=== PATIENT | male | born 1940 | race Caucasian/White ===

== ENCOUNTER 2020-07-23 16:54 | Inpatient (IN) | payer MEDICARE, OTHER, SELFPAY ==
[2020-07-23] VITALS (26 sets, daily range): BP systolic 99–174; BP diastolic 62–103; PULSE 79–120; RESP 12–30; TEMP 35.6–37.4; O2SAT 86–100; BMI 30.4; BMI 30.6
--- NOTE | 2020-07-23 17:06 | EKG12_ITS ---
Test Reason : Blood Pressure : / mmHG Vent. Rate : 117 BPM Atrial Rate : 117 BPM P-R Int : 152 ms QRS Dur : 146 ms QT Int : 370 ms P-R-T Axes : 036 -43 120 degrees QTc Int : 516 ms Sinus tachycardia with occasional Premature ventricular complexes Left axis deviation Left bundle branch block Abnormal ECG Confirmed by JUANA CABRAL, MARIIA ([id number]), advertising editor MIKE FUNES ([id number]) on 07/25/2020 1:15:24 PM Referred By: DEE Confirmed By:MARIIA ARIAS MD
--- NOTE | 2020-07-23 17:08 | EDS_ITS ---
HPI History of Present Illness Chief Complaint: Shortness of Breath Narrative Narrative: 80-year-old male presenting with shortness of breath, hypoxia, tachycardia. He denies any chest pain. He states that the onset of his shortness of breath started about 11 AM. It has been progressive. He denies any pain anywhere. He is not had a fever or chills. He has had his COVID-19 vaccines and has not been exposed to anybody that has Covid that he knows of. Patient has history of peripheral artery disease, hypertension, hypothyroidism, diabetes, hyperlipidemia. [facility] Medical History (Updated 07/23/20 @ 18:[address] Elise Hairston MD) Benign neoplasm of colon Diabetes HTN (hypertension) Hypothyroidism Mixed hyperlipidemia PAD (peripheral artery disease) Synovial cyst of popliteal space [Andre], left knee Home Medications insulin detemir U-100 32 units SC QHS 10/24/16 [History Last Taken Unknown] levothyroxine 137 mcg PO DAILY 10/24/16 [History Last Taken Unknown] lisinopril 80 mg PO DAILY 10/24/16 [History Last Taken Unknown] metformin 850 mg PO TIDCM 10/24/16 [History Last Taken Unknown] metoprolol tartrate 50 mg PO BID 10/24/16 [History Last Taken Unknown] simvastatin 20 mg PO DAILY 10/24/16 [History Last Taken Unknown] aspirin 325 mg tablet,delayed release 325 mg PO QDAY 05/29/17 [History Last Taken Unknown] multivitamin 1 tab PO QDAY 05/29/17 [History Last Taken Unknown] ferrous sulfate 325 mg PO DAILY 07/23/20 [History Last Taken Unknown] indapamide 2.5 mg PO DAILY 07/23/20 [History Last Taken Unknown] nateglinide 120 mg PO TID 07/23/20 [History Last Taken Unknown] Allergy/AdvReac Type Severity Reaction Status Date / Time naproxen [From Naprosyn] Allergy Other Verified 05/29/17 12:42 venom-honey bee Allergy Anaphylaxis Verified 05/29/17 12:42 Family History (Updated 05/29/17 @ 12:41 by Lety Lechuga) Mother Diabetes Father Heart disease Surgical History S/P appendectomy S/P colonoscopy Social History (Updated 05/29/17 @ 16:[address] Hayden Glaser MD) Smoking Status: Former smoker ROS ROS ED Constitutional Constitutional ED: Denies chills, fever(s) or sweats Eyes Eyes: Denies blurry vision or change in vision ENT ENT ED: Denies ear pain, rhinorrhea or sore throat Cardiovascular Cardiovascular: Denies chest pain, palpitations or racing heartbeat Respiratory/Chest Respiratory/Chest: Reports dyspnea; Denies cough or sputum Gastrointestinal Gastrointestinal: Denies abdominal pain, constipation, diarrhea or vomiting Genitourinary Genitourinary ED: Denies dysuria, hematuria or urinary frequency Musculoskeletal Musculoskeletal: Denies arthralgias, myalgias or neck pain Integumentary Denies abscess, Abrasions or rash Neurologic Neurologic: Reports weakness; Denies headache(s) or paresthesias Psychiatric Psychiatric: Denies anxiety, depression, suicidal ideation or suicidal thoughts Endocrine Endocrinology: Denies polydipsia or polyuria EXAM Physical Exam Const Vital Signs: 07/23/20 16:56 07/23/20 17:00 07/23/20 17:03 Temperature 96.0 F L Temperature Source Temporal Pulse Rate 116 H 108 H 120 H Respiratory Rate 30 H 30 H 30 H Respiratory Effort Respiratory Depth Respiratory Pattern Tachypnea Blood Pressure 174/103 H Blood Pressure Mean 126 Pulse Ox 86 100 95 Oxygen Delivery Method Non-Rebreather Non-Rebreather Fraction of Inspired Oxygen (FIO2) 100 100 100 07/23/20 17:04 07/23/20 17:13 07/23/20 17:17 Temperature 96.0 F L Temperature Source Temporal Pulse Rate 107 H Respiratory Rate 29 H Respiratory Effort Short of Breath Labored Accessory Muscle Use Respiratory Depth Deep Respiratory Pattern Tachypnea Blood Pressure 146/87 H Blood Pressure Mean 106 Pulse Ox 95 99 Oxygen Delivery Method Bi-pap Bi-pap Bi-pap Fraction of Inspired Oxygen (FIO2) 100 100 100 07/23/20 17:22 07/23/20 17:45 07/23/20 17:51 Temperature 96.1 F L 96.5 F L 98.0 F Temperature Source Temporal Core Core Pulse Rate 105 H 98 Respiratory Rate 29 H 25 H Respiratory Effort Respiratory Depth Respiratory Pattern Blood Pressure 146/87 H 137/76 H Blood Pressure Mean 106 96 Pulse Ox 100 100 Oxygen Delivery Method Bi-pap Bi-pap Fraction of Inspired Oxygen (FIO2) 100 100 07/23/20 18:30 07/23/20 18:32 07/23/20 18:33 Temperature 98.9 F 98.9 F 98.9 F Temperature Source Core Core Core Pulse Rate 101 H 97 97 Respiratory Rate 26 H 24 H 22 H Respiratory Effort Respiratory Depth Respiratory Pattern Blood Pressure 124/82 H 124/82 H 124/82 H Blood Pressure Mean 96 96 96 Pulse Ox 100 100 100 Oxygen Delivery Method Bi-pap Bi-pap Bi-pap Fraction of Inspired Oxygen (FIO2) 80 80 80 Positive obese General Appearance ED: other Hypoxic and tachypneic as well as tachycardic. Appears to be in respiratory distress. Nutritional Appearance: obese HEENT Reports moist mucous membranes atraumatic Eyes PERRL and EOMs intact bilaterally Neck no lymphadenopathy and supple Resp Effort and Inspection: Negative for pain with movement Auscultation: diminished lung sounds Cardio regular rate and regular rhythm GI Inspection: other Other Details: Distended abdomen Palpation: Negative for tender or guarding Extremity normal to inspection General Extremety ED: Negative for edema or tenderness General Extremity: Negative for edema Neuro oriented x3 Sensorium / Orientation: alert Skin Lesions: no lesions Rashes: no rashes MDM MDM MDM Narrative Medical decision making narrative: Patient seen and evaluated on arrival and appear to be in respiratory distress. Respiratory therapy was called and patient was placed on BiPAP. He feels like he is improving on BiPAP and he is mentating well. Patient had EKG which did have a lot of artifact however there does not appear to be any acute ST elevations or depressions and appears to be a sinus rhythm as interpreted by myself. Patient reevaluated multiple times and continues to improve on BiPAP. He states that the shortness of breath just started while he was driving today. He and his state that at sometime in the past few years he had had an echocardiogram which showed some kind of valve problem. He states that he has not been treated for anything cardiac in nature and does not have a safety aide. Patient's blood work shows a white blood cell count of 16,000, hemoglobin 14.8, hematocrit 45.0, platelets 393. INR is 1.0 PT 12.9 PTT 25.8. D-dimer is elevated at 2.59. Patient's creatinine is elevated over previously 1.59. GFR slightly decreased. Glucose 228 without anion gap. AST shows slight elevation however elevated LFTs are normal. Troponin is 10.100 TSH 2.48. BNP is over 500. UTI consistent with urinary tract infection. Patient was discussed with Dr. Irizarry who recommended twice daily weight based Lovenox, 40 mg of Lasix, and to start Coreg 3.125 twice daily in the hospital. Current plan is for cardiac catheterization. Secondary EKG performed shows sinus rhythm with sinus arrhythmia and left bundle branch block there with ST depressions in V5, V6, lead II T wave inversions in leads I and aVL. There is no ST elevation. This EKG is also reviewed with Dr. Irizarry. Patient is not having any chest pain on reevaluation. It was noted that the patient had hematuria and he states that he has this from time to time. Chest x-ray as interpreted by myself shows concerning signs for pneumonia and right upper lobe consolidation as well as bilateral infiltrate. Radiology does agree. Rapid Covid is negative and patient has been vaccinated. Given patient's elevated D- dimer he did have CT of the chest which does not identify PEs or dissection but does note bilateral pleural effusions and groundglass opacities as well as right upper lobe infiltrate. BNP is elevated over 500 and the patient is normotensive with improved heart rate. For this reason patient was not given more IV fluids. Patient started on Rocephin and azithromycin in the ED for treatment of pneumonia as well as UTI. Patient was then discussed with the hospitalist who did agree not to give more IV fluids given the pleural effusions and elevated BNP. She will get these as needed. Patient will be admitted to the ICU. He is transported in stabilized condition. Impression: 1. Hypoxic respiratory failure 2. NSTEMI 3. UTI 4. Severe sepsis 5. Hematuria . Lab Data Attestation: I reviewed the patient's lab results. Labs: Laboratory Results - last 24 hr 07/23/20 07/23/20 07/23/20 17:05 17:05 17:05 WBC 16.0 H RBC 4.31 L Hgb 14.8 Hct 45.0 MCV 104.4 H MCH 34.3 H MCHC 32.9 RDW Std Deviation 49.0 H RDW Coeff of Chip 12.7 Plt Count 393 MPV 9.1 Immature Gran % (Auto) 0.500 Neut % (Auto) 79.3 H Lymph % (Auto) 14.3 L [place] % (Auto) 5.6 Eos % (Auto) 0.1 Baso % (Auto) 0.2 Absolute Neuts (auto) 12.7 H Absolute Lymphs (auto) 2.29 Nucleated RBC % 0 PT 12.9 INR 1.0 APTT 25.8 D-Dimer Quant (PE/DVT) 2.59 H* Sodium 138 Potassium 4.4 Chloride 101 Carbon Dioxide 27.0 Anion Gap 10 BUN 22 H Creatinine 1.59 H Estim Creat Clear Calc 40.12 Est GFR (MDRD) Af Amer 54 L Est GFR (MDRD) Non-Af 45 L BUN/Creatinine Ratio 13.8 Glucose 228 H Lactic Acid Calcium 9.1 Total Bilirubin 0.40 AST 79 H ALT 28 Alkaline Phosphatase 82 Troponin I 10.100 H* B-Natriuretic Peptide Total Protein 7.6 Albumin 3.8 Globulin 3.8 Albumin/Globulin Ratio 1.0 TSH 2.48 Urine Color Urine Clarity Urine pH Ur Specific [place] Urine Protein Urine Glucose (UA) Urine Ketones Urine Occult Blood Urine Nitrite Urine Bilirubin Urine Urobilinogen Ur Leukocyte Esterase Urine RBC Urine WBC Ur Squamous Epith Cells Urine Bacteria Urine Mucus 07/23/20 07/23/20 07/23/20 17:05 17:05 17:45 WBC RBC Hgb Hct MCV MCH MCHC RDW Std Deviation RDW Coeff of Chip Plt Count MPV Immature Gran % (Auto) Neut % (Auto) Lymph % (Auto) [place] % (Auto) Eos % (Auto) Baso % (Auto) Absolute Neuts (auto) Absolute Lymphs (auto) Nucleated RBC % PT INR APTT D-Dimer Quant (PE/DVT) Sodium Potassium Chloride Carbon Dioxide Anion Gap BUN Creatinine Estim Creat Clear Calc Est GFR (MDRD) Af Amer Est GFR (MDRD) Non-Af BUN/Creatinine Ratio Glucose Lactic Acid 5.5 H* Calcium Total Bilirubin AST ALT Alkaline Phosphatase Troponin I B-Natriuretic Peptide 506.4 H Total Protein Albumin Globulin Albumin/Globulin Ratio TSH Urine Color Valerie Urine Clarity Cloudy Urine pH 5.0 Ur Specific [place] 1.025 Urine Protein 100 H Urine Glucose (UA) Normal Urine Ketones 5 H Urine Occult Blood 250 H Urine Nitrite Positive H Urine Bilirubin Negative Urine Urobilinogen 1 H Ur Leukocyte Esterase 100 H Urine RBC > 100 SEEN Urine WBC 0-5 SEEN Ur Squamous Epith Cells 0-5 SEEN Urine Bacteria 1+ Urine Mucus 0 SEEN Radiography Diagnostic Testing: Radiology Impression Chest X-Ray 07/23/20 17:26 IMPRESSION: Extensive bilateral airspace disease with right upper lobe consolidation. Findings suspicious for pneumonia including atypical or viral pneumonias. Recommend follow-up to complete resolution. at 1805 Reported and signed by: Kofi Dee MD Electronically Signed: Kofi Dee MD at 18:04 EDT Tel , Service support , Chest CTA 07/23/20 17:44 IMPRESSION: Negative CTA Chest. Extensive bilateral airspace disease pleural effusions and right upper lobe consolidation. Findings consistent with infection. Atypical and viral infection should be considered. Individualized dose optimization techniques were used for this CT. at 1855 Reported and signed by: Kofi Dee MD Electronically Signed: Kofi Dee MD at 18:54 EDT Tel , Service support , Critical Care Time Critical care time (excluding procedures): 75-104 minutes, Discussing w/Patient &/or Family/Manager Performance, Discussing w/Consultants, Arranging Admission or Transfer and Performing Direct Patient Care at Bedside Discharge Plan Disposition Disposition: Acute Care Hospital [facility] Discharge Date/Time: 07/23/20 18:58
--- NOTE | 2020-07-23 17:09 | NURSING ---
NO OLD EKG
--- NOTE | 2020-07-23 17:25 | EKG12_ITS ---
Test Reason : Blood Pressure : / mmHG Vent. Rate : 096 BPM Atrial Rate : 096 BPM P-R Int : 176 ms QRS Dur : 132 ms QT Int : 370 ms P-R-T Axes : 039 -47 137 degrees QTc Int : 467 ms Normal sinus rhythm with sinus arrhythmia Left axis deviation Left bundle branch block Abnormal ECG Confirmed by JUANA CABRAL, MARIIA ([id number]), production editor MIKE FUNES ([id number]) on 07/25/2020 1:15:39 PM Referred By: DEE Confirmed By:MARIIA ARIAS MD
[2020-07-23 17:26] LABS: Absolute Lymphocyte Count 2.29 X10^3/uL (0.83-4.51); Absolute Neutrophil Count 12.7 X10^3/uL (2.0-7.7); Basophil# 0.03 X10^3/uL; Basophil% 0.2 % (0-1); Eosinophil# 0.01 X10^3/uL; Eosinophils% 0.1 % (0-5); Hemoglobin 14.8 g/dL (13.0-16.5); Lymphocyte # 2.29 X10^3/ul (0.83-4.51); Lymphocyte % 14.3 % (19-41); Mean Corp Hgb Conc 32.9 g/dL (32-36); Mean Corpuscular Hgb 34.3 pg (27.0-32.0); Mean Corpuscular Volume 104.4 fL (80-94); Mean Platelet Vol. 9.1 fl (6.2-12.0); Monocyte# 0.89 X10^3/uL; Monocyte% 5.6 % (0-10); NRBC Flagged by Analyzer 0 % (0-5); Neutrophil # 12.67 X10^3/uL (2.7-7.7); Neutrophil % 79.3 % (47-70); Platelet Count 393 K/mm3 (150-450); RBC Distribution Width CV 12.7 % (11.6-14.6); Red Blood Count 4.31 M/mm3 (4.6-6.2)
--- NOTE | 2020-07-23 17:26 | RAD_ITS ---
HISTORY: shortness of breath EXAMINATION/TECHNIQUE: XR Chest 1 View: Portable upright AP chest x-ray COMPARISON: None FINDINGS: LINES/DEVICES: None. LUNGS: Extensive bilateral airspace opacities with right upper lung field consolidation. No definite pleural effusion. MEDIASTINUM AND CARDIOVASCULAR STRUCTURES: Cardiac silhouette not enlarged. Central airways and mediastinal contour are unremarkable. BONES AND SOFT TISSUES: No acute bony abnormalities. RAD/Chest 1 View (Portable) IMPRESSION: Extensive bilateral airspace disease with right upper lobe consolidation. Findings suspicious for pneumonia including atypical or viral pneumonias. Recommend follow-up to complete resolution. at 1805 Reported and signed by: Kofi Dee MD Electronically Signed: Kofi Dee MD at 18:04 EDT Tel , Service support ,
[2020-07-23 17:38] LABS: Partial Thromboplast Time 25.8 Seconds (24.1-36.2); Prothrombin Time (Protime)PT. 12.9 SECONDS (11.7-14.9)
[2020-07-23 17:44] LABS: D-Dimer Quantitative (DVT/PE) 2.59 FEU/ug/m (0.27-0.49)
--- NOTE | 2020-07-23 17:44 | CT_ITS ---
HISTORY: dyspnea EXAMINATION: CTA Chest WO/W Contrast Injection TECHNIQUE: Helically acquired images were obtained of the chest following IV contrast as per pulmonary angiogram protocol with 3D reconstructions. A radiation dose optimization technique was used for this scan. IV Contrast dosage and agent: 100mL [id number] COMPARISON: None FINDINGS: LUNGS, PLEURA AND LARGE AIRWAYS: Bilateral pleural effusions with extensive bilateral groundglass opacities and focal consolidations with large consolidation right upper lobe. THYROID: No thyroid lesions. PULMONARY ARTERIES: Normal in caliber. No pulmonary embolism. AORTA AND GREAT VESSELS: No aneurysm or dissection. HEART AND PERICARDIUM: Heart size is normal. No pericardial effusion. MEDIASTINUM AND ANISA: No mediastinal or hilar adenopathy. Esophagus is unremarkable. No hiatal hernia. UPPER ABDOMEN: No acute pathology. BONES: No acute or aggressive abnormality. CT/CTA Chest W/WO Contrast IMPRESSION: Negative CTA Chest. Extensive bilateral airspace disease pleural effusions and right upper lobe consolidation. Findings consistent with infection. Atypical and viral infection should be considered. Individualized dose optimization techniques were used for this CT. at 1855 Reported and signed by: Kofi Dee MD Electronically Signed: Kofi Dee MD at 18:54 EDT Tel , Service support ,
--- NOTE | 2020-07-23 17:44 | NURSING ---
dr aware d dimer 2.59
[2020-07-23 17:46] LABS: Mucous, Urine 0 SEEN /hpf (<or=2+)
[2020-07-23 17:52] LABS: Color, Urine Amber (Yellow); Glucose, Dipstick Normal (Normal); Ketone-Dipstick 5 mg/dl (Negative); Leukocyte Esterase-Dipstick 100 /ul (Negative); Nitrite-Dipstick Positive (Negative); Occult Blood-Urine 250 /ul (Negative); Protein-Dipstick 100 mg/dl (Negative); Specific Gravity, Urine 1.025 (1.002-1.030); Urine Bilirubin Dipstick Negative (Negative); Urine Clarity Cloudy (Clear); Urine Urobilinogen 1 mg/dl (Normal)
[2020-07-23 17:55] LABS: AST(SGOT) 79 U/L (15-37); Alanine Aminotransfer ALT/SGPT 28 U/L (16-61); Albumin, Serum 3.8 g/dL (3.2-5.0); Alkaline Phosphatase 82 U/L (45-117); Anion Gap 10 (5-15); BUN 22 mg/dL (7-18); BUN/Creat Ratio 13.8 RATIO (10-20); Calcium,Total 9.1 mg/dL (8.5-10.1); Chloride 101 mmol/L (98-107); Creatinine, Serum 1.59 mg/dL (0.70-1.30); EST Glomerular Filtration Rate 45 mL/min (>60); Est Glom Filt Rate - Afr Amer 54 mL/min (>60); Estimated Creatinine Clearance 40.12 ml/min; Globulin 3.8 g/dL (2.2-4.2); Glucose 228 mg/dL (74-106); Potassium 4.4 mmol/L (3.5-5.1); Protein, Total 7.6 g/dL (6.4-8.2); Sodium Level 138 mmol/L (136-145); Thyroid Stim Hormone (TSH) 2.48 uIU/mL (0.358-3.74)
[2020-07-23 17:59] LABS: Red Blood Cells-Urine > 100 SEEN /hpf (0-5); Squamous Epithelial Cells - UA 0-5 SEEN /hpf (0-5)
[2020-07-23 18:00] LABS: Bacteria 1+ /hpf (None Seen); White Blood Cells 0-5 SEEN /hpf (0-5)
[2020-07-23 18:05] LABS: Lactic Acid 5.5 mmol/L (0.4-1.9)
[2020-07-23 18:06] LABS: BNP,B-Type NATRIURETIC PEPTIDE 506.4 pg/mL (0-100)
[2020-07-23] MEDS: Aspirin 81 MG TAB.CHEW 324 MG PO (18:22)
[2020-07-23] MEDS: Furosemide 40 MG/4 ML Vial IV (18:25)
[2020-07-23] MEDS: Enoxaparin 100 MG/ML Syringe SC (18:25)
--- NOTE | 2020-07-23 18:27 | HP.PCM.HOS_ITS ---
HPI - General HPI Narrative ANTONIETA OSMAN, is a 80 M with an extensive PMH as outlined who presents with a complaint of shortness of breath. Shortness of breath had progressively been getting worse. Symptoms started at ~ 11am in the morning; he denied any associated fever, chills, cough, chest pain, nausea or vomiting. HE denies any chest pain. He was initially on oxygen by nasal canula, but he wasnt doing well, so he was trnasitioned to BIPAP. EKG showed T wave inversions in V4-5, as well as the lateral leads and a left bundle branch block. CXR showed extensive bilateral airspace disease. COVID test was negative. CBC showed wbc of 16K, with Hb of 13.8, and platelets of 393. Troponin was 10, and lactic acid was 5.5. D dimer was 2.59, and Cr was 1.59 and lactic acid of 5.5. UA was also positive for UTI with positive nitrites. BNP was 506.4. He is being admitted to be managed for nonstemi, UTI, septic shock per lactic acid criteria, and acute hypoxic respiratory failure due to nonstemi and heart failure. [facility] Medical History (Updated 07/23/20 @ 18:[address] Elise Hairston MD) Benign neoplasm of colon Diabetes HTN (hypertension) Hypothyroidism Mixed hyperlipidemia PAD (peripheral artery disease) Synovial cyst of popliteal space [Andre], left knee Home Medications insulin detemir U-100 32 units SC QHS 10/24/16 [History Last Taken Unknown] levothyroxine 137 mcg PO DAILY 10/24/16 [History Last Taken Unknown] lisinopril 80 mg PO DAILY 10/24/16 [History Last Taken Unknown] metformin 850 mg PO TIDCM 10/24/16 [History Last Taken Unknown] metoprolol tartrate 50 mg PO BID 10/24/16 [History Last Taken Unknown] simvastatin 20 mg PO DAILY 10/24/16 [History Last Taken Unknown] aspirin 325 mg tablet,delayed release 325 mg PO QDAY 05/29/17 [History Last Taken Unknown] multivitamin 1 tab PO QDAY 05/29/17 [History Last Taken Unknown] ferrous sulfate 325 mg PO DAILY 07/23/20 [History Last Taken Unknown] indapamide 2.5 mg PO DAILY 07/23/20 [History Last Taken Unknown] nateglinide 120 mg PO TID 07/23/20 [History Last Taken Unknown] Allergy/AdvReac Type Severity Reaction Status Date / Time naproxen [From Naprosyn] Allergy Other Verified 05/29/17 12:42 venom-honey bee Allergy Anaphylaxis Verified 05/29/17 12:42 Family History (Updated 05/29/17 @ 12:41 by Lety Lechuga) Mother Diabetes Father Heart disease Surgical History S/P appendectomy S/P colonoscopy Social History (Updated 05/29/17 @ 16:[address] Hayden Glaser MD) Smoking Status: Former smoker ROS Constitutional Constitutional: Denies anorexia, chills, fatigue, fever(s), malaise, night sweats or weakness Eyes Eyes: Denies double vision ENT HEENT: Denies abnormal hearing, dysphagia, headache(s) or sore throat Cardiovascular Cardiovascular: Reports dyspnea on exertion, palpitations and rapid heart rate; Denies chest pain, orthopnea, paroxysmal nocturnal dyspnea or syncope Respiratory/Chest Respiratory/Chest: Reports dyspnea, shortness of breath at rest and shortness of breath with exertion; Denies cough, hemoptysis or productive cough Gastrointestinal Gastrointestinal: Reports nausea and vomiting; Denies abdominal pain, coffee ground emesis, dyspepsia, hematemesis or loose stools Genitourinary Genitourinary: Reports difficulty urinating and hematuria; Denies burning urination Musculoskeletal Musculoskeletal: Denies arthralgias Neurologic Neurologic: Denies abnormal gait, dizziness, focal weakness, numbness, paresthesias or seizure-like activity Psychiatric Psychiatric: Denies anxiety, depression or suicidal ideation Endocrine Endocrinology: Denies change in body appearance or cold intolerance Hematologic/Lymphatic Hematologic/Lymphatic: Reports anemia Vital Signs Vital Signs Vital Signs: 07/23/20 16:56 07/23/20 17:00 07/23/20 17:03 Temperature 96.0 F L Temperature Source Temporal Pulse Rate 116 H 108 H 120 H Respiratory Rate 30 H 30 H 30 H Respiratory Effort Respiratory Depth Respiratory Pattern Tachypnea Blood Pressure 174/103 H Blood Pressure Mean 126 Pulse Ox 86 100 95 Oxygen Delivery Method Non-Rebreather Non-Rebreather Fraction of Inspired Oxygen (FIO2) 100 100 100 07/23/20 17:04 07/23/20 17:13 07/23/20 17:17 Temperature 96.0 F L Temperature Source Temporal Pulse Rate 107 H Respiratory Rate 29 H Respiratory Effort Short of Breath Labored Accessory Muscle Use Respiratory Depth Deep Respiratory Pattern Tachypnea Blood Pressure 146/87 H Blood Pressure Mean 106 Pulse Ox 95 99 Oxygen Delivery Method Bi-pap Bi-pap Bi-pap Fraction of Inspired Oxygen (FIO2) 100 100 100 07/23/20 17:22 07/23/20 17:45 07/23/20 17:51 Temperature 96.1 F L 96.5 F L 98.0 F Temperature Source Temporal Core Core Pulse Rate 105 H 98 Respiratory Rate 29 H 25 H Respiratory Effort Respiratory Depth Respiratory Pattern Blood Pressure 146/87 H 137/76 H Blood Pressure Mean 106 96 Pulse Ox 100 100 Oxygen Delivery Method Bi-pap Bi-pap Fraction of Inspired Oxygen (FIO2) 100 100 Physical Exam Const alert General Appearance: cooperative HEENT normocephalic, head/scalp atraumatic, hearing grossly normal bilaterally and moist oral mucous membranes Eyes PERRL and EOMs intact bilaterally Neck no lymphadenopathy and supple Resp Resp Narrative: diminished breath sounds bibasally, mild crackles bilaterally. No wheezes. on BIPAP Cardio regular rate, regular rhythm, S1 normal heart sound, S2 normal heart sound and no murmurs GI normal to inspection, nondistended, normoactive bowel sounds, soft to palpation, non-tender and non-distended Extremity normal to inspection, full ROM and no clubbing, cyanosis or edema Skin no rashes or lesions noted Neuro oriented x3 and moves all extremities Sensorium / Orientation: awake Psych affect normal Lab / Micro Data Result Diagrams: 07/23/20 17:05 07/23/20 17:05 Labs: Laboratory Results - last 24 hr 07/23/20 07/23/20 07/23/20 17:05 17:05 17:05 WBC 16.0 H RBC 4.31 L Hgb 14.8 Hct 45.0 MCV 104.4 H MCH 34.3 H MCHC 32.9 RDW Std Deviation 49.0 H RDW Coeff of Chip 12.7 Plt Count 393 MPV 9.1 Immature Gran % (Auto) 0.500 Neut % (Auto) 79.3 H Lymph % (Auto) 14.3 L Story % (Auto) 5.6 Eos % (Auto) 0.1 Baso % (Auto) 0.2 Absolute Neuts (auto) 12.7 H Absolute Lymphs (auto) 2.29 Nucleated RBC % 0 PT 12.9 INR 1.0 APTT 25.8 D-Dimer Quant (PE/DVT) 2.59 H* Sodium 138 Potassium 4.4 Chloride 101 Carbon Dioxide 27.0 Anion Gap 10 BUN 22 H Creatinine 1.59 H Estim Creat Clear Calc 40.12 Est GFR (MDRD) Af Amer 54 L Est GFR (MDRD) Non-Af 45 L BUN/Creatinine Ratio 13.8 Glucose 228 H Lactic Acid Calcium 9.1 Total Bilirubin 0.40 AST 79 H ALT 28 Alkaline Phosphatase 82 Troponin I 10.100 H* B-Natriuretic Peptide Total Protein 7.6 Albumin 3.8 Globulin 3.8 Albumin/Globulin Ratio 1.0 TSH 2.48 Urine Color Urine Clarity Urine pH Ur Specific [place] Urine Protein Urine Glucose (UA) Urine Ketones Urine Occult Blood Urine Nitrite Urine Bilirubin Urine Urobilinogen Ur Leukocyte Esterase Urine RBC Urine WBC Ur Squamous Epith Cells Urine Bacteria Urine Mucus 07/23/20 07/23/20 07/23/20 17:05 17:05 17:45 WBC RBC Hgb Hct MCV MCH MCHC RDW Std Deviation RDW Coeff of Chip Plt Count MPV Immature Gran % (Auto) Neut % (Auto) Lymph % (Auto) Story % (Auto) Eos % (Auto) Baso % (Auto) Absolute Neuts (auto) Absolute Lymphs (auto) Nucleated RBC % PT INR APTT D-Dimer Quant (PE/DVT) Sodium Potassium Chloride Carbon Dioxide Anion Gap BUN Creatinine Estim Creat Clear Calc Est GFR (MDRD) Af Amer Est GFR (MDRD) Non-Af BUN/Creatinine Ratio Glucose Lactic Acid 5.5 H* Calcium Total Bilirubin AST ALT Alkaline Phosphatase Troponin I B-Natriuretic Peptide 506.4 H Total Protein Albumin Globulin Albumin/Globulin Ratio TSH Urine Color Valerie Urine Clarity Cloudy Urine pH 5.0 Ur Specific [place] 1.025 Urine Protein 100 H Urine Glucose (UA) Normal Urine Ketones 5 H Urine Occult Blood 250 H Urine Nitrite Positive H Urine Bilirubin Negative Urine Urobilinogen 1 H Ur Leukocyte Esterase 100 H Urine RBC > 100 SEEN Urine WBC 0-5 SEEN Ur Squamous Epith Cells 0-5 SEEN Urine Bacteria 1+ Urine Mucus 0 SEEN Micro: Microbiology 07/23/20 17:15 SARS-CoV-2 Antigen (Rapid) - Final Nasal Secretion Radiology Impression Chest X-Ray 07/23/20 17:26 IMPRESSION: Extensive bilateral airspace disease with right upper lobe consolidation. Findings suspicious for pneumonia including atypical or viral pneumonias. Recommend follow-up to complete resolution. at 1805 Reported and signed by: Kofi Dee MD Electronically Signed: Kofi Dee MD at 18:04 EDT Tel , Service support , Assessment & Plan Assessment/Plan (1) Acute respiratory failure with hypoxia: (2) Pneumonia: (3) Septic shock: (4) NSTEMI, initial episode of care: (5) Lactic acidosis: (6) UTI (urinary tract infection): (7) Hematuria: PLAN: #Acute hypoxic respiratory failure due to non-STEMI and heart failure as well as pneumonia * Admit to ICU. Patient currently on BiPAP. * Chest x-ray showed evidence of bilateral pneumonia and troponin was elevated at 10. CTA is pending. * BNP elevated at over 500. * Start on IV vancomycin and Zosyn. Get blood cultures and urine cultures as well as urine for strep and Legionella * Will hold off on hydrating with IV fluids on account of non-STEMI and heart failure. * Monitor blood pressure and if it drops, will start vasopressors as needed. * Breathing treatments with bronchodilators. * Therapeutic Lovenox on account of non-STEMI * Diuresed with IV Lasix 40 mg twice daily for heart failure * Titrate oxygen to maintain saturation above 90% * Consult critical care and consult cardiology * #Non-STEMI: As above. 2D echo. Rest of management as above #Septic shock due to pneumonia and UTI * This is by lactic acid criteria as lactic acid is 4.5. However I think the lactic acidosis is likely due to patient's hypoxia and unnecessarily from septic shock * On IV ceftriaxone and azithromycin as above. * Blood cultures and urine cultures obtained. trend lactic acid * * #Community-acquired pneumonia: * As above under respiratory failure. * Patient has received both Covid doses. On vancomycin and Zosyn labs above. * #UTI: Started on broad-spectrum antimicrobials as above #Hematuria * Patient complains of a few episodes of blood in his urine. He last saw blood in his urine a few days ago. * He denies any prostate problems. This may be due to UTI but cannot rule out prostate causes check TSH. * Currently on Lovenox. Will monitor for worsening hematuria and DC if needed. * #. Hypothyroidism: On Synthroid #Hypertension: On lisinopril and metoprolol. Hold blood pressure medications for now in light of septic shock respiratory failure #Type 2 diabetes mellitus: * Hold Metformin. * Patient currently n.p.o. on account of BiPAP. * Also hold home insulin. * Insulin sliding scale. Accuchecks ACHS. * * Hyperlipidemia: On statin. This will be held as patient is n.p.o. DVT prophylaxis: On therapeutic dose Lovenox GI prophylaxis: PPI COde status: full code * Patient and counseled about different between full code, DNR CCA and DNR CCA. Patient elects to be full code. Total [id number] time 17 minutes * Total critical care time 55 minutes. Visit Charges Inpatient E&M: 58498 Init Hosp L3 Procedures Hospitalists Procedures: 82722 Critial Care 1st Hr (advanced care planning discussion- [id number])
[2020-07-23] MEDS: Ceftriaxone 1 GM/50 ML BAG IV (18:49)
[2020-07-23] MEDS: Atorvastatin Calcium 40 MG Tablet PO (20:39)
[2020-07-23] MEDS: Clopidogrel Bisulfate 75 MG Tablet PO (20:39)
[2020-07-23] MEDS: Carvedilol 3.125 MG TABLET PO (20:47)
[2020-07-23 20:51] LABS: Reflex Lactate? Y
[2020-07-23 21:27] LABS: Lactic Acid 2.5 mmol/L (0.4-1.9)
--- NOTE | 2020-07-23 22:54 | PCM.RX.CS ---
Consult Pharmacy has been consulted to manage selected antiobiotic: Vancomycin Type of Consult: New start Labs: Sodium 138 mmol/L (136-145) 07/23/20 17:05 Potassium 4.4 mmol/L (3.5-5.1) 07/23/20 17:05 Chloride 101 mmol/L (98-107) 07/23/20 17:05 Carbon Dioxide 27.0 mmol/L (21.0-32.0) 07/23/20 17:05 Anion Gap 10 (5-15) 07/23/20 17:05 BUN 22 mg/dL (7-18) H 07/23/20 17:05 Creatinine 1.59 mg/dL (0.70-1.30) H 07/23/20 17:05 Est GFR (MDRD) Af Amer 54 mL/min (>60) L 07/23/20 17:05 Est GFR (MDRD) Non-Af 45 mL/min (>60) L 07/23/20 17:05 BUN/Creatinine Ratio 13.8 RATIO (10-20) 07/23/20 17:05 Glucose 228 mg/dL (74-106) H 07/23/20 17:05 Microbiology: Microbiology 07/23/20 17:41 Urine Catheter - Catheter Streptococcus pneumoniae Antigen (M - Final 07/23/20 17:41 Urine Catheter - Gayle Legionella Antigen - Final 07/23/20 17:15 Nasal Secretion SARS-CoV-2 Antigen (Rapid) - Final Weight used for dosin kg Estimated Creatinine Clearance: 39 Goal Trough: 15-20 mcg/mL Pharmacy Plan for Drug Dosinmg given x1, 1500mg IV q24h with trough prior to 3rd dose per policy. Pharmacy Service will continue to monitor and adjust dosing as required. Follow-Up Labs: Trough Vancomycin - 07/25 @ 2029
[2020-07-24] VITALS (19 sets, daily range): BP systolic 96–133; BP diastolic 56–72; PULSE 76–99; RESP 12–27; TEMP 36.9–37.7; O2SAT 20–100
[2020-07-24 00:26] LABS: Bedside Glucose 185 mg/dL (70-110)
[2020-07-24 00:54] LABS: Reflex Lactate? Y
[2020-07-24] MEDS: 0.9% Saline Lock 10 ML Syringe IV (01:06)
[2020-07-24 01:18] LABS: Lactic Acid 1.3 mmol/L (0.4-1.9)
[2020-07-24 05:27] LABS: Absolute Lymphocyte Count 1.49 X10^3/uL (0.83-4.51); Absolute Neutrophil Count 5.1 X10^3/uL (2.0-7.7); Basophil# 0.01 X10^3/uL; Basophil% 0.1 % (0-1); Eosinophil# 0.02 X10^3/uL; Eosinophils% 0.3 % (0-5); Hematocrit 34.2 % (40-54); Hemoglobin 11.5 g/dL (13.0-16.5); Lymphocyte # 1.49 X10^3/ul (0.83-4.51); Mean Corp Hgb Conc 33.6 g/dL (32-36); Mean Corpuscular Hgb 34.6 pg (27.0-32.0); Mean Platelet Vol. 8.8 fl (6.2-12.0); Monocyte# 0.85 X10^3/uL; Monocyte% 11.4 % (0-10); NRBC Flagged by Analyzer 0 % (0-5); Neutrophil # 5.06 X10^3/uL (2.7-7.7); Neutrophil % 68.1 % (47-70); Platelet Count 256 K/mm3 (150-450); RBC Distribution Width CV 12.7 % (11.6-14.6); RBC Distribution Width SD 47.8 fl (35.1-43.9); Red Blood Count 3.32 M/mm3 (4.6-6.2); White Blood Count 7.4 K/mm3 (4.4-11.0)
[2020-07-24 05:42] LABS: Anion Gap 6 (5-15); BUN 25 mg/dL (7-18); BUN/Creat Ratio 19.2 RATIO (10-20); Calcium,Total 8.6 mg/dL (8.5-10.1); Chloride 102 mmol/L (98-107); EST Glomerular Filtration Rate 57 mL/min (>60); Est Glom Filt Rate - Afr Amer 68 mL/min (>60); Estimated Creatinine Clearance 47.57 ml/min; Glucose 192 mg/dL (74-106); Magnesium 1.7 mg/dL (1.6-2.6); Potassium 3.8 mmol/L (3.5-5.1); Sodium Level 139 mmol/L (136-145)
--- NOTE | 2020-07-24 05:57 | EX.PCM.CONCC ---
Assessment & Plan Assessment/Plan (1) Acute respiratory failure with hypoxia: (2) NSTEMI, initial episode of care: (3) Lactic acidosis: (4) Pneumonia: PLAN: RECOMMENDATIONS: 1. Wean supplemental oxygen to maintain saturations at or above 90%. 2. Continue empiric antimicrobials, pending infectious work-up. 3. Trend troponins and await echocardiogram. 4. Cardiology consultation is pending. 5. Continue IV diuretic therapy as tolerated by hemodynamics and renal function. 6. Encourage incentive spirometer use and mobilize patient as tolerated. 7. Unless there are plans for cardiac intervention, the patient be transferred out of the medical intensive care unit. IMPRESSIONS: 1. Acute hypoxemic respiratory failure Likely multifactorial in etiology with NSTEMI/acute decompensated heart failure likely the main contributing factor along with possible right upper lobe pneumonia. Given that the patient has responded so avidly to IV diuretic therapy and BiPAP, this would certainly suggest the presence of pulmonary edema from CHF. The patient has been weaned to supplemental oxygen at 3 L/min. The patient's troponin has increased to 56 this morning. Cardiology has been consulted. Echocardiogram is pending. I agree with continuing antimicrobials for now, pending infectious work-up. Continue IV diuretic therapy as tolerated by hemodynamics and renal function. Continue to wean supplemental oxygen to maintain saturations at or above 90%. Encourage incentive spirometer use and mobilize patient as tolerated. 2. Septic shock (by lactate criteria) The patient does have what appears to be a right upper lobe consolidation concerning for pneumonia. Although the patient did have a significantly elevated lactate, I do suspect this was more likely due to his presenting hypoxemia, as the patient was never hemodynamically unstable. Regardless, the patient will be continued on antimicrobials, pending infectious work-up. 3. Non-ST segment elevation [place]/decompensated heart failure The patient's troponin has continued to climb to 56 this morning. He denies any chest pain. Echocardiogram is pending. Cardiology has been consulted. Will defer additional work-up to cardiology recommendations. 4. History of diabetes mellitus/hypertension/hypothyroidism/hyperlipidemia Complicates care, management, recovery and prognosis. Continue home medications as indicated. This note was generated with [employer] software. It may contain incorrect words, spelling, and punctuation that were not noted in checking the note before signing. HPI Consult Data Date of Consult: 07/24/20 HPI Narrative Reason for Consultation: Acute hypoxemic respiratory failure HPI Narrative: The patient is a 80-year-old male, with a history as outlined below, who presented to the emergency department on July 23 with complaints of shortness of breath. The patient reported that his dyspnea initially began yesterday morning. It progressed over the course of the day. He denied any associated chest pain. He denies the presence of a cough, fevers or chills. The patient did previously smoke cigars and pipe tobacco, but quit completely in the . On presentation to the emergency department, the patient was noted to be afebrile but was tachycardic and tachypneic. He was initially requiring a nonrebreather due to hypoxemia. He was quickly transitioned to BiPAP therapy. Initial laboratory evaluation revealed a white blood cell count of 16,000. D-dimer was elevated to 2.59. Chemistry profile was notable for a creatinine of 1.59. Lactate was elevated at 5.5. Initial troponin was elevated to 10. BNP was elevated to 506. CTA chest demonstrated bilateral pleural effusions with extensive groundglass changes bilaterally and a consolidation in the right upper lobe. The patient was subsequently placed on antimicrobials and admitted to the medical intensive care unit for further management. Overnight, the patient was transitioned to Zosyn and vancomycin. He was maintained on twice daily scheduled IV Lasix. As of this morning, the patient was able to be weaned from continuous BiPAP and is currently maintaining appropriate oxygen saturations on 4 L/min. [facility] Medical History Benign neoplasm of colon Diabetes HTN (hypertension) Hypothyroidism Mixed hyperlipidemia PAD (peripheral artery disease) Synovial cyst of popliteal space [Andre], left knee Home Medications insulin detemir U-100 32 units SC QHS 10/24/16 [History Last Taken Unknown] levothyroxine 137 mcg PO DAILY 10/24/16 [History Last Taken Unknown] lisinopril 80 mg PO DAILY 10/24/16 [History Last Taken Unknown] metformin 850 mg PO TIDCM 10/24/16 [History Last Taken Unknown] metoprolol tartrate 50 mg PO BID 10/24/16 [History Last Taken Unknown] simvastatin 20 mg PO DAILY 10/24/16 [History Last Taken Unknown] aspirin 325 mg tablet,delayed release 325 mg PO QDAY 05/29/17 [History Last Taken Unknown] multivitamin 1 tab PO QDAY 05/29/17 [History Last Taken Unknown] ferrous sulfate 325 mg PO DAILY 07/23/20 [History Last Taken Unknown] indapamide 2.5 mg PO DAILY 07/23/20 [History Last Taken Unknown] nateglinide 120 mg PO TID 07/23/20 [History Last Taken Unknown] Allergy/AdvReac Type Severity Reaction Status Date / Time naproxen [From Naprosyn] Allergy Other Verified 05/29/17 12:42 venom-honey bee Allergy Anaphylaxis Verified 05/29/17 12:42 Family History Mother Diabetes Father Heart disease Surgical History S/P appendectomy S/P colonoscopy Social History Smoking Status: Former smoker ROS Constitutional Constitutional: Denies chills, fatigue, fever(s) or headache(s) Eyes Eyes: Denies blurry vision or change in vision ENT HEENT: Denies dizziness, dysphagia or headache(s) Cardiovascular Cardiovascular: Reports dyspnea; Denies chest pain or dizziness Respiratory/Chest Respiratory/Chest: Reports dyspnea; Denies chest tightness or cough Gastrointestinal Gastrointestinal: Denies abdominal pain, diarrhea or dyspepsia Genitourinary Genitourinary: Denies difficulty urinating or dysuria Musculoskeletal Musculoskeletal: Denies arthralgias or back pain Integumentary Integumentary: Denies lesions Neurologic Neurologic: Denies abnormal gait, abnormal speech or confusion Psychiatric Psychiatric: Denies anxiety or depression Endocrine Endocrinology: Denies fatigue Hematologic/Lymphatic Hematologic/Lymphatic: Denies easy bleeding or easy bruising Physical Exam Const alert, oriented x3 and no apparent distress General Appearance: cooperative HEENT normocephalic, head/scalp atraumatic and moist oral mucous membranes Eyes PERRL and EOMs intact bilaterally Chest inspection of chest normal Resp normal respiratory effort and no use of accessory muscles Auscultation: Negative for rales, rhonchi or wheezes Cardio regular rate and regular rhythm Heart Sounds: murmur GI normal to inspection, nondistended, normoactive bowel sounds Extremity no clubbing, cyanosis or edema Skin no rashes or lesions noted Neuro oriented x3, CN's II-XII intact bilaterally, moves all extremities and no focal motor deficits Psych cooperative and affect normal Appearance: well kempt Lab / Micro Data Result Diagrams: 07/24/20 05:10 07/24/20 05:10 Labs: Laboratory Results - last 24 hr 07/23/20 07/23/20 07/23/20 17:05 17:05 17:05 WBC 16.0 H RBC 4.31 L Hgb 14.8 Hct 45.0 MCV 104.4 H MCH 34.3 H MCHC 32.9 RDW Std Deviation 49.0 H RDW Coeff of Chip 12.7 Plt Count 393 MPV 9.1 Immature Gran % (Auto) 0.500 Neut % (Auto) 79.3 H Lymph % (Auto) 14.3 L Dundy % (Auto) 5.6 Eos % (Auto) 0.1 Baso % (Auto) 0.2 Absolute Neuts (auto) 12.7 H Absolute Lymphs (auto) 2.29 Nucleated RBC % 0 PT 12.9 INR 1.0 APTT 25.8 D-Dimer Quant (PE/DVT) 2.59 H* Sodium 138 Potassium 4.4 Chloride 101 Carbon Dioxide 27.0 Anion Gap 10 BUN 22 H Creatinine 1.59 H Estim Creat Clear Calc 40.12 Est GFR (MDRD) Af Amer 54 L Est GFR (MDRD) Non-Af 45 L BUN/Creatinine Ratio 13.8 Glucose 228 H Lactic Acid Calcium 9.1 Magnesium Total Bilirubin 0.40 AST 79 H ALT 28 Alkaline Phosphatase 82 Troponin I 10.100 H* B-Natriuretic Peptide Total Protein 7.6 Albumin 3.8 Globulin 3.8 Albumin/Globulin Ratio 1.0 TSH 2.48 Urine Color Urine Clarity Urine pH Ur Specific [place] Urine Protein Urine Glucose (UA) Urine Ketones Urine Occult Blood Urine Nitrite Urine Bilirubin Urine Urobilinogen Ur Leukocyte Esterase Urine RBC Urine WBC Ur Squamous Epith Cells Urine Bacteria Urine Mucus POC Glucose 07/23/20 07/23/20 07/23/20 17:05 17:05 17:45 WBC RBC Hgb Hct MCV MCH MCHC RDW Std Deviation RDW Coeff of Chip Plt Count MPV Immature Gran % (Auto) Neut % (Auto) Lymph % (Auto) Dundy % (Auto) Eos % (Auto) Baso % (Auto) Absolute Neuts (auto) Absolute Lymphs (auto) Nucleated RBC % PT INR APTT D-Dimer Quant (PE/DVT) Sodium Potassium Chloride Carbon Dioxide Anion Gap BUN Creatinine Estim Creat Clear Calc Est GFR (MDRD) Af Amer Est GFR (MDRD) Non-Af BUN/Creatinine Ratio Glucose Lactic Acid 5.5 H* Calcium Magnesium Total Bilirubin AST ALT Alkaline Phosphatase Troponin I B-Natriuretic Peptide 506.4 H Total Protein Albumin Globulin Albumin/Globulin Ratio TSH Urine Color Valerie Urine Clarity Cloudy Urine pH 5.0 Ur Specific [place] 1.025 Urine Protein 100 H Urine Glucose (UA) Normal Urine Ketones 5 H Urine Occult Blood 250 H Urine Nitrite Positive H Urine Bilirubin Negative Urine Urobilinogen 1 H Ur Leukocyte Esterase 100 H Urine RBC > 100 SEEN Urine WBC 0-5 SEEN Ur Squamous Epith Cells 0-5 SEEN Urine Bacteria 1+ Urine Mucus 0 SEEN POC Glucose 07/23/20 07/23/20 07/24/20 20:15 20:15 00:15 WBC RBC Hgb Hct MCV MCH MCHC RDW Std Deviation RDW Coeff of Chip Plt Count MPV Immature Gran % (Auto) Neut % (Auto) Lymph % (Auto) Dundy % (Auto) Eos % (Auto) Baso % (Auto) Absolute Neuts (auto) Absolute Lymphs (auto) Nucleated RBC % PT INR APTT D-Dimer Quant (PE/DVT) Sodium Potassium Chloride Carbon Dioxide Anion Gap BUN Creatinine Estim Creat Clear Calc Est GFR (MDRD) Af Amer Est GFR (MDRD) Non-Af BUN/Creatinine Ratio Glucose Lactic Acid 2.5 H* Calcium Magnesium Total Bilirubin AST ALT Alkaline Phosphatase Troponin I 38.300 H* 56.000 H* B-Natriuretic Peptide Total Protein Albumin Globulin Albumin/Globulin Ratio TSH Urine Color Urine Clarity Urine pH Ur Specific [place] Urine Protein Urine Glucose (UA) Urine Ketones Urine Occult Blood Urine Nitrite Urine Bilirubin Urine Urobilinogen Ur Leukocyte Esterase Urine RBC Urine WBC Ur Squamous Epith Cells Urine Bacteria Urine Mucus POC Glucose 07/24/20 07/24/20 07/24/20 00:15 00:21 05:10 WBC 7.4 RBC 3.32 L Hgb 11.5 L Hct 34.2 L MCV 103.0 H MCH 34.6 H MCHC 33.6 RDW Std Deviation 47.8 H RDW Coeff of Chip 12.7 Plt Count 256 MPV 8.8 Immature Gran % (Auto) 0.100 Neut % (Auto) 68.1 Lymph % (Auto) 20.0 Dundy % (Auto) 11.4 H Eos % (Auto) 0.3 Baso % (Auto) 0.1 Absolute Neuts (auto) 5.1 Absolute Lymphs (auto) 1.49 Nucleated RBC % 0 PT INR APTT D-Dimer Quant (PE/DVT) Sodium Potassium Chloride Carbon Dioxide Anion Gap BUN Creatinine Estim Creat Clear Calc Est GFR (MDRD) Af Amer Est GFR (MDRD) Non-Af BUN/Creatinine Ratio Glucose Lactic Acid 1.3 Calcium Magnesium Total Bilirubin AST ALT Alkaline Phosphatase Troponin I B-Natriuretic Peptide Total Protein Albumin Globulin Albumin/Globulin Ratio TSH Urine Color Urine Clarity Urine pH Ur Specific [place] Urine Protein Urine Glucose (UA) Urine Ketones Urine Occult Blood Urine Nitrite Urine Bilirubin Urine Urobilinogen Ur Leukocyte Esterase Urine RBC Urine WBC Ur Squamous Epith Cells Urine Bacteria Urine Mucus POC Glucose 185 H 07/24/20 05:10 WBC RBC Hgb Hct MCV MCH MCHC RDW Std Deviation RDW Coeff of Chip Plt Count MPV Immature Gran % (Auto) Neut % (Auto) Lymph % (Auto) Dundy % (Auto) Eos % (Auto) Baso % (Auto) Absolute Neuts (auto) Absolute Lymphs (auto) Nucleated RBC % PT INR APTT D-Dimer Quant (PE/DVT) Sodium 139 Potassium 3.8 Chloride 102 Carbon Dioxide 31.0 Anion Gap 6 BUN 25 H Creatinine 1.30 Estim Creat Clear Calc 47.57 Est GFR (MDRD) Af Amer 68 Est GFR (MDRD) Non-Af 57 L BUN/Creatinine Ratio 19.2 Glucose 192 H Lactic Acid Calcium 8.6 Magnesium 1.7 Total Bilirubin AST ALT Alkaline Phosphatase Troponin I B-Natriuretic Peptide Total Protein Albumin Globulin Albumin/Globulin Ratio TSH Urine Color Urine Clarity Urine pH Ur Specific [place] Urine Protein Urine Glucose (UA) Urine Ketones Urine Occult Blood Urine Nitrite Urine Bilirubin Urine Urobilinogen Ur Leukocyte Esterase Urine RBC Urine WBC Ur Squamous Epith Cells Urine Bacteria Urine Mucus POC Glucose Micro: Microbiology 07/23/20 17:41 Streptococcus pneumoniae Antigen (M - Final Urine Catheter - Catheter 07/23/20 17:41 Legionella Antigen - Final Urine Catheter - Gayle 07/23/20 17:15 SARS-CoV-2 Antigen (Rapid) - Final Nasal Secretion Radiology Impression Chest X-Ray 07/23/20 17:26 IMPRESSION: Extensive bilateral airspace disease with right upper lobe consolidation. Findings suspicious for pneumonia including atypical or viral pneumonias. Recommend follow-up to complete resolution. at 1805 Reported and signed by: Kofi Dee MD Electronically Signed: Kofi Dee MD at 18:04 EDT Tel , Service support , Chest CTA 07/23/20 17:44 IMPRESSION: Negative CTA Chest. Extensive bilateral airspace disease pleural effusions and right upper lobe consolidation. Findings consistent with infection. Atypical and viral infection should be considered. Individualized dose optimization techniques were used for this CT. at 1855 Reported and signed by: Kofi Dee MD Electronically Signed: Kofi Dee MD at 18:54 EDT Tel , Service support , Charges/Coding Visit Charges Inpatient E&M: 34641 Init Hosp L3
[2020-07-24] MEDS: Aspirin 81 MG TAB.CHEW PO (08:03)
--- NOTE | 2020-07-24 09:24 | CON.PCM.CA_ITS ---
Assessment & Plan Assessment/Plan (1) NSTEMI, initial episode of care: PLAN: Patient presents to the emergency room with shortness of breath and is noted to have a markedly abnormal cardiac enzyme pattern. The above is consistent with an non-ST elevation myocardial infarction. * He appears to be stable at this time and will be started on aspirin * Continue Lovenox * Start low-dose beta-crystal and titrate up as appropriate * Was scheduled for cardiac catheterization in a.m. the above has been discussed with the patient and he understands and agrees to proceed (2) HTN (hypertension): PLAN: His blood pressure was elevated on arrival. We will continue the current dose of the beta-crystal. We will reduce the dose of the lisinopril to 40 mg a day DC indapamide Continue metoprolol (3) CHF (congestive heart failure): PLAN: He does have congestive heart failure which is likely systolic in origin Will obtain echocardiogram to assess ventricular function Depending on the findings further recommendations will be made Thank you for allowing me to participate in the care of your patient. Please don't hesitate to call if any issues arise. HPI Consult Data Date of Consult: 07/24/20 HPI Narrative Reason for Consultation: Shortness of breath HPI Narrative: ANTONIETA OSMAN, is a 80 M who presents to the emergency room yesterday with complaints of shortness of breath which began the day before. He denied any associated chest pain cough paroxysmal nocturnal dyspnea or pedal edema. He has not previously had any cardiac issues. In the emergency room he was noted to be tachycardic and tachypneic and had an elevated creatinine as well as D-dimer. His troponins were also elevated. His EKG demonstrated a left bundle branch block with ST depressions laterally. He underwent a CT of the chest which demonstrated bilateral pleural effusions and his troponins continued to be elevated. Cardiology was called for evaluation. This morning he appears to doing well with no chest pain and breathing much better. [facility] Medical History Benign neoplasm of colon Diabetes HTN (hypertension) Hypothyroidism Mixed hyperlipidemia PAD (peripheral artery disease) Synovial cyst of popliteal space [Andre], left knee Home Medications insulin detemir U-100 32 units SC QHS 10/24/16 [History Last Taken Unknown] levothyroxine 137 mcg PO DAILY 10/24/16 [History Last Taken Unknown] lisinopril 80 mg PO DAILY 10/24/16 [History Last Taken Unknown] metformin 850 mg PO TIDCM 10/24/16 [History Last Taken Unknown] metoprolol tartrate 50 mg PO BID 10/24/16 [History Last Taken Unknown] simvastatin 20 mg PO DAILY 10/24/16 [History Last Taken Unknown] aspirin 325 mg tablet,delayed release 325 mg PO QDAY 05/29/17 [History Last Taken Unknown] multivitamin 1 tab PO QDAY 05/29/17 [History Last Taken Unknown] ferrous sulfate 325 mg PO DAILY 07/23/20 [History Last Taken Unknown] indapamide 2.5 mg PO DAILY 07/23/20 [History Last Taken Unknown] nateglinide 120 mg PO TID 07/23/20 [History Last Taken Unknown] Allergy/AdvReac Type Severity Reaction Status Date / Time naproxen [From Naprosyn] Allergy Other Verified 05/29/17 12:42 venom-honey bee Allergy Anaphylaxis Verified 05/29/17 12:42 Family History Mother Diabetes Father Heart disease Surgical History S/P appendectomy S/P colonoscopy Social History Smoking Status: Former smoker ROS Constitutional Constitutional: Reports as per HPI Eyes Eyes: Reports as per HPI ENT HEENT: Reports as per HPI Cardiovascular Cardiovascular: Reports dyspnea and dyspnea at rest; Denies chest pain, chest pain at rest, paroxysmal nocturnal dyspnea or pedal edema Respiratory/Chest Respiratory/Chest: Reports dyspnea and dyspnea on exertion Gastrointestinal Gastrointestinal: Reports as per HPI Genitourinary Genitourinary: Reports as per HPI; Denies abdominal discomfort Musculoskeletal Musculoskeletal: Reports as per HPI Integumentary Integumentary: Reports as per HPI Neurologic Neurologic: Reports as per HPI Psychiatric Psychiatric: Reports as per HPI Endocrine Endocrinology: Reports as per HPI Hematologic/Lymphatic Hematologic/Lymphatic: Reports as per HPI Physical Exam Const oriented x3 and healthy appearing Orientation / Consciousness: awake HEENT normocephalic Eyes PERRL and conjunctivae normal Neck supple, no JVD and no carotid bruits Chest inspection of chest normal Resp normal respiratory effort Auscultation: diminished lung sounds Cardio Palpation: normal PMI Rate: regular rate Rhythm: regular rhythm Heart Sounds: S1 normal and S2 normal Peripheral Pulses: pulses 2+ throughout GI normal to inspection, nondistended, normoactive bowel sounds Extremity normal to inspection and no clubbing, cyanosis or edema Psych mental status grossly normal
[2020-07-24] MEDS: Enoxaparin 100 MG/ML Syringe SC ×2 (09:30→21:45)
[2020-07-24] MEDS: Furosemide 40 MG/4 ML Vial IV ×2 (09:30→17:01)
[2020-07-24] MEDS: Carvedilol 3.125 MG TABLET PO ×2 (09:30→09:46)
[2020-07-24] MEDS: Insulin Lispro 100 UNIT/ML INSULN.PEN SC ×4 (09:42→21:45)
[2020-07-24 09:45] LABS: Bedside Glucose 193 mg/dL (70-110)
[2020-07-24] MEDS: Lisinopril 5 MG Tablet PO (09:47)
--- NOTE | 2020-07-24 12:03 | PN.HOSP_ITS ---
Subjective Subjective: Patient is a 80 y/o admitted with a complaint of shortness of breath, and found to have Nonstemi, and acute hypoxic respiratory failure due to pneumonia, as well as septic shock due to pneumonia. Patient seen and examined today. He feels much better today. Shortness of breath has improved. Review of systems is otherwise negative. Troponins trended up to a peak of 50. Review of systems otherwise negative. He has a mild fever of 99.2F, and RR of 22. Cardiology and critical care on board. He has been weaned down to 3L of oxygen by nasal canula. Objective Data Objective Data Vital Signs: Vital Signs Temp Pulse Resp BP Pulse Ox 98.8 F 99 23 H 124/64 H 98 07/24/20 10:00 07/24/20 10:00 07/24/20 10:00 07/24/20 10:00 07/24/20 10:00 Oxygen Flow Rate (L/min) 3 Oxygen Delivery Method Nasal Cannula Weight: 215 lb 13.321 oz Body Mass Index (BMI) 30.6 Intake & Output: Intake and Output for Last 24 Hours 07/22/20 07/23/20 07/24/20 23:59 23:59 23:59 Intake Total 874.75 / 964.75 283.75 / 283.75 Output Total 850 / 1075 700 / 700 Balance 24.75 / -110.25 -416.25 / -416.25 Lab / Micro Data Result Diagrams: 07/24/20 05:10 07/24/20 05:10 Labs: Laboratory Results - last 24 hr 07/23/20 07/23/20 07/23/20 17:05 17:05 17:05 WBC 16.0 H RBC 4.31 L Hgb 14.8 Hct 45.0 MCV 104.4 H MCH 34.3 H MCHC 32.9 RDW Std Deviation 49.0 H RDW Coeff of Chip 12.7 Plt Count 393 MPV 9.1 Immature Gran % (Auto) 0.500 Neut % (Auto) 79.3 H Lymph % (Auto) 14.3 L Door % (Auto) 5.6 Eos % (Auto) 0.1 Baso % (Auto) 0.2 Absolute Neuts (auto) 12.7 H Absolute Lymphs (auto) 2.29 Nucleated RBC % 0 PT 12.9 INR 1.0 APTT 25.8 D-Dimer Quant (PE/DVT) 2.59 H* Sodium 138 Potassium 4.4 Chloride 101 Carbon Dioxide 27.0 Anion Gap 10 BUN 22 H Creatinine 1.59 H Estim Creat Clear Calc 40.12 Est GFR (MDRD) Af Amer 54 L Est GFR (MDRD) Non-Af 45 L BUN/Creatinine Ratio 13.8 Glucose 228 H Lactic Acid Calcium 9.1 Magnesium Total Bilirubin 0.40 AST 79 H ALT 28 Alkaline Phosphatase 82 Troponin I 10.100 H* B-Natriuretic Peptide Total Protein 7.6 Albumin 3.8 Globulin 3.8 Albumin/Globulin Ratio 1.0 TSH 2.48 Urine Color Urine Clarity Urine pH Ur Specific Alpine Urine Protein Urine Glucose (UA) Urine Ketones Urine Occult Blood Urine Nitrite Urine Bilirubin Urine Urobilinogen Ur Leukocyte Esterase Urine RBC Urine WBC Ur Squamous Epith Cells Urine Bacteria Urine Mucus POC Glucose 07/23/20 07/23/20 07/23/20 17:05 17:05 17:45 WBC RBC Hgb Hct MCV MCH MCHC RDW Std Deviation RDW Coeff of Chip Plt Count MPV Immature Gran % (Auto) Neut % (Auto) Lymph % (Auto) Door % (Auto) Eos % (Auto) Baso % (Auto) Absolute Neuts (auto) Absolute Lymphs (auto) Nucleated RBC % PT INR APTT D-Dimer Quant (PE/DVT) Sodium Potassium Chloride Carbon Dioxide Anion Gap BUN Creatinine Estim Creat Clear Calc Est GFR (MDRD) Af Amer Est GFR (MDRD) Non-Af BUN/Creatinine Ratio Glucose Lactic Acid 5.5 H* Calcium Magnesium Total Bilirubin AST ALT Alkaline Phosphatase Troponin I B-Natriuretic Peptide 506.4 H Total Protein Albumin Globulin Albumin/Globulin Ratio TSH Urine Color Valerie Urine Clarity Cloudy Urine pH 5.0 Ur Specific Alpine 1.025 Urine Protein 100 H Urine Glucose (UA) Normal Urine Ketones 5 H Urine Occult Blood 250 H Urine Nitrite Positive H Urine Bilirubin Negative Urine Urobilinogen 1 H Ur Leukocyte Esterase 100 H Urine RBC > 100 SEEN Urine WBC 0-5 SEEN Ur Squamous Epith Cells 0-5 SEEN Urine Bacteria 1+ Urine Mucus 0 SEEN POC Glucose 07/23/20 07/23/20 07/24/20 20:15 20:15 00:15 WBC RBC Hgb Hct MCV MCH MCHC RDW Std Deviation RDW Coeff of Chip Plt Count MPV Immature Gran % (Auto) Neut % (Auto) Lymph % (Auto) Door % (Auto) Eos % (Auto) Baso % (Auto) Absolute Neuts (auto) Absolute Lymphs (auto) Nucleated RBC % PT INR APTT D-Dimer Quant (PE/DVT) Sodium Potassium Chloride Carbon Dioxide Anion Gap BUN Creatinine Estim Creat Clear Calc Est GFR (MDRD) Af Amer Est GFR (MDRD) Non-Af BUN/Creatinine Ratio Glucose Lactic Acid 2.5 H* Calcium Magnesium Total Bilirubin AST ALT Alkaline Phosphatase Troponin I 38.300 H* 56.000 H* B-Natriuretic Peptide Total Protein Albumin Globulin Albumin/Globulin Ratio TSH Urine Color Urine Clarity Urine pH Ur Specific [place] Urine Protein Urine Glucose (UA) Urine Ketones Urine Occult Blood Urine Nitrite Urine Bilirubin Urine Urobilinogen Ur Leukocyte Esterase Urine RBC Urine WBC Ur Squamous Epith Cells Urine Bacteria Urine Mucus POC Glucose 07/24/20 07/24/20 07/24/20 00:15 00:21 05:10 WBC 7.4 RBC 3.32 L Hgb 11.5 L Hct 34.2 L MCV 103.0 H MCH 34.6 H MCHC 33.6 RDW Std Deviation 47.8 H RDW Coeff of Chip 12.7 Plt Count 256 MPV 8.8 Immature Gran % (Auto) 0.100 Neut % (Auto) 68.1 Lymph % (Auto) 20.0 Door % (Auto) 11.4 H Eos % (Auto) 0.3 Baso % (Auto) 0.1 Absolute Neuts (auto) 5.1 Absolute Lymphs (auto) 1.49 Nucleated RBC % 0 PT INR APTT D-Dimer Quant (PE/DVT) Sodium Potassium Chloride Carbon Dioxide Anion Gap BUN Creatinine Estim Creat Clear Calc Est GFR (MDRD) Af Amer Est GFR (MDRD) Non-Af BUN/Creatinine Ratio Glucose Lactic Acid 1.3 Calcium Magnesium Total Bilirubin AST ALT Alkaline Phosphatase Troponin I B-Natriuretic Peptide Total Protein Albumin Globulin Albumin/Globulin Ratio TSH Urine Color Urine Clarity Urine pH Ur Specific [place] Urine Protein Urine Glucose (UA) Urine Ketones Urine Occult Blood Urine Nitrite Urine Bilirubin Urine Urobilinogen Ur Leukocyte Esterase Urine RBC Urine WBC Ur Squamous Epith Cells Urine Bacteria Urine Mucus POC Glucose 185 H 07/24/20 07/24/20 05:10 09:38 WBC RBC Hgb Hct MCV MCH MCHC RDW Std Deviation RDW Coeff of Chip Plt Count MPV Immature Gran % (Auto) Neut % (Auto) Lymph % (Auto) Door % (Auto) Eos % (Auto) Baso % (Auto) Absolute Neuts (auto) Absolute Lymphs (auto) Nucleated RBC % PT INR APTT D-Dimer Quant (PE/DVT) Sodium 139 Potassium 3.8 Chloride 102 Carbon Dioxide 31.0 Anion Gap 6 BUN 25 H Creatinine 1.30 Estim Creat Clear Calc 47.57 Est GFR (MDRD) Af Amer 68 Est GFR (MDRD) Non-Af 57 L BUN/Creatinine Ratio 19.2 Glucose 192 H Lactic Acid Calcium 8.6 Magnesium 1.7 Total Bilirubin AST ALT Alkaline Phosphatase Troponin I B-Natriuretic Peptide Total Protein Albumin Globulin Albumin/Globulin Ratio TSH Urine Color Urine Clarity Urine pH Ur Specific [place] Urine Protein Urine Glucose (UA) Urine Ketones Urine Occult Blood Urine Nitrite Urine Bilirubin Urine Urobilinogen Ur Leukocyte Esterase Urine RBC Urine WBC Ur Squamous Epith Cells Urine Bacteria Urine Mucus POC Glucose 193 H Micro: Microbiology 07/23/20 17:41 Urine Catheter - Gayle Urine Culture - Preliminary Culture exhibits no growth. 07/23/20 17:41 Urine Catheter - Gayle Legionella Antigen - Final 07/23/20 17:45 Urine, Clean Catch Urine Culture - Preliminary Culture exhibits no growth. 07/23/20 17:41 Urine Catheter - Catheter Streptococcus pneumoniae Antigen (M - Final 07/23/20 17:15 Nasal Secretion SARS-CoV-2 Antigen (Rapid) - Final Radiography Diagnostic Testing: Radiology Impression Chest X-Ray 07/23/20 17:26 IMPRESSION: Extensive bilateral airspace disease with right upper lobe consolidation. Findings suspicious for pneumonia including atypical or viral pneumonias. Recommend follow-up to complete resolution. at 1805 Reported and signed by: Kofi Dee MD Electronically Signed: Kofi Dee MD at 18:04 EDT Tel , Service support , Chest CTA 07/23/20 17:44 IMPRESSION: Negative CTA Chest. Extensive bilateral airspace disease pleural effusions and right upper lobe consolidation. Findings consistent with infection. Atypical and viral infection should be considered. Individualized dose optimization techniques were used for this CT. at 1855 Reported and signed by: Kofi Dee MD Electronically Signed: Kofi Dee MD at 18:54 EDT Tel , Service support , Physical Exam Const alert, oriented x3 and no apparent distress General Appearance: cooperative Exam Limitations: no limitations HEENT normocephalic, head/scalp atraumatic, hearing grossly normal bilaterally and moist oral mucous membranes Eyes PERRL, EOMs intact bilaterally and conjunctivae normal Neck no lymphadenopathy Resp Resp Narrative: diminished breath sounds bibasally, mild wheezing and crackles. On 3L of oxygen by nasal canula Cardio regular rate, regular rhythm, S1 normal heart sound and S2 normal heart sound GI normal to inspection, nondistended, normoactive bowel sounds, soft to palpation, non-tender and non-distended Extremity normal to inspection, full ROM and no clubbing, cyanosis or edema Skin no rashes or lesions noted Neuro oriented x3 Sensorium / Orientation: awake and alert Psych affect normal Assessment & Plan Assessment/Plan (1) CHF (congestive heart failure): (2) UTI (urinary tract infection): (3) Lactic acidosis: (4) NSTEMI, initial episode of care: (5) Septic shock: (6) Pneumonia: (7) Acute respiratory failure with hypoxia: (8) Hematuria: PLAN: #Acute hypoxic respiratory failure due to non-STEMI and heart failure as well as pneumonia * now weaned off BIPAP, on 3L of oxygen. * on IV vancomycin and zosyn. * being diuresed with IV lasix. * critical care and cardiology on board * blood cultures pending * on therapeutic lvoenox * titrate oxygen to maintain sats >90% * #Non-STEMI: * As above. * 2D echo ordered. * Troponins trended up to a peak of 56. * Rest of management as above. for cardiac cath tomorrow. #Septic shock due to pneumonia and UTI * lactic acid trended down * on IV vancomycin and zosyn. * blood and urine cultures pending * #Community-acquired pneumonia: * As above under respiratory failure. * Patient has received both Covid doses. On vancomycin and Zosyn as above. * #UTI: Started on broad-spectrum antimicrobials as above #Hematuria * was likely due to UTI. hasnt recurred since admission. * will monitor * chec PSA #. Hypothyroidism: On Synthroid #Hypertension: BP meds held on admission o/a of septic shock. BP has remained stable off the meds. Will monitor. #Type 2 diabetes mellitus: * Hold Metformin. * home insulin dose resumed as patient is now off BIPAP and eating. * ISS. Accuchecks ACHS * Hyperlipidemia: on statin. DVT prophylaxis: On therapeutic dose Lovenox GI prophylaxis: PPI COde status: full code * Visit Charges Inpatient E&M: 38726 Subs Hosp L3
[2020-07-24 13:00] LABS: Bedside Glucose 266 mg/dL (70-110)
[2020-07-24 17:05] LABS: Bedside Glucose 216 mg/dL (70-110)
[2020-07-24] MEDS: Atorvastatin Calcium 40 MG Tablet PO (21:45)
[2020-07-24] MEDS: Carvedilol 6.25 MG Tablet PO (21:45)
[2020-07-24 22:16] LABS: Bedside Glucose 250 mg/dL (70-110)
[2020-07-25] VITALS (15 sets, daily range): BP systolic 106–140; BP diastolic 56–82; PULSE 60–93; RESP 15–22; TEMP 37–37.5; O2SAT 94–98
[2020-07-25 04:30] LABS: Absolute Lymphocyte Count 1.68 X10^3/uL (0.83-4.51); Absolute Neutrophil Count 3.7 X10^3/uL (2.0-7.7); Basophil# 0.03 X10^3/uL; Basophil% 0.5 % (0-1); Eosinophil# 0.11 X10^3/uL; Eosinophils% 1.7 % (0-5); Hematocrit 33.1 % (40-54); Hemoglobin 11.3 g/dL (13.0-16.5); Lymphocyte # 1.68 X10^3/ul (0.83-4.51); Lymphocyte % 26.7 % (19-41); Mean Corp Hgb Conc 34.1 g/dL (32-36); Mean Corpuscular Hgb 34.9 pg (27.0-32.0); Mean Corpuscular Volume 102.2 fL (80-94); Mean Platelet Vol. 8.5 fl (6.2-12.0); Monocyte# 0.82 X10^3/uL; NRBC Flagged by Analyzer 0 % (0-5); Neutrophil # 3.65 X10^3/uL (2.7-7.7); Neutrophil % 57.9 % (47-70); Platelet Count 225 K/mm3 (150-450); RBC Distribution Width CV 12.6 % (11.6-14.6); RBC Distribution Width SD 47.1 fl (35.1-43.9); Red Blood Count 3.24 M/mm3 (4.6-6.2); White Blood Count 6.3 K/mm3 (4.4-11.0)
[2020-07-25 04:39] LABS: Anion Gap 8 (5-15); BUN 21 mg/dL (7-18); BUN/Creat Ratio 15.3 RATIO (10-20); Calcium,Total 8.3 mg/dL (8.5-10.1); Chloride 98 mmol/L (98-107); Creatinine, Serum 1.37 mg/dL (0.70-1.30); EST Glomerular Filtration Rate 53 mL/min (>60); Est Glom Filt Rate - Afr Amer 64 mL/min (>60); Estimated Creatinine Clearance 45.14 ml/min; Glucose 212 mg/dL (74-106); Potassium 3.4 mmol/L (3.5-5.1); Sodium Level 139 mmol/L (136-145)
[2020-07-25] MEDS: Aspirin 81 MG TAB.CHEW PO (05:43)
[2020-07-25] MEDS: Lisinopril 5 MG Tablet PO (05:44)
[2020-07-25] MEDS: Furosemide 40 MG/4 ML Vial IV (05:44)
[2020-07-25] MEDS: Carvedilol 6.25 MG Tablet PO (05:44)
[2020-07-25] MEDS: Potassium Chloride 10mEq/100mL 10 MEQ/100 ML IV.SOLN. 100 MEQ IV BOLUS ×4 (06:41→10:11)
--- NOTE | 2020-07-25 07:02 | PCM.PN.INT ---
Subjective Subjective: Patient did well overnight. No acute issues were reported. Patient's oxygenation has remained well today. Patient slightly anxious about heart catheterization today. Patient is not reporting any chest pain, abdominal pain, dyspnea or cough. Nursing is reporting intermittent hematuria. There was no obvious Gayle trauma reported. Objective Data Objective Data No significant ectopy noted overnight. Patient did develop intermittent hematuria. This appears to be improving with Lasix. Vital Signs: Vital Signs Temp Pulse Resp BP Pulse Ox 37.5 C H 60 15 114/66 96 07/25/20 04:00 07/25/20 04:00 07/25/20 04:00 07/25/20 04:00 07/25/20 04:00 Oxygen Flow Rate (L/min) 2 Oxygen Delivery Method Nasal Cannula Weight: 98.1 kg Body Mass Index (BMI) 30.6 Intake & Output: Intake and Output for Last 24 Hours 07/23/20 07/24/20 07/25/20 23:59 23:59 23:59 Intake Total 874.75 / 964.75 1171.75 / 1171.75 155.75 / 155.75 Output Total 850 / 1075 4850 / 4850 850 / 850 Balance 24.75 / -110.25 -3678.25 / -3678.25 -694.25 / -694.25 Lab / Micro Data Result Diagrams: 07/25/20 04:20 07/25/20 04:20 Labs: Laboratory Results - last 24 hr 07/24/20 07/24/20 07/24/20 09:38 12:53 16:59 WBC RBC Hgb Hct MCV MCH MCHC RDW Std Deviation RDW Coeff of Chip Plt Count MPV Immature Gran % (Auto) Neut % (Auto) Lymph % (Auto) [place] % (Auto) Eos % (Auto) Baso % (Auto) Absolute Neuts (auto) Absolute Lymphs (auto) Nucleated RBC % Sodium Potassium Chloride Carbon Dioxide Anion Gap BUN Creatinine Estim Creat Clear Calc Est GFR (MDRD) Af Amer Est GFR (MDRD) Non-Af BUN/Creatinine Ratio Glucose Calcium POC Glucose 193 H 266 H 216 H 07/24/20 07/25/20 07/25/20 22:09 04:20 04:20 WBC 6.3 RBC 3.24 L Hgb 11.3 L Hct 33.1 L MCV 102.2 H MCH 34.9 H MCHC 34.1 RDW Std Deviation 47.1 H RDW Coeff of Chip 12.6 Plt Count 225 MPV 8.5 Immature Gran % (Auto) 0.200 Neut % (Auto) 57.9 Lymph % (Auto) 26.7 [place] % (Auto) 13.0 H Eos % (Auto) 1.7 Baso % (Auto) 0.5 Absolute Neuts (auto) 3.7 Absolute Lymphs (auto) 1.68 Nucleated RBC % 0 Sodium 139 Potassium 3.4 L Chloride 98 Carbon Dioxide 33.0 H Anion Gap 8 BUN 21 H Creatinine 1.37 H Estim Creat Clear Calc 45.14 Est GFR (MDRD) Af Amer 64 Est GFR (MDRD) Non-Af 53 L BUN/Creatinine Ratio 15.3 Glucose 212 H Calcium 8.3 L POC Glucose 250 H Micro: Microbiology 07/23/20 17:41 Urine Catheter - Gayle Urine Culture - Preliminary Culture exhibits no growth. 07/23/20 17:41 Urine Catheter - Gayle Legionella Antigen - Final 07/23/20 17:45 Urine, Clean Catch Urine Culture - Preliminary Culture exhibits no growth. 07/23/20 17:41 Urine Catheter - Catheter Streptococcus pneumoniae Antigen (M - Final 07/23/20 17:15 Nasal Secretion SARS-CoV-2 Antigen (Rapid) - Final Physical Exam Const alert, oriented x3 and no apparent distress General Appearance: cooperative HEENT normocephalic, head/scalp atraumatic and moist oral mucous membranes Eyes PERRL and EOMs intact bilaterally Chest inspection of chest normal Resp normal respiratory effort and no use of accessory muscles Auscultation: Negative for rales, rhonchi or wheezes Cardio regular rate and regular rhythm Heart Sounds: murmur systolic II/ harsh mid apex GI normal to inspection, nondistended, normoactive bowel sounds Extremity no clubbing, cyanosis or edema Skin no rashes or lesions noted Neuro oriented x3, CN's II-XII intact bilaterally, moves all extremities and no focal motor deficits Psych cooperative and affect normal Appearance: well kempt Assessment & Plan Assessment/Plan (1) Acute respiratory failure with hypoxia: (2) NSTEMI, initial episode of care: (3) Lactic acidosis: (4) Pneumonia: PLAN: RECOMMENDATIONS: 1. Wean supplemental oxygen to maintain saturations at or above 90%. 2. Likely transition to p.o. antibiotics to complete a 5-day course 3. Await echocardiogram and cardiac catheterization 4. Potassium supplementation as necessary 5. Continue IV diuretic therapy as tolerated by hemodynamics and renal function. 6. Encourage incentive spirometer use and mobilize patient as tolerated. Walking oximetry prior to discharge 7. Unless there are plans for cardiac intervention, the patient be transferred out of the medical intensive care unit. IMPRESSIONS: 1. Acute hypoxemic respiratory failure Likely multifactorial in etiology with NSTEMI/acute decompensated heart failure likely the main contributing factor along with possible right upper lobe pneumonia. Given that the patient has responded so avidly to IV diuretic therapy and BiPAP, this would certainly suggest the presence of pulmonary edema from CHF. The patient has been weaned to supplemental oxygen at 2 L/min. The patient's troponin has increased to 56 this admission. Cardiology has been consulted. Echocardiogram and heart catheterization are pending. If culture negative, anticipate treating with a 5-day course. Okay to switch to p.o. antibiotics from my perspective. Continue IV diuretic therapy as tolerated by hemodynamics and renal function. Continue to wean supplemental oxygen to maintain saturations at or above 90%. Encourage incentive spirometer use and mobilize patient as tolerated. Patient will need a walking oximetry prior to discharge. 2. Septic shock (by lactate criteria) The patient does have what appears to be a right upper lobe consolidation concerning for pneumonia. Although the patient did have a significantly elevated lactate, I do suspect this was more likely due to his presenting hypoxemia, as the patient was never hemodynamically unstable. Regardless, the patient will be continued on antimicrobials for now. 3. Non-ST segment elevation OK/decompensated heart failure The patient's troponin has continued to climb to 56 this morning. He denies any chest pain. Echocardiogram is pending. Cardiology has been consulted. Heart catheterization planned for this morning. 4. History of diabetes mellitus/hypertension/hypothyroidism/hyperlipidemia Complicates care, management, recovery and prognosis. Continue home medications as indicated. Visit Charges Inpatient E&M: 87055 [facility] L3
--- NOTE | 2020-07-25 08:15 | NURSING ---
Patient left the unit to the clinical laboratory technologist
--- NOTE | 2020-07-25 09:14 | CL.D_ITS ---
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 The risks and benefits of the procedure as well as a full d escription of our services here and current unavailability of surgical backup were fully explained to the patient and/or their significant other prior to the catheterization. The Timeout was completed, verifying the correct patient and procedure. The patient's procedural site was prepped and draped in the usual fashion. Local anesthetic was given subcutaneously to right radial region with Lidocaine 2% . Using a modified Seldinger technique, arterial access was obtained via the right radial artery, a 6 Fr sheath was inserted. Left Coronary Artery selective angiography was performed in multiple views u sing a 5 Fr. 4.0 [place] catheter. Right Coronary Artery selective angiography was then performed in mu ltiple views using a 5 Fr. 4.0 [place] catheter. Left Coronary Artery selective angiography was perform ed in multiple views using a 5 Fr. 4.0 [place] catheter. Left Ventriculography was performed in DICKEY projection using a 5 Fr. Pigtail catheter. LV to AO pullback pressures were then recorded.The arterial sheath was pulled and a TR Band was applied for hemostasis 10 cc air CORONARY ANGIOGRAPHY DOMINANCE: Left Dominant LEFT HEART ASSESSMENT Left Ventricular Ejection Fraction: by LV Gram 40 % Inferior Basal Hypokinesis - Severe. Anterior Hypokinesis - Moderate Depressed Left Ventricular systolic function LEFT MAIN: Moderate calcification, Distal 30 to 40% stenosis LEFT ANTERIOR DESCENDING ARTERY: PROX LAD: Proximal high-grade calcified 90% stenosis with mildly diffusely diseased vessel CIRCUMFLEX ARTERY: Ostial 90% stenosis in mid 50% stenosis in a dominant vessel with diffuse distal d isease RAMUS: High-grade ostial 80% stenosis in a calcified proximal vessel RIGHT CORONARY ARTERY: Nondominant vessel with high-grade stenosis COMPLICATIONS No Complications PROCEDURE MEDICATIONS Versed 1 mg IV Fentanyl 50 mcg IV Oxygen: 2 L/min via nasal cannula Heparin diluted in 23cc Heparinized saline. Patient given 5cc IA of this solution. 07/25/2020 08:51:1 7 Verapamil 2.5mg, Ntg 100mcgs, 2000 units of Heparin diluted in 23cc Heparinized saline. Patient give n 5cc IA of this solution. 07/25/2020 08:51:17 SUMMARY OF HEMODYNAMIC DATA Time AIR REST ECG 08:36:41 AO 97/57 (73) SA 08:52:38 LV 93/-2, 1 09:02:10 LV 95/-2, 1 09:02:14 LV 100/-2, 1 09:02:20 LV 103/0, 5 09:02:55 LVp 102/-1, 3 09:03:01 AOp 96/50 (68) 09:03:06 09:11:44 Signed By Timothy Irizarry MD On 07/25/2020 9:14:52 AM Signed By Timothy Irizarry MD On 07/25/2020 9:13:47 AM Timothy Irizarry MD
--- NOTE | 2020-07-25 09:16 | PN.CARD_ITS ---
Subjective Subjective: Patient seen and evaluated. Appears to be doing well. Objective Data Vital Signs: Vital Signs Temp Pulse Resp BP Pulse Ox 99.5 F H 93 15 114/66 96 07/25/20 04:00 07/25/20 08:00 07/25/20 04:00 07/25/20 04:00 07/25/20 04:00 Oxygen Flow Rate (L/min) 2 Oxygen Delivery Method Nasal Cannula Weight: 216 lb 4.375 oz Body Mass Index (BMI) 30.6 Intake & Output: Intake and Output for Last 24 Hours 07/23/20 07/24/20 07/25/20 23:59 23:59 23:59 Intake Total 874.75 / 964.75 1171.75 / 1171.75 240.75 / 240.75 Output Total 850 / 1075 4850 / 4850 850 / 850 Balance 24.75 / -110.25 -3678.25 / -3678.25 -609.25 / -609.25 Lab / Micro Data Result Diagrams: 07/25/20 04:20 07/25/20 04:20 Labs: Laboratory Results - last 24 hr 07/24/20 07/24/20 07/24/20 09:38 12:53 16:59 WBC RBC Hgb Hct MCV MCH MCHC RDW Std Deviation RDW Coeff of Chip Plt Count MPV Immature Gran % (Auto) Neut % (Auto) Lymph % (Auto) [place] % (Auto) Eos % (Auto) Baso % (Auto) Absolute Neuts (auto) Absolute Lymphs (auto) Nucleated RBC % Sodium Potassium Chloride Carbon Dioxide Anion Gap BUN Creatinine Estim Creat Clear Calc Est GFR (MDRD) Af Amer Est GFR (MDRD) Non-Af BUN/Creatinine Ratio Glucose Calcium POC Glucose 193 H 266 H 216 H 07/24/20 07/25/20 07/25/20 22:09 04:20 04:20 WBC 6.3 RBC 3.24 L Hgb 11.3 L Hct 33.1 L MCV 102.2 H MCH 34.9 H MCHC 34.1 RDW Std Deviation 47.1 H RDW Coeff of Chip 12.6 Plt Count 225 MPV 8.5 Immature Gran % (Auto) 0.200 Neut % (Auto) 57.9 Lymph % (Auto) 26.7 [place] % (Auto) 13.0 H Eos % (Auto) 1.7 Baso % (Auto) 0.5 Absolute Neuts (auto) 3.7 Absolute Lymphs (auto) 1.68 Nucleated RBC % 0 Sodium 139 Potassium 3.4 L Chloride 98 Carbon Dioxide 33.0 H Anion Gap 8 BUN 21 H Creatinine 1.37 H Estim Creat Clear Calc 45.14 Est GFR (MDRD) Af Amer 64 Est GFR (MDRD) Non-Af 53 L BUN/Creatinine Ratio 15.3 Glucose 212 H Calcium 8.3 L POC Glucose 250 H Micro: Microbiology 07/23/20 17:41 Urine Catheter - Gayle Urine Culture - Preliminary Culture exhibits no growth. 07/23/20 17:41 Urine Catheter - Gayle Legionella Antigen - Final 07/23/20 17:45 Urine, Clean Catch Urine Culture - Preliminary Culture exhibits no growth. 07/23/20 17:41 Urine Catheter - Catheter Streptococcus pneumoniae Antigen (M - Final 07/23/20 17:15 Nasal Secretion SARS-CoV-2 Antigen (Rapid) - Final Cardiology Labs/Tests 07/25/20 04:20: WBC 6.3, RBC 3.24 L, Hgb 11.3 L, Hct 33.1 L, MCV 102.2 H, MCH 34.9 H, MCHC 34.1, Plt Count 225, MPV 8.5, Immature Gran % (Auto) 0.200, Neut % (Auto) 57.9, Lymph % (Auto) 26.7, [place] % (Auto) 13.0 H, Eos % (Auto) 1.7, Baso % (Auto) 0.5, Absolute Neuts (auto) 3.7, Nucleated RBC % 0 07/25/20 04:20: Sodium 139, Potassium 3.4 L, Chloride 98, Carbon Dioxide 33.0 H, Anion Gap 8, BUN 21 H, Creatinine 1.37 H, Est GFR (MDRD) Af Amer 64, Est GFR (MDRD) Non-Af 53 L, BUN/Creatinine Ratio 15.3, Glucose 212 H, Calcium 8.3 L Rhythm: EKG: ECHO: Stress Test: Cardiac Cath: PCI: CT Surgery: Holter monitor: EPS: PPM: CXR: Chest CT Scan: Radiography Diagnostic Testing: Radiology Impression Echocardiogram 07/25/20 10:00 Interpretation Summary Normal LV size. Moderate concentric left ventricular hypertrophy. The estimated ejection fraction is 45 %. Mild to moderate segmental systolic dysfunction (see wall motion). Stage 1 diastolic dysfunction. Pulmonary artery systolic pressure is 38 mmHg. Mild-Moderate (1-2+) eccentric mitral valve insufficiency. Ordering Physician: Elise Hairston Referring Physician: Lance Rosa Performed By: Sammi Arrington RDCS Physical Exam Const oriented x3 and healthy appearing Orientation / Consciousness: awake HEENT normocephalic Eyes PERRL and conjunctivae normal Neck supple, no JVD and no carotid bruits Chest inspection of chest normal Resp normal respiratory effort and clear to auscultation bilaterally Auscultation: diminished lung sounds Cardio Palpation: normal PMI Rate: regular rate Rhythm: regular rhythm Heart Sounds: S1 normal and S2 normal Peripheral Pulses: pulses 2+ throughout GI normal to inspection, nondistended, normoactive bowel sounds Extremity normal to inspection and no clubbing, cyanosis or edema Psych mental status grossly normal Assessment & Plan Assessment/Plan (1) NSTEMI, initial episode of care: PLAN: Patient presents to the emergency room with shortness of breath and is noted to have a markedly abnormal cardiac enzyme pattern. The above is consistent with an non-ST elevation myocardial infarction. * Cardiac catheterization today demonstrated the following: Distal calcified left main coronary artery with 40% stenosis. Left anterior descending artery with calcified 80% stenosis. Ramus intermedius with ostial 80 to 90% stenosis. Left circumflex artery with ostial 90% stenosis. Totally occluded nondominant right coronary artery. Reduced left ventricular systolic function estimated EF 40%. Based on the above angiographic findings the patient to be considered and transferred for coronary artery bypass surgery. (2) HTN (hypertension): PLAN: His blood pressure was elevated on arrival. We will continue the current dose of the beta-crystal. We will reduce the dose of the lisinopril to 40 mg a day DC indapamide Continue metoprolol (3) CHF (congestive heart failure): PLAN: He does have congestive heart failure which is likely systolic in origin Echocardiogram demonstrated an ejection fraction of 40 to 45% with segmental wall motion abnormalities involving the basal inferior wall, apex, and lateral wall. He will be continued on his KRYSTAL inhibitor and beta-crystal as well as his diuretics. Thank you for allowing me to participate in the care of your patient. Please don't hesitate to call if any issues arise.
--- NOTE | 2020-07-25 10:00 | ECHOD_ITS ---
Version 2 Reason For Study: NSTEMI Procedure This was a 2D Doppler, Color Flow transthoracic echocardiogram. Exam performed portable in ICU/CCU. Left Ventricle Normal LV size. Moderate concentric left ventricular hypertrophy. The estimated ejection fraction is 45 %. Mild to moderate segmental systolic dysfunction (see wall motion). Stage 1 diastolic dysfunction. [place] : Akinetic. Mid-Lateral : Hypokinetic. Lateral [place] : Hypokinetic. Infero-Basal: Hypokinetic. Mid-Anterior : Hypokinetic. The rest of the wall segments are normal. Right Ventricle Normal RV size. Normal systolic function. Atria The left atrium is mildly enlarged. Normal right atrium. Mitral Valve Normal mitral valve. Mild-Moderate (1-2+) eccentric mitral valve insufficiency. Tricuspid Valve Normal tricuspid valve. Mild (1+) tricuspid valve insufficiency. Pulmonary artery systolic pressure is 38 mmHg. Aortic Valve Trisinus/trileaflet aortic valve. Mild focal aortic valve calcification. Peak aortic valve gradient 20 mmHg. Mean aortic valve gradient 10 mmHg. Mild aortic stenosis. Pulmonic Valve Normal pulmonic valve. Great Vessels Normal aortic root. The pulmonary artery is normal size. Normal inferior vena cava. Pericardium/Pleural No pericardial effusion. MMode/2D Measurements & Calculations LVIDd: 4.4 cm IVSd: 1.7 cm LVOT diam: 2.2 cm LVIDs: 3.3 cm LVPWd: 1.3 cm LVOT area: 3.9 cm2 RVDd: 3.7 cm FS: 23.7 % Ao root diam: 3.4 cm LAV(MOD-bp): 48.0 ml LVAd ap4: 34.8 cm2 LAV(MOD-bp) Indexed: 22.3 ml/m2 LVLd ap4: 8.8 cm LAV(MOD-sp2): 48.5 ml EDV(MOD-sp4): 111.4 ml LAV(MOD-sp4): 47.0 ml EDV(sp4-el): 116.4 ml LVAs ap4: 26.3 cm2 LVLs ap4: 8.4 cm ESV(MOD-sp4): 66.9 ml ESV(sp4-el): 69.6 ml EF(MOD-sp4): 40.0 % EF(sp4-el): 40.2 % SV(MOD-sp4): 44.5 ml SV(sp4-el): 46.8 ml LA A4 area: 16.8 cm2 LA dimension(2D): 4.5 cm RA A4 area: 13.7 cm2 Doppler Measurements & Calculations MV E max lc: 94.2 cm/sec Lat Peak E' Lc: 2.1 cm/sec Med Peak E' Lc: 3.0 cm/sec MV A max lc: 124.2 cm/sec E/E' lat: 45.6 E/E' med: 31.0 MV E/A: 0.76 Ao V2 max: 221.7 cm/sec LV V1 max: 89.0 cm/sec SV(LVOT): 65.2 ml Ao max P.7 mmHg LV V1 max P.2 mmHg Ao V2 mean: 155.7 cm/sec LV V1 mean P.6 mmHg Ao mean P.8 mmHg LV V1 mean: 58.8 cm/sec Ao V2 VTI: 45.1 cm LV V1 VTI: 16.9 cm ETELVINA(I,D): 1.4 cm2 ETELVINA(V,D): 1.5 cm2 PA V2 max: 93.0 cm/sec TR max lc: 293.2 cm/sec TR max P.6 mmHg ECHO/Echo Complete Interpretation Summary Normal LV size. Moderate concentric left ventricular hypertrophy. The estimated ejection fraction is 45 %. Mild to moderate segmental systolic dysfunction (see wall motion). Stage 1 diastolic dysfunction. Pulmonary artery systolic pressure is 38 mmHg. Mild-Moderate (1-2+) eccentric mitral valve insufficiency. Ordering Physician: Elise Hairston Referring Physician: Lance Rosa Performed By: Sammi Arrington RDCS
[2020-07-25] MEDS: 0.9% Normal Saline 1,000 ML 25 ML IV (10:11)
--- NOTE | 2020-07-25 12:00 | DS.PCM_ITS ---
Providers Date of Admission: 07/23/20 Primary Care Physician: Dr. Lance Rosa MD Consultations 07/23/20 19:11 Consult: Cardiology Routine Consulting Provider: Timothy Irizarry Reason for Consult: nonstemi EMERGENT Consult: No Notified: Yes Date Notified:: 07/23/20 Time Notified: 19:12 Method of Notification: Text Consult: [employer] / Pulmonary Medicine Routine Consulting Provider: Pulmonary Medicine igor So Reason for Consult: respiratory failure EMERGENT Consult: No Notified: Yes Date Notified:: 07/23/20 Time Notified: 19:11 Method of Notification: Text Reason For Visit: ACUTE HYPOXIC RESPIRATORY FAILURE, NONSTEMI, Diagnosis Discharge Diagnosis (1) NSTEMI, initial episode of care: Status: Acute Code(s): I21.4 - Non-ST elevation (NSTEMI) myocardial infarction (2) HTN (hypertension): Status: Chronic Code(s): I10 - Essential (primary) hypertension (3) CHF (congestive heart failure): Status: Acute Code(s): I50.9 - Heart failure, unspecified Medications at Discharge Home Medications insulin detemir U-100 32 units SC QHS 10/24/16 levothyroxine 137 mcg PO DAILY 10/24/16 multivitamin 1 tab PO QDAY 05/29/17 ferrous sulfate 325 mg PO DAILY 07/23/20 aspirin 81 mg PO DAILY@0800 #1 tab 07/25/20 atorvastatin 40 mg PO QHS #1 tab 07/25/20 carvedilol 6.25 mg PO BID #1 tab 07/25/20 enoxaparin 100 mg SUBCUT Q12 #1 ml 07/25/20 furosemide 40 mg IV BID@1000,1800 #2 ml 07/25/20 lisinopril 5 mg PO DAILY #1 tab 07/25/20 Hospital Course Procedures Cardiac catheterization Summary of Care Provided Minutes Spent on Discharge: 32 Hospital Course: (1) CHF (congestive heart failure): (2) UTI (urinary tract infection): (3) Lactic acidosis: (4) NSTEMI, initial episode of care: (5) Septic shock: (6) Pneumonia: (7) Acute respiratory failure with hypoxia: (8) Hematuria: PLAN: #Acute hypoxic respiratory failure due to non-STEMI and heart failure as well as pneumonia now weaned off BIPAP, on 3L of oxygen. on IV vancomycin and zosyn. being diuresed with IV lasix. critical care and cardiology on board blood cultures pending on therapeutic lvoenox titrate oxygen to maintain sats >90% #Non-STEMI: As above. 2D echo ordered. Troponins trended up to a peak of 56. LEFT MAIN: Moderate calcification, Distal 30 to 40% stenosis LEFT ANTERIOR DESCENDING ARTERY: PROX LAD: Proximal high-grade calcified 90% stenosis with mildly diffusely diseased vessel CIRCUMFLEX ARTERY: Ostial 90% stenosis in mid 50% stenosis in a dominant vessel with diffuse distal disease RAMUS: High-grade ostial 80% stenosis in a calcified proximal vessel RIGHT CORONARY ARTERY: Nondominant vessel with high-grade stenosis Transfer to [facility] for CT evaluation. #Septic shock due to pneumonia and UTI lactic acid trended down on IV vancomycin and zosyn. blood and urine cultures pending #Community-acquired pneumonia: As above under respiratory failure. Patient has received both Covid doses. On vancomycin and Zosyn as above. #UTI: Started on broad-spectrum antimicrobials as above #Hematuria was likely due to UTI. hasnt recurred since admission. will monitor [facility] PSA #. Hypothyroidism: On Synthroid #Hypertension: BP meds held on admission o/a of septic shock. BP has remained stable off the meds. Will monitor. #Type 2 diabetes mellitus: Hold Metformin. home insulin dose resumed as patient is now off BIPAP and eating. ISS. Accuchecks ACHS Hyperlipidemia: on statin. DVT prophylaxis: On therapeutic dose Lovenox GI prophylaxis: PPI COde status: full code Physical Exam Const alert and no apparent distress General Appearance: cooperative Resp normal respiratory effort and no retractions Cardio regular rate, regular rhythm, S1 normal heart sound and S2 normal heart sound GI normal to inspection, nondistended, normoactive bowel sounds ABG / Lab / Microbiology Data Result Diagrams: 07/25/20 04:20 07/25/20 04:20 Laboratory: Laboratory Results - last 24 hr 07/24/20 07/24/20 07/24/20 12:53 16:59 22:09 WBC RBC Hgb Hct MCV MCH MCHC RDW Std Deviation RDW Coeff of Chip Plt Count MPV Immature Gran % (Auto) Neut % (Auto) Lymph % (Auto) [place] % (Auto) Eos % (Auto) Baso % (Auto) Absolute Neuts (auto) Absolute Lymphs (auto) Nucleated RBC % Sodium Potassium Chloride Carbon Dioxide Anion Gap BUN Creatinine Estim Creat Clear Calc Est GFR (MDRD) Af Amer Est GFR (MDRD) Non-Af BUN/Creatinine Ratio Glucose Calcium POC Glucose 266 H 216 H 250 H 07/25/20 07/25/20 04:20 04:20 WBC 6.3 RBC 3.24 L Hgb 11.3 L Hct 33.1 L MCV 102.2 H MCH 34.9 H MCHC 34.1 RDW Std Deviation 47.1 H RDW Coeff of Chip 12.6 Plt Count 225 MPV 8.5 Immature Gran % (Auto) 0.200 Neut % (Auto) 57.9 Lymph % (Auto) 26.7 [place] % (Auto) 13.0 H Eos % (Auto) 1.7 Baso % (Auto) 0.5 Absolute Neuts (auto) 3.7 Absolute Lymphs (auto) 1.68 Nucleated RBC % 0 Sodium 139 Potassium 3.4 L Chloride 98 Carbon Dioxide 33.0 H Anion Gap 8 BUN 21 H Creatinine 1.37 H Estim Creat Clear Calc 45.14 Est GFR (MDRD) Af Amer 64 Est GFR (MDRD) Non-Af 53 L BUN/Creatinine Ratio 15.3 Glucose 212 H Calcium 8.3 L POC Glucose Microbiology: Microbiology 07/23/20 17:41 Legionella Antigen - Final Urine Catheter - Gayle 07/23/20 17:41 Streptococcus pneumoniae Antigen (M - Final Urine Catheter - Catheter 07/23/20 17:45 Urine Culture - Preliminary Urine, Clean Catch Culture exhibits no growth. Microbiology 07/23/20 17:41 Urine Catheter - Gayle Legionella Antigen - Final 07/23/20 17:41 Urine Catheter - Catheter Streptococcus pneumoniae Antigen (M - Final 07/23/20 17:45 Urine, Clean Catch Urine Culture - Preliminary Culture exhibits no growth. 07/23/20 17:15 Nasal Secretion SARS-CoV-2 Antigen (Rapid) - Final Radiography Diagnostic Testing: Radiology Impression Echocardiogram 07/25/20 10:00 Interpretation Summary Normal LV size. Moderate concentric left ventricular hypertrophy. The estimated ejection fraction is 45 %. Mild to moderate segmental systolic dysfunction (see wall motion). Stage 1 diastolic dysfunction. Pulmonary artery systolic pressure is 38 mmHg. Mild-Moderate (1-2+) eccentric mitral valve insufficiency. Ordering Physician: Elise Hairston Referring Physician: Lance Rosa Performed By: Sammi Arrington RDCS Meaningful Use Info Meaningful Use Diagnoses (Choose all that apply): AMI AMI/Post PCI/Angioplasty Aspirin given w/in 24hrs of arrival?: Yes ASA at discharge?: Yes Antiplatelet Therapy at Discharge:: No Reason Antiplatelet Therapy not ordered:: CT evaluation Statins at discharge?: Yes Nain/ARB at discharge?: Yes Beta Clemencia at discharge?: Yes Done w/ Acute [place] measure.: Yes Documented LVEF (%): 45 Discharge Plan Admission Admit Date/Time: 07/23/20 19:11 Attending Provider: Cole Anderson Primary Care Provider: Lance Rosa Consulting Providers: Timothy Irizarry ; Raman Zhong ; Mark Dickson ; Sarah Giles [employer] Discharge Orders/Prescriptions Prescriptions: New furosemide 10 mg/mL Solution 40 mg IV BID@1000,1800 Qty: 2 RF: 0 atorvastatin 40 mg Tablet 40 mg PO QHS Qty: 1 RF: 0 carvedilol 6.25 mg Tablet 6.25 mg PO BID Qty: 1 RF: 0 aspirin 81 mg Tablet,Chewable 81 mg PO DAILY@0800 Qty: 1 RF: 0 lisinopril 5 mg Tablet 5 mg PO DAILY Qty: 1 RF: 0 enoxaparin 100 mg/mL Syringe 100 mg subcut Q12 Qty: 1 RF: 0 Continued multivitamin tablet 1 tab PO QDAY RF: 0 insulin detemir U-100 100 UNITS/ML insulin pen 32 units SC QHS RF: 0 ferrous sulfate 325 mg (65 mg iron) Tablet 325 mg PO DAILY RF: 0 Discontinued aspirin 325 mg tablet,delayed release (DR/EC) 325 mg PO QDAY RF: 0 metformin 850 MG tablet 850 mg PO TIDCM RF: 0 simvastatin 40 MG tablet 20 mg PO DAILY RF: 0 metoprolol tartrate 50 MG tablet 50 mg PO BID RF: 0 lisinopril 40 MG tablet 80 mg PO DAILY RF: 0 nateglinide 120 mg Tablet 120 mg PO TID RF: 0 indapamide 2.5 mg Tablet 2.5 mg PO DAILY RF: 0 No Action levothyroxine 137 MCG tablet 137 mcg PO DAILY RF: 0 Referrals / Follow Up: Lance Rosa MD [Primary Care Provider] - Disposition Disposition (needs filled in before D/C Order can be placed): [facility]
[2020-07-25 12:21] LABS: Bedside Glucose 223 mg/dL (70-110)
== END 2020-07-25 12:42 | disposition short-term general hospital (02) | DRG 871 ==
LOC: ED 17:50 → ICU 23:19
PROVIDERS: Admitting Provider Student in an Organized Health Care Education/Training Program; Emergency Provider Student in an Organized Health Care Education/Training Program; PCP Family Medicine
DX: A41.9 Sepsis, unspecified organism (principal); R65.21 Severe sepsis with septic shock; J18.9 Pneumonia, unspecified organism; I21.4 Non-ST elevation (NSTEMI) myocardial infarction; J96.01 Acute respiratory failure with hypoxia; I50.21 Acute systolic (congestive) heart failure; N39.0 Urinary tract infection, site not specified; Z87.891 Personal history of nicotine dependence; E66.9 Obesity, unspecified; I25.10 Atherosclerotic heart disease of native coronary artery without angina pectoris; E03.9 Hypothyroidism, unspecified; I11.0 Hypertensive heart disease with heart failure; E11.9 Type 2 diabetes mellitus without complications; E78.5 Hyperlipidemia, unspecified; Z79.4 Long term (current) use of insulin; Z79.899 Other long term (current) drug therapy; Z68.30 Body mass index [BMI] 30.0-30.9, adult
CPT/HCPCS: 51702; 71045; 71275; 80048; 80053; 81001; 82962; 83605; 83735; 83880; 84443; 84484; 85025; 85379; 85610; 85730; 87040; 87086; 87426; 87449; 93005; 93306; 93458; 94002; 94003; 97802; 99152; 99153; 99251; 99285; J7030; J7040; J7050; Q9967; A4216; C1769; C1894; G0463; J1940

== ENCOUNTER 2020-08-04 14:09 | Inpatient (IN) | payer MEDICARE, OTHER, SELFPAY ==
[2020-07-23 19:19] VITALS: BMI 30.6
[2020-08-04 14:26] VITALS: BP 108/56; PULSE 62; RESP 16; TEMP 36.6; O2SAT 97; BMI 30.8
[2020-08-04 16:51] LABS: Bedside Glucose 144 mg/dL (70-110)
--- NOTE | 2020-08-04 18:42 | NURSING ---
pt and aware of team and visiting hours
[2020-08-04 19:17] VITALS: BP 107/48; PULSE 79; RESP 18; TEMP 36; O2SAT 94
[2020-08-04 21:25] VITALS: O2SAT 95
[2020-08-04 21:50] LABS: Bedside Glucose 118 mg/dL (70-110)
[2020-08-04 22:00] VITALS: PULSE 86; RESP 16; O2SAT 95
[2020-08-04] MEDS: Senna/Docusate Sodium 1 Tablet 2 TABLET PO (22:14)
[2020-08-04] MEDS: Atorvastatin Calcium 80 MG Tablet PO (22:15)
[2020-08-05 05:40] LABS: Absolute Lymphocyte Count 1.49 X10^3/uL (0.83-4.51); Absolute Neutrophil Count 6.2 X10^3/uL (2.0-7.7); Basophil# 0.03 X10^3/uL; Basophil% 0.3 % (0-1); Eosinophil# 0.39 X10^3/uL; Eosinophils% 4.3 % (0-5); Hematocrit 24.5 % (40-54); Hemoglobin 7.9 g/dL (13.0-16.5); Lymphocyte # 1.49 X10^3/ul (0.83-4.51); Lymphocyte % 16.3 % (19-41); Mean Corp Hgb Conc 32.2 g/dL (32-36); Mean Corpuscular Hgb 31.6 pg (27.0-32.0); Mean Platelet Vol. 8.1 fl (6.2-12.0); Monocyte# 0.96 X10^3/uL; Monocyte% 10.5 % (0-10); NRBC Flagged by Analyzer 0.2 % (0-5); Neutrophil % 67.8 % (47-70); Platelet Count 404 K/mm3 (150-450); RBC Distribution Width CV 15.2 % (11.6-14.6); RBC Distribution Width SD 54.1 fl (35.1-43.9); White Blood Count 9.1 K/mm3 (4.4-11.0)
[2020-08-05] MEDS: Levothyroxine 137 MCG Tablet PO (06:08)
[2020-08-05 06:11] LABS: Bedside Glucose 75 mg/dL (70-110)
[2020-08-05 06:17] LABS: ALB/GLOB Ratio 0.9 RATIO (0.9-2.4); AST(SGOT) 137 U/L (15-37); Alanine Aminotransfer ALT/SGPT 119 U/L (16-61); Albumin, Serum 2.6 g/dL (3.2-5.0); Alkaline Phosphatase 138 U/L (45-117); Anion Gap 5 (5-15); BUN 47 mg/dL (7-18); BUN/Creat Ratio 30.3 RATIO (10-20); Calcium,Total 7.8 mg/dL (8.5-10.1); Chloride 102 mmol/L (98-107); Creatinine, Serum 1.55 mg/dL (0.70-1.30); EST Glomerular Filtration Rate 46 mL/min (>60); Est Glom Filt Rate - Afr Amer 56 mL/min (>60); Glucose 77 mg/dL (74-106); Magnesium 2.2 mg/dL (1.6-2.6); Phosphorus 2.5 mg/dL (2.5-4.9); Potassium 3.4 mmol/L (3.5-5.1); Protein, Total 5.6 g/dL (6.4-8.2); Sodium Level 134 mmol/L (136-145)
[2020-08-05 07:58] VITALS: BP 120/54; PULSE 84; RESP 18; TEMP 36.8; O2SAT 96
[2020-08-05] MEDS: Furosemide 40 MG Tablet PO (08:18)
[2020-08-05] MEDS: Aspirin 325 MG Tablet PO (08:18)
[2020-08-05] MEDS: Amiodarone 200 MG Tablet 400 MG PO (08:18)
[2020-08-05] MEDS: Senna/Docusate Sodium 1 Tablet 2 TABLET PO ×2 (08:18→21:20)
[2020-08-05] MEDS: Insulin Lispro 100 UNIT/ML INSULN.PEN SC ×4 (08:22→16:46)
[2020-08-05 08:25] LABS: Bedside Glucose 141 mg/dL (70-110)
--- NOTE | 2020-08-05 08:52 | HP.PCM_ITS ---
[facility] - General General Date of Admission: 08/04/20 Chief Complaint: Debility secondary to recent NSTEMI followed by three-vessel CABG. HPI Narrative ANTONIETA OSMAN, is a 80 M with a PMH of DM II, HTN, HLD, severe triple vessel CAD, ischemic cardiomyopathy, LBBB,diastolic dysfunction, mild pulmonary HTN based on ECHO, former tobacco dependence, PVD, hypothyroidism, benign neoplasm of the colon, obesity, BL carotid disease who presented to the [facility] ER on 07/23/20 with C/O SOB and CP. Cardiac cath showed severe triple vessel disease and he was transferred to [facility] where he underwent a 3 vessel CABG. Post op he had a thoracentesis for pleural effusion. EF at DC from OSH was 40% with segmental wall motion abnormalities. Other post-op complications included anemia and hyponatremia. He was transferred to the acute inpt rehab unit at [facility] on 08/04/20 for therapy to restore function/independence at or near his prior level pre- NSTEMI. [facility] Medical History (Updated 08/06/20 @ 13:49 by Melissa Ba) Acute blood loss anemia Atherosclerotic heart disease of nondalton coronary artery without angina pectoris Benign neoplasm of colon Carotid disease, bilateral Chronic HFrEF (heart failure with reduced ejection fraction) Essential (primary) hypertension History of non-ST elevation myocardial infarction (NSTEMI) (07/23/20) Hypothyroidism Ischemic cardiomyopathy Left bundle branch block (LBBB) Mixed hyperlipidemia PAD (peripheral artery disease) Pleural effusion, bilateral Postoperative atrial fibrillation (07/30/20) Synovial cyst of popliteal space [Andre], left knee Type 2 diabetes mellitus Home Medications levothyroxine 137 mcg PO DAILY 10/24/16 [History Last Taken Unknown] amiodarone 400 mg PO DAILY 08/04/20 [History Last Taken Unknown] aspirin 325 mg PO DAILY 08/04/20 [History Last Taken Unknown] atorvastatin 80 mg PO QHS 08/04/20 [History Last Taken Unknown] furosemide [Lasix] 40 mg PO DAILY 08/04/20 [History Last Taken Unknown] multivitamin,[id number] [Multivitamin And Mineral] 1 tab PO DAILY 08/04/20 [History Last Taken Unknown] Et Mix 270 g OTHER BID 08/05/20 [History Last Taken Unknown] Allergy/AdvReac Type Severity Reaction Status Date / Time naproxen [From Naprosyn] Allergy Other Verified 05/29/17 12:42 venom-honey bee Allergy Anaphylaxis Verified 05/29/17 12:42 Family History Mother Diabetes Heart disease Father Heart disease Surgical History (Updated 08/06/20 @ 13:49 by Melissa Ba) H/O coronary artery bypass surgery (07/25/20) History of appendectomy History of colonoscopy History of left heart catheterization (07/25/20) History of thoracentesis (08/03/20) Social History Smoking Status: Former smoker Tobacco: How many years used: 17 how long ago did patient quit smokin years ago alcohol intake: never substance use type: does not use ROS Review of Systems ROS Unobtainable: Denies due to encephalopathy, due to endotracheal tube, due to mental condition or due to mental status Constitutional Constitutional: Reports weakness; Denies anorexia, change in weight, chills, fatigue, fever(s) or night sweats Eyes Eyes: Denies blurry vision, change in vision, eye pain or loss of vision ENT HEENT: Denies abnormal hearing, dysphagia, headache(s), hearing loss, nasal congestion or sore throat Cardiovascular Cardiovascular: Reports edema; Denies chest pain, dyspnea on exertion, lightheadedness, orthopnea, palpitations, paroxysmal nocturnal dyspnea or syncope Respiratory/Chest Respiratory/Chest: Denies cough, dyspnea, shortness of breath at rest, shortness of breath with exertion or wheezing Gastrointestinal Gastrointestinal: Denies abdominal pain, constipation, diarrhea, dyspepsia, hematemesis, hematochezia, nausea or vomiting Genitourinary Genitourinary: Reports hematuria and nocturia; Denies dysuria, urinary frequency, urinary hesitancy, urinary incontinence or urinary urgency Musculoskeletal Musculoskeletal: Denies back pain, joint pain, joint swelling or neck pain Integumentary Integumentary: Reports wounds Neurologic Neurologic: Denies confusion, disequilibrium, dizziness, focal weakness, headache(s), paresthesias, seizures or tremor(s) Psychiatric Psychiatric: Denies anxiety, depression, homicidal ideation or suicidal ideation Endocrine Endocrinology: Denies change in body appearance, polydipsia or polyuria Hematologic/Lymphatic Hematologic/Lymphatic: Denies easy bleeding, easy bruising or lymphadenopathy Allergic/Immunologic Allergic/Immunologic: Denies rhinitis, eczemia or asthma Vital Signs Vital Signs Vital Signs: 08/04/20 14:26 08/04/20 19:17 08/04/20 21:25 Temperature 97.9 F 96.8 F L Temperature Source Temporal Oral Pulse Rate 62 79 Respiratory Rate 16 18 Respiratory Effort Respiratory Depth Respiratory Pattern Blood Pressure 108/56 L 107/48 L Blood Pressure Mean 73 67 Blood Pressure Source Monitor Monitor Blood Pressure Position Semi-Fowlers Semi-Fowlers Blood Pressure Location Right Arm Right Arm Pulse Ox 97 94 95 Oxygen Delivery Method Room Air Room Air 08/04/20 22:00 08/05/20 07:58 Temperature 98.3 F Temperature Source Oral Pulse Rate 86 84 Respiratory Rate 16 18 Respiratory Effort Normal Non-Labored Respiratory Depth Normal Respiratory Pattern Normal Blood Pressure 120/54 L Blood Pressure Mean 76 Blood Pressure Source Monitor Blood Pressure Position Semi-Fowlers Blood Pressure Location Right Arm Pulse Ox 95 96 Oxygen Delivery Method Room Air Room Air Physical Exam Const alert, oriented x3 and no apparent distress Constitutional Narrative: Making good eye contact, appropriate General Appearance: cooperative and comfortable HEENT normocephalic and moist oral mucous membranes HEENT Narrative: large overbite Teeth and Gingiva: teeth discoloration Eyes PERRL and EOMs intact bilaterally Neck no lymphadenopathy, supple, no JVD and no carotid bruits Resp normal respiratory effort, no use of accessory muscles and clear to auscultation bilaterally Resp Narrative: Not tachypneic and no conversational dyspnea. Somewhat diminished in the bases Cardio regular rate, regular rhythm, S1 normal heart sound, S2 normal heart sound, no rub and no gallops Cardio Narrative: He has a sysstolic MM at the second RICS with radiation to the apex and the LLSB - more likely than not a flow MM due to anemia GI normal to inspection, nondistended, normoactive bowel sounds and non-tender GI Narrative: No guarding with palpation. Extremity normal capillary refill Extremity Narrative: Negative Emanuel's and Yulissa's signs General Extremity: edema bilateral Skin Skin Narrative: No rashes. The sternal incision is intact with no erythema and no purulent DC. He has a stage 2 decubitus ulcer over the R inner buttock area. Neuro oriented x3, CN's II-XII intact bilaterally and no focal motor deficits Motor Exam: strength 5/5 throughout Psych mental status grossly normal and affect normal Psych Narrative: Appropriate, making good eye contact. Able to stay on topic and focus. No flight of ideas. Does not appear anxious or depressed. Conversant and relating well to staff. Appearance: appropriate and well kempt Attitude: calm Activity / Motor Behavior: appropriate eye contact Lab / Micro Data Result Diagrams: 08/05/20 05:32 08/05/20 05:32 Labs: Laboratory Results - last 24 hr 08/04/20 08/04/20 08/05/20 16:02 21:47 05:32 WBC 9.1 RBC 2.50 L Hgb 7.9 L Hct 24.5 L MCV 98.0 H MCH 31.6 MCHC 32.2 RDW Std Deviation 54.1 H RDW Coeff of Chip 15.2 H Plt Count 404 MPV 8.1 Immature Gran % (Auto) 0.800 Neut % (Auto) 67.8 Lymph % (Auto) 16.3 L [place] % (Auto) 10.5 H Eos % (Auto) 4.3 Baso % (Auto) 0.3 Absolute Neuts (auto) 6.2 Absolute Lymphs (auto) 1.49 Nucleated RBC % 0.2 Sodium Potassium Chloride Carbon Dioxide Anion Gap BUN Creatinine Estim Creat Clear Calc Est GFR (MDRD) Af Amer Est GFR (MDRD) Non-Af BUN/Creatinine Ratio Glucose Calcium Phosphorus Magnesium Total Bilirubin AST ALT Alkaline Phosphatase Total Protein Albumin Globulin Albumin/Globulin Ratio POC Glucose 144 H 118 H 08/05/20 08/05/20 08/05/20 05:32 06:06 08:21 WBC RBC Hgb Hct MCV MCH MCHC RDW Std Deviation RDW Coeff of Chip Plt Count MPV Immature Gran % (Auto) Neut % (Auto) Lymph % (Auto) [place] % (Auto) Eos % (Auto) Baso % (Auto) Absolute Neuts (auto) Absolute Lymphs (auto) Nucleated RBC % Sodium 134 L Potassium 3.4 L Chloride 102 Carbon Dioxide 27.0 Anion Gap 5 BUN 47 H Creatinine 1.55 H Estim Creat Clear Calc 39.90 Est GFR (MDRD) Af Amer 56 L Est GFR (MDRD) Non-Af 46 L BUN/Creatinine Ratio 30.3 H Glucose 77 Calcium 7.8 L Phosphorus 2.5 Magnesium 2.2 Total Bilirubin 0.80 AST 137 H ALT 119 H Alkaline Phosphatase 138 H Total Protein 5.6 L Albumin 2.6 L Globulin 3.0 Albumin/Globulin Ratio 0.9 POC Glucose 75 141 H Assessment & Plan Assessment/Plan (1) Physical debility: PLAN: PT/OT (2) S/P CABG (coronary artery bypass graft): PLAN: 07/25/20 (3) Hypokalemia: PLAN: supplement ordered (4) Hyponatremia: PLAN: continue to monitor and continue the fluid restriction (5) Macrocytic anemia: PLAN: more likely than not due to reticulocytosis due to acute blood loss anemia (6) Abnormal LFTs: PLAN: mild increase......recheck prior to DC (7) PAD (peripheral artery disease): PLAN: not active at this time (8) HTN (hypertension): QUALIFIERS: Hypertension type: essential hypertension Qualified Code(s): I10 - Essential (primary) hypertension PLAN: Continue current medications (9) Diabetes: QUALIFIERS: Diabetes mellitus complication detail: with other circulatory complications Diabetes mellitus complication status: with circulatory complication Diabetes mellitus intermediate insulin use: with intermediate use Diabetes mellitus type: type 2 Qualified Code(s): E11.59 - Type 2 diabetes mellitus with other circulatory complications; Z79.4 - [facility] (current) use of insulin PLAN: Continue current medications (10) Hypothyroidism: QUALIFIERS: Hypothyroidism type: acquired Qualified Code(s): E03.9 - Hypothyroidism, unspecified (11) Mixed hyperlipidemia: (12) Chronic renal failure, stage 3a: (13) Carotid disease, bilateral: QUALIFIERS: Carotid artery disease type: stenosis Qualified Code(s): I65.23 - Occlusion and stenosis of bilateral carotid arteries (14) Benign neoplasm of colon: QUALIFIERS: Colon location: unspecified part of colon Qualified Code(s): D12.6 - Benign neoplasm of colon, unspecified (15) Synovial cyst of popliteal space [Andre], left knee: Visit Charges Inpatient E&M: 00595 Init Hosp L3
--- NOTE | 2020-08-05 09:49 | PCM.RU.PYE ---
Admission Information Primary Diagnosis:: Debility secondary to recent NSTEMI followed by CABG x3 vessels Status Changes from Prescreening?: Medical (He has a R foot drop and ) Risk of Complications DVT: BERHANE Fonseca and - (Start heparin 5000 units subcu every 12 hours) Bleeding: Monitor Lab Values, Nursing to Teach Precautions for anti-coagulation therapy. and Wound, if applicable, to be assessed every shift. Infection: Clinical Staff to Monitor for S/S of infection: and S/S of infection include fever, redness, warmth, etc. Urinary Tract Infection: Monitor for frequency, burning, discomfort, or incontinence. and Nursing will obtain urine sample for urinalysis and C&S when ordered. Aspiration: Clinical staff will monitor for coughing, drooling, congestion., Speech will evaluate swallowing and dsyphasia. and Nursing will monitor patient swallowing during meals. Falls: Patient will be evaluated for Fall Precautions and Patient will be placed on Fall Precautions as indicated per protocol. Skin Breakdown: Nursing will assess skin daily using assessment tool. and Nursing will place on Skin Breakdown Precautions as indicated. Pain: Clinical staff will assess patient's pain level per protocol., Medications will be given, if needed, and the pain level reassessed. and Other methods: Massage, distraction, decrease stimulus, etc. used PRN. Plan of Care Patient requires physician specializing in physical medicine and rehab oversight to provide close medical supervision of rehab issues including: Pain Management, Sleep Problems, Bowel and Bladder, Medical and co-morbidity Management, DVT prophylaxis, Rehabilitation Leadership and Coordination of treatment team Patient needs Physical Therapy: For a minimum of 1 hour and At least 5 out of 7 days Patient needs Physical Therapy to improve:: Mobility, Strengthening, Transfers, Stretching, ROM, Endurance, Stairs, Gait and Balance Patient needs Occupational Therapy: At least 5 out of 7 days and For a minimum of 1.5 hrs Patient needs Occupational Therapy to improve ADL's incl.: Eating, Grooming, Bathing, Dressing, Toileting, Toilet transfers, Community Reintegration, Higher functioning activities, Household tasks, Adaptive Equipment, Splinting and Other activities as determined Patient requires speech therapy: At least 5 out of 7 days and For a minimum of 1.5 hrs Patient requires 24/7 Rehabilitation Nursing for: Pain Issues, Identifying and preventing risk factors, Monitoring and reporting current medical conditions, Assisting with ambulation, transfer, and all ADL's, Teaching patients about disease process and medications, Family teaching, Providing safe environment, Bowel and Bladder Issues, Skin integrity and Medication Management Patient needs Owner Oral Surgeon/ Case Management for: Discharge Planning, Arranging Home Equipment or Services and Family Interventions Patient needs Dietary and Nutrition Services for: Adequate Nutrition, Nutritional Supplements and Nutritional Education Goals Patient will remain: free from falls and or injury at time of discharge. Patient will perform bed mobility at: MOD I level of assist. Patient will complete transfers from bed to chair at: MOD I level of assist. Patient will ambulate: 100 feet and with LRD Patient will complete upper body dressing at: MOD I level of assist. Patient will complete lower body dressing at: MOD I level of assist. Patient will complete toileting at: MOD I level of assist. Patient will perform bathing at: MOD I level of assist. Patient will complete grooming at: MOD I level of assist. Patient will complete home management skills at: MOD I level of assist. Patient will achieve: - (1 curb step) Patient will have pain level of: of 3 or less Patient's skin will: remain intact Patient will receive: adequate nutrition. Discharge Planning Pt Prognosis for Sig. Practical Improv. w/in Reasonable Time: Good Estimated Length of stay (days): 14 Anticipated D/C Destination: Home with Home Health Was Preadmission Assessment Accurate?: Yes
[2020-08-05 10:02] VITALS: O2SAT 96
[2020-08-05] MEDS: Potassium Chloride Oral Tablet 20 MEQ PO ×3 (10:07→16:44)
[2020-08-05 10:27] LABS: Hemoglobin A1c 6.8 % (3.8-5.6)
[2020-08-05 11:40] LABS: Bedside Glucose 164 mg/dL (70-110)
--- NOTE | 2020-08-05 11:53 | NURSING ---
wound photo: right inner buttock
[2020-08-05] MEDS: Multivitamins,Ther W-Minerals Tablet 1 TABLET PO (12:05)
[2020-08-05 17:05] LABS: Bedside Glucose 98 mg/dL (70-110)
[2020-08-05 19:02] VITALS: BP 117/63; PULSE 86; RESP 18; TEMP 36.6; O2SAT 98
[2020-08-05] MEDS: Atorvastatin Calcium 80 MG Tablet PO (21:20)
[2020-08-05 21:45] LABS: Bedside Glucose 98 mg/dL (70-110)
--- NOTE | 2020-08-06 03:18 | NURSING ---
Reviewed and agree with QA REVIEWER documentation and charting.
[2020-08-06] MEDS: Levothyroxine 137 MCG Tablet PO (06:51)
[2020-08-06 07:15] LABS: Bedside Glucose 128 mg/dL (70-110)
[2020-08-06] MEDS: Amiodarone 200 MG Tablet 400 MG PO (07:44)
[2020-08-06] MEDS: Aspirin 325 MG Tablet PO (07:44)
[2020-08-06] MEDS: Insulin Lispro 100 UNIT/ML INSULN.PEN SC ×3 (07:44→16:23)
[2020-08-06 08:31] VITALS: O2SAT 98
[2020-08-06 10:00] VITALS: BP 130/69; PULSE 90; RESP 16; TEMP 36.6; O2SAT 94
[2020-08-06] MEDS: Multivitamins,Ther W-Minerals Tablet 1 TABLET PO (11:51)
[2020-08-06 12:00] LABS: Bedside Glucose 137 mg/dL (70-110)
[2020-08-06 16:25] LABS: Bedside Glucose 133 mg/dL (70-110)
[2020-08-06 19:23] VITALS: BP 150/77; PULSE 80; RESP 16; TEMP 36.2; O2SAT 96
[2020-08-06] MEDS: Atorvastatin Calcium 80 MG Tablet PO (21:15)
[2020-08-06] MEDS: Senna/Docusate Sodium 1 Tablet 2 TABLET PO (21:15)
[2020-08-06 22:05] LABS: Bedside Glucose 139 mg/dL (70-110)
[2020-08-07] MEDS: Levothyroxine 137 MCG Tablet PO (05:02)
[2020-08-07 06:50] LABS: Bedside Glucose 134 mg/dL (70-110)
[2020-08-07 08:00] VITALS: BP 118/72; PULSE 72; RESP 16; TEMP 36.7; O2SAT 96
[2020-08-07] MEDS: Insulin Lispro 100 UNIT/ML INSULN.PEN SC ×4 (08:01→16:38)
[2020-08-07] MEDS: Aspirin 325 MG Tablet PO (08:02)
[2020-08-07] MEDS: Amiodarone 200 MG Tablet 400 MG PO (08:02)
[2020-08-07 11:36] LABS: Bedside Glucose 169 mg/dL (70-110)
[2020-08-07] MEDS: Multivitamins,Ther W-Minerals Tablet 1 TABLET PO (11:37)
--- NOTE | 2020-08-07 12:30 | NURSING ---
Pt ambulated standby assist via FWW x2 laps in hallways, tolerated well.
[2020-08-07 16:51] LABS: Bedside Glucose 131 mg/dL (70-110)
[2020-08-07] MEDS: Senna/Docusate Sodium 1 Tablet 2 TABLET PO (21:17)
[2020-08-07] MEDS: Atorvastatin Calcium 80 MG Tablet PO (21:17)
[2020-08-07 21:20] LABS: Bedside Glucose 148 mg/dL (70-110)
[2020-08-07 22:00] VITALS: BP 157/84; PULSE 93; RESP 16; TEMP 35.7; O2SAT 97
[2020-08-08] MEDS: Levothyroxine 137 MCG Tablet PO (05:06)
[2020-08-08 06:41] LABS: Bedside Glucose 142 mg/dL (70-110)
[2020-08-08 07:20] VITALS: BP 145/76; PULSE 93; RESP 18; TEMP 36.6; O2SAT 97
[2020-08-08] MEDS: Aspirin 325 MG Tablet PO (08:09)
[2020-08-08] MEDS: Amiodarone 200 MG Tablet 400 MG PO (08:09)
[2020-08-08] MEDS: Insulin Lispro 100 UNIT/ML INSULN.PEN SC ×3 (08:09→16:53)
--- NOTE | 2020-08-08 10:13 | CASEMGMT ---
Social Work IDT met with patient and for Team meeting. Discussed patient's progress in therapy and nursing. Pt progressing well. Using AE to adhere to sternal precautions. Mod assist in some areas. The goal is for pt to return home with . Offered therapy family training for as pt is adamant about returning home. agreed and scheduled for 08/12. Explained Medicare approved 11 days with DC 08/15. SW to assist with ordering HHC and DME. Will continue to follow. IMELDA TilleyW
--- NOTE | 2020-08-08 10:26 | CASEMGMT ---
SW met w/pt and in room, inquired w/pt if he would like to complete LW/POA forms. Pt's states that pt already has LW/POA forms, and will bring them in next time she is here. She states that she is pt's medical POA. NIKI Tate
[2020-08-08] MEDS: Multivitamins,Ther W-Minerals Tablet 1 TABLET PO (11:35)
[2020-08-08 11:55] LABS: Bedside Glucose 147 mg/dL (70-110)
--- NOTE | 2020-08-08 13:30 | NURSING ---
Pt is currently getting therapy in the therapy room. Unable to assess buttock at this time.
--- NOTE | 2020-08-08 15:09 | PCM.PROGNOTE ---
Subjective Subjective Sven was seen on team rounds today. His Quin was present in the room for rounds. Afebrile VSS Maintaining appropriate oxygen saturation on RA Oral intake is good Discussed with nursing - no problems that need addressed Reviewed the PT/OT notes Medication list reviewed. Sven denies CP, orthopnea, MENDOZA, N/V/D/C. He has no lightheadedness and no palpitations. Objective Data Objective Data Vital Signs: Vital Signs Temp Pulse Resp BP Pulse Ox 97.8 F 93 18 145/76 H 97 08/08/20 07:20 08/08/20 07:20 08/08/20 07:20 08/08/20 07:20 08/08/20 07:20 Oxygen Delivery Method Room Air Weight: 185 lb 10.067 oz Body Mass Index (BMI) 30.8 Intake & Output: Intake and Output for Last 24 Hours 08/06/20 08/07/20 08/08/20 23:59 23:59 23:59 Intake Total 1250 / 1250 1040 / 1040 780 / 780 Output Total 700 / 900 400 / 400 Balance 550 / 350 640 / 640 780 / 780 Lab / Micro Data Result Diagrams: 08/05/20 05:32 08/05/20 05:32 Labs: Laboratory Results - last 24 hr 08/07/20 08/07/20 08/08/20 16:36 21:16 06:35 POC Glucose 131 H 148 H 142 H 08/08/20 11:50 POC Glucose 147 H Physical Exam Const alert, oriented x3 and no apparent distress Constitutional Narrative: Making good eye contact, appropriate General Appearance: cooperative and comfortable HEENT normocephalic and moist oral mucous membranes Eyes PERRL and EOMs intact bilaterally Neck no lymphadenopathy, supple, no JVD and no carotid bruits Resp normal respiratory effort, no use of accessory muscles and clear to auscultation bilaterally Resp Narrative: Not tachypneic and no conversational dyspnea. Somewhat diminished in the bases Cardio regular rate, regular rhythm, S1 normal heart sound, S2 normal heart sound, no rub and no gallops Cardio Narrative: He has a sysstolic MM at the second RICS with radiation to the apex and the LLSB - more likely than not a flow MM due to anemia GI normal to inspection, nondistended, normoactive bowel sounds and non-tender GI Narrative: No guarding with palpation. Extremity normal capillary refill Extremity Narrative: Negative Emanuel's and Yulissa's signs General Extremity: edema bilateral Skin Skin Narrative: No rashes. The sternal incision is intact with no erythema and no purulent DC. He has a stage 2 decubitus ulcer over the R inner buttock area. Neuro oriented x3, CN's II-XII intact bilaterally and no focal motor deficits Motor Exam: strength 5/5 throughout Psych mental status grossly normal and affect normal Psych Narrative: Appropriate, making good eye contact. Able to stay on topic and focus. No flight of ideas. Does not appear anxious or depressed. Conversant and relating well to staff. Appearance: appropriate and well kempt Attitude: calm Activity / Motor Behavior: appropriate eye contact Assessment & Plan Assessment/Plan (1) H/O coronary artery bypass surgery: (2) Physical debility: (3) Acute blood loss anemia: (4) Postoperative atrial fibrillation: (5) History of non-ST elevation myocardial infarction (NSTEMI): (6) Ischemic cardiomyopathy: (7) Chronic HFrEF (heart failure with reduced ejection fraction): (8) Chronic renal failure, stage 3a: (9) Hypokalemia: (10) Type 2 diabetes mellitus: PLAN: Continue therapy recheck HH and a BMP in the AM Plan is to go home at [place]. His will come in Saturday for family training All questions were answered. Quin asked what stage of renal failure he is in and I told her 3a and then she asked what to do to keep it from getting worse....I told them to keep the BS's and the BP well controlled and be compliant with the medications. Visit Charges Inpatient E&M: 40936 Subs Hosp L2
[2020-08-08 16:10] LABS: Bedside Glucose 94 mg/dL (70-110)
[2020-08-08 19:43] VITALS: BP 152/73; PULSE 88; RESP 16; TEMP 36.5; O2SAT 97
[2020-08-08] MEDS: Atorvastatin Calcium 80 MG Tablet PO (22:14)
[2020-08-08] MEDS: Senna/Docusate Sodium 1 Tablet 2 TABLET PO (22:14)
[2020-08-08] MEDS: Heparin Injection (Vial) 5,000 UNIT/ML VIAL 5000 UNIT SC (22:14)
[2020-08-08 22:16] LABS: Bedside Glucose 103 mg/dL (70-110)
[2020-08-09 05:57] LABS: Hematocrit 30.4 % (40-54); Hemoglobin 9.5 g/dL (13.0-16.5)
[2020-08-09] MEDS: Levothyroxine 137 MCG Tablet PO (06:10)
[2020-08-09 06:17] LABS: Anion Gap 4 (5-15); BUN 18 mg/dL (7-18); BUN/Creat Ratio 17.8 RATIO (10-20); Calcium,Total 8.1 mg/dL (8.5-10.1); Chloride 104 mmol/L (98-107); Creatinine, Serum 1.01 mg/dL (0.70-1.30); EST Glomerular Filtration Rate 76 mL/min (>60); Est Glom Filt Rate - Afr Amer 92 mL/min (>60); Estimated Creatinine Clearance 61.23 ml/min; Glucose 82 mg/dL (74-106); Potassium 3.9 mmol/L (3.5-5.1); Sodium Level 136 mmol/L (136-145)
[2020-08-09 06:46] LABS: Bedside Glucose 95 mg/dL (70-110)
[2020-08-09 07:44] VITALS: BP 141/73; PULSE 89; RESP 16; TEMP 36.4; O2SAT 94
[2020-08-09] MEDS: Insulin Lispro 100 UNIT/ML INSULN.PEN SC ×4 (07:45→21:44)
[2020-08-09] MEDS: Amiodarone 200 MG Tablet 400 MG PO (07:45)
[2020-08-09] MEDS: Aspirin 325 MG Tablet PO (07:45)
[2020-08-09] MEDS: Heparin Injection (Vial) 5,000 UNIT/ML VIAL 5000 UNIT SC ×2 (07:45→21:44)
[2020-08-09 11:10] LABS: Bedside Glucose 158 mg/dL (70-110)
--- NOTE | 2020-08-09 11:50 | CASEMGMT ---
Social Work Received call from Cardiac Rehab that Dr. Irizarry sent referral for pt to follow at [place]. Spoke with pt whom is agreeable. Pt has no DME needs. Pt agreeable to CCN referral. Referral made. Plan: DC home with 08/15 with Cardiac Rehab and CCN. Dennise Capone, WAREHOUSE LOGISTICS MANAGER FLOAT REMOVER
[2020-08-09] MEDS: Multivitamins,Ther W-Minerals Tablet 1 TABLET PO (11:54)
[2020-08-09 16:06] LABS: Bedside Glucose 72 mg/dL (70-110)
[2020-08-09 19:26] VITALS: BP 138/71; PULSE 91; RESP 16; TEMP 36.8; O2SAT 98
[2020-08-09 21:01] LABS: Bedside Glucose 189 mg/dL (70-110)
[2020-08-09] MEDS: Atorvastatin Calcium 80 MG Tablet PO (21:45)
[2020-08-09] MEDS: Senna/Docusate Sodium 1 Tablet 2 TABLET PO (21:45)
[2020-08-09 22:00] VITALS: PULSE 86; RESP 17; O2SAT 98
[2020-08-10] MEDS: Levothyroxine 137 MCG Tablet PO (05:40)
[2020-08-10 06:35] LABS: Bedside Glucose 120 mg/dL (70-110)
[2020-08-10] MEDS: Aspirin 325 MG Tablet PO (07:59)
[2020-08-10] MEDS: Amiodarone 200 MG Tablet 400 MG PO (07:59)
[2020-08-10] MEDS: Insulin Lispro 100 UNIT/ML INSULN.PEN SC ×5 (08:00→21:46)
[2020-08-10] MEDS: Senna/Docusate Sodium 1 Tablet 2 TABLET PO (08:01)
[2020-08-10] MEDS: Heparin Injection (Vial) 5,000 UNIT/ML VIAL 5000 UNIT SC ×2 (08:01→21:45)
[2020-08-10 08:44] VITALS: BP 139/73; PULSE 86; RESP 16; TEMP 36.6; O2SAT 96
--- NOTE | 2020-08-10 11:57 | PCM.PROGNOTE ---
Subjective Subjective Afebrile VSS Maintaining appropriate oxygen saturation on RA Oral intake is good Discussed with nursing - no problems that need addressed Reviewed the PT/OT notes Medication list reviewed. Blood sugar record was reviewed. No blood sugars greater than 190. No hypoglycemia. The fasting yesterday was 72 but today it is 120 Sven denies CP, SOB, palpitations, calf pain, lightheadedness. He is sleeping well and denies N/V/abdominal pain, constipation or diarrhea, burning with urination. Objective Data Objective Data Vital Signs: Vital Signs Temp Pulse Resp BP Pulse Ox 97.9 F 86 16 139/73 H 96 08/10/20 08:44 08/10/20 08:44 08/10/20 08:44 08/10/20 08:44 08/10/20 08:44 Oxygen Delivery Method Room Air Weight: 216 lb 11.43 oz Body Mass Index (BMI) 30.8 Intake & Output: Intake and Output for Last 24 Hours 08/08/20 08/09/20 08/10/20 23:59 23:59 23:59 Intake Total 1100 / 1100 1300 / 1400 560 / 560 Output Total 700 / 900 500 / 500 Balance 1100 / 1100 600 / 500 60 / 60 Lab / Micro Data Result Diagrams: 08/09/20 05:40 08/09/20 05:40 Labs: Laboratory Results - last 24 hr 08/09/20 08/09/20 08/10/20 15:59 20:57 06:29 POC Glucose 72 189 H 120 H Physical Exam Const alert, oriented x3 and no apparent distress General Appearance: cooperative Resp normal respiratory effort and clear to auscultation bilaterally Auscultation: diminished lung sounds Cardio regular rate, regular rhythm and no gallops Cardio Narrative: second RICS with radiation to the LLSB, apex and the left axilla. Heart Sounds: murmur GI normal to inspection, nondistended, normoactive bowel sounds, soft to palpation and non-tender Extremity Extremity Narrative: minimal at the ankles General Extremity: edema Skin Skin Narrative: stage 2 decubitus ulcer on the backside Rashes: no rashes Wounds: wounds noted Neuro CN's II-XII intact bilaterally Psych affect normal Appearance: appropriate Assessment & Plan Assessment/Plan (1) H/O coronary artery bypass surgery: (2) Physical debility: (3) Hypokalemia: (4) Stage II decubitus ulcer: (5) Acute blood loss anemia: (6) Abnormal LFTs: (7) Hyponatremia: (8) Essential (primary) hypertension: (9) Type 2 diabetes mellitus: (10) Macrocytic anemia: PLAN: Continue therapy Reviewed the sternal precautions with him today Will have his Quin come in for family training prior to DC. Plan is to DC home on 08/15/20 Continue the ET mix on the decubitus ulcer......if it is still present at DC will have him follow up with me in the [facility] to get it completely healed. Visit Charges Inpatient E&M: 17653 Subs Hosp L2
[2020-08-10 12:00] LABS: Bedside Glucose 145 mg/dL (70-110)
[2020-08-10] MEDS: Multivitamins,Ther W-Minerals Tablet 1 TABLET PO (12:00)
--- NOTE | 2020-08-10 17:06 | CHAPLAIN ---
Type of Pastoral Visit _x__ Initial Visit ___ Follow-up Visit ___ On-call Visit ___ General Patient Visit ___ Spiritual Assessment ___ Family Conference ___ Bereavement ___ Rapid Response ___ Code Blue ___ Other (describe below) Pastoral Care Referral From _x__ Patient ___ Family ___ Nurse ___ Physician ___ Sweeper Driver ___ Pc Tech ___ Other (describe below) Sacrament/Intervention _x__ Active listening ___ Anointing ___ Yarsanism ___ Bereavement ___ Communion ___ Haley exploration ___ _x__ Life review _x__ Prayer ___ Reconciliation ___ Sacrament of Sick _x__ Supportive presence ___ Wedding ___ Other (describe below) Pastoral Comments patient gave detailed explanation about his health event and current recovery; pt is grateful for outcomes and support given; pt has little worries for himself but more concerned for who has taken on more responsibilities; family is mostly out of the area and not available for immediate help
[2020-08-10 17:10] LABS: Bedside Glucose 166 mg/dL (70-110)
[2020-08-10 19:15] VITALS: BP 116/57; PULSE 99; RESP 16; TEMP 36.7; O2SAT 99
[2020-08-10 20:56] LABS: Bedside Glucose 208 mg/dL (70-110)
[2020-08-10] MEDS: Atorvastatin Calcium 80 MG Tablet PO (21:47)
[2020-08-10 22:00] VITALS: PULSE 92; RESP 16; O2SAT 99
[2020-08-11] MEDS: Levothyroxine 137 MCG Tablet PO (05:01)
[2020-08-11 06:35] LABS: Bedside Glucose 143 mg/dL (70-110)
[2020-08-11 06:59] VITALS: BP 136/76; PULSE 98; RESP 16; TEMP 36.3; O2SAT 96
[2020-08-11] MEDS: Amiodarone 200 MG Tablet 400 MG PO (07:49)
[2020-08-11] MEDS: Aspirin 325 MG Tablet PO (07:49)
[2020-08-11] MEDS: Insulin Lispro 100 UNIT/ML INSULN.PEN SC ×4 (07:49→17:20)
[2020-08-11] MEDS: Heparin Injection (Vial) 5,000 UNIT/ML VIAL 5000 UNIT SC ×2 (07:50→20:32)
[2020-08-11 11:05] LABS: Bedside Glucose 252 mg/dL (70-110)
[2020-08-11] MEDS: Multivitamins,Ther W-Minerals Tablet 1 TABLET PO (12:09)
[2020-08-11 16:30] LABS: Bedside Glucose 92 mg/dL (70-110)
[2020-08-11 19:42] VITALS: BP 133/69; PULSE 90; RESP 17; TEMP 36.7; O2SAT 98
[2020-08-11 20:07] VITALS: PULSE 89; RESP 16; O2SAT 98
[2020-08-11] MEDS: Atorvastatin Calcium 80 MG Tablet PO (20:33)
[2020-08-11 20:36] LABS: Bedside Glucose 126 mg/dL (70-110)
[2020-08-12] MEDS: Levothyroxine 137 MCG Tablet PO (05:14)
[2020-08-12 06:36] LABS: Bedside Glucose 128 mg/dL (70-110)
[2020-08-12 07:24] VITALS: BP 120/63; PULSE 87; RESP 16; TEMP 36.3; O2SAT 95
[2020-08-12] MEDS: Aspirin 325 MG Tablet PO (07:40)
[2020-08-12] MEDS: Insulin Lispro 100 UNIT/ML INSULN.PEN SC ×3 (07:41→17:19)
[2020-08-12] MEDS: Amiodarone 200 MG Tablet 400 MG PO (07:41)
[2020-08-12] MEDS: Heparin Injection (Vial) 5,000 UNIT/ML VIAL 5000 UNIT SC ×2 (07:42→21:48)
--- NOTE | 2020-08-12 09:04 | CASEMGMT ---
Social Work Spoke with whom is requesting DME. Requesting FWW and 3-in-1 commode. SW made referral to [facility] [place] Dennise Capone, DIRECTOR OF REHABILITATIVE SERVICES EHS MANAGER
[2020-08-12 11:35] LABS: Bedside Glucose 146 mg/dL (70-110)
[2020-08-12] MEDS: Multivitamins,Ther W-Minerals Tablet 1 TABLET PO (12:04)
--- NOTE | 2020-08-12 14:42 | PN_ITS ---
Subjective Subjective Afebrile VSS-blood pressure is well controlled. Maintaining appropriate oxygen saturation on RA Oral intake is poor Discussed with nursing - no problems that need addressed Reviewed the PT/OT/ST notes Medication list reviewed. Rare blood sugar greater than 200. No hypoglycemia. DC is planned for Saturday. Since he will not get therapy on Saturday I will discuss with him whether he wants to go on Saturday instead. He denies chest pain, shortness of breath, palpitations, orthopnea, calf pain. He also denies lightheadedness, nausea, vomiting, abdominal pain. Objective Data Objective Data Vital Signs: Vital Signs Temp Pulse Resp BP Pulse Ox 97.4 F L 87 16 120/63 95 08/12/20 07:24 08/12/20 07:24 08/12/20 07:24 08/12/20 07:24 08/12/20 07:24 Oxygen Delivery Method Room Air Weight: 217 lb 2.485 oz Body Mass Index (BMI) 30.8 Intake & Output: Intake and Output for Last 24 Hours 08/10/20 08/11/20 08/12/20 23:59 23:59 23:59 Intake Total 1300 / 1300 2160 / 2160 360 / 360 Output Total 1400 / 1400 400 / 400 700 / 700 Balance -100 / -100 1760 / 1760 -340 / -340 Lab / Micro Data Result Diagrams: 08/09/20 05:40 08/09/20 05:40 Labs: Laboratory Results - last 24 hr 08/11/20 08/11/20 08/12/20 16:25 20:31 06:25 POC Glucose 92 126 H 128 H 08/12/20 11:32 POC Glucose 146 H Physical Exam Const alert, oriented x3 and no apparent distress Constitutional Narrative: Making good eye contact, appropriate General Appearance: cooperative HEENT normocephalic and moist oral mucous membranes Eyes PERRL and EOMs intact bilaterally Neck no lymphadenopathy, supple, no JVD and no carotid bruits General: trachea midline Resp normal respiratory effort Resp Narrative: No conversational dyspnea, not tachypneic, no accessory muscle use. He is sleeping lying nearly flat with no c/o orthopnea. Auscultation: diminished lung sounds Cardio regular rate, regular rhythm and no gallops Cardio Narrative: second RICS with radiation to the LLSB, apex and the left axilla. Heart Sounds: murmur systolic GI normal to inspection, nondistended, normoactive bowel sounds, soft to palpation and non-tender GI Narrative: No guarding with palpation. 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 Motor Exam: strength 5/5 throughout Psych affect normal Psych Narrative: Appropriate, making good eye contact. Able to stay on topic and focus. No flight of ideas. Does not appear anxious or depressed. Conversant and relating well to staff. Appearance: appropriate Attitude: calm Activity / Motor Behavior: appropriate eye contact Assessment & Plan Assessment/Plan (1) H/O coronary artery bypass surgery: (2) Physical debility: (3) Hypokalemia: (4) Stage II decubitus ulcer: (5) Acute blood loss anemia: (6) Abnormal LFTs: (7) Hyponatremia: (8) Essential (primary) hypertension: (9) Type 2 diabetes mellitus: (10) Macrocytic anemia: PLAN: DC Saturday follow up with me in the wound care center follow up with Dr. Irizarry following [place] and with Dr. Rosa LFT's and a lipid panel in 4 weeks to recheck the LFT's Cardiac rehab when OK with Dr. Irizarry [facility] [place] Increase the aM Lispro Visit Charges Inpatient E&M: 56088 Subs Hosp L2
[2020-08-12 16:11] LABS: Bedside Glucose 92 mg/dL (70-110)
[2020-08-12 21:20] VITALS: BP 145/80; PULSE 87; RESP 16; TEMP 36.5; O2SAT 98
[2020-08-12] MEDS: Atorvastatin Calcium 80 MG Tablet PO (21:49)
[2020-08-12 22:05] LABS: Bedside Glucose 86 mg/dL (70-110)
--- NOTE | 2020-08-13 02:05 | NURSING ---
Reviewed and agree with CANOPY INSPECTOR assessment and handoff.
[2020-08-13] MEDS: Levothyroxine 137 MCG Tablet PO (05:31)
[2020-08-13 06:40] LABS: Bedside Glucose 111 mg/dL (70-110)
[2020-08-13] MEDS: Insulin Lispro 100 UNIT/ML INSULN.PEN SC ×3 (07:40→17:17)
[2020-08-13] MEDS: Amiodarone 200 MG Tablet 400 MG PO (07:41)
[2020-08-13] MEDS: Heparin Injection (Vial) 5,000 UNIT/ML VIAL 5000 UNIT SC ×2 (07:41→21:01)
[2020-08-13] MEDS: Aspirin 325 MG Tablet PO (07:41)
[2020-08-13 08:00] VITALS: BP 119/63; PULSE 86; RESP 16; TEMP 36.5; O2SAT 98
[2020-08-13] MEDS: Multivitamins,Ther W-Minerals Tablet 1 TABLET PO (12:12)
[2020-08-13 12:26] LABS: Bedside Glucose 108 mg/dL (70-110)
[2020-08-13 17:20] LABS: Bedside Glucose 131 mg/dL (70-110)
[2020-08-13 19:31] VITALS: BP 140/85; PULSE 88; RESP 17; TEMP 35.6; O2SAT 96
[2020-08-13 20:50] VITALS: RESP 18
[2020-08-13 20:50] LABS: Bedside Glucose 114 mg/dL (70-110)
[2020-08-13] MEDS: Atorvastatin Calcium 80 MG Tablet PO (21:01)
[2020-08-14] MEDS: Levothyroxine 137 MCG Tablet PO (05:37)
[2020-08-14 06:40] LABS: Bedside Glucose 112 mg/dL (70-110)
--- NOTE | 2020-08-14 07:11 | NURSING ---
REVIEWED AND AGREE WITH PUBLIC DEFENDER'S FUNCTIONAL ASSESSMENT AND HANDOFF CHARTING.
[2020-08-14] MEDS: Amiodarone 200 MG Tablet 400 MG PO (07:46)
[2020-08-14] MEDS: Aspirin 325 MG Tablet PO (07:46)
[2020-08-14] MEDS: Insulin Lispro 100 UNIT/ML INSULN.PEN SC ×5 (07:47→21:14)
[2020-08-14] MEDS: Heparin Injection (Vial) 5,000 UNIT/ML VIAL 5000 UNIT SC ×2 (07:49→21:13)
[2020-08-14 08:00] VITALS: BP 127/83; PULSE 81; RESP 18; TEMP 36.2; O2SAT 97
[2020-08-14] MEDS: Multivitamins,Ther W-Minerals Tablet 1 TABLET PO (11:04)
[2020-08-14 11:10] LABS: Bedside Glucose 220 mg/dL (70-110)
--- NOTE | 2020-08-14 11:43 | NURSING ---
UP AND AMBULATED AROUND HALLS WITH WALKER MOD I
[2020-08-14 17:31] LABS: Bedside Glucose 95 mg/dL (70-110)
[2020-08-14 20:12] VITALS: BP 123/65; PULSE 87; RESP 18; TEMP 36.1; O2SAT 95
[2020-08-14] MEDS: Atorvastatin Calcium 80 MG Tablet PO (21:14)
[2020-08-14 21:15] LABS: Bedside Glucose 166 mg/dL (70-110)
--- NOTE | 2020-08-14 23:40 | NURSING ---
REVIEWED AND AGREE WITH HR INTERN'S FUNCTIONAL ASSESSMENT
[2020-08-15] MEDS: Levothyroxine 137 MCG Tablet PO (05:54)
[2020-08-15 06:50] LABS: Bedside Glucose 124 mg/dL (70-110)
[2020-08-15] MEDS: Insulin Lispro 100 UNIT/ML INSULN.PEN SC ×2 (07:57→12:07)
[2020-08-15] MEDS: Amiodarone 200 MG Tablet 400 MG PO (07:58)
[2020-08-15] MEDS: Heparin Injection (Vial) 5,000 UNIT/ML VIAL 5000 UNIT SC (07:58)
[2020-08-15] MEDS: Aspirin 325 MG Tablet PO (07:58)
[2020-08-15 08:31] VITALS: BP 134/74; PULSE 88; RESP 16; TEMP 36.4; O2SAT 16
[2020-08-15 11:14] VITALS: BP 134/74; PULSE 88; RESP 16; TEMP 36.4; O2SAT 94
--- NOTE | 2020-08-15 11:15 | DCINST_ITS ---
Discharge Instructions Diet Discharge Diet: Low fat / Low cholesterol and 4000 mg Sodium Diet Activity Discharge Activity: May Shower Weight Bearing Status: Full weight bearing Keep extremity elevated above heart level: Legs Dressing / Incision Call your doctor if you observe: Fever of 101 or Higher, Inability to urinate, Shortness of breath, Fainting spells, Swelling in the ankles, Chest pain, Prolonged hiccupping, Increased palpitations (irregular heartbeat), Calf discomfort and Uncontrolled pain Suture Line Care: Avoid Pulling/Pushing and Avoid Pinching/Bending Cleanse incision/area with: Soap & Water Additional Dressing/Incision Instructions:: Apply the ET mix to the open area on the backside twice a day after cleaning. Follow up with me in the wound care center in 1 week. Follow Up Care Please Follow Up With: Timothy Irizarry, -Cardiology Test Results: Test results from this visit will be discussed in further detail at your follow-up appointment, if applicable. Discharge Plan Admission Admit Date/Time: 08/04/20 14:09 Primary Reason for Your Visit: Debility due to NSTEMI followed by a CABG X 3 Attending Provider: Kateryna Burkett Primary Care Provider: Lance Rosa Instructions Patient Instructions: Anemia, After Coronary Artery Bypass Surgery, Controlling Your Risk Factors After Bypass Surgery Additional Instructions / Restrictions: 1. You will need to go to cardiac rehab. The hotel administrative assistant will tell you when you will start cardiac rehab. 2. Your blood sugars have been very well controlled while you have been on the rehab floor. try and eat the same way at home. 3. The HGBA1C was 6.8 adn this is excellent. This number tells me how you blood sugars have been doing for the past couple months and the goal is to keep it 7 or less. GOOD JOB. 4. Your liver tests are a bbit elevated. This could be due to a lot of things including R heart failure after the heart attack, anesthesia and Medications. You are on a cholesterol agent called a statin. It does not happen often but sometimes statins can increase the liver enzymes and they can also cause muscle pain. Dr. Rosa should recheck the liver tests in another month or so to make sure they are coming down. Right now it is nothing to worry about because they are only mildly elevated. 5. You had a major surgery and a heart attack. It takes a while to recover from these events at any age but, as we get older it takes longer. Do not overdue....it will set you back. It is important to get some exercise daily. Walking is very good exercise. Try and work up to walking 30 minutes a day. 6. Be well Sven. It was a pleasure having you on the rehab floor. If you ever need us again we will be here for you. Discharge Orders/Prescriptions Prescriptions: New acetaminophen [Tylenol] 325 mg Tablet 650 mg PO Q6H PRN PRN (Reason: PAIN 1-10) Qty: 1 RF: 0 Lantus Solostar U-100 Insulin 100 unit/mL (3 mL) Insulin Pen 18 unit subcut BREAKFAST Qty: 540 RF: 0 insulin lispro [Humalog KwikPen Insulin] 100 unit/mL Insulin Pen See Rx Instructions .ROUTE .COMPLEX PRN (Reason: azael) Qty: 240 RF: 0 sennosides-docusate sodium [Stool Softener-Stimulant Laxat] 8.6-50 mg Tablet 2 tab PO BID Qty: 120 RF: 0 levothyroxine 137 mcg Tablet 137 mcg PO DAILY@0600 Qty: 30 RF: 0 atorvastatin 80 mg Tablet 80 mg PO QHS Qty: 30 RF: 0 amiodarone 200 mg Tablet 400 mg PO BREAKFAST Qty: 30 RF: 0 Continued multivitamin,ve-vebw-Ay-FA-min Tablet 1 tab PO DAILY RF: 0 Et Mix 270 g OTHER BID RF: 0 aspirin 325 mg Tablet 325 mg PO DAILY Qty: 0 RF: 0 Discontinued levothyroxine 137 MCG tablet 137 mcg PO DAILY RF: 0 furosemide [Lasix] 40 mg Tablet 40 mg PO DAILY RF: 0 amiodarone 200 mg Tablet 400 mg PO DAILY RF: 0 atorvastatin 40 mg tablet 80 mg PO QHS RF: 0 Referrals / Follow Up: Kateryna Burkett DO [STAFF PHYSICIAN] - (In the wound care center for care of the decubitus ulcer. 1-2 weeks) Lance Rosa MD [Primary Care Provider] - (in 7-10 days) Disposition Disposition (needs filled in before D/C Order can be placed): Home, self care
--- NOTE | 2020-08-15 11:24 | DS.PCM_ITS ---
Providers Date of Admission: 08/04/20 Primary Care Physician: Dr. Lance Rosa MD Consultations 08/04/20 Consult: Onc/Wound/pipeline technician Routine Comment: Reason for Consult:: pressure injury to rt buttock Comments:: present on admit Reason For Visit: CABG Diagnosis Discharge Diagnosis (1) Physical debility: Status: Acute Code(s): R53.81 - Other malaise (2) S/P CABG (coronary artery bypass graft): Status: Deleted Code(s): Z95.1 - Presence of aortocoronary bypass graft (3) Hypokalemia: Status: Resolved Code(s): E87.6 - Hypokalemia (4) Hyponatremia: Status: Resolved Code(s): E87.1 - Hypo-osmolality and hyponatremia (5) Macrocytic anemia: Status: Acute Code(s): D53.9 - Nutritional anemia, unspecified (6) Abnormal LFTs: Status: Acute Code(s): R94.5 - Abnormal results of liver function studies (7) PAD (peripheral artery disease): Status: Chronic Code(s): I73.9 - Peripheral vascular disease, unspecified (8) Hypothyroidism: Status: Chronic Code(s): E03.9 - Hypothyroidism, unspecified Qualifiers: Hypothyroidism type: acquired Qualified Code(s): E03.9 - Hypothyroidism, unspecified (9) Mixed hyperlipidemia: Status: Chronic Code(s): E78.2 - Mixed hyperlipidemia (10) Chronic renal failure, stage 3a: Status: Chronic Code(s): N18.31 - Chronic kidney disease, stage 3a (11) Carotid disease, bilateral: Status: Chronic Code(s): I77.9 - Disorder of arteries and arterioles, unspecified Qualifiers: Carotid artery disease type: stenosis Qualified Code(s): I65.23 - Occlusion and stenosis of bilateral carotid arteries (12) Synovial cyst of popliteal space [Andre], left knee: Status: Resolved Code(s): M71.22 - Synovial cyst of popliteal space [Andre], left knee (13) Ischemic cardiomyopathy: Status: Chronic Code(s): I25.5 - Ischemic cardiomyopathy (14) H/O coronary artery bypass surgery: Status: Acute Code(s): Z95.1 - Presence of aortocoronary bypass graft (15) Chronic HFrEF (heart failure with reduced ejection fraction): Status: Chronic Code(s): I50.22 - Chronic systolic (congestive) heart failure (16) Essential (primary) hypertension: Status: Chronic Code(s): I10 - Essential (primary) hypertension (17) Left bundle branch block (LBBB): Status: Acute Code(s): I44.7 - Left bundle-branch block, unspecified (18) Type 2 diabetes mellitus: Status: Acute Code(s): E11.9 - Type 2 diabetes mellitus without complications (19) Stage II decubitus ulcer: Status: Acute Code(s): L89.92 - Pressure ulcer of unspecified site, stage 2 Medications at Discharge Home Medications multivitamin,vf-gicm-Ll-FA-min 1 tab PO DAILY 08/04/20 Et Mix 270 g OTHER BID 08/05/20 acetaminophen [Tylenol] 650 mg PO Q6H PRN PRN #1 tab 08/15/20 amiodarone 400 mg PO BREAKFAST #30 tab 08/15/20 aspirin 325 mg PO DAILY #0 tab 08/15/20 atorvastatin 80 mg PO QHS #30 tab 08/15/20 insulin glargine [Lantus Solostar U-100 Insulin] 18 unit SUBCUT BREAKFAST #540 ml 08/15/20 insulin lispro [Humalog KwikPen Insulin] See Rx Instructions .ROUTE .COMPLEX PRN #240 ml 08/15/20 levothyroxine 137 mcg PO DAILY@0600 #30 tab 08/15/20 sennosides-docusate sodium [Stool Softener-Stimulant Laxat] 2 tab PO BID #120 tab 08/15/20 Hospital Course Operations None Procedures None Summary of Care Provided Minutes Spent on Discharge: 53 Hospital Course: SVEN OSMAN, is a 80 M with a PMH of DM II, HTN, HLD, severe triple vessel CAD, ischemic cardiomyopathy, LBBB,diastolic dysfunction, mild pulmonary HTN based on ECHO, former tobacco dependence, PVD, hypothyroidism, benign neoplasm of the colon, obesity and BL carotid disease who presented to the [facility] ER on 07/23/20 with C/O SOB and CP.? Cardiac cath showed severe triple vessel disease and he was transferred to [facility] where he underwent a 3 vessel CABG.? Post operatively he had a thoracentesis for pleural effusion.? EF at DC from OSH was 40% with segmental wall motion abnormalities. Other post-op complications included anemia and hyponatremia.? He was transferred to the acute inpt rehab unit at [facility] on 08/04/20 for therapy to restore function/independence at or near his prior level pre- NSTEMI. The weight remained stable during the time in rehab. Blood sugars were well controlled and the HGBA1C was 6.8. Creat improved from 1 5 5-1.01. Blood pressure was well controlled. AST was elevated at 137, ALT elevated at 119 and the alkaline phosphatase elevated at 138. Bilirubin was within normal limits. It is unknown at this time whether this is secondary to right heart failure is due to NSTEMI and subsequent CABG or if this is due to high-dose statin therapy. A lipid panel and liver panel should be repeated in the next 4 weeks. Sven's course in rehab was uneventful and he progressed to his goals during his time in rehab. Prior to discharge he had ambulated 160 feet with a wheeled walker at contact-guard assist. He had a ascended and descended 5 steps with 2 rails at standby assist to allow access to his home entrance. He was able to do 8 stands in 30 seconds. He required no assistance with eating and grooming. He required minimal assistance with bathing mostly for his feet and posterior care. He required minimal assistance for upper body and lower body dressing. He was contact-guard assist with toilet transfer and maximum assistance for toileting....... primarily for posterior care to maintain the sternal/cardiac precautions. He was contact-guard assist for tub/shower transfer. Sven's Quin came in for family training on 08/12/20 to learn how to assist Sven after he returns home. Sven was discharged on 08/15/20 in good condition. He will follow up with Dr. Rosa in 7-10 days, with Dr. Monk and with myself in the wound care unit for the stage 2 decubitus ulcer incolving the buttock in the anal fold. Physical Exam Const alert, oriented x3, no apparent distress and well nourished General Appearance: cooperative and well developed HEENT normocephalic Eyes PERRL and EOMs intact bilaterally Neck supple General: trachea midline Resp normal respiratory effort and clear to auscultation bilaterally Resp Narrative: No conversational dyspnea, not tachypneic, no accessory muscle use. He is sleeping lying nearly flat with no c/o orthopnea. Auscultation: diminished lung sounds Cardio regular rate, regular rhythm, S1 normal heart sound, S2 normal heart sound, no rub and no gallops Cardio Narrative: systolic MM present at the second right intercostal space with radiation to the lower left sternal border, apex and into the left axilla. Heart Sounds: murmur systolic GI normal to inspection, nondistended, normoactive bowel sounds, soft to palpation and non-tender Extremity no calf tenderness Extremity Narrative: Nail beds are pale due to anemia. No significant edema. No clubbing. Skin Skin Narrative: He has a stage 2 decubitus ulcer on the buttock in the anal cleft. 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 Psych affect normal Appearance: appropriate ABG / Lab / Microbiology Data Result Diagrams: 08/09/20 05:40 08/09/20 05:40 Laboratory: Laboratory Results - last 24 hr 08/14/20 08/14/20 08/15/20 17:25 21:09 06:39 POC Glucose 95 166 H 124 H D/C Instructions Discharge Diet: Low fat / Low cholesterol and 4000 mg Sodium Diet Discharge Activity: May Shower Weight Bearing Status: Full weight bearing Keep extremity elevated above heart level: Legs Call your doctor if you observe: Fever of 101 or Higher, Inability to urinate, Shortness of breath, Fainting spells, Swelling in the ankles, Chest pain, Prolonged hiccupping, Increased palpitations (irregular heartbeat), Calf discomfort and Uncontrolled pain Suture Line Care: Avoid Pulling/Pushing and Avoid Pinching/Bending Cleanse incision/area with: Soap & Water Additional Dressing/Incision Instructions: Apply the ET mix to the open area on the backside twice a day after cleaning. Follow up with me in the wound care center in 1 week. Please Follow Up With: Timothy Monk, -Cardiology Meaningful Use Info Meaningful Use Diagnoses (Choose all that apply): None applicable Discharge Plan Admission Admit Date/Time: 08/04/20 14:09 Primary Reason for Your Visit: Debility due to NSTEMI followed by a CABG X 3 Attending Provider: Kateryna Burkett Primary Care Provider: Lance Rosa Instructions Patient Instructions: Anemia, After Coronary Artery Bypass Surgery, Controlling Your Risk Factors After Bypass Surgery Additional Instructions / Restrictions: 1. You will need to go to cardiac rehab. The merchandise examiner will tell you when you will start cardiac rehab. 2. Your blood sugars have been very well controlled while you have been on the rehab floor. try and eat the same way at home. 3. The HGBA1C was 6.8 adn this is excellent. This number tells me how you blood sugars have been doing for the past couple months and the goal is to keep it 7 or less. GOOD JOB. 4. Your liver tests are a bbit elevated. This could be due to a lot of things including R heart failure after the heart attack, anesthesia and Medications. You are on a cholesterol agent called a statin. It does not happen often but sometimes statins can increase the liver enzymes and they can also cause muscle pain. Dr. Rosa should recheck the liver tests in another month or so to make sure they are coming down. Right now it is nothing to worry about because they are only mildly elevated. 5. You had a major surgery and a heart attack. It takes a while to recover from these events at any age but, as we get older it takes longer. Do not overdue....it will set you back. It is important to get some exercise daily. Walking is very good exercise. Try and work up to walking 30 minutes a day. 6. Be well Sven. It was a pleasure having you on the rehab floor. If you ever need us again we will be here for you. My cell phone number is [phone] if you have ANY questions. My office number is [phone]. Discharge Orders/Prescriptions Prescriptions: New acetaminophen [Tylenol] 325 mg Tablet 650 mg PO Q6H PRN PRN (Reason: PAIN 1-10) Qty: 1 RF: 0 Lantus Solostar U-100 Insulin 100 unit/mL (3 mL) Insulin Pen 18 unit subcut BREAKFAST Qty: 540 RF: 0 insulin lispro [Humalog KwikPen Insulin] 100 unit/mL Insulin Pen See Rx Instructions .ROUTE .COMPLEX PRN (Reason: azael) Qty: 240 RF: 0 sennosides-docusate sodium [Stool Softener-Stimulant Laxat] 8.6-50 mg Tablet 2 tab PO BID Qty: 120 RF: 0 levothyroxine 137 mcg Tablet 137 mcg PO DAILY@0600 Qty: 30 RF: 0 atorvastatin 80 mg Tablet 80 mg PO QHS Qty: 30 RF: 0 amiodarone 200 mg Tablet 400 mg PO BREAKFAST Qty: 30 RF: 0 Continued multivitamin,wr-afqs-Pp-FA-min Tablet 1 tab PO DAILY RF: 0 Et Mix 270 g OTHER BID RF: 0 aspirin 325 mg Tablet 325 mg PO DAILY Qty: 0 RF: 0 Discontinued levothyroxine 137 MCG tablet 137 mcg PO DAILY RF: 0 furosemide [Lasix] 40 mg Tablet 40 mg PO DAILY RF: 0 amiodarone 200 mg Tablet 400 mg PO DAILY RF: 0 atorvastatin 40 mg tablet 80 mg PO QHS RF: 0 Referrals / Follow Up: Kateryna Burkett DO [STAFF PHYSICIAN] - (In the wound care center for care of the decubitus ulcer. 1-2 weeks) Lance Rosa MD [Primary Care Provider] - (in 7-10 days) timothy monk [Other] Disposition Disposition (needs filled in before D/C Order can be placed): Home, self care
[2020-08-15] MEDS: Multivitamins,Ther W-Minerals Tablet 1 TABLET PO (12:08)
[2020-08-15 12:10] LABS: Bedside Glucose 148 mg/dL (70-110)
--- NOTE | 2020-08-15 12:16 | NURSING ---
pt's belongings packed up for discharge at this time.
--- NOTE | 2020-08-15 13:50 | NURSING ---
discharge instructions given to pt and spouse. pt and spouse advised to call if they had questions. discharge instructions given over a period of 40 minutes.
== END 2020-08-15 13:57 | disposition home or self-care (01) | DRG 281 ==
PROVIDERS: Admitting Provider Internal Medicine; PCP Family Medicine; Visit Provider Internal Medicine
DX: I21.4 Non-ST elevation (NSTEMI) myocardial infarction (principal); I13.0 Hypertensive heart and chronic kidney disease with heart failure and stage 1 through stage 4 chronic kidney disease, or unspecified chronic kidney disease; I50.22 Chronic systolic (congestive) heart failure; E87.1 Hypo-osmolality and hyponatremia; I25.10 Atherosclerotic heart disease of native coronary artery without angina pectoris; E03.9 Hypothyroidism, unspecified; E78.2 Mixed hyperlipidemia; I25.5 Ischemic cardiomyopathy; I27.20 Pulmonary hypertension, unspecified; E66.9 Obesity, unspecified; E87.6 Hypokalemia; D53.9 Nutritional anemia, unspecified; N18.31 Chronic kidney disease, stage 3a; E11.51 Type 2 diabetes mellitus with diabetic peripheral angiopathy without gangrene; E11.22 Type 2 diabetes mellitus with diabetic chronic kidney disease; L89.312 Pressure ulcer of right buttock, stage 2; Z87.891 Personal history of nicotine dependence; Z95.1 Presence of aortocoronary bypass graft; Z68.30 Body mass index [BMI] 30.0-30.9, adult
CPT/HCPCS: 36415; 80048; 80053; 82962; 83036; 83735; 84100; 85014; 85018; 85025; 97110; 97116; 97162; 97167; 97530; 97535; 97802; 97803; 99251; G0463

== ENCOUNTER 2020-08-22 22:02 | Inpatient (IN) | payer MEDICARE, OTHER, SELFPAY ==
[2020-08-22 22:03] VITALS: BP 139/71; PULSE 79; RESP 17; TEMP 36.2; O2SAT 97; BMI 29.7
[2020-08-22 22:05] VITALS: BP 139/71; PULSE 79; RESP 30; TEMP 36.2; O2SAT 97
[2020-08-22 22:27] VITALS: O2SAT 98
--- NOTE | 2020-08-22 22:39 | EKG12_ITS ---
Test Reason : SOB Blood Pressure : / mmHG Vent. Rate : 078 BPM Atrial Rate : 078 BPM P-R Int : 182 ms QRS Dur : 132 ms QT Int : 432 ms P-R-T Axes : 045 -31 131 degrees QTc Int : 492 ms Normal sinus rhythm Left axis deviation Non-specific intra-ventricular conduction block T wave abnormality, consider lateral ischemia Abnormal ECG Confirmed by JUANA CABRAL, MARIIA ([id number]), editor newspaper CRISTAL SAMUELS ([id number]) on 08/26/2020 8:15:53 AM Referred By: BB Confirmed By:MARIIA ARIAS MD
--- NOTE | 2020-08-22 22:40 | EDS_ITS ---
HPI History of Present Illness Chief Complaint: Shortness of Breath Informant: patient and spouse/S.O. Onset/Context/Timing Onset: Days (2) Context: gradual Timing: Continuous Quality: Positive for Dyspnea on exertion (Now at rest) Current Severity: Moderate Maximum Severity: Severe Worsened by: Exertion and Lying flat Relieved by: Rest Associated Symptoms Negative for cough, fever or chills Chest Pain: Positive for None Narrative Narrative: Patient was admitted for dyspnea about a month ago and transferred to [facility] after diagnostic heart cath, required a CABG which was done as well as a thoracentesis on the left. He was discharged from rehab 2 or 3 weeks ago, he had pleural effusions then as well, CT showing it on both sides. This morning he had the first chest x-ray since he was in rehab, it showed a moderate left pleural effusion, presumably larger than what he had before. He has been feeling more short of breath. He states his legs are swollen, but actually better than they were when he was in rehab. He does not take any diuretics; the states they saw a nurse practitioner who did not want him on it. He has a history of chronic heart failure with reduced ejection fraction - his recent echo at [facility] showed systolic dysfunction with a 40% EF. Now he feels too short of breath to get around and weaker than usual. Scheduled tomorrow for wound care, the first 1 outside of rehab, for his sacral decubitus ulcer. It does not bother him more than before. [facility] Medical History (Updated 08/22/20 @ 23:[address] 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 Carotid disease, bilateral Chronic HFrEF (heart failure with reduced ejection fraction) Essential (primary) hypertension History of non-ST elevation myocardial infarction (NSTEMI) (07/23/20) Hypokalemia Hyponatremia Hypothyroidism Ischemic cardiomyopathy Left bundle branch block (LBBB) Macrocytic anemia Mixed hyperlipidemia PAD (peripheral artery disease) Physical debility Pleural effusion, bilateral Pneumonia Postoperative atrial fibrillation (07/30/20) Synovial cyst of popliteal space [Andre], left knee Type 2 diabetes mellitus Home Medications multivitamin,yr-rggw-Rz-FA-min 1 tab PO DAILY 08/04/20 [History Last Taken Unknown] Et Mix 270 g OTHER BID 08/05/20 [History Last Taken Unknown] acetaminophen [Tylenol] 650 mg PO Q6H PRN PRN #1 tab 08/15/20 [Rx Last Taken Unknown] amiodarone 400 mg PO BREAKFAST #30 tab 08/15/20 [Rx Last Taken Unknown] aspirin 325 mg PO DAILY #0 tab 08/15/20 [Rx Last Taken Unknown] atorvastatin 80 mg PO QHS #30 tab 08/15/20 [Rx Last Taken Unknown] insulin glargine [Lantus Solostar U-100 Insulin] 18 unit SUBCUT BREAKFAST #540 ml 08/15/20 [Rx Last Taken Unknown] insulin lispro [Humalog KwikPen Insulin] See Rx Instructions .ROUTE .COMPLEX PRN #240 ml 08/15/20 [Rx Last Taken Unknown] levothyroxine 137 mcg PO DAILY@0600 #30 tab 08/15/20 [Rx Last Taken Unknown] sennosides-docusate sodium [Stool Softener-Stimulant Laxat] 2 tab PO BID #120 tab 08/15/20 [Rx Last Taken Unknown] metoprolol tartrate 25 mg PO DAILY 08/22/20 [History Last Taken Unknown] Allergy/AdvReac Type Severity Reaction Status Date / Time naproxen [From Naprosyn] Allergy Other Verified 08/22/20 22:06 venom-honey bee Allergy Anaphylaxis Verified 08/22/20 22:06 Family History Mother Diabetes Heart disease Father Heart disease Surgical History H/O coronary artery bypass surgery (07/28/20) History of appendectomy History of colonoscopy History of left heart catheterization (07/25/20) History of thoracentesis (08/03/20) Social History Smoking Status: Former smoker Tobacco: How many years used: 17 how long ago did patient quit smokin years ago alcohol intake: never substance use type: does not use ROS ROS ED Constitutional Constitutional ED: Denies chills or fever(s) Eyes Eyes: Denies change in vision or diplopia ENT ENT ED: Denies rhinorrhea or sore throat Cardiovascular Cardiovascular: Reports edema; Denies chest pain or palpitations Respiratory/Chest Respiratory/Chest: Reports as per HPI and dyspnea; Denies cough Gastrointestinal Gastrointestinal: Denies abdominal pain, diarrhea, nausea or vomiting Genitourinary Genitourinary ED: Denies dysuria or hematuria Musculoskeletal Musculoskeletal: Denies back pain or neck pain Integumentary Reports wounds; Denies abscess or rash Neurologic Neurologic: Denies headache(s), paresthesias or weakness Psychiatric Psychiatric: Denies anxiety or suicidal thoughts EXAM Physical Exam Const Vital Signs: 08/22/20 22:03 08/22/20 22:05 08/22/20 22:27 Temperature 97.2 F L 97.2 F L Temperature Source Temporal Temporal Pulse Rate 79 79 Respiratory Rate 17 30 H Respiratory Effort Labored Respiratory Depth Deep Respiratory Pattern Tachypnea Blood Pressure 139/71 H 139/71 H Blood Pressure Mean 93 93 Pulse Ox 97 97 Oxygen Delivery Method Room Air Room Air Room Air 08/22/20 23:43 08/23/20 00:13 Temperature 98.0 F Temperature Source Temporal Pulse Rate 78 77 Respiratory Rate 24 H 26 H Respiratory Effort Respiratory Depth Respiratory Pattern Blood Pressure 125/64 H 132/65 H Blood Pressure Mean 84 87 Pulse Ox 97 97 Oxygen Delivery Method Room Air Room Air Positive well nourished and well developed General Appearance ED: well developed and NAD HEENT Reports moist mucous membranes normocephalic and atraumatic Eyes PERRL and EOMs intact bilaterally Neck full ROM and supple Resp no retractions and no use of accessory muscles Resp Narrative: Mild tachypnea at rest. Able to converse in full sentences. Auscultation: diminished lung sounds left; Negative for crackles, rales, rhonchi or wheezes Cardio regular rate and regular rhythm Jugular Venous Distention: JVD Heart Sounds: murmur systolic III/ crescendo-decrescendo left sternal border GI non-tender and non-distended Auscultation: normoactive bowel sounds Palpation: soft Back/Spine no CVA tenderness General Back: other FROM Extremity normal to inspection Extremity Narrative: 2+ bilateral lower extremity symmetric edema proximal to the knees without signs of cellulitis or tenderness General Extremety ED: Yes edema; Negative for pulses abnormal or tenderness General Extremity: edema; Negative for pulses abnormal Neuro oriented x3, CN's II-XII intact bilaterally and no sensory deficits noted Sensorium / Orientation: awake and alert Motor Exam: strength 5/5 throughout Skin no rashes or lesions noted and no wounds Skin Narrative: Decubitus wound on sacrum without signs of infection MDM MDM MDM Narrative Medical decision making narrative: Work-up is consistent with a worsening left pleural effusion. It is not extremely large, however he is fairly dyspneic and there is likely a CHF component here as well given his edema, JVD, and higher BNP than before. He is stable clinically and hemodynamically, and given that it is around midnight, I recommend admitting him so that he can have thoracentesis by interventional radiology since that is the safest way to have it performed. Patient was given Lasix and did have some improvement in the ED. He is not hypoxic. He and are comfortable with this plan. Admitted to telemetry. Of note radiology interpreted his x-ray showing a right basilar infiltrate. He has no leukocytosis, no symptoms of pneumonia, and his BNP is elevated with other clinical findings of congestive heart failure. I believe this is probably related to CHF and not infection. Lab Data Attestation: I reviewed the patient's lab results. Labs: Laboratory Results - last 24 hr 08/22/20 08/22/20 08/22/20 22:50 22:50 23:30 WBC 4.9 RBC 3.53 L Hgb 11.1 L Hct 35.5 L MCV 100.6 H MCH 31.4 MCHC 31.3 L RDW Std Deviation 57.6 H RDW Coeff of Chip 15.5 H Plt Count 482 H MPV 8.5 Immature Gran % (Auto) 1.000 H Neut % (Auto) 59.7 Lymph % (Auto) 26.4 Weld % (Auto) 10.9 H Eos % (Auto) 1.6 Baso % (Auto) 0.4 Absolute Neuts (auto) 2.9 Absolute Lymphs (auto) 1.28 Nucleated RBC % 0 Sodium 136 Potassium 4.1 Chloride 101 Carbon Dioxide 27.0 Anion Gap 8 BUN 22 H Creatinine 1.58 H Estim Creat Clear Calc 39.14 Est GFR (MDRD) Af Amer 55 L Est GFR (MDRD) Non-Af 45 L BUN/Creatinine Ratio 13.9 Glucose 218 H Calcium 8.9 Troponin I 0.024 B-Natriuretic Peptide 702.6 H Radiography Chest X-Ray - ED: 1 View, Read by ED Physician, Left Infiltrate and Right Effusion (small, vs CHF) Diagnostic Testing: Radiology Impression Chest X-Ray 08/22/20 22:51 IMPRESSION: Recent CABG. Moderate left basilar consolidation and effusion. Subtle right basilar infiltrate Electronically Signed: Donald Kemp DO at 23:29 EDT Tel , Service support , EKG Initial EKG: Attestation: I personally reviewed and interpreted this EKG as follows: Interpretation: Sinus Rhythm, No Acute Injury Pattern, LAFB and Non- Specific ST Changes (Laterally) Prior EKG tracings: available for review Prior: Unchanged Discharge Plan Dx/Rx/DC Orders Clinical Impression: Acute respiratory insufficiency, Pleural effusion on left, Acute on chronic clinical systolic heart failure Disposition Disposition: Acute Care Hospital [facility]
[2020-08-22] MEDS: Furosemide 40 MG/4 ML Vial IV (22:47)
--- NOTE | 2020-08-22 22:51 | RAD_ITS ---
STUDY: X-RAY CHEST REASON FOR EXAM: Male, 80 years old. sob TECHNIQUE: Single AP portable view of the chest. COMPARISON: 07/23/2020 FINDINGS: Lungs are hypoinflated. Moderate left basilar consolidation and effusion. Subtle right basilar infiltrate. Mild cardiomegaly with median sternotomy wires. Normal mediastinum and karthikeyan. Normal visualized pulmonary arteries. Normal visualized aortic arch and descending thoracic aorta. Normal visualized thoracic spine. Normal visualized ribs, clavicles, and shoulders. There is no demonstrated abnormality of the visualized soft tissue structures of the upper abdomen. RAD/Chest 1 View (Portable) IMPRESSION: Recent CABG. Moderate left basilar consolidation and effusion. Subtle right basilar infiltrate Electronically Signed: Donald Kemp DO at 23:29 EDT Tel , Service support ,
[2020-08-22 23:30] LABS: Absolute Lymphocyte Count 1.28 X10^3/uL (0.83-4.51); Absolute Neutrophil Count 2.9 X10^3/uL (2.0-7.7); Basophil# 0.02 X10^3/uL; Basophil% 0.4 % (0-1); Eosinophil# 0.08 X10^3/uL; Eosinophils% 1.6 % (0-5); Hematocrit 35.5 % (40-54); Hemoglobin 11.1 g/dL (13.0-16.5); Lymphocyte # 1.28 X10^3/ul (0.83-4.51); Lymphocyte % 26.4 % (19-41); Mean Corp Hgb Conc 31.3 g/dL (32-36); Mean Corpuscular Hgb 31.4 pg (27.0-32.0); Mean Corpuscular Volume 100.6 fL (80-94); Mean Platelet Vol. 8.5 fl (6.2-12.0); Monocyte# 0.53 X10^3/uL; Monocyte% 10.9 % (0-10); NRBC Flagged by Analyzer 0 % (0-5); Neutrophil # 2.89 X10^3/uL (2.7-7.7); Neutrophil % 59.7 % (47-70); Platelet Count 482 K/mm3 (150-450); RBC Distribution Width CV 15.5 % (11.6-14.6); RBC Distribution Width SD 57.6 fl (35.1-43.9); Red Blood Count 3.53 M/mm3 (4.6-6.2); White Blood Count 4.9 K/mm3 (4.4-11.0)
[2020-08-22 23:35] LABS: Anion Gap 8 (5-15); BUN 22 mg/dL (7-18); BUN/Creat Ratio 13.9 RATIO (10-20); Calcium,Total 8.9 mg/dL (8.5-10.1); Chloride 101 mmol/L (98-107); Creatinine, Serum 1.58 mg/dL (0.70-1.30); EST Glomerular Filtration Rate 45 mL/min (>60); Est Glom Filt Rate - Afr Amer 55 mL/min (>60); Estimated Creatinine Clearance 39.14 ml/min; Glucose 218 mg/dL (74-106); Potassium 4.1 mmol/L (3.5-5.1); Sodium Level 136 mmol/L (136-145)
[2020-08-22 23:43] VITALS: BP 125/64; PULSE 78; RESP 24; TEMP 36.7; O2SAT 97
[2020-08-22 23:52] LABS: BNP,B-Type NATRIURETIC PEPTIDE 702.6 pg/mL (0-100)
[2020-08-23] VITALS (19 sets, daily range): BP systolic 92–149; BP diastolic 45–71; PULSE 16–81; RESP 16–26; TEMP 36.5–36.7; O2SAT 92–99; BMI 29.5
--- NOTE | 2020-08-23 | IMM_PTH ---
PATIENT: ANTONIETA OSMAN LOC: [facility] U#:[id number] AGE/SX: 80/M ROOM: [facility] RE08/23/[address]: Dr. Mary Chicas MD : 1940 BED: 1 DIS: 08/25/2020 SPEC #: [id number] RECD: 08/24/20 11:14 STATUS: WILLIAM REAb #: [id number] JOE: 08/23/20 00:[address]: Mary Chicas DEPT: IMMUNOHISTOCHEMISTRY RECD BY: Denita Burton ENTERED: 08/24/20 11:15 SP TYPE: IMMUNO OTHR DR: MD Dr. Lance Colvin MD Tissues: THORACIC FLUID Procedures: CD138 (add) CD20 (add) CD43 (add) CD45 (add) CD5 (add) CD79A (add) CD3 (initial) PHYSICIAN & INSTITUTION [place] [id number] SPECIMEN INFORMATION: Tissue Source: Thoracentesis fluid Clinical Info: Pleural effusion Specimen Number: [id number] CPT code: 24360, 36252 x6 METHODOLOGY: Deparaffinized sections of prefer/formalin-fixed tissue or PAP/DQ stained slides are incubated with monoclonal/polyclonal antibodies/oligonucleotide probes. Localization is made via biotin free immunoperoxidase method. Appropriate controls are performed and reacted as expected. Results on target cell population are indicated in the following table: RESULTS: ANTIBODY / CLONE RESULT CD3 (PS1) positive CD5 (SP10) positive CD20 (L26) negative CD43 (L60) positive CD45 (RP2/18) positive CD79a (11E3) positive, occasional CD138 (B-A38) negative These tests were developed and their performance characteristics determined by [facility]. They may not have been cleared or approved by the U.S. Food and Drug Administration. The FDA has determined that such clearance or approval is not necessary. The above immunohistochemical/dualISH markers are ordered and reviewed by the Pathologist. INTERPRETATION: Thoracentesis fluid: Polytypic lymphoid cells. See comment. AM:jane 08/25/2020 Comment: A lymphoproliferative disorder is not favored.
--- NOTE | 2020-08-23 00:40 | PCM.HP.STD ---
Documented by User: NATHANAEL Bray 08/23/20 01:09 HPI - General General Date of Admission: 08/23/20 HPI Narrative ANTONIETA OSMAN, is a 80 M who presents with complaints of shortness of breath and difficulty ambulating due to dyspnea. Patient reports that 1 month ago he underwent bypass but has continued to have pleural effusions. Patient also reports his legs are more swollen than usual and despite being diagnosed with CHF patient is not currently on diuretics. Patient denies fever, chills, cough, chest pain. Patient received 1 dose IV Lasix in ER and reports subjective improvement stating he is not as short of breath. Patient not currently on oxygen at this time pulse ox 97%. 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 Carotid disease, bilateral Chronic HFrEF (heart failure with reduced ejection fraction) Essential (primary) hypertension History of non-ST elevation myocardial infarction (NSTEMI) (07/23/20) Hypokalemia Hyponatremia Hypothyroidism Ischemic cardiomyopathy Left bundle branch block (LBBB) Macrocytic anemia Mixed hyperlipidemia PAD (peripheral artery disease) Physical debility Pleural effusion, bilateral Pneumonia Postoperative atrial fibrillation (07/30/20) Synovial cyst of popliteal space [Andre], left knee Type 2 diabetes mellitus Home Medications multivitamin,fw-ahjg-Vu-FA-min 1 tab PO DAILY 08/04/20 [History Last Taken Unknown] Et Mix 270 g OTHER BID 08/05/20 [History Last Taken Unknown] acetaminophen [Tylenol] 650 mg PO Q6H PRN PRN #1 tab 08/15/20 [Rx Last Taken Unknown] amiodarone 400 mg PO BREAKFAST #30 tab 08/15/20 [Rx Last Taken Unknown] aspirin 325 mg PO DAILY #0 tab 08/15/20 [Rx Last Taken Unknown] atorvastatin 80 mg PO QHS #30 tab 08/15/20 [Rx Last Taken Unknown] insulin glargine [Lantus Solostar U-100 Insulin] 18 unit SUBCUT BREAKFAST #540 ml 08/15/20 [Rx Last Taken Unknown] insulin lispro [Humalog KwikPen Insulin] See Rx Instructions .ROUTE .COMPLEX PRN #240 ml 08/15/20 [Rx Last Taken Unknown] levothyroxine 137 mcg PO DAILY@0600 #30 tab 08/15/20 [Rx Last Taken Unknown] sennosides-docusate sodium [Stool Softener-Stimulant Laxat] 2 tab PO BID #120 tab 08/15/20 [Rx Last Taken Unknown] metoprolol tartrate 25 mg PO DAILY 08/22/20 [History Last Taken Unknown] Allergy/AdvReac Type Severity Reaction Status Date / Time naproxen [From Naprosyn] Allergy Other Verified 08/22/20 22:06 venom-honey bee Allergy Anaphylaxis Verified 08/22/20 22:06 Family History Mother Diabetes Heart disease Father Heart disease Surgical History H/O coronary artery bypass surgery (07/28/20) History of appendectomy History of colonoscopy History of left heart catheterization (07/25/20) History of thoracentesis (08/03/20) Social History Smoking Status: Former smoker Tobacco: How many years used: 17 how long ago did patient quit smokin years ago alcohol intake: never substance use type: does not use ROS Constitutional Constitutional: Reports fatigue; Denies anorexia or chills Cardiovascular Cardiovascular: Reports edema; Denies chest pain or palpitations Respiratory/Chest Respiratory/Chest: Reports shortness of breath at rest and shortness of breath with exertion; Denies cough Gastrointestinal Gastrointestinal: Denies abdominal pain, constipation, diarrhea, nausea or vomiting Genitourinary Genitourinary: Denies dysuria Musculoskeletal Musculoskeletal: Denies back pain, extremity pain, joint pain or joint stiffness Integumentary Integumentary: Reports wounds; Denies dry skin Neurologic Neurologic: Denies abnormal gait, abnormal speech, confusion or dizziness Psychiatric Psychiatric: Denies anxiety or depression Endocrine Endocrinology: Denies change in body appearance Hematologic/Lymphatic Hematologic/Lymphatic: Denies easy bleeding or easy bruising Vital Signs Vital Signs Vital Signs: 08/22/20 22:03 08/22/20 22:05 08/22/20 22:27 Temperature 97.2 F L 97.2 F L Temperature Source Temporal Temporal Pulse Rate 79 79 Respiratory Rate 17 30 H Respiratory Effort Labored Respiratory Depth Deep Respiratory Pattern Tachypnea Blood Pressure 139/71 H 139/71 H Blood Pressure Mean 93 93 Pulse Ox 97 97 Oxygen Delivery Method Room Air Room Air Room Air 08/22/20 23:43 08/23/20 00:13 Temperature 98.0 F Temperature Source Temporal Pulse Rate 78 77 Respiratory Rate 24 H 26 H Respiratory Effort Respiratory Depth Respiratory Pattern Blood Pressure 125/64 H 132/65 H Blood Pressure Mean 84 87 Pulse Ox 97 97 Oxygen Delivery Method Room Air Room Air Weight Weight: 207 lb Body Mass Index (BMI) 29.7 Physical Exam Const alert and oriented x3 General Appearance: cooperative HEENT normocephalic and head/scalp atraumatic Eyes PERRL Neck supple, no JVD and thyroid normal General: trachea midline Lymph Lymphatic: no lymphadenopathy noted Resp normal respiratory effort Effort and Inspection: able to speak in complete sentences and tachypneic Auscultation: crackles bilateral throughout Cardio regular rate, regular rhythm and S1 normal heart sound GI normal to inspection, nondistended, normoactive bowel sounds, soft to palpation and non-tender Extremity General Extremity: edema bilateral lower extremity Details: severe and no tenderness to palpation of joints or extremities Peripheral Pulses: Yes pulses 2+ throughout and dorsalis pedis pulses present Skin General Skin Exam: turgor normal Lesions: no lesions Rashes: no rashes Wounds: wounds noted Neuro CN's II-XII intact bilaterally Psych thought process normal, cooperative and affect normal Appearance: appropriate Results Lab / Micro Data Result Diagrams: 08/22/20 22:50 08/22/20 22:50 Labs: Laboratory Results - last 24 hr 08/22/20 08/22/20 08/22/20 22:50 22:50 23:30 WBC 4.9 RBC 3.53 L Hgb 11.1 L Hct 35.5 L MCV 100.6 H MCH 31.4 MCHC 31.3 L RDW Std Deviation 57.6 H RDW Coeff of Chip 15.5 H Plt Count 482 H MPV 8.5 Immature Gran % (Auto) 1.000 H Neut % (Auto) 59.7 Lymph % (Auto) 26.4 Garfield % (Auto) 10.9 H Eos % (Auto) 1.6 Baso % (Auto) 0.4 Absolute Neuts (auto) 2.9 Absolute Lymphs (auto) 1.28 Nucleated RBC % 0 Sodium 136 Potassium 4.1 Chloride 101 Carbon Dioxide 27.0 Anion Gap 8 BUN 22 H Creatinine 1.58 H Estim Creat Clear Calc 39.14 Est GFR (MDRD) Af Amer 55 L Est GFR (MDRD) Non-Af 45 L BUN/Creatinine Ratio 13.9 Glucose 218 H Calcium 8.9 Troponin I 0.024 B-Natriuretic Peptide 702.6 H Radiology Impression Chest X-Ray 08/22/20 22:51 IMPRESSION: Recent CABG. Moderate left basilar consolidation and effusion. Subtle right basilar infiltrate Electronically Signed: Donald Kemp DO at 23:29 EDT Tel , Service support , Assessment & Plan Assessment/Plan (1) Acute on chronic clinical systolic heart failure: (2) Pleural effusion, bilateral: PLAN: 1. Acute on chronic systolic heart failure -Admit to PCU for continuous cardiac monitoring -Lasix 40 mg IV twice daily for diuresis -1500 mL of fluid restriction -Nain wraps to bilateral legs due to 4+ pitting edema toes to knees -Elevate bilateral lower extremities -Strict intake and output -Oxygen per protocol -Initiate lisinopril 2.5 mg p.o. daily -Trend cardiac enzymes, initial result negative in ER -Daily weights -Cardiac heart healthy diet ordered -PT and OT to eval and treat 2. Bilateral pleural effusion -Thoracentesis ordered for recurrent pleural effusion; cytology, LDH, protein and glucose ordered -Serum LDH and protein levels ordered as well for comparison 3. Stage II decubitus ulcer -Wound nurse consulted -Continue ET mix twice daily for wound pending wound nurse consult 4. Hypertension -Stable, continue metoprolol -Vital signs per protocol, trend BP and heart rate 5. Hypothyroidism -Stable, continue levothyroxine 137 mcg -TSH in a.m. 6. Diabetes mellitus type 2 -Continue Lantus 18 units every morning and prandial dosing of Humalog -AC at bedtime blood sugars with sliding scale insulin ordered 7. Chronic renal failure stage IIIa -Current GFR 45 consistent with historical values -CMP daily to trend 8. History of coronary artery bypass surgery -July 30, 2020 9. History of thoracentesis -August 03, 2020 DVT prophylaxis-subcu Lovenox This patient was seen by NATHANAEL Bray under the supervision of Dr. Allen. Documented by User: Dr. 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 Carotid disease, bilateral Chronic HFrEF (heart failure with reduced ejection fraction) Essential (primary) hypertension History of non-ST elevation myocardial infarction (NSTEMI) (07/23/20) Hypokalemia Hyponatremia Hypothyroidism Ischemic cardiomyopathy Left bundle branch block (LBBB) Macrocytic anemia Mixed hyperlipidemia PAD (peripheral artery disease) Physical debility Pleural effusion, bilateral Pneumonia Postoperative atrial fibrillation (07/30/20) Synovial cyst of popliteal space [Andre], left knee Type 2 diabetes mellitus Home Medications multivitamin,lv-uvvi-Gx-FA-min 1 tab PO DAILY 08/04/20 [History Last Taken Unknown] Et Mix 270 g OTHER BID 08/05/20 [History Last Taken Unknown] acetaminophen [Tylenol] 650 mg PO Q6H PRN PRN #1 tab 08/15/20 [Rx Last Taken Unknown] amiodarone 400 mg PO BREAKFAST #30 tab 08/15/20 [Rx Last Taken Unknown] aspirin 325 mg PO DAILY #0 tab 08/15/20 [Rx Last Taken Unknown] atorvastatin 80 mg PO QHS #30 tab 08/15/20 [Rx Last Taken Unknown] insulin glargine [Lantus Solostar U-100 Insulin] 18 unit SUBCUT BREAKFAST #540 ml 08/15/20 [Rx Last Taken Unknown] insulin lispro [Humalog KwikPen Insulin] See Rx Instructions .ROUTE .COMPLEX PRN #240 ml 08/15/20 [Rx Last Taken Unknown] levothyroxine 137 mcg PO DAILY@0600 #30 tab 08/15/20 [Rx Last Taken Unknown] sennosides-docusate sodium [Stool Softener-Stimulant Laxat] 2 tab PO BID #120 tab 08/15/20 [Rx Last Taken Unknown] metoprolol tartrate 25 mg PO DAILY 08/22/20 [History Last Taken Unknown] Allergy/AdvReac Type Severity Reaction Status Date / Time naproxen [From Naprosyn] Allergy Other Verified 08/22/20 22:06 venom-honey bee Allergy Anaphylaxis Verified 08/22/20 22:06 Family History Mother Diabetes Heart disease Father Heart disease Surgical History H/O coronary artery bypass surgery (07/28/20) History of appendectomy History of colonoscopy History of left heart catheterization (07/25/20) History of thoracentesis (08/03/20) Social History Smoking Status: Former smoker Tobacco: How many years used: 17 how long ago did patient quit smokin years ago alcohol intake: never substance use type: does not use Results Lab / Micro Data Result Diagrams: 08/22/20 22:50 08/22/20 22:50 Charges/Coding Addendum Addendum: Patient was seen and examined independently. I agree with assessment and plan by NATHANAEL Bray Patient is 80-year-old male with a significant history of CAD status post CABG at [facility] who presents to the emergency department with a 2-day history of progressively worsening shortness of breath. Associated with his symptoms is proximal nocturnal dyspnea. Also he reports chronic two-pillow orthopnea. Of note patient was admitted to our Hospital on 07/23/2020 with heart failure and non-ST elevation CA. Cardiac cath at our Hospital dated 07/25/2020 showed severe triple vessel disease. CABG was recommended. Patient was transferred to [facility] and had a CABG. Patient reports that he had 4-5 thoracentesis while at [facility]. After his discharge from [facility] patient spent some time at our ([facility]) rehabilitation unit. On the day of presentation he saw his PCP and a chest x-ray outpatient showed pleural effusion. Alert and oriented x3 Nontraumatic; normocephalic Lung clear to auscultate Heart sounds S1-S2. No murmur, gallop or rubs. Abdomen bowel sounds present soft, nontender nondistended Extremity with bilateral 4+ edema from feet to knee. Acute Exacerbation of heart failure with reduced ejection fraction Review of cardiac catheter showed left ventricular ejection fraction of 40% by left ventriculogram.. Inferior basal hypokinesis-severe; anterior hypokinesis-moderate. TTE at the hospital on 07/25/2020 showed estimated EF of 45%. Stage I diastolic dysfunction. ISELA at [facility] reviewed showed EF of 40%. Mild mitral valve regurgitation. Mild aortic valve stenosis. Place on monitored bed on the progressive care unit. Weight on admission to the floor; and then daily Strict I&O's Radiologist impression of chest x-ray: Recent CABG. Moderate left basilar consolidation and effusion. Subtle right basilar infiltrate. Actual CXR was independently reviewed. I agree with radiologist interpretation. Also previous chest x-ray was reviewed. Lasix 40 mg IV push received at the emergency department. Continue IV Lasix while inpatient. Beta-crystal continued. Start low-dose NAIN inhibitor. Titrate diuretics and heart failure/blood pressure medications with blood pressure. Nain wrap to bilateral lower extremities Fluid restriction of 1500 mls daily Cardiac diet. Trend BMP. Ultrasound thoracentesis with pleural studies ordered. Serum LDH and protein ordered. Diabetes mellitus Patient with hyperglycemia on presentation Basal and correction scale insulin Accu-Chek QA [facility] Hypothyroidism Levothyroxine continued Stage II sacral coccygeal ET mix continued. Wound care consult. Postoperative atrial fibrillation Amiodarone continued. S/p CABG Aspirin continued Metoprolol continued CKD stage IIIa Stable DVT prophylaxis Subcutaneous Lovenox ordered Visit Charges Inpatient E&M: 61179 Init Hosp L3
[2020-08-23 01:28] LABS: LDH 316 U/L (87-241)
--- NOTE | 2020-08-23 01:31 | US_ITS ---
PROCEDURE: ULTRASOUND GUIDED THORACENTESIS. DATE: 08/23/2020. INDICATION: Male, 80 years old. Left pleural effusion. PHYSICIAN: Gabino Krishnamurthy M.D. PROCEDURE: The risks, benefits, and alternatives to the procedure were explained to the patient. The specific risks of bleeding, infection, and pneumothorax requiring chest tube insertion were discussed and accepted. Written informed consent was obtained. Ultrasonographic evaluation of the left lower pleural space was carried out. An adequate pocket was identified. The patient was placed in the sitting, upright position. The overlying skin was prepped and draped in sterile fashion. 1% lidocaine was administered subcutaneously for local anesthesia. Under ultrasound guidance, a 5 [place] thoracentesis needle/catheter system was advanced into the left posterior lower pleural fluid collection. Approximately 1400 mL of blood tinged beena fluid was drained. The catheter was removed, and a sterile dressing was applied. A specimen was collected and sent to the laboratory for analysis, as requested by the referring clinician. The patient tolerated the procedure well. A chest x-ray was ordered. US/Thoracentesis W US IMPRESSION: Ultrasound-guided left thoracentesis. Electronically Signed: Gabino Krishnamurthy MD at 10:26 EDT , Service support ,
[2020-08-23 05:29] LABS: Absolute Lymphocyte Count 1.24 X10^3/uL (0.83-4.51); Absolute Neutrophil Count 2.2 X10^3/uL (2.0-7.7); Basophil# 0.02 X10^3/uL; Basophil% 0.5 % (0-1); Eosinophil# 0.08 X10^3/uL; Hematocrit 32.9 % (40-54); Hemoglobin 10.6 g/dL (13.0-16.5); Lymphocyte # 1.24 X10^3/ul (0.83-4.51); Lymphocyte % 30.8 % (19-41); Mean Corp Hgb Conc 32.2 g/dL (32-36); Mean Corpuscular Hgb 31.8 pg (27.0-32.0); Mean Corpuscular Volume 98.8 fL (80-94); Mean Platelet Vol. 8.2 fl (6.2-12.0); Monocyte# 0.49 X10^3/uL; Monocyte% 12.2 % (0-10); NRBC Flagged by Analyzer 0 % (0-5); Neutrophil # 2.18 X10^3/uL (2.7-7.7); Neutrophil % 54.3 % (47-70); Platelet Count 399 K/mm3 (150-450); RBC Distribution Width CV 15.5 % (11.6-14.6); Red Blood Count 3.33 M/mm3 (4.6-6.2)
--- NOTE | 2020-08-23 05:55 | EKG12_ITS ---
Test Reason : AM EKG Blood Pressure : / mmHG Vent. Rate : 081 BPM Atrial Rate : 081 BPM P-R Int : 184 ms QRS Dur : 140 ms QT Int : 444 ms P-R-T Axes : 050 -25 141 degrees QTc Int : 515 ms Normal sinus rhythm Left bundle branch block Abnormal ECG Confirmed by OVIDIO CABRAL, ANTONIETA ([id number]), book editor MIKE FUNES ([id number]) on 08/24/2020 9:11:43 AM Referred By: DR ZAPATA Confirmed By:ANTONIETA NOLAN MD
[2020-08-23 06:01] LABS: ALB/GLOB Ratio 0.7 RATIO (0.9-2.4); AST(SGOT) 36 U/L (15-37); Alanine Aminotransfer ALT/SGPT 28 U/L (16-61); Albumin, Serum 2.7 g/dL (3.2-5.0); Alkaline Phosphatase 170 U/L (45-117); Anion Gap 6 (5-15); BUN 18 mg/dL (7-18); BUN/Creat Ratio 13.8 RATIO (10-20); Calcium,Total 8.3 mg/dL (8.5-10.1); Chloride 103 mmol/L (98-107); EST Glomerular Filtration Rate 57 mL/min (>60); Est Glom Filt Rate - Afr Amer 68 mL/min (>60); Estimated Creatinine Clearance 47.57 ml/min; Globulin 3.7 g/dL (2.2-4.2); Glucose 130 mg/dL (74-106); Potassium 3.3 mmol/L (3.5-5.1); Protein, Total 6.4 g/dL (6.4-8.2); Sodium Level 138 mmol/L (136-145); Thyroid Stim Hormone (TSH) 1.61 uIU/mL (0.358-3.74)
[2020-08-23] MEDS: Levothyroxine 137 MCG Tablet PO (06:06)
[2020-08-23 06:26] LABS: Bedside Glucose 131 mg/dL (70-110)
[2020-08-23] MEDS: Amiodarone 200 MG Tablet 400 MG PO (08:12)
[2020-08-23] MEDS: Multivitamins,Ther W-Minerals Tablet 1 TABLET PO (08:14)
[2020-08-23] MEDS: Metoprolol Tartrate 25 MG Tablet PO (08:14)
[2020-08-23] MEDS: Senna/Docusate Sodium 1 Tablet 2 TABLET PO ×2 (08:14→20:37)
[2020-08-23] MEDS: Lisinopril 2.5 MG Tablet PO (08:15)
--- NOTE | 2020-08-23 09:26 | NURSING ---
wound photo: right inner buttock
--- NOTE | 2020-08-23 10:00 | FLU_PTH ---
PATIENT: ANTONIETA OSMAN LOC: [facility] U#:[id number] AGE/SX: 80/M ROOM: [facility] RE08/23/[address]: Dr. Mary Chicas MD : 1940 BED: 1 DIS: 08/25/2020 SPEC #: [id number] RECD: 08/23/20 13:11 STATUS: WILLIAM TENISHA #: [id number] JOE: 08/23/20 10:[address]: Mary Chicas DEPT: CYTOLOGY RECD BY: Leticia Santos ENTERED: 08/23/20 13:11 SP TYPE: Fluid OTHR DR: MD Dr. Lance Colvin MD Tissues: Pleural fluid, NOS Procedures: Special Stain Group II Surgery Specimen Level IV Cytospin Fluid HEADER OPERATION: Thoracentesis PRE-OP DIAGNOSIS: Pleural effusion TISSUE SUBMITTED: Thoracentesis fluid for cytology DIAGNOSIS CYTOLOGY Thoracentesis fluid for cytology (cytospin and cell block): Negative for malignant cells. See comment. AM:jane 08/24/2020 COMMENT Polymorphous lymphocytes are present. Immunohistochemistry ([id number]) supports the above diagnosis. CYTOLOGY STUDY Slides are reviewed. CYTOLOGY GROSS Received is 90 ml of dark beena cloudy fluid labeled with the patient's name and and designated per the requisition as thoracentesis. Submitted for cytology preparation including cell block. / jane 08/23/2020 TC:5 CPT: 07908, 57519
--- NOTE | 2020-08-23 10:00 | RAD_ITS ---
STUDY: X-RAY CHEST REASON FOR EXAM: Male, 80 years old. Pneumothorax TECHNIQUE: AP inspiration and expiration views. COMPARISON: Comparison is made with prior examination dated 08/22/2020. FINDINGS: The patient is status post left thoracentesis. There is no evidence of pneumothorax. Mild degree of residual pleural parenchymal changes at the left lung base. RAD/Chest Insp/Exp 2 View IMPRESSION: Status post left thoracentesis. There is no evidence of pneumothorax. Electronically Signed: Gabino Krishnamurthy MD at 10:25 EDT , Service support ,
[2020-08-23 10:17] LABS: Cytology, Body Fluid / CSF SEE PATHOLOGY REPORT
[2020-08-23 10:51] LABS: Body Fluid Mononuclear WBC # 0.268 10^3/uL; Body Fluid Mononuclear WBC % 88.2 %; Body Fluid Polynuclear WBC # 0.036 10^3/uL; Body Fluid Polynuclear WBC % 11.8 %; Body Fluid Total Cells Counted 0.314 10^3/ul; Red Cell Count/Body Fluid 0.012 10^6/ul; White Blood Count/Body Fluid 0.304 10^3/uL
[2020-08-23 11:11] LABS: Glucose, Body Fluid 143 mg/dL (40-70); LDH,Body Fluid 189 Units/l (Not Establ.); Protein, Body Fluid 3.6 g/dL (Not Establ.)
--- NOTE | 2020-08-23 11:13 | CASEMGMT ---
RN YONATHAN NOTE: Pt screened with [facility] Palliative Care Screening Tool for readmission, pt did not meet criteria. Kacey CABRERA RN CM
[2020-08-23 11:27] LABS: Appearance/Body Fluid CLEAR; Auto B Fluid Analyzer BKGD Ct COUNTS W/IN LIMITS (W/IN LIMITS); Color/Body Fluid YELLOW; Lymphocytes 70 %; Macrophages 7 %; Monocytes 10 %; Neutrophil (Segs) 13 %; Source- Body Fluid PLEURAL FLUID
[2020-08-23 11:28] LABS: Body Fluid QC Type(s) BF1Q
--- NOTE | 2020-08-23 11:36 | PN.HOSP_ITS ---
Documented by User: Rocío Robbins NP, CHARGE ATTENDANT-C 08/23/20 12:14 Objective Data Objective Data Vital Signs: Vital Signs Temp Pulse Resp BP Pulse Ox 98.1 F 74 16 119/63 97 08/23/20 08:00 08/23/20 09:36 08/23/20 09:36 08/23/20 09:36 08/23/20 08:00 Oxygen Delivery Method [4] Room Air Oxygen Delivery Method [3] Room Air Oxygen Delivery Method [2] Room Air Oxygen Delivery Method [1 ( Room Air Initial Baseline)] Oxygen Delivery Method Room Air Weight: 206 lb 2.115 oz Body Mass Index (BMI) 29.5 Intake & Output: Intake and Output for Last 24 Hours 08/21/20 08/22/20 08/23/20 23:59 23:59 23:59 Output Total 600 / 600 2800 / 2800 Balance -600 / -600 -2800 / -2800 Lab / Micro Data Result Diagrams: 08/23/20 04:58 08/23/20 04:58 Labs: Laboratory Results - last 24 hr 08/22/20 08/22/20 08/22/20 22:50 22:50 22:50 WBC 4.9 RBC 3.53 L Hgb 11.1 L Hct 35.5 L MCV 100.6 H MCH 31.4 MCHC 31.3 L RDW Std Deviation 57.6 H RDW Coeff of Chip 15.5 H Plt Count 482 H MPV 8.5 Immature Gran % (Auto) 1.000 H Neut % (Auto) 59.7 Lymph % (Auto) 26.4 [place] % (Auto) 10.9 H Eos % (Auto) 1.6 Baso % (Auto) 0.4 Absolute Neuts (auto) 2.9 Absolute Lymphs (auto) 1.28 Nucleated RBC % 0 Sodium 136 Potassium 4.1 Chloride 101 Carbon Dioxide 27.0 Anion Gap 8 BUN 22 H Creatinine 1.58 H Estim Creat Clear Calc 39.14 Est GFR (MDRD) Af Amer 55 L Est GFR (MDRD) Non-Af 45 L BUN/Creatinine Ratio 13.9 Glucose 218 H Calcium 8.9 Total Bilirubin AST ALT Alkaline Phosphatase Lactate Dehydrogenase 316 H Troponin I 0.024 B-Natriuretic Peptide Total Protein Albumin Globulin Albumin/Globulin Ratio TSH Fluid Source Fluid Color Fluid Appearance Fluid WBC Fluid RBC Fluid Tot Cell Count Fld Polynuclear WBCs # Fld Polynuclear WBCs % Fluid Mononuclear WBCs Fld Mononuclear WBCs % Fluid Neutrophils Fluid Lymphocytes Fluid Monocytes Fluid Macrophages Fl Pathologist Comment Fluid Glucose Fluid Total Protein Fluid LDH Fluid Comment 2 POC Glucose 08/22/20 08/23/20 08/23/20 23:30 02:10 04:58 WBC 4.0 L RBC 3.33 L Hgb 10.6 L Hct 32.9 L MCV 98.8 H MCH 31.8 MCHC 32.2 RDW Std Deviation 56.0 H RDW Coeff of Chip 15.5 H Plt Count 399 MPV 8.2 Immature Gran % (Auto) 0.200 Neut % (Auto) 54.3 Lymph % (Auto) 30.8 [place] % (Auto) 12.2 H Eos % (Auto) 2.0 Baso % (Auto) 0.5 Absolute Neuts (auto) 2.2 Absolute Lymphs (auto) 1.24 Nucleated RBC % 0 Sodium Potassium Chloride Carbon Dioxide Anion Gap BUN Creatinine Estim Creat Clear Calc Est GFR (MDRD) Af Amer Est GFR (MDRD) Non-Af BUN/Creatinine Ratio Glucose Calcium Total Bilirubin AST ALT Alkaline Phosphatase Lactate Dehydrogenase Troponin I 0.019 B-Natriuretic Peptide 702.6 H Total Protein Albumin Globulin Albumin/Globulin Ratio TSH Fluid Source Fluid Color Fluid Appearance Fluid WBC Fluid RBC Fluid Tot Cell Count Fld Polynuclear WBCs # Fld Polynuclear WBCs % Fluid Mononuclear WBCs Fld Mononuclear WBCs % Fluid Neutrophils Fluid Lymphocytes Fluid Monocytes Fluid Macrophages Fl Pathologist Comment Fluid Glucose Fluid Total Protein Fluid LDH Fluid Comment 2 POC Glucose 08/23/20 08/23/20 08/23/20 04:58 04:58 06:18 WBC RBC Hgb Hct MCV MCH MCHC RDW Std Deviation RDW Coeff of Chip Plt Count MPV Immature Gran % (Auto) Neut % (Auto) Lymph % (Auto) [place] % (Auto) Eos % (Auto) Baso % (Auto) Absolute Neuts (auto) Absolute Lymphs (auto) Nucleated RBC % Sodium 138 Potassium 3.3 L Chloride 103 Carbon Dioxide 29.0 Anion Gap 6 BUN 18 Creatinine 1.30 Estim Creat Clear Calc 47.57 Est GFR (MDRD) Af Amer 68 Est GFR (MDRD) Non-Af 57 L BUN/Creatinine Ratio 13.8 Glucose 130 H Calcium 8.3 L Total Bilirubin 0.40 AST 36 ALT 28 Alkaline Phosphatase 170 H Lactate Dehydrogenase Troponin I 0.028 B-Natriuretic Peptide Total Protein 6.4 Albumin 2.7 L Globulin 3.7 Albumin/Globulin Ratio 0.7 L TSH 1.61 Fluid Source Fluid Color Fluid Appearance Fluid WBC Fluid RBC Fluid Tot Cell Count Fld Polynuclear WBCs # Fld Polynuclear WBCs % Fluid Mononuclear WBCs Fld Mononuclear WBCs % Fluid Neutrophils Fluid Lymphocytes Fluid Monocytes Fluid Macrophages Fl Pathologist Comment Fluid Glucose Fluid Total Protein Fluid LDH Fluid Comment 2 POC Glucose 131 H 08/23/20 08/23/20 10:00 10:00 WBC RBC Hgb Hct MCV MCH MCHC RDW Std Deviation RDW Coeff of Chip Plt Count MPV Immature Gran % (Auto) Neut % (Auto) Lymph % (Auto) [place] % (Auto) Eos % (Auto) Baso % (Auto) Absolute Neuts (auto) Absolute Lymphs (auto) Nucleated RBC % Sodium Potassium Chloride Carbon Dioxide Anion Gap BUN Creatinine Estim Creat Clear Calc Est GFR (MDRD) Af Amer Est GFR (MDRD) Non-Af BUN/Creatinine Ratio Glucose Calcium Total Bilirubin AST ALT Alkaline Phosphatase Lactate Dehydrogenase Troponin I B-Natriuretic Peptide Total Protein Albumin Globulin Albumin/Globulin Ratio TSH Fluid Source PLEURAL FLUID Fluid Color YELLOW Fluid Appearance CLEAR Fluid WBC 0.304 Fluid RBC 0.012 Fluid Tot Cell Count 0.314 Fld Polynuclear WBCs # 0.036 Fld Polynuclear WBCs % 11.8 Fluid Mononuclear WBCs 0.268 Fld Mononuclear WBCs % 88.2 Fluid Neutrophils 13 Fluid Lymphocytes 70 Fluid Monocytes 10 Fluid Macrophages 7 Fl Pathologist Comment May follow Fluid Glucose 143 H Fluid Total Protein 3.6 Fluid LDH 189 Fluid Comment 2 SEE COMMENT POC Glucose Radiography Diagnostic Testing: Radiology Impression Chest X-Ray 08/22/20 22:51 IMPRESSION: Recent CABG. Moderate left basilar consolidation and effusion. Subtle right basilar infiltrate Electronically Signed: Donald Kemp DO at 23:29 EDT Tel , Service support , Thoracentesis Ultrasound 08/23/20 01:31 IMPRESSION: Ultrasound-guided left thoracentesis. Electronically Signed: Gabino Krishnamurthy MD at 10:26 EDT , Service support , Chest X-Ray 08/23/20 10:00 IMPRESSION: Status post left thoracentesis. There is no evidence of pneumothorax. Electronically Signed: Gabino Krishnamurthy MD at 10:25 EDT , Service support , Assessment & Plan Assessment/Plan (1) Pleural effusion on left: (2) Acute respiratory insufficiency: PLAN: 1. Acute, recurrent left pleural effusion secondary to acute on chronic heart failure with reduced ejection fraction/ischemic cardiomyopathy and healthcare associated pneumonia-chest x-ray on admission with moderate left sided effusion, subtle right basilar effusion. Patient underwent left-sided thoracentesis 08/23/20 with removal of 1400 cc blood tinged beena fluid. Oxygen remains stable on room air. Patient recently underwent CABG 07/28/2020, thoracentesis x4 postoperatively (Left thora 15, Right thora 516, Left thora 517, Right thora 08/03). 08/23/2020 pleural fluid with positive lights criteria which suggests exudative effusion. Culture and cytology added to thoracentesis labs. Initiated on IV vancomycin and IV Zosyn. 2D echo 07/28/2020 demonstrated an EF of 40%, mild mitral regurgitation, mild aortic stenosis. Does not appear patient is on Lasix at baseline. Continue IV Lasix 40 mg twice daily. Strict I&O. Daily weight. Walking pulse ox prior to discharge. 2. CAD with Recent CABG x3 (07/28/20)-complicated by postoperative atrial fibrillation, postoperative respiratory insufficiency, and blood loss anemia. CABG by Dr. Rodney Brar, [facility]. Patient follows with Dr. Irizarry for routine cardiology follow up. Continue aspirin, statin. Will need close follow-up with cardiology at discharge. 3. Postoperative atrial fibrillation-remains on amiodarone, metoprolol. 4. Hypertension-stable, on metoprolol. 5. Hyperlipidemia-continue statin 6. Type 2 diabetes mellitus-continue home insulin regimen. Accu-Cheks with sliding scale insulin 7. Chronic kidney disease stage IIIa-at baseline, trend BMP. 8. Hypothyroidism-continue Synthroid regimen. 9. Chronic macrocytic anemia-appears stable, trend CBC. 10. Stage II coccyx pressure ulcer, present on admission-wound RN consult, krystian garcia position changes. DVT prophylaxis-Lovenox subcu This patient was seen by Rocío Robbins NP-C under the supervision of Dr. Chicas. Documented by User: Dr. Mary Chicas MD 08/23/20 12:38 Objective Data Lab / Micro Data Result Diagrams: 08/23/20 04:58 08/23/20 04:58 Charges/Coding Addendum Addendum: Hospitalist note: I am seeing this patient in conjunction with Rocío Robbins. I independently seen and examined the patient. Progress note above, laboratory data and imaging studies reviewed and I concur with above treatment plan. Today, patient is feeling better after he went for thoracentesis. His breathing is getting better. 1400 cc of blood-tinged pleural fluid drained. Patient stated that he had CABG surgery on July 29, 2011 that was complicated by postoperative A. fib, anemia and a spot insufficiency as well as recurrent pleural effusion on the left side. Patient stated that he had thoracentesis 4 times after the surgery. He is not sure if he was given any antibiotics. Chest x-ray reviewed. Pleural fluid analysis reviewed as well and it appears to be exudative fluid based on light's criteria. Currently, patient is on room air. He is afebrile, no leukocytosis. EKG reviewed, no acute ischemic changes. Troponin was neg ative. Underlying pneumonia cannot be ruled out. It is probably healthcare associated pneumonia. Plan to start him on IV vancomycin and Zosyn. Continue treatment for other chronic medical problems. CAD with CABG is stable.
--- NOTE | 2020-08-23 11:45 | CASEMGMT ---
Addendum entered by Magaly Melendrez 08/23/20 14:32: Order for [facility] referral placed. TC to Dash @ [facility] and she was made aware of referral. Addendum entered by Magaly Melendrez 08/23/20 13:52: present in room. NATACHA MCMANUS introduced self and role. clarified that [facility] has not been set up yet, but that it was recommended by Cardiac Rehab staff d/t pt is weak and difficult to get in/out of vehicle to go to Cardiac Rehab. /pt both interested in HHC and then would like pt to still go to Cardiac Rehab once he is strong enough to go. They were provided with list of [facility] providers including quality and resource use data and consistent with the patient's preferred geographic region, medical needs, and insurance network. The preferred provider is [facility]. Per KIMBERLYN Alford, anticipate pt will be ready for discharge Sat or . Call placed to Jessica @ [facility] and referral made for SN, PT/OT. Awaiting acceptance. Spoke w/ about CCN as well. She is agreeable to referral. She is aware [facility] program would follow after pt has been discharged from [facility]. Call placed to Cardiac Rehab and VM left for return call. Will notify them of d/c plan for [facility] 1st before doing Cardiac Rehab when they return call. also provided the following info: Pt has been taking his medications as prescribed and has kept scheduled appts w/his doctors. PCP: Pt just had an appt w/Dr Shelley bender. Next appt is in 6 weeks. Pt also to have labs (Hepatic profile and lipids) in 2 weeks. Specialists: Dr Irizarry: Appt is scheduled for: this Fri @ 1100. Transportation: Pt was driving up until NSTEMI. or daughter, Mya, provide transportation now. was given [facility] Van transportation info and made aware, when HHC is completed and pt ready to go to Cardiac Rehab Living Will/HPOA: Pt has both LW and POA, who is his , [place], as primary. Son, Paul is 1st alternate POA. Dtr, Mya, is 2nd alternate POA. Copies of both are on file @ [facility]. Original Note: NATACHA MCMANUS Readmission note/assessment: Pt admitted to [facility] 07/23/20 for resp failure and NSTEMI. Pt transferred to [facility] and had CABG and had several thoracentesis done while there. Pt discharged to from [facility] on 08/04 and then discharged home on 08/15. Plan @ d/c was for Cardiac Rehab and CCN referral had been made. Pt re-admitted to [facility] 08/23/20 w/dx: CHF exac and Pleural effusion. NATACHA CM to room to meet with patient for initial transition planning/care coordination assessment. NATACHA MCMANUS introduced self and role at [facility]. Pt voices understanding and consents to assessment at this time. Pt resting in bed in no distress at this time. Pt is A/O at this time and answers all questions appropriately. Care providers, pharmacy, and demographics verified/updated at this time. PCP: Dr Rosa Specialists: Has an upcoming appt w/Dr Irizarry--pt does not remember when. He states his manages all of his appts. Preferred Pharmacy: [facility] Retail Insurance: [facility], O Prescription Benefit: Yes LNOK: , [place]. Daughter, Mya [place] Living Arrangements: Lives w/his , [place], in one-story home w/4-5 steps to enter. Daughter, Mya, lives in [place] but is staying w/them for awhile (pt does not know how long). He is independent w/ADL's. manages most home tasks, medications, and appts. DME: [facility] has the following DME: 3 in 1 commode, WW, hand-held shower, lift chair, functioning glucometer and supplies. Pt does not have home O2. Pt states no need for further DME at this time. HHC/SNF: Was just @ [facility] RU 08/04/20 thru 08/15/20. Pt states he thinks his just got him set up with [facility] HHC, but he is not sure. Pt wishes to return home and states has no concerns with going home at time of discharge. CM to follow for home oxygen needs and any further discharge planning/needs. Pt voices no further concerns/needs at this time. Advised pt to ask for CM if any further questions/concerns/needs arise. Voices understanding. PLAN: Home w/family support and possible HHC. CM to talk w/ when she comes in to visit w/pt. Kacey CEBALLOSN RN CM
[2020-08-23] MEDS: Furosemide 40 MG/4 ML Vial IV ×2 (13:13→18:16)
--- NOTE | 2020-08-23 13:14 | CHAPLAIN ---
Type of Pastoral Visit _x__ Initial Visit ___ Follow-up Visit ___ On-call Visit ___ General Patient Visit ___ Spiritual Assessment ___ Family Conference ___ Bereavement ___ Rapid Response ___ Code Blue ___ Other (describe below) Pastoral Care Referral From _x__ Patient ___ Family ___ Nurse ___ Physician ___ Traffic Rate Analyst ___ Synthetic Resin Operator ___ Other (describe below) Sacrament/Intervention _x__ Active listening ___ Anointing ___ Religious ___ Bereavement ___ Communion ___ Haley exploration ___ _x__ Life review _x__ Prayer ___ Reconciliation ___ Sacrament of Sick _x__ Supportive presence ___ Wedding ___ Other (describe below) Pastoral Comments
[2020-08-23] MEDS: Insulin Lispro 100 UNIT/ML INSULN.PEN SC ×2 (13:23→15:59)
[2020-08-23] MEDS: Potassium Chloride Oral Tablet 20 MEQ 40 MEQ PO (13:25)
[2020-08-23 13:36] LABS: Bedside Glucose 228 mg/dL (70-110)
--- NOTE | 2020-08-23 14:06 | PCM.RX.CS ---
Consult Pharmacy has been consulted to manage selected antiobiotic: Vancomycin Type of Consult: New start Suspected Infection: Pneumonia Labs: Sodium 138 mmol/L (136-145) 08/23/20 04:58 Potassium 3.3 mmol/L (3.5-5.1) L 08/23/20 04:58 Chloride 103 mmol/L (98-107) 08/23/20 04:58 Carbon Dioxide 29.0 mmol/L (21.0-32.0) 08/23/20 04:58 Anion Gap 6 (5-15) 08/23/20 04:58 BUN 18 mg/dL (7-18) 08/23/20 04:58 Creatinine 1.30 mg/dL (0.70-1.30) 08/23/20 04:58 Est GFR (MDRD) Af Amer 68 mL/min (>60) 08/23/20 04:58 Est GFR (MDRD) Non-Af 57 mL/min (>60) L 08/23/20 04:58 BUN/Creatinine Ratio 13.8 RATIO (10-20) 08/23/20 04:58 Glucose 130 mg/dL (74-106) H 08/23/20 04:58 Goal Trough: 15-20 mcg/mL Pharmacy Plan for Drug Dosing: NEW START IV VANCOMYCIN Consulting Physician: GUILHERME ALVAREZ Indication: PNEUMONIA Goal Trough: 15-20MG/DL SrCr: 1.3 CrCl: 47.6 ML/MIN Comments: LOADING DOSE OF 2000MG GIVEN 08/23 @ 1324 Vancomycin Dose: START 750MG Q12H 08/24 @ 0100, TROUGH PRIOR TO 4TH TOTAL DOSE PER POLICY. Pending Level: 08/25 @ 0030 Pharmacy Service will continue to monitor and adjust dosing as required.
[2020-08-23 16:06] LABS: Bedside Glucose 156 mg/dL (70-110)
[2020-08-23] MEDS: 0.9% Saline Lock 10 ML Syringe IV (18:16)
[2020-08-23] MEDS: Menthol/Lanolin/Calamine/Znox 113 GM Tube 1 APPLIC TOPICAL ×2 (18:22→20:47)
[2020-08-23] MEDS: Atorvastatin Calcium 80 MG Tablet PO (20:36)
[2020-08-24] VITALS (15 sets, daily range): BP systolic 88–111; BP diastolic 44–58; PULSE 75–87; RESP 16–22; TEMP 36.6–37.1; O2SAT 93–97
[2020-08-24 01:16] LABS: Bedside Glucose 149 mg/dL (70-110)
[2020-08-24] MEDS: Levothyroxine 137 MCG Tablet PO (05:32)
[2020-08-24 06:16] LABS: Absolute Lymphocyte Count 1.17 X10^3/uL (0.83-4.51); Absolute Neutrophil Count 2.6 X10^3/uL (2.0-7.7); Basophil# 0.03 X10^3/uL; Basophil% 0.7 % (0-1); Eosinophils% 2.3 % (0-5); Hematocrit 32.4 % (40-54); Hemoglobin 10.3 g/dL (13.0-16.5); Lymphocyte # 1.17 X10^3/ul (0.83-4.51); Lymphocyte % 26.4 % (19-41); Mean Corp Hgb Conc 31.8 g/dL (32-36); Mean Corpuscular Hgb 31.3 pg (27.0-32.0); Mean Corpuscular Volume 98.5 fL (80-94); Mean Platelet Vol. 8.4 fl (6.2-12.0); Monocyte# 0.52 X10^3/uL; Monocyte% 11.7 % (0-10); NRBC Flagged by Analyzer 0 % (0-5); Neutrophil % 58.7 % (47-70); Platelet Count 415 K/mm3 (150-450); RBC Distribution Width CV 15.6 % (11.6-14.6); RBC Distribution Width SD 56.6 fl (35.1-43.9); Red Blood Count 3.29 M/mm3 (4.6-6.2); White Blood Count 4.4 K/mm3 (4.4-11.0)
[2020-08-24 06:50] LABS: Anion Gap 7 (5-15); BUN 19 mg/dL (7-18); Calcium,Total 8.1 mg/dL (8.5-10.1); Chloride 104 mmol/L (98-107); Creatinine, Serum 1.46 mg/dL (0.70-1.30); EST Glomerular Filtration Rate 49 mL/min (>60); Est Glom Filt Rate - Afr Amer 60 mL/min (>60); Estimated Creatinine Clearance 42.36 ml/min; Glucose 132 mg/dL (74-106); Potassium 3.4 mmol/L (3.5-5.1); Sodium Level 139 mmol/L (136-145)
[2020-08-24 08:26] LABS: Bedside Glucose 126 mg/dL (70-110)
[2020-08-24] MEDS: Aspirin 325 MG Tablet PO (08:28)
[2020-08-24] MEDS: Amiodarone 200 MG Tablet 400 MG PO (08:28)
[2020-08-24] MEDS: Menthol/Lanolin/Calamine/Znox 113 GM Tube 1 APPLIC TOPICAL ×2 (08:29→21:25)
[2020-08-24] MEDS: Multivitamins,Ther W-Minerals Tablet 1 TABLET PO (08:29)
[2020-08-24] MEDS: Lisinopril 2.5 MG Tablet PO (08:31)
[2020-08-24] MEDS: Senna/Docusate Sodium 1 Tablet 2 TABLET PO ×2 (08:31→21:25)
[2020-08-24] MEDS: Furosemide 40 MG/4 ML Vial IV (08:31)
[2020-08-24] MEDS: 0.9% Saline Lock 10 ML Syringe IV (08:33)
[2020-08-24] MEDS: Enoxaparin 40 MG/0.4 ML Syringe SC (08:33)
--- NOTE | 2020-08-24 09:30 | RAD_ITS ---
STUDY: X-RAY CHEST REASON FOR EXAM: Male, 80 years old. Pleural effusion TECHNIQUE: PA and lateral views of the chest. COMPARISON: Comparison is made with prior study dated 08/23/2020. FINDINGS: EKG lead is seen. Blunting of both costophrenic angles. Increased markings at the lung bases suggest bibasilar atelectasis. Sternal cerclage wires and vascular clips are present from a prior sternotomy and coronary artery bypass graft procedure (CABG). Normal mediastinum and karthikeyan. Normal visualized pulmonary arteries. Normal visualized aortic arch and descending thoracic aorta. There are diffuse degenerative changes of the visualized thoracic spine. Normal visualized ribs, clavicles, and shoulders. There is no demonstrated abnormality of the visualized soft tissue structures of the upper abdomen. RAD/Chest PA and Lateral IMPRESSION: Blunting of both costophrenic angles slightly worse on the left side with bibasilar atelectasis Electronically Signed: Gabino Krishnamurthy MD at 12:04 EDT , Service support ,
--- NOTE | 2020-08-24 10:13 | CASEMGMT ---
NATACHA MCMANUS NOTE: Call placed to Cardiac Rehab. They were notified plan is for [facility] @ discharge for therapy and then pt would like to do Cardiac Rehab once he is strong enough to get in/out of vehicle and has been discharged from [facility]. Kacey CABRERA RN CM
--- NOTE | 2020-08-24 10:23 | CASEMGMT ---
Addendum entered by Magaly Melendrez 08/25/20 13:02: NATACHA MCMANUS notified that Herminia, [employer], she has worked w/pt this AM and feels he will not have difficulty w/stairs. Addendum entered by Magaly Melendrez 08/25/20 10:01: voiced concern to this NATACHA MCMANUS during TC yesterday re: 4 steps pt needs to go up to get into his home. NATACHA MCMANUS placed call to therapy at this time and they will work w/ pt prior to pt being discharged/assess pt safety/ability to do so. RNBrandon, made aware. Addendum entered by Magaly Melendrez 08/24/20 14:26: Call placed to pt's , [place], and she was notified [facility] able to accept. Pt also made aware. Original Note: NATACHA MCMANUS NOTE: TC to Jessica @ [facility]. They are able to accept pt. Pt made aware. Jessica was made aware anticipate pt will be ready for discharge tomorrow. Kacey CEBALLOSN NATACHA MCMANUS
[2020-08-24 11:10] LABS: Bedside Glucose 173 mg/dL (70-110)
[2020-08-24] MEDS: Insulin Lispro 100 UNIT/ML INSULN.PEN SC ×2 (11:57→17:53)
--- NOTE | 2020-08-24 12:04 | PN.HOSP_ITS ---
Documented by User: Rocío Robbins MATERIAL STOCKKEEPER YARD, MATERIAL STOCKKEEPER YARD-C 08/24/20 12:20 Subjective Subjective Patient seen and examined. Denies significant shortness of breath. Denies fever, chills. Denies cough. Objective Data Objective Data Vital Signs: Vital Signs Temp Pulse Resp BP Pulse Ox 98 F 76 18 88/45 L 93 08/24/20 11:00 08/24/20 11:00 08/24/20 11:00 08/24/20 11:00 08/24/20 11:00 Oxygen Delivery Method [4] Room Air Oxygen Delivery Method [3] Room Air Oxygen Delivery Method [2] Room Air Oxygen Delivery Method [1 ( Room Air Initial Baseline)] Oxygen Delivery Method Room Air Weight: 201 lb 4.513 oz Body Mass Index (BMI) 29.5 Intake & Output: Intake and Output for Last 24 Hours 08/22/20 08/23/20 08/24/20 23:59 23:59 23:59 Intake Total 1180 / 1180 365 / 365 Output Total 600 / 600 4475 / 4475 300 / 300 Balance -600 / -600 -3295 / -3295 65 / 65 Lab / Micro Data Result Diagrams: 08/24/20 05:44 08/24/20 05:44 Labs: Laboratory Results - last 24 hr 08/23/20 08/23/20 08/23/20 13:03 15:56 22:14 WBC RBC Hgb Hct MCV MCH MCHC RDW Std Deviation RDW Coeff of Chip Plt Count MPV Immature Gran % (Auto) Neut % (Auto) Lymph % (Auto) Amelia % (Auto) Eos % (Auto) Baso % (Auto) Absolute Neuts (auto) Absolute Lymphs (auto) Nucleated RBC % Sodium Potassium Chloride Carbon Dioxide Anion Gap BUN Creatinine Estim Creat Clear Calc Est GFR (MDRD) Af Amer Est GFR (MDRD) Non-Af BUN/Creatinine Ratio Glucose Calcium POC Glucose 228 H 156 H 149 H 08/24/20 08/24/20 08/24/20 05:44 05:44 08:13 WBC 4.4 RBC 3.29 L Hgb 10.3 L Hct 32.4 L MCV 98.5 H MCH 31.3 MCHC 31.8 L RDW Std Deviation 56.6 H RDW Coeff of Chip 15.6 H Plt Count 415 MPV 8.4 Immature Gran % (Auto) 0.200 Neut % (Auto) 58.7 Lymph % (Auto) 26.4 Amelia % (Auto) 11.7 H Eos % (Auto) 2.3 Baso % (Auto) 0.7 Absolute Neuts (auto) 2.6 Absolute Lymphs (auto) 1.17 Nucleated RBC % 0 Sodium 139 Potassium 3.4 L Chloride 104 Carbon Dioxide 28.0 Anion Gap 7 BUN 19 H Creatinine 1.46 H Estim Creat Clear Calc 42.36 Est GFR (MDRD) Af Amer 60 Est GFR (MDRD) Non-Af 49 L BUN/Creatinine Ratio 13.0 Glucose 132 H Calcium 8.1 L POC Glucose 126 H 08/24/20 10:54 WBC RBC Hgb Hct MCV MCH MCHC RDW Std Deviation RDW Coeff of Chip Plt Count MPV Immature Gran % (Auto) Neut % (Auto) Lymph % (Auto) Amelia % (Auto) Eos % (Auto) Baso % (Auto) Absolute Neuts (auto) Absolute Lymphs (auto) Nucleated RBC % Sodium Potassium Chloride Carbon Dioxide Anion Gap BUN Creatinine Estim Creat Clear Calc Est GFR (MDRD) Af Amer Est GFR (MDRD) Non-Af BUN/Creatinine Ratio Glucose Calcium POC Glucose 173 H Micro: Microbiology 08/23/20 10:00 Fluid - Thoracentesis Fluid Gram Stain - Final 08/23/20 10:00 Fluid - Thoracentesis Fluid Body Fluid Culture - Preliminary No growth-Final to follow Physical Exam Const alert, oriented x3 and no apparent distress Orientation / Consciousness: awake, oriented to person, oriented to place and oriented to time HEENT normocephalic and moist oral mucous membranes Eyes PERRL, EOMs intact bilaterally and conjunctivae normal Neck no lymphadenopathy Resp Resp Narrative: Diminished lung sounds, faint fine crackles bilateral bases Cardio regular rate, regular rhythm and no murmurs Peripheral Pulses: pulses 2+ throughout GI normal to inspection, nondistended, normoactive bowel sounds, non-tender and non-distended Extremity normal to inspection General Extremity: edema bilateral lower extremity Skin no rashes or lesions noted Lesions: no lesions Rashes: no rashes Trauma: no lacerations or abrasions Neuro CN's II-XII intact bilaterally, no focal motor deficits, no sensory deficits no ramiro and deep tendon reflexes 2+ bilaterally Psych mental status grossly normal and affect normal Assessment & Plan Assessment/Plan (1) Pleural effusion on left: PLAN: 1. Acute, recurrent left pleural effusion secondary to acute on chronic heart failure with reduced ejection fraction/ischemic cardiomyopathy and healthcare associated pneumonia-chest x-ray on admission with moderate left side d effusion, subtle right basilar effusion. Patient underwent left-sided thoracentesis 08/23/20 with removal of 1400 cc blood tinged beena fluid. Oxygen remains stable on room air. Patient recently underwent CABG 07/28/2020, thoracentesis x4 postoperatively (Left thora 07/30, Right thora 07/31, Left thora 08/01, Right thora 08/03). 08/23/2020 pleural fluid with positive lights criteria which suggests exudative effusion. Culture and cytology thoracentesis labs pending. Continue IV vancomycin and IV Zosyn. 2D echo 07/28/2020 demonstrated an EF of 40%, mild mitral regurgitation, mild aortic stenosis. Does not appear patient is on Lasix at baseline. Discontinue IV Lasix. Begin oral Lasix 40 mg daily. Strict I&O. Daily weight. Walking pulse ox prior to discharge. Plan for discharge 08/25/2020 pending final thoracentesis culture, plan for empiric antibiotic treatment at discharge to complete course and oral Lasix at discharge. Repeat chest x-ray from this a.m. pending. 2. CAD with Recent CABG x3 (07/28/20)-complicated by postoperative atrial fibrillation, postoperative respiratory insufficiency, and blood loss anemia. CABG by Dr. Rodney Brar, [facility]. Patient follows with Dr. Irizarry for routine cardiology follow up. Continue aspirin, statin. Will need close follow-up with cardiology at discharge. Patient has follow-up with Dr. Irizarry 08/26/20. 3. Postoperative atrial fibrillation-remains on amiodarone, metoprolol. 4. Hypertension-stable, on metoprolol. 5. Hyperlipidemia-continue statin 6. Type 2 diabetes mellitus-continue home insulin regimen. Accu-Cheks with sliding scale insulin 7. Chronic kidney disease stage IIIa-at baseline, trend BMP. 8. Hypothyroidism-continue Synthroid regimen. 9. Chronic macrocytic anemia-appears stable, trend CBC. 10. Stage II coccyx pressure ulcer, present on admission-wound RN consult, frequent position changes. DVT prophylaxis-Lovenox subcu This patient was seen by NATHANAEL Owen under the supervision of Dr. Chicas. Documented by User: Dr. Mary Chicas MD 08/24/20 12:28 Objective Data Lab / Micro Data Result Diagrams: 08/24/20 05:44 08/24/20 05:44 Charges/Coding Addendum Addendum: Hospitalist note: I am seeing this patient in conjunction with Rocío Robbins. I independently seen and examined the patient. Progress note above, laboratory data and imaging studies reviewed and I concur with the above treatment plan. Today, patient denies any significant shortness of breath. Denied chest pain or crepitation. Denied fever or chills. His vital signs are stable, has been on room air. - Physical Exam General: Alert, Oriented x3, Cooperative, No apparent distress. HEENT: Atraumatic, PERRLA, EOMI. Neck: Supple, No JVD, Negative Carotid Bruits, Trachea Midline, Thyroid Normal. Lungs: Diminished breath sounds bilateral, coarse crackles on the left base, no rhonchi or wheezes. Cardiovascular: Regular rate, Regular Rhythm, Normal S1, Normal S2, PMI Normal. Abdomen: Bowel Sounds Present, Soft, Non Tender, Non-Distended, No Hepato- splenomegaly. Extremities: No clubbing, No cyanosis, edema Skin: No rashes, No breakdown Neurological: Cranial nerves are intact, neuro grossly intact Vital Signs are stable. Assessment and plan: #1 acute recurrent left pleural effusion: Attributed to acute on chronic CHF in addition to healthcare associated pneumonia. Patient had recent history of CABG. Status post thoracentesis, pleural fluid analysis consistent with exudate. Patient is on IV antibiotics as below. Chest x-ray from today reviewed. Patient currently is on room air. Plan to monitor. #2 acute healthcare associated pneumonia: Pleural fluid analysis revealed exudative effusion. Patient has been afebrile, no leukocytosis. He is on IV vancomycin and Zosyn. He has been afebrile. Cultures are pending. #3 acute on chronic CHF with reduced ejection fraction: He is on IV Lasix. He had echocardiogram on July 28, 2020 showed ejection fraction of 40%. He has been on lisinopril and metoprolol. Plan to switch IV Lasix to p.o. 40 mg daily. #4 status post recent CABG: Stable, no acute issues. Continue aspirin, statins, lisinopril and metoprolol. #5 other chronic medical problems: Stable, continue current medications as above. This note was generated with [employer] dictation software. It may contain incorrect words, spelling, and punctuation that were not noted in checking the note before signing. Visit Charges Inpatient E&M: 23861 Subs Hosp L2
[2020-08-24] MEDS: Potassium Chloride Oral Tablet 20 MEQ 40 MEQ PO (12:48)
[2020-08-24 13:10] LABS: Pathologist Comment/Body Fluid Reviewed
[2020-08-24 16:51] LABS: Bedside Glucose 162 mg/dL (70-110)
[2020-08-24] MEDS: Atorvastatin Calcium 80 MG Tablet PO (21:26)
[2020-08-24 21:31] LABS: Bedside Glucose 142 mg/dL (70-110)
[2020-08-25 01:18] LABS: Vancomycin, Trough Level 20.5 ug/mL (5.0-15.0)
[2020-08-25 03:00] VITALS: BP 132/63; PULSE 72; PULSE 81; RESP 16; TEMP 36.9; O2SAT 98
[2020-08-25] MEDS: Levothyroxine 137 MCG Tablet PO (05:38)
[2020-08-25 06:43] LABS: Absolute Lymphocyte Count 1.22 X10^3/uL (0.83-4.51); Absolute Neutrophil Count 2.3 X10^3/uL (2.0-7.7); Basophil# 0.04 X10^3/uL; Eosinophil# 0.12 X10^3/uL; Eosinophils% 2.9 % (0-5); Hematocrit 31.6 % (40-54); Lymphocyte # 1.22 X10^3/ul (0.83-4.51); Lymphocyte % 29.6 % (19-41); Mean Corp Hgb Conc 31.6 g/dL (32-36); Mean Corpuscular Volume 97.8 fL (80-94); Mean Platelet Vol. 8.2 fl (6.2-12.0); Monocyte# 0.47 X10^3/uL; Monocyte% 11.4 % (0-10); NRBC Flagged by Analyzer 0 % (0-5); Neutrophil # 2.26 X10^3/uL (2.7-7.7); Neutrophil % 54.9 % (47-70); Platelet Count 412 K/mm3 (150-450); RBC Distribution Width CV 15.5 % (11.6-14.6); RBC Distribution Width SD 55.7 fl (35.1-43.9); Red Blood Count 3.23 M/mm3 (4.6-6.2); White Blood Count 4.1 K/mm3 (4.4-11.0)
[2020-08-25 07:00] VITALS: PULSE 86; O2SAT 94
[2020-08-25 07:13] LABS: Anion Gap 5 (5-15); BUN 20 mg/dL (7-18); BUN/Creat Ratio 13.5 RATIO (10-20); Calcium,Total 8.2 mg/dL (8.5-10.1); Chloride 106 mmol/L (98-107); Creatinine, Serum 1.48 mg/dL (0.70-1.30); EST Glomerular Filtration Rate 49 mL/min (>60); Est Glom Filt Rate - Afr Amer 59 mL/min (>60); Estimated Creatinine Clearance 41.79 ml/min; Glucose 105 mg/dL (74-106); Potassium 3.4 mmol/L (3.5-5.1); Sodium Level 139 mmol/L (136-145)
[2020-08-25 08:38] VITALS: BP 125/56; PULSE 98; RESP 18; TEMP 36.7; O2SAT 95
[2020-08-25] MEDS: Aspirin 325 MG Tablet PO (08:41)
[2020-08-25] MEDS: Potassium Chloride Oral Tablet 20 MEQ 60 MEQ PO (08:41)
[2020-08-25] MEDS: Amiodarone 200 MG Tablet 400 MG PO (08:42)
[2020-08-25] MEDS: Multivitamins,Ther W-Minerals Tablet 1 TABLET PO (08:42)
[2020-08-25] MEDS: Furosemide 40 MG Tablet PO (08:42)
[2020-08-25 08:43] VITALS: BP 125/56; PULSE 98
[2020-08-25] MEDS: Senna/Docusate Sodium 1 Tablet 2 TABLET PO (08:43)
[2020-08-25] MEDS: Metoprolol Tartrate 25 MG Tablet PO (08:43)
[2020-08-25] MEDS: Enoxaparin 40 MG/0.4 ML Syringe SC (08:43)
[2020-08-25] MEDS: Lisinopril 2.5 MG Tablet PO (08:43)
[2020-08-25] MEDS: Menthol/Lanolin/Calamine/Znox 113 GM Tube 1 APPLIC TOPICAL (08:44)
--- NOTE | 2020-08-25 09:25 | PCM.DC ---
Discharge Instructions Diet Discharge Diet: Low fat / Low cholesterol and 1800 Calorie Control Diet Activity Discharge Activity: Return to Normal Activity Weight Bearing Status: Weight bearing as tolerated Dressing / Incision Call your doctor if you observe: Fever of 101 or Higher, Shortness of breath, Dizziness, Fainting spells, Swelling in the ankles, Chest pain, Increased palpitations (irregular heartbeat) and Uncontrolled pain Follow Up Care Please Follow Up With: Timothy Irizarry MD Test Results: Test results from this visit will be discussed in further detail at your follow-up appointment, if applicable. Discharge Plan Admission Admit Date/Time: 08/23/20 00:39 Primary Reason for Your Visit: Healthcare associated pneumonia, congestive heart failure Attending Provider: Mary Chicas Primary Care Provider: Lance Rosa Instructions Patient Instructions: Thoracentesis Discharge Orders/Prescriptions Prescriptions: New furosemide 40 mg Tablet 40 mg PO DAILY Qty: 30 RF: 0 lisinopril 2.5 mg Tablet 2.5 mg PO DAILY Qty: 30 RF: 0 levofloxacin 500 mg tablet 500 mg PO QODAY Qty: 4 RF: 0 doxycycline hyclate 100 mg capsule 100 mg PO BID Qty: 10 RF: 0 Continued multivitamin,fk-llna-Oi-FA-min Tablet 1 tab PO DAILY RF: 0 Et Mix 270 g OTHER BID RF: 0 acetaminophen [Tylenol] 325 mg Tablet 650 mg PO Q6H PRN PRN (Reason: PAIN 1-10) Qty: 1 RF: 0 Lantus Solostar U-100 Insulin 100 unit/mL (3 mL) Insulin Pen 18 unit subcut BREAKFAST Qty: 540 RF: 0 insulin lispro [Humalog KwikPen Insulin] 100 unit/mL Insulin Pen See Rx Instructions .ROUTE .COMPLEX PRN (Reason: azael) Qty: 240 RF: 0 sennosides-docusate sodium [Stool Softener-Stimulant Laxat] 8.6-50 mg Tablet 2 tab PO BID Qty: 120 RF: 0 aspirin 325 mg Tablet 325 mg PO DAILY Qty: 0 RF: 0 levothyroxine 137 mcg Tablet 137 mcg PO DAILY@0600 Qty: 30 RF: 0 atorvastatin 80 mg Tablet 80 mg PO QHS Qty: 30 RF: 0 amiodarone 200 mg Tablet 400 mg PO BREAKFAST Qty: 30 RF: 0 metoprolol tartrate 50 mg Tablet 25 mg PO DAILY RF: 0 Referrals / Follow Up: Lance Rosa MD [Primary Care Provider] - Within 1 Week Disposition Disposition (needs filled in before D/C Order can be placed): Home Health Service
[2020-08-25 09:31] LABS: Bedside Glucose 120 mg/dL (70-110)
--- NOTE | 2020-08-25 10:01 | PCM.DC.SUM ---
Providers Date of Admission: 08/23/20 Primary Care Physician: Dr. Lance Rosa MD Consultations 08/23/20 01:31 Consult: Onc/Wound/city library director Routine Comment: Reason for Consult:: sacral wound Reason For Visit: CHF EXACERBATION, PLEURAL EFFUSION Diagnosis Discharge Diagnosis (1) Pleural effusion on left: Status: Acute Code(s): J90 - Pleural effusion, not elsewhere classified (2) Acute on chronic clinical systolic heart failure: Status: Chronic Code(s): I50.23 - Acute on chronic systolic (congestive) heart failure (3) Healthcare-associated pneumonia: Status: Acute Code(s): J18.9 - Pneumonia, unspecified organism (4) H/O coronary artery bypass surgery: Status: Acute Code(s): Z95.1 - Presence of aortocoronary bypass graft (5) Ischemic cardiomyopathy: Status: Chronic Code(s): I25.5 - Ischemic cardiomyopathy (6) Essential (primary) hypertension: Status: Chronic Code(s): I10 - Essential (primary) hypertension (7) Mixed hyperlipidemia: Status: Chronic Code(s): E78.2 - Mixed hyperlipidemia Medications at Discharge Home Medications multivitamin,ym-ntpi-Al-FA-min 1 tab PO DAILY 08/04/20 Et Mix 270 g OTHER BID 08/05/20 Lantus Solostar U-100 Insulin 18 unit SUBCUT BREAKFAST #540 ml 08/15/20 acetaminophen [Tylenol] 650 mg PO Q6H PRN PRN #1 tab 08/15/20 amiodarone 400 mg PO BREAKFAST #30 tab 08/15/20 aspirin 325 mg PO DAILY #0 tab 08/15/20 atorvastatin 80 mg PO QHS #30 tab 08/15/20 insulin lispro [Humalog KwikPen Insulin] See Rx Instructions .ROUTE .COMPLEX PRN #240 ml 08/15/20 levothyroxine 137 mcg PO DAILY@0600 #30 tab 08/15/20 sennosides-docusate sodium [Stool Softener-Stimulant Laxat] 2 tab PO BID #120 tab 08/15/20 metoprolol tartrate 25 mg PO DAILY 08/22/20 doxycycline hyclate 100 mg PO BID #10 cap 08/25/20 furosemide 40 mg PO DAILY #30 tab 08/25/20 levofloxacin 500 mg PO QODAY #4 tab 08/25/20 lisinopril 2.5 mg PO DAILY #30 tab 08/25/20 Hospital Course Operations None Procedures None and Thoracentesis Summary of Care Provided Minutes Spent on Discharge: 33 Hospital Course: This is a 80 years old male patient presented to the emergency room because of worsening shortness of breath and leg edema, was found to have increasing left pleural effusion on chest x-ray that was done by his PCP and he was diagnosed with acute on chronic congestive heart failure with reduced ejection fraction. He was started on IV Lasix for diuresis and he underwent left-sided thoracentesis. Around 1400 cc of blood-tinged fluid was drained from the left lung. Pleural fluid analysis was consistent with exudative effusion and could be mixed exudative and transudative effusion. Chest x-ray reviewed left basilar consolidation and effusion. He was started on IV Zosyn and vancomycin for presumed healthcare associated pneumonia. Regarding this left pleural effusion, it started after the CABG that he had 3 weeks ago, underwent multiple thoracentesis at [facility] and this effusion has been recurrent. Pleural fluid protein to serum protein ratio was more than 0.5 consistent with exudative effusion. Pleural fluid Gram stain showed no organism and pleural fluid culture showed no growth in 48 hours. Pleural fluid cytology is pending at the time of discharge. Regarding the recent CABG, this was stable and patient had no acute issues. He was switched to p.o. Lasix. Patient did very well, remained off oxygen throughout the hospital stay and he remained afebrile. Patient discharged home with home health services in a stable medical condition, he was given 1 dose of Levaquin 750 mg p.o. x1 before discharge and then started on Levaquin 500 mg p.o. q. other day and discharged on doxycycline 100 p.o. twice daily to complete total of 7 days of treatment, was started on Lasix 40 mg p.o. daily, recommended follow-up with PCP in 1 week. Patient will need repeat chest x-ray in 1 to 2 weeks to assess the left pleural effusion. Physical Exam Const alert, oriented x3 and no apparent distress General Appearance: cooperative Orientation / Consciousness: awake, oriented to person, oriented to place and oriented to time HEENT normocephalic, head/scalp atraumatic and moist oral mucous membranes Eyes PERRL, EOMs intact bilaterally and conjunctivae normal Neck no lymphadenopathy, supple, no JVD and thyroid normal General: trachea midline Lymph Lymphatic: no lymphadenopathy noted Resp normal respiratory effort Resp Narrative: Diminished lung sounds, left basilar crackles. Effort and Inspection: able to speak in complete sentences and tachypneic Auscultation: crackles bilateral throughout Cardio regular rate, regular rhythm, S1 normal heart sound and no murmurs Peripheral Pulses: pulses 2+ throughout GI normal to inspection, nondistended, normoactive bowel sounds, soft to palpation, non-tender and non-distended Extremity normal to inspection General Extremity: edema bilateral lower extremity Details: severe and no tenderness to palpation of joints or extremities Skin no rashes or lesions noted General Skin Exam: turgor normal Lesions: no lesions Rashes: no rashes Trauma: no lacerations or abrasions Wounds: wounds noted Neuro CN's II-XII intact bilaterally, no focal motor deficits, no sensory deficits noted and deep tendon reflexes 2+ bilaterally Psych mental status grossly normal, thought process normal, cooperative and affect normal Appearance: appropriate Weight / BMI Weight Weight: 203 lb 4.259 oz Body Mass Index (BMI) 29.5 ABG / Lab / Microbiology Data Result Diagrams: 08/25/20 06:25 08/25/20 06:25 Laboratory: Laboratory Results - last 24 hr 08/23/20 08/24/20 08/24/20 10:00 10:54 16:44 WBC RBC Hgb Hct MCV MCH MCHC RDW Std Deviation RDW Coeff of Chip Plt Count MPV Immature Gran % (Auto) Neut % (Auto) Lymph % (Auto) Gage % (Auto) Eos % (Auto) Baso % (Auto) Absolute Neuts (auto) Absolute Lymphs (auto) Nucleated RBC % Sodium Potassium Chloride Carbon Dioxide Anion Gap BUN Creatinine Estim Creat Clear Calc Est GFR (MDRD) Af Amer Est GFR (MDRD) Non-Af BUN/Creatinine Ratio Glucose Calcium Fl Pathologist Comment Reviewed Vancomycin Trough POC Glucose 173 H 162 H 08/24/20 08/25/20 08/25/20 21:23 00:30 06:25 WBC 4.1 L RBC 3.23 L Hgb 10.0 L Hct 31.6 L MCV 97.8 H MCH 31.0 MCHC 31.6 L RDW Std Deviation 55.7 H RDW Coeff of Chip 15.5 H Plt Count 412 MPV 8.2 Immature Gran % (Auto) 0.200 Neut % (Auto) 54.9 Lymph % (Auto) 29.6 Gage % (Auto) 11.4 H Eos % (Auto) 2.9 Baso % (Auto) 1.0 Absolute Neuts (auto) 2.3 Absolute Lymphs (auto) 1.22 Nucleated RBC % 0 Sodium Potassium Chloride Carbon Dioxide Anion Gap BUN Creatinine Estim Creat Clear Calc Est GFR (MDRD) Af Amer Est GFR (MDRD) Non-Af BUN/Creatinine Ratio Glucose Calcium Fl Pathologist Comment Vancomycin Trough 20.5 H POC Glucose 142 H 08/25/20 08/25/20 06:25 08:32 WBC RBC Hgb Hct MCV MCH MCHC RDW Std Deviation RDW Coeff of Chip Plt Count MPV Immature Gran % (Auto) Neut % (Auto) Lymph % (Auto) Gage % (Auto) Eos % (Auto) Baso % (Auto) Absolute Neuts (auto) Absolute Lymphs (auto) Nucleated RBC % Sodium 139 Potassium 3.4 L Chloride 106 Carbon Dioxide 28.0 Anion Gap 5 BUN 20 H Creatinine 1.48 H Estim Creat Clear Calc 41.79 Est GFR (MDRD) Af Amer 59 L Est GFR (MDRD) Non-Af 49 L BUN/Creatinine Ratio 13.5 Glucose 105 Calcium 8.2 L Fl Pathologist Comment Vancomycin Trough POC Glucose 120 H Microbiology: Microbiology 08/23/20 10:00 Gram Stain - Final Fluid - Thoracentesis Fluid Body Fluid Culture - Preliminary No growth-Final to follow Anaerobic Culture - Preliminary No growth in 48 hours. Microbiology 08/23/20 10:00 Fluid - Thoracentesis Fluid Gram Stain - Final 08/23/20 10:00 Fluid - Thoracentesis Fluid Body Fluid Culture - Preliminary No growth-Final to follow 08/23/20 10:00 Fluid - Thoracentesis Fluid Anaerobic Culture - Preliminary No growth in 48 hours. D/C Instructions Discharge Diet: Low fat / Low cholesterol and 1800 Calorie Control Diet Weight Bearing Status: Weight bearing as tolerated Call your doctor if you observe: Fever of 101 or Higher, Shortness of breath, Dizziness, Fainting spells, Swelling in the ankles, Chest pain, Increased palpitations (irregular heartbeat) and Uncontrolled pain Please Follow Up With: Timothy Irizarry MD Meaningful Use Info Meaningful Use Diagnoses (Choose all that apply): None applicable Discharge Plan Admission Admit Date/Time: 08/23/20 00:39 Primary Reason for Your Visit: Healthcare associated pneumonia, congestive heart failure Attending Provider: Mary Chicas Primary Care Provider: Lance Rosa Instructions Patient Instructions: Thoracentesis Discharge Orders/Prescriptions Prescriptions: New furosemide 40 mg Tablet 40 mg PO DAILY Qty: 30 RF: 0 lisinopril 2.5 mg Tablet 2.5 mg PO DAILY Qty: 30 RF: 0 levofloxacin 500 mg tablet 500 mg PO QODAY Qty: 4 RF: 0 doxycycline hyclate 100 mg capsule 100 mg PO BID Qty: 10 RF: 0 Continued multivitamin,kh-pdxm-Rb-FA-min Tablet 1 tab PO DAILY RF: 0 Et Mix 270 g OTHER BID RF: 0 acetaminophen [Tylenol] 325 mg Tablet 650 mg PO Q6H PRN PRN (Reason: PAIN 1-10) Qty: 1 RF: 0 Lantus Solostar U-100 Insulin 100 unit/mL (3 mL) Insulin Pen 18 unit subcut BREAKFAST Qty: 540 RF: 0 insulin lispro [Humalog KwikPen Insulin] 100 unit/mL Insulin Pen See Rx Instructions .ROUTE .COMPLEX PRN (Reason: azael) Qty: 240 RF: 0 sennosides-docusate sodium [Stool Softener-Stimulant Laxat] 8.6-50 mg Tablet 2 tab PO BID Qty: 120 RF: 0 aspirin 325 mg Tablet 325 mg PO DAILY Qty: 0 RF: 0 levothyroxine 137 mcg Tablet 137 mcg PO DAILY@0600 Qty: 30 RF: 0 atorvastatin 80 mg Tablet 80 mg PO QHS Qty: 30 RF: 0 amiodarone 200 mg Tablet 400 mg PO BREAKFAST Qty: 30 RF: 0 metoprolol tartrate 50 mg Tablet 25 mg PO DAILY RF: 0 Referrals / Follow Up: Lance Rosa MD [Primary Care Provider] - 08/29/20 (DOC.[facility] OFF[facility] CALLED AND LEFT A MESSAGE ON THE HOME PHONE TO TRY AND FIGURE OUT A TIME THAT WORKS.) Disposition Disposition (needs filled in before D/C Order can be placed): Home Health Service Charges/Coding Visit Charges Inpatient E&M: 36014 Disch Hosp
[2020-08-25] MEDS: Insulin Lispro 100 UNIT/ML INSULN.PEN SC (11:29)
[2020-08-25] MEDS: levoFLOXacin 750 MG Tablet PO (11:29)
[2020-08-25 11:35] LABS: Bedside Glucose 186 mg/dL (70-110)
[2020-08-25 14:40] VITALS: BP 97/52; PULSE 73; RESP 18; TEMP 36.2; O2SAT 98
--- NOTE | 2020-08-26 17:07 | CASEMGMT ---
NATACHA MCMANUS Discharge Follow-up Phone Call: BERNARD: Nick Strata:3 Call Date: 08/26/20 Discharge Date: 08/25/20 Time of Call: 1700 Admitting Diagnosis: CHF exacerbation, pleural effusion Call placed to pt's home phone and answered by his . Pt's states pt has been doing well since returning home. They attended his appointment with Dr. Irizarry this AM without difficulty and pt's medications were adjusted further. States all questions regarding medications were answered during this appointment. Denies any concerns of shortness of breath and states pt has been tolerating his normal activity. Pt's states their daughter is here from [place] and is assisting them with care needs. She denies any further questions or needs at this time. She reports that they did not receive a call from [facility] today. Message left on [facility]'s intake voicemail in follow-up. Will follow-up with pt's on Saturday to ensure start of care was initiated. Carrie Arroyo RN CM
== END 2020-08-25 15:38 | disposition home health service (06) | DRG 291 ==
LOC: ED 23:31 → PCU 08-23 05:03
PROVIDERS: Nurse Practitioner Family; Admitting Provider Hospitalist; Emergency Provider Emergency Medicine; PCP Family Medicine; Visit Provider Hospitalist
DX: I13.0 Hypertensive heart and chronic kidney disease with heart failure and stage 1 through stage 4 chronic kidney disease, or unspecified chronic kidney disease (principal); I50.23 Acute on chronic systolic (congestive) heart failure; J18.9 Pneumonia, unspecified organism; J91.8 Pleural effusion in other conditions classified elsewhere; Y95 Nosocomial condition; E11.22 Type 2 diabetes mellitus with diabetic chronic kidney disease; N18.31 Chronic kidney disease, stage 3a; I48.91 Unspecified atrial fibrillation; E11.51 Type 2 diabetes mellitus with diabetic peripheral angiopathy without gangrene; L89.152 Pressure ulcer of sacral region, stage 2; E11.65 Type 2 diabetes mellitus with hyperglycemia; I25.10 Atherosclerotic heart disease of native coronary artery without angina pectoris; I25.5 Ischemic cardiomyopathy; E78.2 Mixed hyperlipidemia; E03.9 Hypothyroidism, unspecified; Z79.890 Hormone replacement therapy; Z79.899 Other long term (current) drug therapy; I25.2 Old myocardial infarction; Z87.891 Personal history of nicotine dependence; Z95.1 Presence of aortocoronary bypass graft
CPT/HCPCS: 32555; 36415; 71045; 71046; 80048; 80053; 80202; 82945; 82962; 83615; 83880; 84157; 84443; 84484; 85025; 87070; 87075; 87205; 88108; 88305; 88313; 88341; 88342; 89050; 93005; 97162; 97166; 97530; 97535; 97802; 99251; 99285; J7040; J7050; A4216; G0463; J1940

== ENCOUNTER 2020-09-02 22:08 | Inpatient (IN) | payer MEDICARE, OTHER, SELFPAY ==
[2020-08-26 11:08] VITALS: BMI 28.8
[2020-09-02 22:09] VITALS: BP 89/53; PULSE 84; RESP 18; TEMP 36.6; O2SAT 97; BMI 26.5
--- NOTE | 2020-09-02 22:12 | RAD_ITS ---
HISTORY: hypotension EXAMINATION/TECHNIQUE: XR Chest 1 View: Portable upright AP chest x-ray COMPARISON: 08/24/20 FINDINGS: LINES/DEVICES: None. LUNGS: Persistent or recurrent bibasilar airspace opacities with blunting of the left costophrenic angle. No new consolidations. MEDIASTINUM AND CARDIOVASCULAR STRUCTURES: Cardiac silhouette not enlarged, stable CABG changes. Central airways and mediastinal contour are unremarkable. BONES AND SOFT TISSUES: No acute bony abnormalities. RAD/Chest 1 View (Portable) IMPRESSION: Persistent or recurrent bibasilar airspace to with probable left pleural effusion. Findings suspicious for pneumonia. at 2345 Reported and signed by: oKfi Dee MD Electronically Signed: Kofi Dee MD at 23:44 EDT Tel , Service support ,
--- NOTE | 2020-09-02 22:12 | EKG12_ITS ---
Test Reason : DIZZINESS Blood Pressure : / mmHG Vent. Rate : 086 BPM Atrial Rate : 086 BPM P-R Int : 194 ms QRS Dur : 130 ms QT Int : 436 ms P-R-T Axes : 060 -32 135 degrees QTc Int : 521 ms Normal sinus rhythm Left axis deviation Non-specific intra-ventricular conduction block T wave abnormality, consider lateral ischemia Abnormal ECG Confirmed by ZEB CABRAL, RAMIREZ ([id number]), newspaper managing editor MIKE FUNES ([id number]) on 09/05/2020 11:09:08 A M Referred By: ERICKA Confirmed By:JOSEFA CARRINGTON MD
[2020-09-02 22:32] LABS: Absolute Lymphocyte Count 1.86 X10^3/uL (0.83-4.51); Absolute Neutrophil Count 3.6 X10^3/uL (2.0-7.7); Basophil# 0.03 X10^3/uL; Basophil% 0.5 % (0-1); Eosinophil# 0.03 X10^3/uL; Eosinophils% 0.5 % (0-5); Hematocrit 40.3 % (40-54); Hemoglobin 12.8 g/dL (13.0-16.5); Lymphocyte # 1.86 X10^3/ul (0.83-4.51); Lymphocyte % 30.3 % (19-41); Mean Corp Hgb Conc 31.8 g/dL (32-36); Mean Corpuscular Hgb 30.9 pg (27.0-32.0); Mean Corpuscular Volume 97.3 fL (80-94); Mean Platelet Vol. 8.5 fl (6.2-12.0); Monocyte# 0.62 X10^3/uL; Monocyte% 10.1 % (0-10); NRBC Flagged by Analyzer 0 % (0-5); Neutrophil # 3.58 X10^3/uL (2.7-7.7); Neutrophil % 58.3 % (47-70); Platelet Count 380 K/mm3 (150-450); RBC Distribution Width SD 53.8 fl (35.1-43.9); Red Blood Count 4.14 M/mm3 (4.6-6.2); White Blood Count 6.1 K/mm3 (4.4-11.0)
[2020-09-02 22:49] LABS: ALB/GLOB Ratio 0.7 RATIO (0.9-2.4); AST(SGOT) 45 U/L (15-37); Alanine Aminotransfer ALT/SGPT 29 U/L (16-61); Alkaline Phosphatase 170 U/L (45-117); Anion Gap 7 (5-15); BUN 26 mg/dL (7-18); Chloride 101 mmol/L (98-107); Creatinine, Serum 2.16 mg/dL (0.70-1.30); EST Glomerular Filtration Rate 32 mL/min (>60); Est Glom Filt Rate - Afr Amer 38 mL/min (>60); Estimated Creatinine Clearance 28.63 ml/min; Globulin 4.2 g/dL (2.2-4.2); Glucose 190 mg/dL (74-106); Protein, Total 7.2 g/dL (6.4-8.2); Sodium Level 138 mmol/L (136-145)
[2020-09-02 22:50] VITALS: BP 95/57; PULSE 85; RESP 14; O2SAT 97
--- NOTE | 2020-09-02 23:21 | EX.ED.DYSGE1 ---
HPI History of Present Illness Chief Complaint: Hypotension Informant: patient and spouse/S.O. Onset/Context/Timing Onset: Today Context: Gradual Onset Timing: Continuous Current Severity: Mild Maximum Severity: Mild Narrative Narrative: 80-year-old male significant past medical history of triple bypass in July after an DC. He is also had pneumonia and UTIs and history of CHF. He is a known diabetic. Patient was just admitted to [facility] and discharged earlier today. He was seated at home felt lightheaded. Family took his blood pressure was running low. So they brought him into the emergency department. He denies any chest pain or shortness of breath. He denies any abdominal pain. 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 Carotid disease, bilateral Chronic HFrEF (heart failure with reduced ejection fraction) Essential (primary) hypertension Former smoker History of non-ST elevation myocardial infarction (NSTEMI) (07/23/20) Hypokalemia Hyponatremia Hypothyroidism Ischemic cardiomyopathy Left bundle branch block (LBBB) Macrocytic anemia Mixed hyperlipidemia PAD (peripheral artery disease) Physical debility Pleural effusion, bilateral Pneumonia Postoperative atrial fibrillation (07/30/20) Synovial cyst of popliteal space [Andre], left knee Type 2 diabetes mellitus Home Medications multivitamin,qd-xcrc-Nw-FA-min 1 tab PO DAILY 08/04/20 [History Last Taken Unknown] Et Mix 270 g OTHER BID 08/05/20 [History Last Taken Unknown] Lantus Solostar U-100 Insulin 18 unit SUBCUT BREAKFAST #540 ml 08/15/20 [Rx Last Taken Unknown] acetaminophen [Tylenol] 650 mg PO Q6H PRN PRN #1 tab 08/15/20 [Rx Last Taken Unknown] atorvastatin 80 mg PO QHS #30 tab 08/15/20 [Rx Last Taken Unknown] insulin lispro [Humalog KwikPen Insulin] See Rx Instructions .ROUTE .COMPLEX PRN #240 ml 08/15/20 [Rx Last Taken Unknown] levothyroxine 137 mcg PO DAILY@0600 #30 tab 08/15/20 [Rx Last Taken Unknown] sennosides-docusate sodium [Stool Softener-Stimulant Laxat] 2 tab PO BID #120 tab 08/15/20 [Rx Last Taken Unknown] doxycycline hyclate 100 mg PO BID #10 cap 08/25/20 [Rx Last Taken Unknown] levofloxacin 500 mg PO QODAY #4 tab 08/25/20 [Rx Last Taken Unknown] lisinopril 2.5 mg PO DAILY #30 tab 08/25/20 [Rx Last Taken Unknown] amiodarone 200 mg tablet 200 mg PO BREAKFAST #0 tab 08/26/20 [Rx Last Taken Unknown] furosemide 40 mg tablet 40 mg PO BID #60 tab 08/26/20 [Rx Last Taken Unknown] metoprolol tartrate 25 mg tablet 25 mg PO BID #60 tab 08/26/20 [Rx Last Taken Unknown] Allergy/AdvReac Type Severity Reaction Status Date / Time naproxen [From Naprosyn] Allergy Other Verified 08/26/20 11:08 venom-honey bee Allergy Anaphylaxis Verified 08/26/20 11:08 Family History Mother Diabetes Heart disease Father Heart disease Surgical History H/O coronary artery bypass surgery (07/28/20) History of appendectomy History of colonoscopy History of left heart catheterization (07/25/20) History of thoracentesis (08/23/20) Social History Smoking Status: Former smoker Tobacco: How many years used: 17 how long ago did patient quit smokin years ago alcohol intake: never substance use type: does not use ROS ROS ED ROS Narrative Patient felt lightheaded the night. He he also had nausea and dry heaves. No emesis. He denies any abdominal pain. No chest pain. No diarrhea or melena. No fever. Review of Systems ROS Unobtainable: Denies due to encephalopathy Constitutional Constitutional ED: Denies chills or fever(s) Eyes Eyes: Denies change in vision ENT ENT ED: Denies ear pain or sore throat Cardiovascular Cardiovascular: Denies chest pain Respiratory/Chest Respiratory/Chest: Denies cough or dyspnea Gastrointestinal Gastrointestinal: Reports nausea and vomiting; Denies abdominal pain, diarrhea or melena Genitourinary Genitourinary ED: Denies dysuria Musculoskeletal Musculoskeletal: Denies myalgias Integumentary Denies rash Neurologic Neurologic: Denies headache(s) Psychiatric Psychiatric: Denies depression Endocrine Endocrinology: Denies polyuria Allergic/Immunologic Allergic/Immunologic ED: Denies urticaria EXAM Physical Exam Narrative Exam Narrative: Elderly male no acute distress. Awake alert and talking. at bedside. His vital signs do reveal hypotension with a blood pressure 89/53. Pulse ox is 97% on room air. He is afebrile. He does not look septic or toxic. HEENT exam unremarkable. Mildly dry mucous membranes. Neck nontender no JVD no lymphadenopathy. Lungs clear to auscultation. Heart regular rhythm rate about 85 with a 4/6 systolic ejection murmur. Abdomen is soft nontender normal bowel sounds no peritoneal signs. Moving all 4 extremities. Calves are nontender. No significant edema. Neurologically is awake and alert with no focal motor deficits. Answering questions and following commands. Const Vital Signs: 09/02/20 22:09 09/02/20 22:11 09/02/20 22:50 Temperature 97.8 F Temperature Source Oral Pulse Rate 84 85 Respiratory Rate 18 14 Respiratory Effort Normal Respiratory Pattern Normal Blood Pressure 89/53 L 95/57 L Blood Pressure Mean 65 69 Pulse Ox 97 97 Oxygen Delivery Method Room Air Room Air 09/02/20 23:34 Temperature Temperature Source Pulse Rate 86 Respiratory Rate 18 Respiratory Effort Respiratory Pattern Blood Pressure 110/58 L Blood Pressure Mean 75 Pulse Ox 99 Oxygen Delivery Method Room Air Positive well nourished and well developed; Negative for unkempt General Appearance ED: well developed and NAD; Negative for unkempt HEENT Reports dry mucous membranes Negative for trauma or tenderness Mouth ED: Yes dry mucous membranes Mouth: dry mucous membranes Eyes PERRL and EOMs intact bilaterally Neck no lymphadenopathy, supple and no JVD General: Negative for tenderness Chest Wall inspection of chest normal and palpation of chest normal Resp normal respiratory effort and clear to auscultation bilaterally Cardio regular rate and regular rhythm; Negative for no murmurs GI normal to inspection, nondistended, normoactive bowel sounds, non-tender and non-distended Auscultation: normoactive bowel sounds Palpation: soft Back/Spine no CVA tenderness Cervical Spine: Negative for cervical spine tenderness Thoracic Spine / Upper Back: Negative for thoracic spinal tenderness or paraspinal muscle tenderness Lumbar Spine / Lower Back: Negative for lumbar spinal tenderness Extremity normal to inspection General Extremety ED: Negative for edema or tenderness General Extremity: Negative for edema Neuro oriented x3 and CN's II-XII intact bilaterally Sensorium / Orientation: alert Motor Exam: strength 5/5 throughout Psych mental status grossly normal Appearance: Negative for unkempt Skin no rashes or lesions noted and no wounds MDM MDM MDM Narrative Medical decision making narrative: Older male recent hospitalization in [place] and discharged today. Presents with hypotension without significant other symptoms. Will undergo a septic work-up. Will be treated with initial 500 cc bolus of normal saline. Repeat exam patient is doing well at midnight. His current blood pressure is 110/58 he is received about 600 cc of fluid. He is resting comfortably. Were awaiting the lactic acid and he is not been able to urinate as of yet. Had a long discussion with both he and his and his daughter they are comfortable with him remaining here overnight for gradual hydration and reevaluation. Lab Data Attestation: I reviewed the patient's lab results. Lab results narrative: CBC shows a white count of 6. Hemoglobin is 12.8. Electrolytes unremarkable gap is 7 BUN of 26 creatinine of 2.16 which is acutely worse than previously which is around 1.6 creatinine. Liver enzymes are normal. Troponin is normal. Chest x-ray shows small left pleural effusion. Lactic acid is 1.8. Labs: Laboratory Results - last 24 hr 09/02/20 09/02/20 09/02/20 22:20 22:20 22:47 WBC 6.1 RBC 4.14 L Hgb 12.8 L Hct 40.3 MCV 97.3 H MCH 30.9 MCHC 31.8 L RDW Std Deviation 53.8 H RDW Coeff of Chip 15.0 H Plt Count 380 MPV 8.5 Immature Gran % (Auto) 0.300 Neut % (Auto) 58.3 Lymph % (Auto) 30.3 [place] % (Auto) 10.1 H Eos % (Auto) 0.5 Baso % (Auto) 0.5 Absolute Neuts (auto) 3.6 Absolute Lymphs (auto) 1.86 Nucleated RBC % 0 PT INR APTT Sodium 138 Potassium 4.0 Chloride 101 Carbon Dioxide 30.0 Anion Gap 7 BUN 26 H Creatinine 2.16 H Estim Creat Clear Calc 28.63 Est GFR (MDRD) Af Amer 38 L Est GFR (MDRD) Non-Af 32 L BUN/Creatinine Ratio 12.0 Glucose 190 H Lactic Acid 1.8 Calcium 9.0 Total Bilirubin 0.60 AST 45 H ALT 29 Alkaline Phosphatase 170 H Troponin I 0.027 Total Protein 7.2 Albumin 3.0 L Globulin 4.2 Albumin/Globulin Ratio 0.7 L 09/02/20 23:30 WBC RBC Hgb Hct MCV MCH MCHC RDW Std Deviation RDW Coeff of Chip Plt Count MPV Immature Gran % (Auto) Neut % (Auto) Lymph % (Auto) [place] % (Auto) Eos % (Auto) Baso % (Auto) Absolute Neuts (auto) Absolute Lymphs (auto) Nucleated RBC % PT 14.0 INR 1.1 APTT 29.0 Sodium Potassium Chloride Carbon Dioxide Anion Gap BUN Creatinine Estim Creat Clear Calc Est GFR (MDRD) Af Amer Est GFR (MDRD) Non-Af BUN/Creatinine Ratio Glucose Lactic Acid Calcium Total Bilirubin AST ALT Alkaline Phosphatase Troponin I Total Protein Albumin Globulin Albumin/Globulin Ratio Radiography Chest X-Ray - ED: 1 View, Read by ED Physician, Normal, Heart, Mediastinum, Bony Structures and Left Effusion Diagnostic Testing: Radiology Impression Chest X-Ray 09/02/20 22:12 IMPRESSION: Persistent or recurrent bibasilar airspace to with probable left pleural effusion. Findings suspicious for pneumonia. at 2345 Reported and signed by: Kofi Dee MD Electronically Signed: Kofi Dee MD at 23:44 EDT Tel , Service support , Small left pleural effusion. Prior sternotomy. No infiltrate noted. Rhythm Strip Rhythm Strip: Sinus Rhythm Rate: 86 Ectopy: None EKG Initial EKG: Attestation: I personally reviewed and interpreted this EKG as follows: Interpretation: Sinus Rhythm and No Acute Injury Pattern Comments: Normal sinus rhythm rate 86 no acute signs of DC or ischemia. Unchanged from an EKG earlier this month. Prior: Unchanged Discharge Plan Dx/Rx/DC Orders Clinical Impression: Acute hypotension, Pleural effusion on left, Acute kidney injury, Dehydration Disposition Disposition: Acute Care Hospital [facility]
[2020-09-02 23:34] VITALS: BP 110/58; PULSE 86; RESP 18; O2SAT 99
[2020-09-02 23:43] LABS: Lactic Acid 1.8 mmol/L (0.4-1.9)
[2020-09-02 23:47] LABS: International Normalized Ratio 1.1
[2020-09-03] VITALS (14 sets, daily range): BP systolic 99–130; BP diastolic 37–68; PULSE 84–97; RESP 16–31; TEMP 36.6–36.7; O2SAT 94–100; BMI 27.9
--- NOTE | 2020-09-03 00:20 | HP.PCM.HOS_ITS ---
HPI - General General Date of Admission: 09/03/20 Date of Service: 09/03/20 Chief Complaint: Light headedness HPI Narrative ANTONIETA OSMAN, is a 80 M with a significant history of CAD status post triple bypass 6 weeks ago and pleural effusion status post about 6 times thoracentesis who presented to the emergency department with lightheadedness that started several hours before presentation. His symptoms started after discharge from [facility] on same day. Associated with his symptoms is dry heaving and blurry vision. Patient reports seeing spots. Reportedly his PCP Dr. Shelley kim chest x-ray the chest x-ray showed a pleural effusion so he was admitted to [facility] and the plan was for a Pleurx catheter to be placed. The patient was kept n.p.o. for the procedure. However he reports that because fluid could not be drained pleurx catheter placement was rescheduled for out patient. 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 Carotid disease, bilateral Chronic HFrEF (heart failure with reduced ejection fraction) Essential (primary) hypertension Former smoker History of non-ST elevation myocardial infarction (NSTEMI) (07/23/20) Hypokalemia Hyponatremia Hypothyroidism Ischemic cardiomyopathy Left bundle branch block (LBBB) Macrocytic anemia Mixed hyperlipidemia PAD (peripheral artery disease) Physical debility Pleural effusion, bilateral Pneumonia Postoperative atrial fibrillation (07/30/20) Synovial cyst of popliteal space [Andre], left knee Type 2 diabetes mellitus Home Medications multivitamin,iq-mjkt-Xi-FA-min 1 tab PO DAILY 08/04/20 [History Last Taken Unknown] Et Mix 270 g OTHER BID 08/05/20 [History Last Taken Unknown] Lantus Solostar U-100 Insulin 18 unit SUBCUT BREAKFAST #540 ml 08/15/20 [Rx Last Taken Unknown] acetaminophen [Tylenol] 650 mg PO Q6H PRN PRN #1 tab 08/15/20 [Rx Last Taken Unknown] atorvastatin 80 mg PO QHS #30 tab 08/15/20 [Rx Last Taken Unknown] insulin lispro [Humalog KwikPen Insulin] See Rx Instructions .ROUTE .COMPLEX PRN #240 ml 08/15/20 [Rx Last Taken Unknown] levothyroxine 137 mcg PO DAILY@0600 #30 tab 08/15/20 [Rx Last Taken Unknown] sennosides-docusate sodium [Stool Softener-Stimulant Laxat] 2 tab PO BID #120 tab 08/15/20 [Rx Last Taken Unknown] doxycycline hyclate 100 mg PO BID #10 cap 08/25/20 [Rx Last Taken Unknown] levofloxacin 500 mg PO QODAY #4 tab 08/25/20 [Rx Last Taken Unknown] lisinopril 2.5 mg PO DAILY #30 tab 08/25/20 [Rx Last Taken Unknown] amiodarone 200 mg tablet 200 mg PO BREAKFAST #0 tab 08/26/20 [Rx Last Taken Unknown] furosemide 40 mg tablet 40 mg PO BID #60 tab 08/26/20 [Rx Last Taken Unknown] metoprolol tartrate 25 mg tablet 25 mg PO BID #60 tab 08/26/20 [Rx Last Taken Unknown] Allergy/AdvReac Type Severity Reaction Status Date / Time naproxen [From Naprosyn] Allergy Other Verified 08/26/20 11:08 venom-honey bee Allergy Anaphylaxis Verified 08/26/20 11:08 Family History Mother Diabetes Heart disease Father Heart disease Surgical History H/O coronary artery bypass surgery (07/28/20) History of appendectomy History of colonoscopy History of left heart catheterization (07/25/20) History of thoracentesis (08/23/20) Social History Smoking Status: Former smoker Tobacco: How many years used: 17 how long ago did patient quit smokin years ago alcohol intake: never substance use type: does not use ROS ROS Narrative 12 point review of system is negative except as stated in HPI. Vital Signs Vital Signs Vital Signs: 09/02/20 22:09 09/02/20 22:11 09/02/20 22:50 Temperature 97.8 F Temperature Source Oral Pulse Rate 84 85 Respiratory Rate 18 14 Respiratory Effort Normal Respiratory Pattern Normal Blood Pressure 89/53 L 95/57 L Blood Pressure Mean 65 69 Pulse Ox 97 97 Oxygen Delivery Method Room Air Room Air 09/02/20 23:34 09/03/20 00:03 09/03/20 00:05 Temperature 98 F Temperature Source Oral Pulse Rate 86 86 Respiratory Rate 18 22 H Respiratory Effort Respiratory Pattern Blood Pressure 110/58 L 120/63 Blood Pressure Mean 75 82 Pulse Ox 99 99 Oxygen Delivery Method Room Air Room Air Weight Weight: 84 kg Body Mass Index (BMI) 26.5 Physical Exam Narrative Physical exam: General: Well-nourished, well-developed, no acute distress Head: Normocephalic, atraumatic, no tenderness Eyes: PERRLA, EOMI ENT, no trauma, moist mucous membranes, no rhinorrhea Neck: Nontender, full range of motion, no spinal tenderness, deformities, step- off CVS: Regular rate and rhythm. Murmur 3 out of 6 present Respiratory: Healed midline incision on chest. Clear to auscultation bilaterally, chest wall nontender, no wheezing Abdomen: Soft, nontender, nondistended, normal bowel sounds, no masses : Deferred Back: Nontender, no CVA tenderness, no midline spinal tenderness, deformities, step-offs Extremities: Nontender full range of motion, no trauma Skin: Sacrococcygeal area with erythema and some desquamation. Neuro: Alert, oriented, cranial nerves II through XII grossly intact. Results Lab / Micro Data Result Diagrams: 09/02/20 22:20 09/02/20 22:20 Labs: Laboratory Results - last 24 hr 09/02/20 09/02/20 09/02/20 22:20 22:20 22:47 WBC 6.1 RBC 4.14 L Hgb 12.8 L Hct 40.3 MCV 97.3 H MCH 30.9 MCHC 31.8 L RDW Std Deviation 53.8 H RDW Coeff of Chip 15.0 H Plt Count 380 MPV 8.5 Immature Gran % (Auto) 0.300 Neut % (Auto) 58.3 Lymph % (Auto) 30.3 [place] % (Auto) 10.1 H Eos % (Auto) 0.5 Baso % (Auto) 0.5 Absolute Neuts (auto) 3.6 Absolute Lymphs (auto) 1.86 Nucleated RBC % 0 PT INR APTT Sodium 138 Potassium 4.0 Chloride 101 Carbon Dioxide 30.0 Anion Gap 7 BUN 26 H Creatinine 2.16 H Estim Creat Clear Calc 28.63 Est GFR (MDRD) Af Amer 38 L Est GFR (MDRD) Non-Af 32 L BUN/Creatinine Ratio 12.0 Glucose 190 H Lactic Acid 1.8 Calcium 9.0 Total Bilirubin 0.60 AST 45 H ALT 29 Alkaline Phosphatase 170 H Troponin I 0.027 Total Protein 7.2 Albumin 3.0 L Globulin 4.2 Albumin/Globulin Ratio 0.7 L 09/02/20 23:30 WBC RBC Hgb Hct MCV MCH MCHC RDW Std Deviation RDW Coeff of Chip Plt Count MPV Immature Gran % (Auto) Neut % (Auto) Lymph % (Auto) [place] % (Auto) Eos % (Auto) Baso % (Auto) Absolute Neuts (auto) Absolute Lymphs (auto) Nucleated RBC % PT 14.0 INR 1.1 APTT 29.0 Sodium Potassium Chloride Carbon Dioxide Anion Gap BUN Creatinine Estim Creat Clear Calc Est GFR (MDRD) Af Amer Est GFR (MDRD) Non-Af BUN/Creatinine Ratio Glucose Lactic Acid Calcium Total Bilirubin AST ALT Alkaline Phosphatase Troponin I Total Protein Albumin Globulin Albumin/Globulin Ratio Rhythm Strip Rhythm Strip: Sinus Rhythm Rate: 86 Ectopy: None Radiology Impression Chest X-Ray 09/02/20 22:12 IMPRESSION: Persistent or recurrent bibasilar airspace to with probable left pleural effusion. Findings suspicious for pneumonia. at 2345 Reported and signed by: Kofi Dee MD Electronically Signed: Kofi Dee MD at 23:44 EDT Tel , Service support , Assessment & Plan Assessment/Plan (1) Acute hypotension: (2) Pleural effusion on left: (3) Pleural effusion on left: PLAN: Acute hypotension Likely sequela of being kept n.p.o. for procedure out outside hospital and receiving medication including diuretics. Was given normal saline 500 mL bolus in the emergency department. Because of history of heart failure with reduced ejection fraction and persistent pleural effusion requiring thoracentesis judicious use of IV fluids necessary. Normal saline 50 mL/h ordered. Placed parameters on guideline directed medical therapy for heart failure. Trend blood pressures. SAMARIA on chronic kidney disease stage IIIa CKD Likely from Diabetic nephropathy; and heart failure. Baseline creatinine of around 1.4-1.5 Creatinine on admission was 2.16 BUN over creatinine is 12.0. Gentle IV hydration as above. Avoid nephrotoxins. Hold home KRYSTAL inhibitors and Lasix. Patient unable to provide urine at the emergency department. Bedside bladder ultrasound ordered. Trend BMP. Heart failure with reduced ejection fraction/recurrent pleural effusion Review of cardiac catheterization (07/25/2020) showed left ventricular ejection fraction of 40% by left ventriculogram.. Inferior basal hypokinesis-severe; anterior hypokinesis-moderate. TTE at our hospital on 07/25/2020 showed estimated EF of 45%. Stage I diastolic dysfunction. ISELA at [facility] reviewed showed EF of 40%. Mild mitral valve regurgitation. Mild aortic valve stenosis. Place on monitored bed on the progressive care unit. Weight on admission to the floor; and then daily Strict I&O's Radiologist impression of chest x-ray: Persistent or recurrent bibasilar airspace with probable left pleural effusion. Finding suspicious for pneumonia. Recent CABG. Moderate left basilar consolidation and effusion. Subtle right basilar infiltrate. Actual CXR was independently reviewed. I agree with radiologist interpretation except that patient does not have any clinical markers for pneumonia. Hold Lasix. Continue guideline directed medical therapy but with parameters for blood pressure. Hold lisinopril and KRYSTAL inhibitor because of SAMARIA. Diabetes mellitus Patient with hyperglycemia on presentation Basal and correction scale insulin Accu-Chek QA [facility] Hypothyroidism Levothyroxine continued Stage II sacral coccygeal ET mix continued. Postoperative atrial fibrillation Amiodarone continued. DVT prophylaxis Subcutaneous Lovenox ordered Charges/Coding Visit Charges Inpatient E&M: 21474 Init Hosp L3
[2020-09-03] MEDS: 0.9% Normal Saline 1,000 ML 50 ML IV (01:27)
[2020-09-03] MEDS: Insulin Lispro 100 UNIT/ML INSULN.PEN SC (06:41)
[2020-09-03] MEDS: 0.9% Saline Lock 10 ML Syringe IV (06:44)
[2020-09-03 07:00] LABS: Bedside Glucose 209 mg/dL (70-110)
[2020-09-03 07:34] LABS: Absolute Lymphocyte Count 1.78 X10^3/uL (0.83-4.51); Absolute Neutrophil Count 2.5 X10^3/uL (2.0-7.7); Basophil# 0.02 X10^3/uL; Basophil% 0.4 % (0-1); Eosinophil# 0.04 X10^3/uL; Eosinophils% 0.8 % (0-5); Hematocrit 36.7 % (40-54); Hemoglobin 11.9 g/dL (13.0-16.5); Lymphocyte # 1.78 X10^3/ul (0.83-4.51); Lymphocyte % 36.2 % (19-41); Mean Corp Hgb Conc 32.4 g/dL (32-36); Mean Corpuscular Hgb 30.9 pg (27.0-32.0); Mean Corpuscular Volume 95.3 fL (80-94); Mean Platelet Vol. 8.5 fl (6.2-12.0); Monocyte# 0.61 X10^3/uL; Monocyte% 12.4 % (0-10); NRBC Flagged by Analyzer 0 % (0-5); Neutrophil # 2.45 X10^3/uL (2.7-7.7); Neutrophil % 49.8 % (47-70); Platelet Count 326 K/mm3 (150-450); RBC Distribution Width CV 15.2 % (11.6-14.6); RBC Distribution Width SD 53.7 fl (35.1-43.9); Red Blood Count 3.85 M/mm3 (4.6-6.2); White Blood Count 4.9 K/mm3 (4.4-11.0)
[2020-09-03 07:55] LABS: Anion Gap 9 (5-15); BUN 25 mg/dL (7-18); BUN/Creat Ratio 13.2 RATIO (10-20); Calcium,Total 8.3 mg/dL (8.5-10.1); Chloride 103 mmol/L (98-107); Creatinine, Serum 1.89 mg/dL (0.70-1.30); EST Glomerular Filtration Rate 37 mL/min (>60); Est Glom Filt Rate - Afr Amer 44 mL/min (>60); Estimated Creatinine Clearance 30.66 ml/min; Glucose 212 mg/dL (74-106); Potassium 3.7 mmol/L (3.5-5.1); Sodium Level 138 mmol/L (136-145)
--- NOTE | 2020-09-03 10:00 | CASEMGMT ---
NATACHA MCMANUS readmission note: Previous Admission: 08/23/20 through 08/25/20 Diagnosis: CHF Exac, Pleural Effusion Pt had CABG done @ [facility] approx 3 weeks prior to this admission, and then had recurrent pleural effusions and multiple thoracentesis done while there. Pt had lt sided thoracentesis done @ [facility] w/removal of 1400 cc. Palliative screen was completed and pt did not meet criteria. Pt on RA @ dc and w/scripts for PO atbs: Levaquin and Doxycycline, as well as Lasix daily, and Lisinopril. Pt was to f/u w/PCP in 1 week and appt was made for pt for 08/29/20. DC Disposition: Home w/ and [facility]. Current Admission/presentation: Admitted 09/03/20 w/hypotension and SAMARIA. Pt had just been admitted to [facility] and d/c'd home earlier in the day. He was @ home and felt lightheaded and reported low BP by family. NATACHA MCMANUS to room to talk w/pt. He states he has been taking his medications as prescribed and has f/u w/doctor's appts as scheduled. His continues to manage his medications and appts for him. He states he feels strong enough to return home and [facility] Miriam @ [facility] notified of pt's admission to [facility] and made aware pt is being discharged back home today. [facility] order placed. Green sheet placed on chart w/instructions for [facility] to be notified @ discharge and d/c summary and instructions to be faxed to them. DC plan: Home w/[facility] Kacey CABRERA RN, CM
--- NOTE | 2020-09-03 10:21 | PCM.DC ---
Discharge Instructions Diet Discharge Diet: Low fat / Low cholesterol Activity Discharge Activity: Return to Normal Activity Weight Bearing Status: Full weight bearing Dressing / Incision Call your doctor if you observe: Fever of 101 or Higher, Shortness of breath, Dizziness, Fainting spells, Chest pain and Increased palpitations (irregular heartbeat) Follow Up Care Test Results: Test results from this visit will be discussed in further detail at your follow-up appointment, if applicable. Discharge Plan Admission Admit Date/Time: 09/03/20 00:27 Primary Reason for Your Visit: Hypotension, Dehydration Attending Provider: Gennaro Crowder Primary Care Provider: Lance Rosa Instructions Patient Instructions: Low Blood Pressure (Hypotension), Taking Your Blood Pressure Discharge Orders/Prescriptions Prescriptions: Continued amiodarone 200 mg tablet 200 mg PO BREAKFAST Qty: 0 RF: 0 multivitamin,gh-rlqq-Lm-FA-min Tablet 1 tab PO DAILY RF: 0 Et Mix 270 g OTHER BID RF: 0 acetaminophen [Tylenol] 325 mg Tablet 650 mg PO Q6H PRN PRN (Reason: PAIN 1-10) Qty: 1 RF: 0 Lantus Solostar U-100 Insulin 100 unit/mL (3 mL) Insulin Pen 18 unit subcut BREAKFAST Qty: 540 RF: 0 insulin lispro [Humalog KwikPen Insulin] 100 unit/mL Insulin Pen See Rx Instructions .ROUTE .COMPLEX PRN (Reason: azael) Qty: 240 RF: 0 sennosides-docusate sodium [Stool Softener-Stimulant Laxat] 8.6-50 mg Tablet 2 tab PO BID Qty: 120 RF: 0 levothyroxine 137 mcg Tablet 137 mcg PO DAILY@0600 Qty: 30 RF: 0 atorvastatin 80 mg Tablet 80 mg PO QHS Qty: 30 RF: 0 levofloxacin 500 mg tablet 500 mg PO QODAY Qty: 4 RF: 0 doxycycline hyclate 100 mg capsule 100 mg PO BID Qty: 10 RF: 0 metoprolol tartrate 25 mg tablet 25 mg PO BID Qty: 60 RF: 6 Held furosemide 40 mg tablet 40 mg PO BID Qty: 60 RF: 3 Hold Instructions: Resume on 09/04/20. Due to hypotension hold Lasix until 09/04 evening dose lisinopril 2.5 mg Tablet 2.5 mg PO DAILY Qty: 30 RF: 0 Hold Instructions: Resume on 09/05/20. Until after evaluation for Pleurx cath on 09/05 Referrals / Follow Up: Lance Rosa MD [Primary Care Provider] - In 1 Week Disposition Disposition (needs filled in before D/C Order can be placed): Home, self care
[2020-09-03 10:26] LABS: Bacteria 0 SEEN /hpf (None Seen)
[2020-09-03 10:28] LABS: Color, Urine Yellow (Yellow); Glucose, Dipstick Normal (Normal); Ketone-Dipstick 5 mg/dl (Negative); Leukocyte Esterase-Dipstick 25 /ul (Negative); Nitrite-Dipstick Negative (Negative); Occult Blood-Urine 250 /ul (Negative); Protein-Dipstick 30 mg/dl (Negative); Urine Bilirubin Dipstick Negative (Negative); Urine Clarity Clear (Clear); Urine Urobilinogen Normal (Normal)
--- NOTE | 2020-09-03 10:29 | DS.PCM_ITS ---
Documented by User: NATHANAEL Bray 09/03/20 10:37 Providers Date of Admission: 09/03/20 Primary Care Physician: Dr. Lance Rosa MD Reason For Visit: hypotension, SAMARIA Diagnosis Discharge Diagnosis (1) Acute hypotension: Status: Acute Code(s): I95.9 - Hypotension, unspecified (2) Pleural effusion on left: Status: Acute Code(s): J90 - Pleural effusion, not elsewhere classified (3) Pleural effusion on left: Status: Acute Code(s): J90 - Pleural effusion, not elsewhere classified Medications at Discharge Home Medications multivitamin,fr-iqxv-Ws-FA-min 1 tab PO DAILY 08/04/20 Et Mix 270 g OTHER BID 08/05/20 Lantus Solostar U-100 Insulin 18 unit SUBCUT BREAKFAST #540 ml 08/15/20 acetaminophen [Tylenol] 650 mg PO Q6H PRN PRN #1 tab 08/15/20 atorvastatin 80 mg PO QHS #30 tab 08/15/20 insulin lispro [Humalog KwikPen Insulin] See Rx Instructions .ROUTE .COMPLEX PRN #240 ml 08/15/20 levothyroxine 137 mcg PO DAILY@0600 #30 tab 08/15/20 sennosides-docusate sodium [Stool Softener-Stimulant Laxat] 2 tab PO BID #120 tab 08/15/20 doxycycline hyclate 100 mg PO BID #10 cap 08/25/20 levofloxacin 500 mg PO QODAY #4 tab 08/25/20 lisinopril 2.5 mg PO DAILY #30 tab 08/25/20 amiodarone 200 mg tablet 200 mg PO BREAKFAST #0 tab 08/26/20 furosemide 40 mg tablet 40 mg PO BID #60 tab 08/26/20 metoprolol tartrate 25 mg PO BID #60 tab 09/03/20 Hospital Course Operations None Procedures None Summary of Care Provided Minutes Spent on Discharge: 35 Hospital Course: 1. Hypotension -Patient improved quicker than expected with administration of IV fluids. Patient had recently been admitted to a outside facility for placement of a Pleurx cath however this procedure was rescheduled for outpatient on Saturday, September 05. Patient had been kept n.p.o. while in the hospital for this procedure but was still receiving diuretic medications which may have contributed to hypotension. -Parameters for metoprolol to hold if systolic blood pressure less than 100 2. Acute on chronic kidney disease stage IIIa -Initial creatinine 2.16, improved to 1.89 this morning. Patient baseline 1.4- 1.5. -We will hold Lasix until 09/04/2020 evening and lisinopril held until after Pleurx insertion. 3. Diabetes mellitus -Continue home medication regimen upon discharge 4. Atrial fibrillation -Continue current amiodarone dose, rate well controlled. DVT prophylaxis-Lovenox Insert signature Vel. Physical Exam Const alert, oriented x3 and no apparent distress HEENT normocephalic and head/scalp atraumatic Eyes conjunctivae normal and no scleral icterus Neck full ROM, no lymphadenopathy, supple and no JVD General: trachea midline Chest inspection of chest normal Chest: symmetrical chest wall rise Resp normal respiratory effort, normal air movement, no use of accessory muscles and clear to auscultation bilaterally Cardio regular rate, S1 normal heart sound and S2 normal heart sound Rhythm: abnormal rhythm irregularly irregular (A. fib) GI normal to inspection, nondistended, normoactive bowel sounds, soft to palpation and non-tender Extremity normal to inspection, full ROM, normal capillary refill and no clubbing, cy anosis or edema Skin no rashes or lesions noted, no wounds and skin turgor normal Neuro oriented x3, moves all extremities and no focal motor deficits Psych mental status grossly normal, thought process normal, cooperative, affect normal and speech normal Weight / BMI Weight Weight: 186 lb 1.122 oz Body Mass Index (BMI) 27.9 ABG / Lab / Microbiology Data Result Diagrams: 09/03/20 06:58 09/03/20 06:58 Laboratory: Laboratory Results - last 24 hr 09/02/20 09/02/20 09/02/20 22:20 22:20 22:47 WBC 6.1 RBC 4.14 L Hgb 12.8 L Hct 40.3 MCV 97.3 H MCH 30.9 MCHC 31.8 L RDW Std Deviation 53.8 H RDW Coeff of Chip 15.0 H Plt Count 380 MPV 8.5 Immature Gran % (Auto) 0.300 Neut % (Auto) 58.3 Lymph % (Auto) 30.3 [place] % (Auto) 10.1 H Eos % (Auto) 0.5 Baso % (Auto) 0.5 Absolute Neuts (auto) 3.6 Absolute Lymphs (auto) 1.86 Nucleated RBC % 0 PT INR APTT Sodium 138 Potassium 4.0 Chloride 101 Carbon Dioxide 30.0 Anion Gap 7 BUN 26 H Creatinine 2.16 H Estim Creat Clear Calc 28.63 Est GFR (MDRD) Af Amer 38 L Est GFR (MDRD) Non-Af 32 L BUN/Creatinine Ratio 12.0 Glucose 190 H Lactic Acid 1.8 Calcium 9.0 Total Bilirubin 0.60 AST 45 H ALT 29 Alkaline Phosphatase 170 H Troponin I 0.027 Total Protein 7.2 Albumin 3.0 L Globulin 4.2 Albumin/Globulin Ratio 0.7 L POC Glucose 09/02/20 09/03/20 09/03/20 23:30 06:36 06:58 WBC 4.9 RBC 3.85 L Hgb 11.9 L Hct 36.7 L MCV 95.3 H MCH 30.9 MCHC 32.4 RDW Std Deviation 53.7 H RDW Coeff of Chip 15.2 H Plt Count 326 MPV 8.5 Immature Gran % (Auto) 0.400 Neut % (Auto) 49.8 Lymph % (Auto) 36.2 [place] % (Auto) 12.4 H Eos % (Auto) 0.8 Baso % (Auto) 0.4 Absolute Neuts (auto) 2.5 Absolute Lymphs (auto) 1.78 Nucleated RBC % 0 PT 14.0 INR 1.1 APTT 29.0 Sodium Potassium Chloride Carbon Dioxide Anion Gap BUN Creatinine Estim Creat Clear Calc Est GFR (MDRD) Af Amer Est GFR (MDRD) Non-Af BUN/Creatinine Ratio Glucose Lactic Acid Calcium Total Bilirubin AST ALT Alkaline Phosphatase Troponin I Total Protein Albumin Globulin Albumin/Globulin Ratio POC Glucose 209 H 09/03/20 06:58 WBC RBC Hgb Hct MCV MCH MCHC RDW Std Deviation RDW Coeff of Chip Plt Count MPV Immature Gran % (Auto) Neut % (Auto) Lymph % (Auto) [place] % (Auto) Eos % (Auto) Baso % (Auto) Absolute Neuts (auto) Absolute Lymphs (auto) Nucleated RBC % PT INR APTT Sodium 138 Potassium 3.7 Chloride 103 Carbon Dioxide 26.0 Anion Gap 9 BUN 25 H Creatinine 1.89 H Estim Creat Clear Calc 30.66 Est GFR (MDRD) Af Amer 44 L Est GFR (MDRD) Non-Af 37 L BUN/Creatinine Ratio 13.2 Glucose 212 H Lactic Acid Calcium 8.3 L Total Bilirubin AST ALT Alkaline Phosphatase Troponin I Total Protein Albumin Globulin Albumin/Globulin Ratio POC Glucose Radiography Diagnostic Testing: Radiology Impression Chest X-Ray 09/02/20 22:12 IMPRESSION: Persistent or recurrent bibasilar airspace to with probable left pleural effusion. Findings suspicious for pneumonia. at 2345 Reported and signed by: Kofi Dee MD Electronically Signed: Kofi Dee MD at 23:44 EDT Tel , Service support , D/C Instructions Discharge Diet: Low fat / Low cholesterol Weight Bearing Status: Full weight bearing Call your doctor if you observe: Fever of 101 or Higher, Shortness of breath, Dizziness, Fainting spells, Chest pain and Increased palpitations (irregular heartbeat) Meaningful Use Info Meaningful Use Diagnoses (Choose all that apply): None applicable Discharge Plan Admission Admit Date/Time: 09/03/20 00:27 Primary Reason for Your Visit: Hypotension, Dehydration Attending Provider: Gennaro Crowder Primary Care Provider: Lance Rosa Instructions Patient Instructions: Low Blood Pressure (Hypotension), Taking Your Blood Pressure Additional Instructions / Restrictions: Patient Problems: Altered Health Status related to Hospitalization Patient Goals: *Optimal Level of Health *Keep Appointments *Medication Compliance *Remain Safe Discharge Orders/Prescriptions Prescriptions: Continued amiodarone 200 mg tablet 200 mg PO BREAKFAST Qty: 0 RF: 0 multivitamin,pb-xqha-Bx-FA-min Tablet 1 tab PO DAILY RF: 0 Et Mix 270 g OTHER BID RF: 0 acetaminophen [Tylenol] 325 mg Tablet 650 mg PO Q6H PRN PRN (Reason: PAIN 1-10) Qty: 1 RF: 0 Lantus Solostar U-100 Insulin 100 unit/mL (3 mL) Insulin Pen 18 unit subcut BREAKFAST Qty: 540 RF: 0 insulin lispro [Humalog KwikPen Insulin] 100 unit/mL Insulin Pen See Rx Instructions .ROUTE .COMPLEX PRN (Reason: azael) Qty: 240 RF: 0 sennosides-docusate sodium [Stool Softener-Stimulant Laxat] 8.6-50 mg Tablet 2 tab PO BID Qty: 120 RF: 0 levothyroxine 137 mcg Tablet 137 mcg PO DAILY@0600 Qty: 30 RF: 0 atorvastatin 80 mg Tablet 80 mg PO QHS Qty: 30 RF: 0 levofloxacin 500 mg tablet 500 mg PO QODAY Qty: 4 RF: 0 doxycycline hyclate 100 mg capsule 100 mg PO BID Qty: 10 RF: 0 metoprolol tartrate 25 mg tablet 25 mg PO BID Qty: 60 RF: 6 Held furosemide 40 mg tablet 40 mg PO BID Qty: 60 RF: 3 Hold Instructions: Resume on 09/04/20. Due to hypotension hold Lasix until 09/04 evening dose lisinopril 2.5 mg Tablet 2.5 mg PO DAILY Qty: 30 RF: 0 Hold Instructions: Resume on 09/05/20. Until after evaluation for Pleurx cath on 09/05 Referrals / Follow Up: Lance Rosa MD [Primary Care Provider] - In 1 Week (Please call to schedule follow up appointment) Disposition Disposition (needs filled in before D/C Order can be placed): Home, self care Documented by User: Dr. Gennaro Crowder MD 09/03/20 11:57 Providers Date of Admission: 09/03/20 Reason For Visit: hypotension, SAMARIA Medications at Discharge Home Medications multivitamin,xn-wshu-Ic-FA-min 1 tab PO DAILY 08/04/20 Et Mix 270 g OTHER BID 08/05/20 Lantus Solostar U-100 Insulin 18 unit SUBCUT BREAKFAST #540 ml 08/15/20 acetaminophen [Tylenol] 650 mg PO Q6H PRN PRN #1 tab 08/15/20 atorvastatin 80 mg PO QHS #30 tab 08/15/20 insulin lispro [Humalog KwikPen Insulin] See Rx Instructions .ROUTE .COMPLEX PRN #240 ml 05/31/21 levothyroxine 137 mcg PO DAILY@0600 #30 tab 08/15/20 sennosides-docusate sodium [Stool Softener-Stimulant Laxat] 2 tab PO BID #120 tab 08/15/20 doxycycline hyclate 100 mg PO BID #10 cap 08/25/20 levofloxacin 500 mg PO QODAY #4 tab 08/25/20 lisinopril 2.5 mg PO DAILY #30 tab 08/25/20 amiodarone 200 mg tablet 200 mg PO BREAKFAST #0 tab 08/26/20 furosemide 40 mg tablet 40 mg PO BID #60 tab 08/26/20 metoprolol tartrate 25 mg PO BID #60 tab 09/03/20 Hospital Course Summary of Care Provided Hospital Course: This patient was seen in conjunction with KIMBERLYN Mcconnell. I have independently interviewed and examined the patient and reviewed pertinent history, examination findings, laboratory and plan of management. I have reviewed the note and agree with the documented findings with the few additional points. 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 Patient was just discharged from [facility] and has outpatient appointment on Saturday for evaluation of Pleurx catheter. Patient has history of recurrent pleural effusion and thoracocentesis about 6 times recently. No chest pain or shortness of breath. Patient is treated with IV fluid. Blood pressure at baseline. Other comorbidities include acute kidney injury with CKD stage III A: Hold lisinopril and Lasix. Patient also has diabetes mellitus type 2, A. fib, heart rate controlled. Discharge medication reconciliation done. Discharge follow-up instructions completed. Discharge process discussed with the patient and all questions were answered to patient's satisfaction. Total time spent, exact 35 minutes on discharge meds reconciliation, examination, coordination of care with nurses and ancillary staff, review of imaging and blood test and discussion with the patient on follow-up instructions I have discussed my assessment with KIMBERLYN Mcconnell and orders have been reviewed. Physical Exam Narrative Seen and examined. Blood pressure improved to 130/68 currently 100/37 after IV fluid resuscitation Patient was admitted with hypotension. Physical exam General: Alert, Oriented x3, Cooperative HEENT: Atraumatic, PERRLA, EOMI, Normocephalic Oral: No Gingival or Mucosal Lesions/ Ulcerations Neck: Supple, No JVD, Negative Carotid Bruits Lungs: Air entry diminished in left lung base more than right lung base. No crepitation/rhonchi Cardiovascular: Regular rate, Regular Rhythm, CABG scar healing well. Ejection systolic murmur over aortic area and holosystolic over cardiac apex Abdomen: Bowel Sounds Present, Soft, Non Tender, Non-Distended : No renal angle tenderness. No suprapubic tenderness. Extremities: No edema, Capillary Refill Less than 3 Seconds Skin: No rashes, No breakdown Musculoskeletal: No Tenderness to Palpation of Joints or Extremities Neurological: Cranial nerves II-XII grossly intact, Deep Tendon Reflexes 2+/4 and Symmetrical, Neuro grossly intact Psych/Mental Status: Normal Affect, Appropriate. ABG / Lab / Microbiology Data Result Diagrams: 09/03/20 06:58 09/03/20 06:58 Discharge Plan Admission Admit Date/Time: 09/03/20 00:27 Primary Reason for Your Visit: Hypotension, Dehydration Attending Provider: Gennaro Crowder Primary Care Provider: Lance Rosa Instructions Patient Instructions: Low Blood Pressure (Hypotension), Taking Your Blood Press ure Additional Instructions / Restrictions: Patient Problems: Altered Health Status related to Hospitalization Patient Goals: *Optimal Level of Health *Keep Appointments *Medication Compliance *Remain Safe Discharge Orders/Prescriptions Prescriptions: Continued amiodarone 200 mg tablet 200 mg PO BREAKFAST Qty: 0 RF: 0 multivitamin,nz-qcly-Br-FA-min Tablet 1 tab PO DAILY RF: 0 Et Mix 270 g OTHER BID RF: 0 acetaminophen [Tylenol] 325 mg Tablet 650 mg PO Q6H PRN PRN (Reason: PAIN 1-10) Qty: 1 RF: 0 Lantus Solostar U-100 Insulin 100 unit/mL (3 mL) Insulin Pen 18 unit subcut BREAKFAST Qty: 540 RF: 0 insulin lispro [Humalog KwikPen Insulin] 100 unit/mL Insulin Pen See Rx Instructions .ROUTE .COMPLEX PRN (Reason: azael) Qty: 240 RF: 0 sennosides-docusate sodium [Stool Softener-Stimulant Laxat] 8.6-50 mg Tablet 2 tab PO BID Qty: 120 RF: 0 levothyroxine 137 mcg Tablet 137 mcg PO DAILY@0600 Qty: 30 RF: 0 atorvastatin 80 mg Tablet 80 mg PO QHS Qty: 30 RF: 0 levofloxacin 500 mg tablet 500 mg PO QODAY Qty: 4 RF: 0 doxycycline hyclate 100 mg capsule 100 mg PO BID Qty: 10 RF: 0 metoprolol tartrate 25 mg tablet 25 mg PO BID Qty: 60 RF: 6 Held furosemide 40 mg tablet 40 mg PO BID Qty: 60 RF: 3 Hold Instructions: Resume on 09/04/20. Due to hypotension hold Lasix until 09/04 evening dose lisinopril 2.5 mg Tablet 2.5 mg PO DAILY Qty: 30 RF: 0 Hold Instructions: Resume on 09/05/20. Until after evaluation for Pleurx cath on 09/05 Referrals / Follow Up: Lance Rosa MD [Primary Care Provider] - In 1 Week (Please call to schedule follow up appointment) Disposition Disposition (needs filled in before D/C Order can be placed): Home, self care Charges/Coding Visit Charges Inpatient E&M: 75214 Disch Hosp
[2020-09-03] MEDS: Enoxaparin 30 MG/0.3 ML Syringe SC (10:34)
[2020-09-03 10:48] LABS: Mucous, Urine 1+ /hpf (<or=2+); Red Blood Cells-Urine 25-50 SEEN /hpf (0-5); Squamous Epithelial Cells - UA 0-5 SEEN /hpf (0-5); White Blood Cells 0-5 SEEN /hpf (0-5)
--- NOTE | 2020-09-06 15:18 | CASEMGMT ---
NATACHA MCMANUS Discharge Follow-up Phone Call: BERNARD: Nick Strata: 3 Call Date: 09/06/20 Discharge Date: 09/03/20 Time of Call: 1510 Duration: 10 min Admitting Diagnosis: Hypotension, SAMARIA RN YONATHAN completed follow-up phone all after recent hospitalization. Patient asked for CM to speak to . had no questions regarding discharge instructions. Patient has follow-up with PCP on 09/23. states they did not fill metoprolol prescription as patient already has medication at home. states that [facility] has been out to see the patient. had no further questions or concerns at this time.
--- NOTE | 2020-10-25 13:12 | CCN.REFER ---
LONG TALK W/ PATIENT AND . THEY ARE DECLINING CCN AT THIS TIME. STATES [facility] DISCHARGED HIM TODAY, AND HE IS DOING WELL. THEY DO NOT NEED OR WANT ANYONE ELSE COMING TO THE HOME TO MONITOR AT THIS TIME. BUSINESS CARD LEFT WITH AND WILL CALL IF MIND IS CHANGED.
== END 2020-09-03 13:25 | disposition home health service (06) | DRG 641 ==
LOC: ED 09-03 00:03 → PCU 09-03 00:35
PROVIDERS: Admitting Provider Hospitalist; Emergency Provider Emergency Medicine; PCP Family Medicine; Visit Provider Internal Medicine
DX: E86.0 Dehydration (principal); N17.9 Acute kidney failure, unspecified; I13.0 Hypertensive heart and chronic kidney disease with heart failure and stage 1 through stage 4 chronic kidney disease, or unspecified chronic kidney disease; I50.22 Chronic systolic (congestive) heart failure; I97.89 Other postprocedural complications and disorders of the circulatory system, not elsewhere classified; E11.22 Type 2 diabetes mellitus with diabetic chronic kidney disease; N18.31 Chronic kidney disease, stage 3a; I25.10 Atherosclerotic heart disease of native coronary artery without angina pectoris; I25.5 Ischemic cardiomyopathy; E11.65 Type 2 diabetes mellitus with hyperglycemia; E11.51 Type 2 diabetes mellitus with diabetic peripheral angiopathy without gangrene; E78.2 Mixed hyperlipidemia; E03.9 Hypothyroidism, unspecified; Z79.4 Long term (current) use of insulin; Z79.890 Hormone replacement therapy; Z79.899 Other long term (current) drug therapy; I25.2 Old myocardial infarction; Z87.891 Personal history of nicotine dependence; Z95.1 Presence of aortocoronary bypass graft
CPT/HCPCS: 36415; 71045; 80048; 80053; 81001; 82962; 83605; 84484; 85025; 85610; 85730; 87040; 87086; 93005; 97162; 97166; 99251; 99285; J7030; A4216; G0463

== ENCOUNTER 2020-11-11 10:30 | Emergency (ER) | payer MEDICARE, OTHER, SELFPAY ==
[2020-11-11 10:30] VITALS: BP 143/89; PULSE 82; RESP 14; TEMP 36.7; O2SAT 98; BMI 27.1
[2020-11-11 10:53] VITALS: O2SAT 97
--- NOTE | 2020-11-11 10:57 | EKG12_ITS ---
Test Reason : SOB Blood Pressure : / mmHG Vent. Rate : 081 BPM Atrial Rate : 081 BPM P-R Int : 156 ms QRS Dur : 138 ms QT Int : 428 ms P-R-T Axes : 006 -29 158 degrees QTc Int : 497 ms Normal sinus rhythm Non-specific intra-ventricular conduction block T wave abnormality, consider inferolateral ischemia Abnormal ECG Confirmed by JUANA CABRAL, MARIIA ([id number]), restaurant expeditor MIKE FUNES ([id number]) on 11/14/2020 12:45:20 PM Referred By: ERICKA Confirmed By:MARIIA ARIAS MD
[2020-11-11 10:58] VITALS: BP 145/73; PULSE 81; RESP 18; O2SAT 98
--- NOTE | 2020-11-11 10:59 | ED.VIS.DYS ---
HPI History of Present Illness Chief Complaint: Shortness of Breath Informant: patient and spouse/S.O. Onset/Context/Timing Onset: Yesterday Context: gradual Timing: Intermittent Quality: Positive for Orthopnea Current Severity: Mild Maximum Severity: Mild Worsened by: Lying flat Associated Symptoms Negative for cough, chills, yellow sputum or green sputum Chest Pain: Positive for None Narrative Narrative: 80-year-old male past medical history of triple bypass in July. Also history of renal insufficiency and insulin-dependent diabetes. Recent diagnosis of a bladder tumor. Patient states started having shortness of breath last night and today. Worse supine. No chest pain. No fever or chills. No hemoptysis. He does have pedal edema. He has a history of congestive heart failure. 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 Carotid disease, bilateral Chronic HFrEF (heart failure with reduced ejection fraction) Essential (primary) hypertension Former smoker History of non-ST elevation myocardial infarction (NSTEMI) (07/23/20) Hypokalemia Hyponatremia Hypothyroidism Ischemic cardiomyopathy Left bundle branch block (LBBB) Macrocytic anemia Mixed hyperlipidemia PAD (peripheral artery disease) Physical debility Pleural effusion, bilateral Pneumonia Postoperative atrial fibrillation (07/30/20) Synovial cyst of popliteal space [Andre], left knee Type 2 diabetes mellitus Home Medications multivitamin,jl-xzor-Sw-FA-min 1 tab PO DAILY 08/04/20 [History Last Taken Unknown] acetaminophen [Tylenol] 650 mg PO Q6H PRN PRN #1 tab 08/15/20 [Rx Last Taken Unknown] atorvastatin 80 mg PO QHS #30 tab 08/15/20 [Rx Last Taken Unknown] sennosides-docusate sodium [Stool Softener-Stimulant Laxat] 2 tab PO BID #120 tab 08/15/20 [Rx Last Taken Unknown] metoprolol tartrate 25 mg PO BID #60 tab 09/03/20 [Rx Last Taken Unknown] aspirin 81 mg PO DAILY 11/11/20 [History Last Taken Unknown] ferrous sulfate 325 mg PO DAILY 11/11/20 [History Last Taken Unknown] furosemide 20 mg PO DAILY 11/11/20 [History Last Taken Unknown] insulin aspart U-100 [Novolog Flexpen U-100 Insulin] See Protocol SUBCUT 11/11/20 [History Last Taken Unknown] insulin detemir U-100 [Levemir FlexTouch U-100 Insuln] 17 unit SUBCUT QHS 11/11/20 [History Last Taken Unknown] levothyroxine 125 mcg PO DAILY 11/11/20 [History Last Taken Unknown] Allergy/AdvReac Type Severity Reaction Status Date / Time naproxen [From Naprosyn] Allergy Other Verified 11/11/20 10:33 venom-honey bee Allergy Anaphylaxis Verified 11/11/20 10:33 Family History Mother Diabetes Heart disease Father Heart disease Surgical History H/O coronary artery bypass surgery (07/28/20) History of appendectomy History of colonoscopy History of left heart catheterization (07/25/20) History of thoracentesis (08/23/20) Social History Smoking Status: Former smoker Tobacco: How many years used: 17 how long ago did patient quit smokin years ago alcohol intake: never substance use type: does not use ROS ROS ED ROS Narrative Denies recent illness. Review of Systems ROS Unobtainable: Denies due to encephalopathy Constitutional Constitutional ED: Denies chills or fever(s) Eyes Eyes: Denies change in vision ENT ENT ED: Denies ear pain or sore throat Cardiovascular Cardiovascular: Reports orthopnea; Denies chest pain Respiratory/Chest Respiratory/Chest: Reports dyspnea and orthopnea; Denies cough or sputum Gastrointestinal Gastrointestinal: Denies abdominal pain, diarrhea, melena, nausea or vomiting Genitourinary Genitourinary ED: Denies dysuria Musculoskeletal Musculoskeletal: Denies myalgias Integumentary Denies rash Neurologic Neurologic: Denies headache(s) Psychiatric Psychiatric: Denies depression Endocrine Endocrinology: Denies polyuria Hematologic/Lymphatic Hematologic/Lymphatic: Denies easy bruising Allergic/Immunologic Allergic/Immunologic ED: Denies urticaria EXAM Physical Exam Narrative Exam Narrative: Older male sitting upright in bed no acute distress. Vital signs stable. Pulse ox 90% on room air. H EENT exam unremarkable. Neck nontender no JVD no lymphadenopathy. Lungs clear to auscultation bilaterally. Heart regular rhythm no murmur appreciated. Abdomen soft nontender normal bowel sounds no peritoneal signs. Moving all 4 extremities. Nontender. He does have bilateral ankle edema. Neurologically patient is awake and alert no focal motor deficits. Const Vital Signs: 11/11/20 10:30 11/11/20 10:53 11/11/20 10:58 Temperature 98.1 F Temperature Source Temporal Pulse Rate 82 81 Respiratory Rate 14 18 Respiratory Effort Normal Respiratory Depth Normal Respiratory Pattern Normal Blood Pressure 143/89 H 145/73 H Blood Pressure Mean 107 97 Pulse Ox 98 98 Oxygen Delivery Method Room Air Room Air Room Air 11/11/20 13:08 Temperature Temperature Source Pulse Rate 81 Respiratory Rate 21 H Respiratory Effort Respiratory Depth Respiratory Pattern Blood Pressure 131/79 H Blood Pressure Mean 96 Pulse Ox 95 Oxygen Delivery Method Room Air Positive well nourished and well developed; Negative for obese, cachectic, contractures or unkempt General Appearance ED: well developed and NAD; Negative for unkempt, cachectic or contractures Nutritional Appearance: Negative for cachectic or obese HEENT Reports moist mucous membranes atraumatic; Negative for trauma or tenderness Eyes PERRL and EOMs intact bilaterally Neck no lymphadenopathy, supple, no meningeal signs and no JVD General: Negative for tenderness Resp normal respiratory effort and clear to auscultation bilaterally Auscultation: Negative for rales, rhonchi or wheezes Cardio regular rate, regular rhythm, S1 normal heart sound, S2 normal heart sound and no murmurs GI non-tender, non-distended and no masses Auscultation: normoactive bowel sounds Palpation: soft; Negative for tender, guarding or rebound tenderness present Back/Spine no CVA tenderness and normal to inspection General Back: Negative for CVA tenderness Extremity normal to inspection Extremity Narrative: Bilateral ankle and foot edema. General Extremety ED: Yes edema General Extremity: edema Neuro oriented x3 Sensorium / Orientation: alert, oriented to person, oriented to place and oriented to time; Negative for orientation impaired, confused, lethargic or stuporous Motor Exam: strength 5/5 throughout Psych mental status grossly normal Appearance: Negative for unkempt Skin Lesions: no lesions Rashes: no rashes MDM MDM MDM Narrative Medical decision making narrative: 80-year-old male with orthopnea. Also has pedal edema. History of CHF. History of prior bypass. Undergo screening labs chest x-ray and EKG. Repeat exam patient doing well at 3 PM I discussed with he and his all his test results. They are comfortable being discharged home and try diuresing him as an outpatient. He is also had pleural effusions drained 5 or 6 times in the past and they know this may be a possibility if he is not getting better. Follow-up with his primary care physician early next week. I will try to get a hold of them by phone to give them a heads up that the patient will need evaluated Saturday or Saturday. Patient and know to return if he is doing worse. His Lasix will be increased from 20 once a day to 20 twice a day. He will be given a dose IV here prior to discharge. Lab Data Attestation: I reviewed the patient's lab results. Lab results narrative: CBC shows a white count 5.9. Hemoglobin 12. Electrolytes unremarkable gap of 1. Normal troponin of 61. BNP 675. Labs: Laboratory Results - last 24 hr 11/11/20 11/11/20 11/11/20 11:07 11:07 11:07 WBC 5.9 RBC 3.75 L Hgb 12.0 L Hct 36.2 L MCV 96.5 H MCH 32.0 MCHC 33.1 RDW Std Deviation 56.9 H RDW Coeff of Chip 15.9 H Plt Count 242 MPV 9.3 Immature Gran % (Auto) 0.200 Neut % (Auto) 59.0 Lymph % (Auto) 29.8 [place] % (Auto) 9.3 Eos % (Auto) 1.2 Baso % (Auto) 0.5 Absolute Neuts (auto) 3.5 Absolute Lymphs (auto) 1.76 Nucleated RBC % 0 Sodium 136 Potassium 4.5 Chloride 107 Carbon Dioxide 28.0 Anion Gap 1 L BUN 17 Creatinine 1.09 Estim Creat Clear Calc 56.74 Est GFR (MDRD) Af Amer 84 Est GFR (MDRD) Non-Af 69 BUN/Creatinine Ratio 15.6 Glucose 121 H Calcium 9.3 Troponin I High Sens 61 B-Natriuretic Peptide 675.8 H Radiography Chest X-Ray - ED: 1 View, Read by ED Physician, Read by Radiologist, Right Infiltrate, Left Infiltrate and Left Effusion Diagnostic Testing: Radiology Impression Chest X-Ray 11/11/20 11:25 IMPRESSION: Progressive bibasilar infiltrates worse on the left side with a small left pleural effusion. Electronically Signed: Gabino Krishnamurthy MD at 11:58 EDT , Service support , Portable single view chest x-ray interpreted both myself and the radiologist. Shows bibasilar infiltrates of the left lower extremity. This could also be CHF. EKG Initial EKG: Attestation: I personally reviewed and interpreted this EKG as follows: Interpretation: Sinus Rhythm and No Acute Injury Pattern Comments: Normal sinus rhythm rate 81 interventricular conduction delay. No old EKG available at this time. Discharge Plan Triage Chief Complaint: Shortness of Breath ED Provider: Erik Hernandez Dx/Rx/DC Orders Clinical Impression: Congestive heart failure, Pleural effusion Instructions: Pleural Effusion, Heart Failure Prescriptions: No Action multivitamin,qr-ypfr-Ai-FA-min Tablet 1 tab PO DAILY RF: 0 acetaminophen [Tylenol] 325 mg Tablet 650 mg PO Q6H PRN PRN (Reason: PAIN 1-10) Qty: 1 RF: 0 sennosides-docusate sodium [Stool Softener-Stimulant Laxat] 8.6-50 mg Tablet 2 tab PO BID Qty: 120 RF: 0 atorvastatin 80 mg Tablet 80 mg PO QHS Qty: 30 RF: 0 metoprolol tartrate 25 mg tablet 25 mg PO BID Qty: 60 RF: 6 furosemide 40 mg tablet 20 mg PO DAILY RF: 0 ferrous sulfate 325 mg (65 mg iron) Tablet 325 mg PO DAILY RF: 0 levothyroxine 125 mcg tablet 125 mcg PO DAILY RF: 0 aspirin 81 mg Tablet 81 mg PO DAILY RF: 0 insulin aspart U-100 [Novolog Flexpen U-100 Insulin] 100 unit/mL (3 mL) insulin pen See Protocol unit SUBCUT RF: 0 Levemir FlexTouch U-100 Insuln 100 unit/mL (3 mL) insulin pen 17 unit SUBCUT QHS RF: 0 Primary Care Provider: Lance Rosa Referrals: Lance Rosa MD [Primary Care Provider] - 3-5 Days Activity Restrictions/Additional Instructions: Increase your Lasix from once a day to 20 mg twice a day taken at both in breakfast and at supper. You can start that this evening. Follow-up with your doctor Saturday or Saturday to be reevaluated make sure you are doing well. We may be able get the fluid off with additional Lasix if not you may need a thoracentesis to get rid of the pleural effusion which is the fluid around your lungs. Return emergency department if you are feeling worse. Disposition Disposition: Home, Self Care
[2020-11-11 11:18] LABS: Absolute Lymphocyte Count 1.76 X10^3/uL (0.83-4.51); Absolute Neutrophil Count 3.5 X10^3/uL (2.0-7.7); Basophil# 0.03 X10^3/uL; Basophil% 0.5 % (0-1); Eosinophil# 0.07 X10^3/uL; Eosinophils% 1.2 % (0-5); Hematocrit 36.2 % (40-54); Lymphocyte # 1.76 X10^3/ul (0.83-4.51); Lymphocyte % 29.8 % (19-41); Mean Corp Hgb Conc 33.1 g/dL (32-36); Mean Corpuscular Volume 96.5 fL (80-94); Mean Platelet Vol. 9.3 fl (6.2-12.0); Monocyte# 0.55 X10^3/uL; Monocyte% 9.3 % (0-10); NRBC Flagged by Analyzer 0 % (0-5); Neutrophil # 3.48 X10^3/uL (2.7-7.7); Platelet Count 242 K/mm3 (150-450); RBC Distribution Width CV 15.9 % (11.6-14.6); RBC Distribution Width SD 56.9 fl (35.1-43.9); Red Blood Count 3.75 M/mm3 (4.6-6.2); White Blood Count 5.9 K/mm3 (4.4-11.0)
--- NOTE | 2020-11-11 11:25 | RAD_ITS ---
STUDY: X-RAY CHEST REASON FOR EXAM: Male, 80 years old. Chest pain TECHNIQUE: Single AP portable view of the chest. COMPARISON: Comparison is made with prior study dated 09/02/2020. FINDINGS: EKG electrodes are seen. Since prior study, there has been progressive bibasilar infiltrates with small left pleural effusion. Sternal cerclage wires and vascular clips are present from a prior sternotomy and coronary artery bypass graft procedure (CABG). Normal mediastinum and karthikeyan. Normal visualized pulmonary arteries. There is atherosclerotic tortuosity of the aortic arch and descending thoracic aorta. There are diffuse degenerative changes of the visualized thoracic spine. Normal visualized ribs, clavicles, and shoulders. There is no demonstrated abnormality of the visualized soft tissue structures of the upper abdomen. RAD/Chest 1 View (Portable) IMPRESSION: Progressive bibasilar infiltrates worse on the left side with a small left pleural effusion. Electronically Signed: Gabino Krishnamurthy MD at 11:58 EDT , Service support ,
[2020-11-11 11:39] LABS: Anion Gap 1 (5-15); BUN 17 mg/dL (7-18); BUN/Creat Ratio 15.6 RATIO (10-20); Calcium,Total 9.3 mg/dL (8.5-10.1); Chloride 107 mmol/L (98-107); Creatinine, Serum 1.09 mg/dL (0.70-1.30); EST Glomerular Filtration Rate 69 mL/min (>60); Est Glom Filt Rate - Afr Amer 84 mL/min (>60); Estimated Creatinine Clearance 56.74 ml/min; Glucose 121 mg/dL (74-106); Potassium 4.5 mmol/L (3.5-5.1); Sodium Level 136 mmol/L (136-145); Troponin-I HS 61 pg/mL (3.0-78.0)
[2020-11-11 11:40] LABS: BNP,B-Type NATRIURETIC PEPTIDE 675.8 pg/mL (0-100)
[2020-11-11 13:08] VITALS: BP 131/79; PULSE 81; RESP 21; O2SAT 95
[2020-11-11] MEDS: Furosemide 20 MG/2 ML VIAL IV (15:11)
[2020-11-11 15:16] VITALS: BP 141/78; PULSE 78; RESP 16; O2SAT 96
== END 2020-11-11 15:16 | disposition home or self-care (01) ==
PROVIDERS: Emergency Provider Emergency Medicine; PCP Family Medicine
DX: I11.0 Hypertensive heart disease with heart failure (principal); I50.22 Chronic systolic (congestive) heart failure; I25.5 Ischemic cardiomyopathy; I25.10 Atherosclerotic heart disease of native coronary artery without angina pectoris; E11.51 Type 2 diabetes mellitus with diabetic peripheral angiopathy without gangrene; E78.2 Mixed hyperlipidemia; E03.9 Hypothyroidism, unspecified; Z79.82 Long term (current) use of aspirin; Z79.4 Long term (current) use of insulin; Z79.890 Hormone replacement therapy; Z79.899 Other long term (current) drug therapy; I25.2 Old myocardial infarction; Z87.891 Personal history of nicotine dependence; Z95.1 Presence of aortocoronary bypass graft
CPT/HCPCS: 71045; 80048; 83880; 84484; 85025; 93005; 96374; 99284; A4216; J1940

== ENCOUNTER 2020-12-02 09:22 | Inpatient (IN) | payer MEDICARE, OTHER, SELFPAY ==
[2020-12-02] VITALS (11 sets, daily range): BP systolic 109–119; BP diastolic 58–89; PULSE 73–125; RESP 16–97; TEMP 36.5–37.1; O2SAT 23–98; BMI 27.0; BMI 26.9
--- NOTE | 2020-12-02 09:51 | EKG12_ITS ---
Test Reason : Blood Pressure : / mmHG Vent. Rate : 112 BPM Atrial Rate : 119 BPM P-R Int : 000 ms QRS Dur : 138 ms QT Int : 368 ms P-R-T Axes : 000 -29 162 degrees QTc Int : 502 ms Atrial fibrillation Left ventricular hypertrophy with QRS widening T wave abnormality, consider inferolateral ischemia Abnormal ECG Confirmed by JUANA CABRAL, MARIIA ([id number]), avid editor CRISTAL SAMUELS ([id number]) on 12/06/2020 1:33:42 PM Referred By: TIGIST Confirmed By:MARIIA ARIAS MD
[2020-12-02 09:58] LABS: Absolute Lymphocyte Count 1.84 X10^3/uL (0.83-4.51); Absolute Neutrophil Count 3.8 X10^3/uL (2.0-7.7); Basophil# 0.02 X10^3/uL; Basophil% 0.3 % (0-1); Eosinophil# 0.08 X10^3/uL; Eosinophils% 1.3 % (0-5); Hemoglobin 11.8 g/dL (13.0-16.5); Lymphocyte # 1.84 X10^3/ul (0.83-4.51); Mean Corp Hgb Conc 32.8 g/dL (32-36); Mean Corpuscular Volume 97.6 fL (80-94); Mean Platelet Vol. 9.6 fl (6.2-12.0); Monocyte# 0.63 X10^3/uL; Monocyte% 9.9 % (0-10); NRBC Flagged by Analyzer 0 % (0-5); Neutrophil # 3.77 X10^3/uL (2.7-7.7); Neutrophil % 59.3 % (47-70); Platelet Count 233 K/mm3 (150-450); RBC Distribution Width CV 15.9 % (11.6-14.6); RBC Distribution Width SD 56.6 fl (35.1-43.9); Red Blood Count 3.69 M/mm3 (4.6-6.2); White Blood Count 6.4 K/mm3 (4.4-11.0)
--- NOTE | 2020-12-02 10:00 | RAD_ITS ---
STUDY: X-RAY CHEST REASON FOR EXAM: Male, 80 years old. Weakness TECHNIQUE: Single AP portable view of the chest. COMPARISON: Comparison is made with prior study dated 11/11/2020. FINDINGS: EKG electrodes are seen. Small left pleural effusion with basilar atelectasis and/or early infiltrates. Mild increased markings at the right lung base. Mild degree of vascular congestion. Sternal cerclage wires and vascular clips are present from a prior sternotomy and coronary artery bypass graft procedure (CABG). Normal mediastinum and karthikeyan. Normal visualized pulmonary arteries. Normal visualized aortic arch and descending thoracic aorta. Normal visualized thoracic spine. Normal visualized ribs, clavicles, and shoulders. There is no demonstrated abnormality of the visualized soft tissue structures of the upper abdomen. RAD/Chest 1 View (Portable) IMPRESSION: Increased markings at the lung bases with areas of confluence in the left lower lobe with small left pleural effusion. This is superimposed on a mild degree of CHF. Electronically Signed: Gabino Krishnamurthy MD at 10:37 EDT , Service support ,
--- NOTE | 2020-12-02 10:06 | EDS_ITS ---
HPI History of Present Illness Chief Complaint: General Illness Narrative Narrative: Patient presents with about 10 hours of generalized weakness. He does not feel palpitations although his took his vitals and his blood pressure is slightly lower than normal but his heart rate has been in the 120s. He has not had a history of atrial fibrillation. He has no fever or chills no cough or congestion. He is denying chest pain. Again he is denying palpitations. [facility] Medical History (Updated 12/02/20 @ 10:[address] 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 Bladder mass Carotid disease, bilateral Chronic HFrEF (heart failure with reduced ejection fraction) Essential (primary) hypertension Former smoker Healthcare-associated pneumonia History of non-ST elevation myocardial infarction (NSTEMI) (07/23/20) Hypokalemia Hyponatremia Hypothyroidism Ischemic cardiomyopathy Left bundle branch block (LBBB) Macrocytic anemia Mixed hyperlipidemia PAD (peripheral artery disease) Physical debility Pleural effusion, bilateral Pneumonia Postoperative atrial fibrillation (07/30/20) Synovial cyst of popliteal space [Andre], left knee Type 2 diabetes mellitus Home Medications multivitamin,gs-hhgs-Ak-FA-min 1 tab PO DAILY 08/04/20 [History Last Taken Unknown] acetaminophen [Tylenol] 650 mg PO Q6H PRN PRN #1 tab 08/15/20 [Rx Last Taken Unknown] atorvastatin 80 mg PO QHS #30 tab 08/15/20 [Rx Last Taken Unknown] sennosides-docusate sodium [Stool Softener-Stimulant Laxat] 2 tab PO BID #120 tab 08/15/20 [Rx Last Taken Unknown] metoprolol tartrate 25 mg PO BID #60 tab 09/03/20 [Rx Last Taken Unknown] aspirin 325 mg PO DAILY 11/11/20 [History Last Taken Unknown] ferrous sulfate 325 mg PO DAILY 11/11/20 [History Last Taken Unknown] insulin aspart U-100 [Novolog Flexpen U-100 Insulin] See Protocol SUBCUT TID 11/11/20 [History Last Taken Unknown] insulin detemir U-100 [Levemir FlexTouch U-100 Insuln] 17 unit SUBCUT QHS 11/11/20 [History Last Taken Unknown] levothyroxine 125 mcg PO DAILY 11/11/20 [History Last Taken Unknown] furosemide 40 mg tablet 40 mg PO DAILY tab 11/17/20 [History Last Taken Unknown] Allergy/AdvReac Type Severity Reaction Status Date / Time naproxen [From Naprosyn] Allergy Other Verified 12/02/20 09:24 venom-honey bee Allergy Anaphylaxis Verified 12/02/20 09:24 Family History Mother Diabetes Heart disease Father Heart disease Surgical History H/O coronary artery bypass surgery (07/28/20) History of appendectomy History of colonoscopy History of cystoscopy (11/10/20) History of left heart catheterization (07/25/20) History of thoracentesis (08/31/20) Social History Smoking Status: Former smoker Tobacco: How many years used: 17 how long ago did patient quit smokin years ago alcohol intake: never substance use type: does not use ROS ROS ED ROS Narrative Past medical history: Reviewed, significant for history of MS status post bypass surgery about 4 months ago, hypertension hypercholesterolemia and chronic renal failure. Medications: Reviewed, is not anticoagulated. Social history: Noncontributory Review of systems: All systems negative except as indicated General: No fever. Generalized weakness Eyes: No visual changes ENT: No upper airway congestion, normal voice Neck: No neck pain Cardiovascular: No chest pain. He does not feel any palpitations Respiratory: No shortness of breath or cough Gastrointestinal: No abdominal pain, nausea vomiting or diarrhea Genitourinary: No dysuria Musculoskeletal: Denies myalgias no difficulty with ambulation Skin: No rash Neurological: No memory loss, confusion or any focal weakness Psych: No recent behavioral changes Hematologic: No easy bleeding or easy bruising EXAM Physical Exam Narrative Exam Narrative: Physical exam General: Patient appears relatively comfortable in the bed. Head: Normocephalic, Atraumatic Eyes: Conjunctiva not pale ENT: Slightly dry mucous membranes Neck: Supple, Nontender, No lymphadenopathy Cardiovascular: Irregular tachycardia no obvious murmur. He has a somewhat recent chest wall scar without any evidence of infection. Respiratory: No distress, CTA bilaterally Abdomen: Soft, Nontender, Nondistended Back: Nontender, Normal Inspection. Negative for: CVA tenderness Extremities: Nontender, No edema Skin: Normal color, No rash Neurological: Alert, Normal Strength, Normal Sensation Psychological: Normal affect Const Vital Signs: 12/02/20 09:24 12/02/20 09:45 12/02/20 10:25 Temperature 98.7 F Temperature Source Temporal Pulse Rate 124 H 125 H 94 Respiratory Rate 16 20 H 97 H Respiratory Effort Normal Non-Labored Respiratory Pattern Normal Blood Pressure 109/76 117/74 117/89 H Blood Pressure Mean 87 88 98 Pulse Ox 96 98 23 Oxygen Delivery Method Room Air Room Air MDM MDM MDM Narrative Medical decision making narrative: Patient's heart rate improved with Cardizem although he continues to be in A. fib. I gave him oral Cardizem in the ED. He is found to be hyperthyroid, he will need his Synthroid decreased, otherwise I will admit him for further evaluation and work-up. Lab Data Labs: Laboratory Results - last 24 hr 12/02/20 12/02/20 09:40 09:40 WBC 6.4 RBC 3.69 L Hgb 11.8 L Hct 36.0 L MCV 97.6 H MCH 32.0 MCHC 32.8 RDW Std Deviation 56.6 H RDW Coeff of Chip 15.9 H Plt Count 233 MPV 9.6 Immature Gran % (Auto) 0.200 Neut % (Auto) 59.3 Lymph % (Auto) 29.0 [place] % (Auto) 9.9 Eos % (Auto) 1.3 Baso % (Auto) 0.3 Absolute Neuts (auto) 3.8 Absolute Lymphs (auto) 1.84 Nucleated RBC % 0 Sodium 140 Potassium 3.7 Chloride 106 Carbon Dioxide 30.0 Anion Gap 4 L BUN 18 Creatinine 1.16 Estim Creat Clear Calc 53.32 Est GFR (MDRD) Af Amer 78 Est GFR (MDRD) Non-Af 64 BUN/Creatinine Ratio 15.5 Glucose 163 H Calcium 9.2 Total Bilirubin 0.60 AST 45 H ALT 41 Alkaline Phosphatase 98 Troponin I High Sens 23 Total Protein 7.3 Albumin 3.1 L Globulin 4.2 Albumin/Globulin Ratio 0.7 L TSH 0.18 L Radiography Diagnostic Testing: Radiology Impression Chest X-Ray 12/02/20 10:00 IMPRESSION: Increased markings at the lung bases with areas of confluence in the left lower lobe with small left pleural effusion. This is superimposed on a mild degree of CHF. Electronically Signed: Gabino Krishnamurthy MD at 10:37 EDT , Service support , EKG Initial EKG: Comments: Atrial fibrillation with a rate of 112. QTC is prolonged at 502. There is an old intraventricular conduction delay. Otherwise nonspecific ST changes. Block. Discharge Plan Triage Chief Complaint: General Illness ED Provider: Sven Barry Dx/Rx/DC Orders Clinical Impression: Atrial fibrillation with rapid ventricular response, Hyperthyroidism Prescriptions: No Action furosemide 40 mg tablet 40 mg PO DAILY RF: 0 multivitamin,fc-mpln-Os-FA-min Tablet 1 tab PO DAILY RF: 0 acetaminophen [Tylenol] 325 mg Tablet 650 mg PO Q6H PRN PRN (Reason: PAIN 1-10) Qty: 1 RF: 0 sennosides-docusate sodium [Stool Softener-Stimulant Laxat] 8.6-50 mg Tablet 2 tab PO BID Qty: 120 RF: 0 atorvastatin 80 mg Tablet 80 mg PO QHS Qty: 30 RF: 0 metoprolol tartrate 25 mg tablet 25 mg PO BID Qty: 60 RF: 6 ferrous sulfate 325 mg (65 mg iron) Tablet 325 mg PO DAILY RF: 0 levothyroxine 125 mcg tablet 125 mcg PO DAILY RF: 0 aspirin 81 mg Tablet 325 mg PO DAILY RF: 0 insulin aspart U-100 [Novolog Flexpen U-100 Insulin] 100 unit/mL (3 mL) insu nima pen See Protocol unit SUBCUT TID RF: 0 Levemir FlexTouch U-100 Insuln 100 unit/mL (3 mL) insulin pen 17 unit SUBCUT QHS RF: 0 Primary Care Provider: Lance Rosa Referrals: Lance Rosa MD [Primary Care Provider] - Disposition Disposition: Acute Care [facility]
[2020-12-02] MEDS: dilTIAZem 25 MG/5 ML Vial 10 MG IV BOLUS (10:08)
[2020-12-02 10:21] LABS: ALB/GLOB Ratio 0.7 RATIO (0.9-2.4); AST(SGOT) 45 U/L (15-37); Alanine Aminotransfer ALT/SGPT 41 U/L (16-61); Albumin, Serum 3.1 g/dL (3.2-5.0); Alkaline Phosphatase 98 U/L (45-117); Anion Gap 4 (5-15); BUN 18 mg/dL (7-18); BUN/Creat Ratio 15.5 RATIO (10-20); Calcium,Total 9.2 mg/dL (8.5-10.1); Chloride 106 mmol/L (98-107); Creatinine, Serum 1.16 mg/dL (0.70-1.30); EST Glomerular Filtration Rate 64 mL/min (>60); Est Glom Filt Rate - Afr Amer 78 mL/min (>60); Estimated Creatinine Clearance 53.32 ml/min; Globulin 4.2 g/dL (2.2-4.2); Glucose 163 mg/dL (74-106); Potassium 3.7 mmol/L (3.5-5.1); Protein, Total 7.3 g/dL (6.4-8.2); Sodium Level 140 mmol/L (136-145); Thyroid Stim Hormone (TSH) 0.18 uIU/mL (0.358-3.74); Troponin-I HS 23 pg/mL (3.0-78.0)
[2020-12-02] MEDS: dilTIAZem CD 240 MG Capsule PO (11:20)
[2020-12-02] MEDS: Enoxaparin 100 MG/ML Syringe 90 MG SC (11:25)
--- NOTE | 2020-12-02 12:42 | PCS.PANDOC ---
PANDEMIC DOCUMENTATION INITIATED: Date: 10/31/2020 Time: 190
[2020-12-02 13:38] LABS: Troponin-I HS 43 pg/mL (3.0-78.0)
--- NOTE | 2020-12-02 14:10 | HP.PCM_ITS ---
Documented by User: MASON BrayC 12/02/20 14:29 HPI - General General Date of Admission: 12/02/20 Date of Service: 12/02/20 Chief Complaint: Fatigue, increased heart rate HPI Narrative ANTONIETA OSMAN, is a 80 M who presents with complaints of generalized weakness and fatigue over the past 12 hours. Patient states that his took his blood pressure at home and noted it was low and his heart rate was increased in the 120s. Patient states that he has not felt palpitations. Patient denies fever, chills, shortness of breath, cough, chest pain, nausea, vomiting. 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 Bladder mass Carotid disease, bilateral Chronic HFrEF (heart failure with reduced ejection fraction) Essential (primary) hypertension Former smoker Healthcare-associated pneumonia History of non-ST elevation myocardial infarction (NSTEMI) (07/23/20) Hypokalemia Hyponatremia Hypothyroidism Ischemic cardiomyopathy Left bundle branch block (LBBB) Macrocytic anemia Mixed hyperlipidemia PAD (peripheral artery disease) Physical debility Pleural effusion, bilateral Pneumonia Postoperative atrial fibrillation (07/30/20) Renal insufficiency Synovial cyst of popliteal space [Andre], left knee Type 2 diabetes mellitus Home Medications multivitamin,pf-fhwj-Pu-FA-min 1 tab PO DINNER 08/04/20 [History Last Taken 12/01/20] acetaminophen [Tylenol] 650 mg PO Q6H PRN PRN #1 tab 08/15/20 [Rx Last Taken Unknown] atorvastatin 80 mg PO QHS #30 tab 08/15/20 [Rx Last Taken 12/01/20] sennosides-docusate sodium [Stool Softener-Stimulant Laxat] 2 tab PO BID #120 tab 08/15/20 [Rx Last Taken 12/01/20] metoprolol tartrate 25 mg PO BID #60 tab 09/03/20 [Rx Last Taken 12/01/20] aspirin 325 mg PO DINNER 11/11/20 [History Last Taken 12/01/20] ferrous sulfate 325 mg PO DINNER 11/11/20 [History Last Taken 12/01/20] insulin detemir U-100 [Levemir FlexTouch U-100 Insuln] 17 unit SUBCUT QHS 11/11/20 [History Last Taken 12/01/20] levothyroxine 112 mcg PO DAILY 11/11/20 [History Last Taken 12/01/20] furosemide 40 mg tablet 40 mg PO DAILY tab 11/17/20 [History Last Taken 12/01/20] insulin aspart U-100 [Novolog Flexpen U-100 Insulin] 2 unit SUBCUT DINNER 0 12/02/20 [History Last Taken 12/01/20] insulin aspart U-100 [Novolog Flexpen U-100 Insulin] 2 unit SUBCUT LUNCH 12/02/20 [History Last Taken 12/01/20] insulin aspart U-100 [Novolog Flexpen U-100 Insulin] 4 unit SUBCUT BREAKFAST 12/02/20 [History Last Taken 12/01/20] Allergy/AdvReac Type Severity Reaction Status Date / Time naproxen [From Naprosyn] Allergy Other Verified 12/02/20 09:24 venom-honey bee Allergy Anaphylaxis Verified 12/02/20 09:24 Family History Mother Diabetes Heart disease Father Heart disease Surgical History H/O coronary artery bypass surgery (07/28/20) History of appendectomy History of colonoscopy History of cystoscopy (11/10/20) History of left heart catheterization (07/25/20) History of thoracentesis (08/31/20) Social History Smoking Status: Former smoker Tobacco: How many years used: 17 how long ago did patient quit smokin years ago alcohol intake: never substance use type: does not use ROS Constitutional Constitutional: Reports fatigue and weakness; Denies anorexia, chills, fever(s) or malaise Cardiovascular Cardiovascular: Denies chest pain, edema, palpitations or syncope Respiratory/Chest Respiratory/Chest: Denies cough, shortness of breath at rest or shortness of breath with exertion Gastrointestinal Gastrointestinal: Denies abdominal pain, constipation, diarrhea, nausea or vomiting Genitourinary Genitourinary: Denies dysuria Musculoskeletal Musculoskeletal: Denies back pain, extremity pain, joint pain or joint stiffness Integumentary Integumentary: Denies dry skin Neurologic Neurologic: Denies abnormal gait, abnormal speech, confusion or dizziness Psychiatric Psychiatric: Denies anxiety or depression Endocrine Endocrinology: Denies change in body appearance Hematologic/Lymphatic Hematologic/Lymphatic: Denies easy bleeding or easy bruising Vital Signs Vital Signs Vital Signs: 12/02/20 09:24 12/02/20 09:45 12/02/20 10:25 Temperature 98.7 F Temperature Source Temporal Pulse Rate 124 H 125 H 94 Respiratory Rate 16 20 H 97 H Respiratory Effort Normal Non-Labored Respiratory Depth Respiratory Pattern Normal Blood Pressure 109/76 117/74 117/89 H Blood Pressure Mean 87 88 98 Blood Pressure Source Blood Pressure Position Blood Pressure Location Pulse Ox 96 98 23 Oxygen Delivery Method Room Air Room Air 12/02/20 11:22 12/02/20 12:42 12/02/20 12:50 Temperature 97.8 F 97.7 F L Temperature Source Temporal Oral Pulse Rate 94 108 H 78 Respiratory Rate 26 H 16 Respiratory Effort Respiratory Depth Respiratory Pattern Blood Pressure 117/72 117/65 Blood Pressure Mean 87 82 Blood Pressure Source Monitor Blood Pressure Position Semi-Fowlers Blood Pressure Location Right Arm Pulse Ox 96 97 Oxygen Delivery Method Room Air Room Air 12/02/20 13:00 12/02/20 13:37 Temperature Temperature Source Pulse Rate Respiratory Rate Respiratory Effort Normal Non-Labored Normal Non-Labored Respiratory Depth Normal Normal Respiratory Pattern Normal Normal Blood Pressure Blood Pressure Mean Blood Pressure Source Blood Pressure Position Blood Pressure Location Pulse Ox Oxygen Delivery Method Room Air Room Air Weight Weight: 187 lb 9.814 oz Body Mass Index (BMI) 26.9 Physical Exam Const alert, oriented x3 and no apparent distress General Appearance: cooperative HEENT normocephalic and head/scalp atraumatic Eyes conjunctivae normal and no scleral icterus Neck supple and no JVD General: trachea midline Resp normal respiratory effort, normal air movement and clear to auscultation bilaterally Cardio regular rate, S1 normal heart sound, S2 normal heart sound and peripheral pulses 2+ throughout Rhythm: abnormal rhythm irregularly irregular GI normal to inspection, nondistended, normoactive bowel sounds, soft to palpation and non-tender Extremity normal capillary refill and no clubbing, cyanosis or edema General Extremity: no tenderness to palpation of joints or extremities Skin General Skin Exam: no breakdown and turgor normal Lesions: no lesions Rashes: no rashes Neuro no focal motor deficits and no sensory deficits noted Speech: speech normal Motor Exam: general weakness Psych thought process normal, cooperative and affect normal Appearance: appropriate Results Lab / Micro Data Result Diagrams: 12/02/20 09:40 12/02/20 09:40 Labs: Laboratory Results - last 24 hr 12/02/20 09:40: WBC 6.4, RBC 3.69 L, Hgb 11.8 L, Hct 36.0 L, MCV 97.6 H, MCH 32.0, MCHC 32.8, RDW Std Deviation 56.6 H, RDW Coeff of Chip 15.9 H, Plt Count 233, MPV 9.6, Immature Gran % (Auto) 0.200, Neut % (Auto) 59.3, Lymph % (Auto) 29.0, [place] % (Auto) 9.9, Eos % (Auto) 1.3, Baso % (Auto) 0.3, Absolute Neuts (auto) 3.8, Absolute Lymphs (auto) 1.84, Nucleated RBC % 0 12/02/20 09:40: Sodium 140, Potassium 3.7, Chloride 106, Carbon Dioxide 30.0, Anion Gap 4 L, BUN 18, Creatinine 1.16, Estim Creat Clear Calc 53.32, Est GFR (MDRD) Af Amer 78, Est GFR (MDRD) Non-Af 64, BUN/Creatinine Ratio 15.5, Glucose 163 H, Calcium 9.2, Total Bilirubin 0.60, AST 45 H, ALT 41, Alkaline Phosphatase 98, Troponin I High Sens 23, Total Protein 7.3, Albumin 3.1 L, Globulin 4.2, Albumin/Globulin Ratio 0.7 L, TSH 0.18 L 12/02/20 13:06: Troponin I High Sens 43 Micro: Microbiology 12/02/20 09:55 Nasal Secretion SARS-CoV-2 Antigen (Rapid) - Final Radiology Impression Chest X-Ray 12/02/20 10:00 IMPRESSION: Increased markings at the lung bases with areas of confluence in the left lower lobe with small left pleural effusion. This is superimposed on a mild degree of CHF. Electronically Signed: Gabino Krishnamurthy MD at 10:37 EDT , Service support , Assessment & Plan Assessment/Plan (1) Atrial fibrillation with rapid ventricular response: (2) Hyperthyroidism: PLAN: 1. Atrial fibrillation with rapid ventricular rate -Possibly secondary to hyperthyroidism, patient has hypothyroidism and had been receiving levothyroxine 112 mcg daily TSH upon admission 0.18, will hold -Last echocardiogram obtained 09/02/2020 demonstrates EF 50% with normal systolic and diastolic function. -Patient received Cardizem bolus x1 IV along with 1 p.o. dose Cardizem 240 mg. Heart rate is controlled in the 70s however patient continues to be in atrial fibrillation. -CBC and CMP ordered for a.m. -High sensitivity troponin negative x2, third ordered to be drawn -Labs otherwise within normal limits for patient -Per Dr. Irizarry's note 08/26/2020 patient did have paroxysmal atrial fibrillation following CABG. -Patient initiated on Eliquis, Lovenox 90 mg x 1 given in ER. 2. Hyperthyroidism -Patient being treated for hypothyroidism with levothyroxine 112 mcg daily christie sully TSH obtained today demonstrates level of 0.18. -We will hold levothyroxine at this time 2. Hypertension -Continue home medication regimen -Vital signs per protocol, trend 3. Diabetes mellitus type 2 -AC at bedtime blood sugars with sliding scale insulin ordered -Continue home dose Lantus 4. History of CABG -MAYBERRY to the LAD, ramus and obtuse marginal sequential with saphenous vein graft. 5. Bladder mass -Patient recently diagnosed with bladder mass suspicious for neoplasm, following outpatient for further evaluation DVT prophylaxis-patient started for on Eliquis for atrial fibrillation This patient was seen by Enedina Mckeon NP-C under the supervision of Dr. Aceves. Documented by User: Dr. 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 Bladder mass Carotid disease, bilateral Chronic HFrEF (heart failure with reduced ejection fraction) Essential (primary) hypertension Former smoker Healthcare-associated pneumonia History of non-ST elevation myocardial infarction (NSTEMI) (07/23/20) Hypokalemia Hyponatremia Hypothyroidism Ischemic cardiomyopathy Left bundle branch block (LBBB) Macrocytic anemia Mixed hyperlipidemia PAD (peripheral artery disease) Physical debility Pleural effusion, bilateral Pneumonia Postoperative atrial fibrillation (07/30/20) Renal insufficiency Synovial cyst of popliteal space [Andre], left knee Type 2 diabetes mellitus Home Medications multivitamin,ub-gjjd-Qt-FA-min 1 tab PO DINNER 08/04/20 [History Last Taken 12/01/20] acetaminophen [Tylenol] 650 mg PO Q6H PRN PRN #1 tab 08/15/20 [Rx Last Taken Unknown] atorvastatin 80 mg PO QHS #30 tab 08/15/20 [Rx Last Taken 12/01/20] sennosides-docusate sodium [Stool Softener-Stimulant Laxat] 2 tab PO BID #120 tab 08/15/20 [Rx Last Taken 12/01/20] metoprolol tartrate 25 mg PO BID #60 tab 09/03/20 [Rx Last Taken 12/01/20] aspirin 325 mg PO DINNER 11/11/20 [History Last Taken 12/01/20] ferrous sulfate 325 mg PO DINNER 11/11/20 [History Last Taken 12/01/20] insulin detemir U-100 [Levemir FlexTouch U-100 Insuln] 17 unit SUBCUT QHS 11/11/20 [History Last Taken 12/01/20] levothyroxine 112 mcg PO DAILY 11/11/20 [History Last Taken 12/01/20] furosemide 40 mg tablet 40 mg PO DAILY tab 11/17/20 [History Last Taken 12/01/20] insulin aspart U-100 [Novolog Flexpen U-100 Insulin] 2 unit SUBCUT DINNER 12/02/20 [History Last Taken 12/01/20] insulin aspart U-100 [Novolog Flexpen U-100 Insulin] 2 unit SUBCUT LUNCH 12/02/20 [History Last Taken 12/01/20] insulin aspart U-100 [Novolog Flexpen U-100 Insulin] 4 unit SUBCUT BREAKFAST 12/02/20 [History Last Taken 12/01/20] Allergy/AdvReac Type Severity Reaction Status Date / Time naproxen [From Naprosyn] Allergy Other Verified 12/02/20 09:24 venom-honey bee Allergy Anaphylaxis Verified 12/02/20 09:24 Family History Mother Diabetes Heart disease Father Heart disease Surgical History H/O coronary artery bypass surgery (07/28/20) History of appendectomy History of colonoscopy History of cystoscopy (11/10/20) History of left heart catheterization (07/25/20) History of thoracentesis (08/31/20) Social History Smoking Status: Former smoker Tobacco: How many years used: 17 how long ago did patient quit smokin years ago alcohol intake: never substance use type: does not use Results Lab / Micro Data Result Diagrams: 12/02/20 09:40 12/02/20 09:40 Charges/Coding Addendum Addendum: This patient was seen in conjunction with Rocío Robbins. I have independently interviewed and examined the patient and reviewed pertinent historical, laboratory, and other data. I have reviewed her note and concur with her documentation 80-year-old with multiple comorbidities including CAD status post CABG, history of postop A. fib who comes in with uncontrolled heart rate and was found to have A. fib with RVR. Patient received Cardizem bolus in the ED and then subsequently got p.o. Cardizem because heart rate was controlled. Physical Exam: Gen: Comfortable, not pale, not jaundiced CVS:HS I +II, regular, no murmurs RESP: Diminished at lung bases GI: BS present and normal, soft, nontender, no palpable organs EXT:Bilateral leg edema +1 ASSESSMENT: 1. A. fib with RVR 2. Hyperthyroidism 3. Hypertension 4. Type II DM 5. History of CABG 6. Bladder mass Plan: Continue metoprolol Start Eliquis Monitor on telemetry Visit Charges Inpatient E&M: 38548 Init Hosp L3
[2020-12-02 14:41] LABS: Bedside Glucose 106 mg/dL (70-110)
[2020-12-02] MEDS: Multivitamins,Ther W-Minerals Tablet 1 TABLET PO (16:14)
[2020-12-02] MEDS: Furosemide 40 MG Tablet PO (16:14)
[2020-12-02] MEDS: Aspirin 325 MG Tablet PO (16:14)
[2020-12-02] MEDS: Ferrous Sulfate 325 MG Tablet PO (16:15)
[2020-12-02 16:32] LABS: Troponin-I HS 42 pg/mL (3.0-78.0)
[2020-12-02 17:41] LABS: Bedside Glucose 119 mg/dL (70-110)
[2020-12-02] MEDS: Metoprolol Tartrate 25 MG Tablet PO (21:13)
[2020-12-02] MEDS: Senna/Docusate Sodium 1 Tablet 2 TABLET PO (21:13)
[2020-12-02] MEDS: APIXABAN 5 MG TABLET 10 MG PO (21:13)
[2020-12-02] MEDS: Atorvastatin Calcium 80 MG Tablet PO (21:13)
[2020-12-02] MEDS: Insulin Lispro 100 UNIT/ML INSULN.PEN SC (21:16)
[2020-12-02 21:21] LABS: Bedside Glucose 230 mg/dL (70-110)
[2020-12-03] VITALS (8 sets, daily range): BP systolic 126–144; BP diastolic 64–71; PULSE 65–88; RESP 16–18; TEMP 36.8–36.9; O2SAT 98–100
[2020-12-03 05:13] LABS: Absolute Lymphocyte Count 1.52 X10^3/uL (0.83-4.51); Absolute Neutrophil Count 3.6 X10^3/uL (2.0-7.7); Basophil# 0.02 X10^3/uL; Basophil% 0.3 % (0-1); Eosinophil# 0.05 X10^3/uL; Eosinophils% 0.9 % (0-5); Hematocrit 35.3 % (40-54); Hemoglobin 11.7 g/dL (13.0-16.5); Lymphocyte # 1.52 X10^3/ul (0.83-4.51); Lymphocyte % 26.6 % (19-41); Mean Corp Hgb Conc 33.1 g/dL (32-36); Mean Corpuscular Hgb 32.5 pg (27.0-32.0); Mean Corpuscular Volume 98.1 fL (80-94); Mean Platelet Vol. 9.1 fl (6.2-12.0); Monocyte# 0.54 X10^3/uL; Monocyte% 9.4 % (0-10); NRBC Flagged by Analyzer 0 % (0-5); Neutrophil # 3.57 X10^3/uL (2.7-7.7); Neutrophil % 62.5 % (47-70); Platelet Count 212 K/mm3 (150-450); RBC Distribution Width CV 15.7 % (11.6-14.6); RBC Distribution Width SD 56.7 fl (35.1-43.9); White Blood Count 5.7 K/mm3 (4.4-11.0)
[2020-12-03 05:38] LABS: ALB/GLOB Ratio 0.7 RATIO (0.9-2.4); AST(SGOT) 39 U/L (15-37); Alanine Aminotransfer ALT/SGPT 38 U/L (16-61); Albumin, Serum 2.9 g/dL (3.2-5.0); Alkaline Phosphatase 97 U/L (45-117); Anion Gap 5 (5-15); BUN 18 mg/dL (7-18); BUN/Creat Ratio 18.4 RATIO (10-20); Calcium,Total 8.7 mg/dL (8.5-10.1); Chloride 105 mmol/L (98-107); Creatinine, Serum 0.98 mg/dL (0.70-1.30); EST Glomerular Filtration Rate 78 mL/min (>60); Est Glom Filt Rate - Afr Amer 95 mL/min (>60); Estimated Creatinine Clearance 63.11 ml/min; Globulin 4.1 g/dL (2.2-4.2); Glucose 140 mg/dL (74-106); Potassium 3.4 mmol/L (3.5-5.1); Sodium Level 139 mmol/L (136-145)
[2020-12-03 07:06] LABS: Bedside Glucose 131 mg/dL (70-110)
[2020-12-03] MEDS: Furosemide 40 MG Tablet PO (08:57)
[2020-12-03] MEDS: APIXABAN 5 MG TABLET 10 MG PO (08:57)
[2020-12-03] MEDS: Metoprolol Tartrate 25 MG Tablet PO (08:58)
[2020-12-03] MEDS: Ferrous Sulfate 325 MG Tablet PO (08:58)
[2020-12-03] MEDS: Multivitamins,Ther W-Minerals Tablet 1 TABLET PO (08:58)
[2020-12-03] MEDS: Senna/Docusate Sodium 1 Tablet 2 TABLET PO (08:58)
--- NOTE | 2020-12-03 09:35 | DCINST_ITS ---
Discharge Instructions Diet Discharge Diet: Low fat / Low cholesterol Activity Discharge Activity: Return to Normal Activity Dressing / Incision Call your doctor if you observe: Shortness of breath, Dizziness, Chest pain and Increased palpitations (irregular heartbeat) Follow Up Care Please Follow Up With: Timothy Irizarry MD When: 2 weeks Test Results: Test results from this visit will be discussed in further detail at your follow-up appointment, if applicable. Discharge Plan Admission Admit Date/Time: 12/02/20 11:06 Primary Reason for Your Visit: AFib with RVR Attending Provider: Teresa Aceves Primary Care Provider: Lance Rosa Discharge Orders/Prescriptions Prescriptions: New apixaban 5 mg tablet 5 mg PO BID 30 Days Qty: 72 RF: 0 levothyroxine 100 mcg tablet 100 mcg PO DAILY Qty: 30 RF: 0 Continued furosemide 40 mg tablet 40 mg PO DAILY RF: 0 multivitamin,ft-yfov-Ze-FA-min Tablet 1 tab PO DINNER RF: 0 acetaminophen [Tylenol] 325 mg Tablet 650 mg PO Q6H PRN PRN (Reason: PAIN 1-10) Qty: 1 RF: 0 sennosides-docusate sodium [Stool Softener-Stimulant Laxat] 8.6-50 mg Tablet 2 tab PO BID Qty: 120 RF: 0 atorvastatin 80 mg Tablet 80 mg PO QHS Qty: 30 RF: 0 metoprolol tartrate 25 mg tablet 25 mg PO BID Qty: 60 RF: 6 ferrous sulfate 325 mg (65 mg iron) Tablet 325 mg PO DINNER RF: 0 aspirin 81 mg Tablet 325 mg PO DINNER RF: 0 Levemir FlexTouch U-100 Insuln 100 unit/mL (3 mL) insulin pen 17 unit SUBCUT QHS RF: 0 insulin aspart U-100 [Novolog Flexpen U-100 Insulin] 100 unit/mL (3 mL) Insul in Pen 4 unit SUBCUT BREAKFAST RF: 0 insulin aspart U-100 [Novolog Flexpen U-100 Insulin] 100 unit/mL (3 mL) Insulin Pen 2 unit SUBCUT LUNCH RF: 0 insulin aspart U-100 [Novolog Flexpen U-100 Insulin] 100 unit/mL (3 mL) Insulin Pen 2 unit SUBCUT DINNER RF: 0 Discontinued levothyroxine 125 mcg tablet 112 mcg PO DAILY RF: 0 Referrals / Follow Up: Lance Rosa MD [Primary Care Provider] -
--- NOTE | 2020-12-03 09:49 | PCM.DC.SUM ---
Providers Date of Admission: 12/02/20 Primary Care Physician: Dr. Lance Rosa MD Reason For Visit: A FIB WITH RVR Diagnosis Discharge Diagnosis (1) Atrial fibrillation with rapid ventricular response: Status: Acute Code(s): I48.91 - Unspecified atrial fibrillation (2) Hyperthyroidism: Status: Acute Code(s): E05.90 - Thyrotoxicosis, unspecified without thyrotoxic crisis or storm Medications at Discharge Home Medications multivitamin,fv-yrgv-Ql-FA-min 1 tab PO DINNER 08/04/20 acetaminophen [Tylenol] 650 mg PO Q6H PRN PRN #1 tab 08/15/20 atorvastatin 80 mg PO QHS #30 tab 08/15/20 sennosides-docusate sodium [Stool Softener-Stimulant Laxat] 2 tab PO BID #120 tab 08/15/20 metoprolol tartrate 25 mg PO BID #60 tab 09/03/20 Levemir FlexTouch U-100 Insuln 17 unit SUBCUT QHS 11/11/20 aspirin 325 mg PO DINNER 11/11/20 ferrous sulfate 325 mg PO DINNER 11/11/20 furosemide 40 mg tablet 40 mg PO DAILY tab 11/17/20 insulin aspart U-100 [Novolog Flexpen U-100 Insulin] 2 unit SUBCUT DINNER 12/02/20 insulin aspart U-100 [Novolog Flexpen U-100 Insulin] 2 unit SUBCUT LUNCH 12/02/20 insulin aspart U-100 [Novolog Flexpen U-100 Insulin] 4 unit SUBCUT BREAKFAST 12/02/20 apixaban 5 mg PO BID 30 Days #72 tab 12/03/20 levothyroxine 100 mcg PO DAILY #30 tab 12/03/20 Hospital Course Operations None Summary of Care Provided Minutes Spent on Discharge: 35 Hospital Course: Patient is a 80-year-old male who presented with atrial fibrillation with rapid ventricular rate. On lab review patient was also noted to have hyperthyroidism secondary to treatment for hypothyroidism. Levothyroxine was held and patient will be sent home with levothyroxine 100 mcg daily which is a decrease from 112 mcg daily previously. Patient received 1 dose of Cardizem in the ER and heart rate has been controlled since. Patient has had continued controlled heart rate in the 70s to 80s and is now noted to be in normal sinus rhythm. Upon chart review patient was noted to have paroxysmal atrial fibrillation following his open heart surgery approximately 3 months ago. [facility] to follow-up with cardiology in 2 weeks. Physical Exam Const alert, oriented x3 and no apparent distress General Appearance: cooperative HEENT normocephalic and head/scalp atraumatic Eyes conjunctivae normal and no scleral icterus Resp normal respiratory effort, normal air movement and clear to auscultation bilaterally Cardio regular rate, regular rhythm, S1 normal heart sound and S2 normal heart sound GI normal to inspection, nondistended, normoactive bowel sounds, soft to palpation and non-tender Extremity normal capillary refill and no clubbing, cyanosis or edema General Extremity: no tenderness to palpation of joints or extremities Skin skin turgor normal General Skin Exam: no breakdown Lesions: no lesions Rashes: no rashes Neuro no focal motor deficits and no sensory deficits noted Speech: speech normal Motor Exam: Negative for general weakness Psych affect normal Appearance: appropriate Weight / BMI Weight Weight: 187 lb 6.287 oz Body Mass Index (BMI) 26.9 ABG / Lab / Microbiology Data Result Diagrams: 12/03/20 04:56 12/03/20 04:56 Laboratory: Laboratory Results - last 24 hr 12/02/20 09:40: WBC 6.4, RBC 3.69 L, Hgb 11.8 L, Hct 36.0 L, MCV 97.6 H, MCH 32.0, MCHC 32.8, RDW Std Deviation 56.6 H, RDW Coeff of Chip 15.9 H, Plt Count 233, MPV 9.6, Immature Gran % (Auto) 0.200, Neut % (Auto) 59.3, Lymph % (Auto) 29.0, [place] % (Auto) 9.9, Eos % (Auto) 1.3, Baso % (Auto) 0.3, Absolute Neuts (auto) 3.8, Absolute Lymphs (auto) 1.84, Nucleated RBC % 0 12/02/20 09:40: Sodium 140, Potassium 3.7, Chloride 106, Carbon Dioxide 30.0, Anion Gap 4 L, BUN 18, Creatinine 1.16, Estim Creat Clear Calc 53.32, Est GFR (MDRD) Af Amer 78, Est GFR (MDRD) Non-Af 64, BUN/Creatinine Ratio 15.5, Glucose 163 H, Calcium 9.2, Total Bilirubin 0.60, AST 45 H, ALT 41, Alkaline Phosphatase 98, Troponin I High Sens 23, Total Protein 7.3, Albumin 3.1 L, Globulin 4.2, Albumin/Globulin Ratio 0.7 L, TSH 0.18 L 12/02/20 13:06: Troponin I High Sens 43 12/02/20 14:38: POC Glucose 106 12/02/20 15:46: Troponin I High Sens 42 12/02/20 17:35: POC Glucose 119 H 12/02/20 21:12: POC Glucose 230 H 12/03/20 04:56: WBC 5.7, RBC 3.60 L, Hgb 11.7 L, Hct 35.3 L, MCV 98.1 H, MCH 32.5 H, MCHC 33.1, RDW Std Deviation 56.7 H, RDW Coeff of Chip 15.7 H, Plt Count 212, MPV 9.1, Immature Gran % (Auto) 0.300, Neut % (Auto) 62.5, Lymph % (Auto) 26.6, [place] % (Auto) 9.4, Eos % (Auto) 0.9, Baso % (Auto) 0.3, Absolute Neuts (auto) 3.6, Absolute Lymphs (auto) 1.52, Nucleated RBC % 0 12/03/20 04:56: Sodium 139, Potassium 3.4 L, Chloride 105, Carbon Dioxide 29.0, Anion Gap 5, BUN 18, Creatinine 0.98, Estim Creat Clear Calc 63.11, Est GFR (MDRD) Af Amer 95, Est GFR (MDRD) Non-Af 78, BUN/Creatinine Ratio 18.4, Glucose 140 H, Calcium 8.7, Total Bilirubin 0.80, AST 39 H, ALT 38, Alkaline Phosphatase 97, Total Protein 7.0, Albumin 2.9 L, Globulin 4.1, Albumin/Globulin Ratio 0.7 L 12/03/20 06:54: POC Glucose 131 H Microbiology: Microbiology 12/02/20 09:55 Nasal Secretion SARS-CoV-2 Antigen (Rapid) - Final Radiography Diagnostic Testing: Radiology Impression Chest X-Ray 12/02/20 10:00 IMPRESSION: Increased markings at the lung bases with areas of confluence in the left lower lobe with small left pleural effusion. This is superimposed on a mild degree of CHF. Electronically Signed: Gabino Krishnamurthy MD at 10:37 EDT , Service support , D/C Instructions Discharge Diet: Low fat / Low cholesterol Call your doctor if you observe: Shortness of breath, Dizziness, Chest pain and Increased palpitations (irregular heartbeat) Please Follow Up With: Timothy Irizarry MD When: 2 weeks Meaningful Use Info Meaningful Use Diagnoses (Choose all that apply): None applicable Discharge Plan Admission Admit Date/Time: 12/02/20 11:06 Primary Reason for Your Visit: AFib with RVR Attending Provider: Teresa Aceves Primary Care Provider: Lance Rosa Instructions Patient Instructions: Understanding Atrial Fibrillation Discharge Orders/Prescriptions Prescriptions: New apixaban 5 mg tablet 5 mg PO BID 30 Days Qty: 72 RF: 0 levothyroxine 100 mcg tablet 100 mcg PO DAILY Qty: 30 RF: 0 Continued furosemide 40 mg tablet 40 mg PO DAILY RF: 0 multivitamin,eh-rwju-Ys-FA-min Tablet 1 tab PO DINNER RF: 0 acetaminophen [Tylenol] 325 mg Tablet 650 mg PO Q6H PRN PRN (Reason: PAIN 1-10) Qty: 1 RF: 0 sennosides-docusate sodium [Stool Softener-Stimulant Laxat] 8.6-50 mg Tablet 2 tab PO BID Qty: 120 RF: 0 atorvastatin 80 mg Tablet 80 mg PO QHS Qty: 30 RF: 0 metoprolol tartrate 25 mg tablet 25 mg PO BID Qty: 60 RF: 6 ferrous sulfate 325 mg (65 mg iron) Tablet 325 mg PO DINNER RF: 0 aspirin 81 mg Tablet 325 mg PO DINNER RF: 0 Levemir FlexTouch U-100 Insuln 100 unit/mL (3 mL) insulin pen 17 unit SUBCUT QHS RF: 0 insulin aspart U-100 [Novolog Flexpen U-100 Insulin] 100 unit/mL (3 mL) Insulin Pen 4 unit SUBCUT BREAKFAST RF: 0 insulin aspart U-100 [Novolog Flexpen U-100 Insulin] 100 unit/mL (3 mL) Insulin Pen 2 unit SUBCUT LUNCH RF: 0 insulin aspart U-100 [Novolog Flexpen U-100 Insulin] 100 unit/mL (3 mL) Insulin Pen 2 unit SUBCUT DINNER RF: 0 Discontinued levothyroxine 125 mcg tablet 112 mcg PO DAILY RF: 0 Referrals / Follow Up: Lance Rosa MD [Primary Care Provider] -
--- NOTE | 2020-12-03 11:05 | CASEMGMT ---
RN CM Face to Face with patient for initial transition planning/care coordination assessment. RN CM introduced self and role at [facility]. Patient lying in bed, alert and oriented, at bedside. Patient willing to participate in assessment and is able to answer all questions appropriately. Care providers, pharmacy, and demographics verified. Patient wishes to discharge home, denies need for home health at this time. Patient states he has no further needs or concerns at this time. CM to follow for discharge planning needs that may arise. PCP: Shelley Specialists: Edie, pipe changer; Kalani Dickson bow stapler Preferred Pharmacy: [facility] [place] Benefit: yes, [employer] savings card given to patient Living Will/HPOA: yes, Tex Gregorio LNOK: Living Arrangements: Patient lives with in a single story home with 2 steps and grab bar to enter the home. Patient states he is independent at home. Transportation: self/ DME/HHC: Patient states he has BSC, cane, walker at home. Patient has previously had [facility]. Disposition Plan: Patient to discharge home with family support and follow-up plans in place. Brenda CABRERA, RN, CM
[2020-12-03] MEDS: Insulin Lispro 100 UNIT/ML INSULN.PEN SC (11:06)
[2020-12-03 11:20] LABS: Bedside Glucose 219 mg/dL (70-110)
--- NOTE | 2020-12-05 16:30 | CASEMGMT ---
NATACHA MCMANUS Discharge Follow-up Phone Call: BERNARD: Teddy Strata: 3 Call Date: 12/05/20 Discharge Date: 12/03/20 Time of Call:[id number] Admitting Diagnosis: Afib RVR This RN CM contacted pt for discharge follow-up. Pt's answered and stated pt was in the garage doing out there but he thinks he needs to do. Pt's reports that pt has not had any complaints of SOB, palpitations, or chest pain since discharge and states pt would tell her if happened. Pt's states they obtained the prescriptions and he is taking as directed. Pt's aware of anticoagulant effects and decrease dosage of pt's thyroid medication. Pt's states pt will be following up with Dr. Irizarry's office on Saturday and the PCP on . Pt's denies any questions regarding the discharge instructions or medications. Carrie Arroyo RN CM
== END 2020-12-03 15:25 | disposition home or self-care (01) | DRG 309 ==
LOC: ED 10:42 → PCU 11:48
PROVIDERS: Admitting Provider Internal Medicine; Emergency Provider Emergency Medicine; PCP Family Medicine; Visit Provider Internal Medicine
DX: I48.91 Unspecified atrial fibrillation (principal); I13.0 Hypertensive heart and chronic kidney disease with heart failure and stage 1 through stage 4 chronic kidney disease, or unspecified chronic kidney disease; I50.22 Chronic systolic (congestive) heart failure; Z20.822 Contact with and (suspected) exposure to COVID-19; E05.90 Thyrotoxicosis, unspecified without thyrotoxic crisis or storm; I25.5 Ischemic cardiomyopathy; I25.10 Atherosclerotic heart disease of native coronary artery without angina pectoris; E11.22 Type 2 diabetes mellitus with diabetic chronic kidney disease; N18.9 Chronic kidney disease, unspecified; E11.51 Type 2 diabetes mellitus with diabetic peripheral angiopathy without gangrene; E78.2 Mixed hyperlipidemia; E03.9 Hypothyroidism, unspecified; Z79.890 Hormone replacement therapy; Z79.01 Long term (current) use of anticoagulants; Z79.82 Long term (current) use of aspirin; Z79.4 Long term (current) use of insulin; Z79.899 Other long term (current) drug therapy; I25.2 Old myocardial infarction; Z87.891 Personal history of nicotine dependence; Z95.1 Presence of aortocoronary bypass graft
CPT/HCPCS: 36415; 71045; 80053; 82962; 84443; 84484; 85025; 87426; 93005; 99284; J7040

== ENCOUNTER 2021-06-12 10:20 | Outpatient (CLI) | payer MEDICARE, OTHER, SELFPAY ==
--- NOTE | 2021-06-12 10:25 | US_ITS ---
PROCEDURE: ULTRASOUND GUIDED THORACENTESIS. DATE: 06/12/2021. INDICATION: Male, 81 years old. Left pleural effusion. PHYSICIAN: Gabino Krishnamurthy M.D. PROCEDURE: The risks, benefits, and alternatives to the procedure were explained to the patient. The specific risks of bleeding, infection, and pneumothorax requiring chest tube insertion were discussed and accepted. Written informed consent was obtained. Ultrasonographic evaluation of the left lower pleural space was carried out. An adequate pocket was identified. The patient was placed in the sitting, upright position. The overlying skin was prepped and draped in sterile fashion. 1% lidocaine was administered subcutaneously for local anesthesia. Under ultrasound guidance, a 5 Hungarian thoracentesis needle/catheter system was advanced into the left posterior lower pleural fluid collection. Approximately 750 mL of beena-colored fluid was drained. The catheter was removed, and a sterile dressing was applied. The patient tolerated the procedure well. A chest x-ray was ordered. US/Thoracentesis W US IMPRESSION: Ultrasound-guided left thoracentesis. Electronically Signed: Gabino Krishnamurthy MD at 11:55 EDT ,
[2021-06-12 10:34] VITALS: BP 101/43; BP 101/56; BP 106/44; BP 81/42; PULSE 65; PULSE 73; PULSE 78; PULSE 79; RESP 18; TEMP 36.3; TEMP 36.4; O2SAT 100; O2SAT 99
[2021-06-12] MEDS: Lidocaine 2% (20 ml mdv) 20 ML Vial INFILT (10:42)
--- NOTE | 2021-06-12 10:45 | RAD_ITS ---
STUDY: X-RAY CHEST REASON FOR EXAM: Male, 81 years old. Pneumothorax-immediately post-thoracentesis TECHNIQUE: AP inspiration and expiration views. COMPARISON: Comparison is made with prior study dated 12/02/2020. FINDINGS: The patient is status post left thoracentesis. There is a small loculated pneumothorax at the left lung base. The patient is asymptomatic. RAD/Chest Insp/Exp 2 View IMPRESSION: Status post left thoracentesis. Small loculated left basilar pneumothorax. The patient is asymptomatic. Electronically Signed: Gabino Krishnamurthy MD at 11:50 EDT ,
== END 2021-06-12 23:59 | disposition home or self-care (01) ==
LOC: US 10:22
PROVIDERS: PCP Family Medicine; Referring Provider Physician Assistant; Visit Provider Physician Assistant
DX: J90 Pleural effusion, not elsewhere classified (principal); R06.09 Other forms of dyspnea; J95.811 Postprocedural pneumothorax
CPT/HCPCS: 32555; 71046

== ENCOUNTER 2021-06-19 15:54 | Outpatient (CLI) | payer MEDICARE, OTHER, SELFPAY ==
--- NOTE | 2021-06-19 15:56 | RAD_ITS ---
ACR Level 3 findings have been noted. An addendum which confirms receipt of the report will follow. INDICATION: iglesias EXAMINATION/TECHNIQUE: X-RAY - XR Chest 2 Views COMPARISON: 06/12/2021. FINDINGS: LUNGS: Patchy opacities in the lung bases increased compared to the most recent chest x-ray. Left pneumothorax with loculated component at the left lung base is decreased compared to the prior study, likely with a small pleural effusion component which is new. There is a smaller component of the left pneumothorax about the left apex. Difficult to measure but this is likely less than 10% volume. Small right pleural effusion is new. MEDIASTINUM: Unremarkable. CARDIAC SILHOUETTE: Not enlarged. Sternal wires. BONES AND SOFT TISSUES: No acute abnormalities. IMPRESSION: Left pneumothorax/hydropneumothorax is persistent but decreased compared to the prior chest x-ray from 06/12/2021. New/increased basilar opacities and small right pleural effusion possible pneumonia. Electronically Signed: Lizette Boykin MD at 6:12 EDT , RAD/Chest PA and Lateral
[2021-06-19 17:01] LABS: Absolute Lymphocyte Count 1.57 X10^3/uL (0.83-4.51); Absolute Neutrophil Count 4.4 X10^3/uL (2.0-7.7); Basophil# 0.02 X10^3/uL; Basophil% 0.3 % (0-1); Eosinophil# 0.08 X10^3/uL; Eosinophils% 1.2 % (0-5); Hemoglobin 11.3 g/dL (13.0-16.5); Lymphocyte # 1.57 X10^3/ul (0.83-4.51); Lymphocyte % 23.7 % (19-41); Mean Corp Hgb Conc 33.2 g/dL (32-36); Mean Corpuscular Hgb 32.9 pg (27.0-32.0); Mean Corpuscular Volume 99.1 fL (80-94); Mean Platelet Vol. 9.1 fl (6.2-12.0); Monocyte# 0.56 X10^3/uL; Monocyte% 8.5 % (0-10); NRBC Flagged by Analyzer 0 % (0-5); Neutrophil # 4.37 X10^3/uL (2.7-7.7); Platelet Count 296 K/mm3 (150-450); RBC Distribution Width CV 12.9 % (11.6-14.6); RBC Distribution Width SD 47.1 fl (35.1-43.9); Red Blood Count 3.43 M/mm3 (4.6-6.2); White Blood Count 6.6 K/mm3 (4.4-11.0)
[2021-06-19 17:31] LABS: BNP,B-Type NATRIURETIC PEPTIDE 1088.1 pg/mL (0-100)
[2021-06-19 17:33] LABS: Anion Gap 4 (5-15); BUN 18 mg/dL (7-18); BUN/Creat Ratio 15.4 RATIO (10-20); Calcium,Total 8.9 mg/dL (8.5-10.1); Chloride 103 mmol/L (98-107); Creatinine, Serum 1.17 mg/dL (0.70-1.30); EST Glomerular Filtration Rate 64 mL/min (>60); Est Glom Filt Rate - Afr Amer 77 mL/min (>60); Glucose 147 mg/dL (74-106); Potassium 3.9 mmol/L (3.5-5.1); Sodium Level 137 mmol/L (136-145)
== END 2021-06-19 23:59 | disposition home or self-care (01) ==
PROVIDERS: PCP Family Medicine; Referring Provider Physician Assistant Medical; Visit Provider Physician Assistant Medical
DX: I50.22 Chronic systolic (congestive) heart failure (principal); J90 Pleural effusion, not elsewhere classified; R06.00 Dyspnea, unspecified; E78.2 Mixed hyperlipidemia
CPT/HCPCS: 36415; 71046; 80048; 83880; 85025

== ENCOUNTER → 2021-07-19 | Outpatient (CLI) | payer MEDICARE, OTHER, SELFPAY ==
--- NOTE | 2021-07-19 10:42 | ECHOCS_ITS ---
Reason For Study: Dyspnea/SOB Procedure This was a 2D Doppler, Color Flow transthoracic echocardiogram. The study was technically difficult. Contrast injection was performed. Exam performed in department. Left Ventricle Normal LV size. The estimated ejection fraction is 35 %. Stage 3 diastolic dysfunction. There are regional wall motion abnormalities as specified. Dunlap : Severely Hypokinetic. Basal anteroseptal: Normal. Lateral-Basal: Normal. The rest of the wall segments are hypokinetic. Right Ventricle Normal RV size. Normal systolic function. Atria The left atrium is mildly enlarged. Normal right atrium. Mitral Valve Normal mitral valve. Moderate (2+) eccentric mitral valve insufficiency. Tricuspid Valve Normal tricuspid valve. Mild to moderate (1-2+) tricuspid valve insufficiency. Pulmonary artery systolic pressure is 52 mmHg. Aortic Valve Trisinus/trileaflet aortic valve. Pulmonic Valve The pulmonic valve is not well visualized. Great Vessels Normal aortic root. The pulmonary artery is normal size. Normal inferior vena cava. Pericardium/Pleural No pericardial effusion. Medication 22 gauge I.V. with prn adaptor inserted into right arm. Diluted definity 2ml given slow IV push to enhance endocardial definition. MMode/2D Measurements & Calculations LVIDd: 5.2 cm IVSd: 1.4 cm LA dimension: 4.6 cm LVIDs: 4.6 cm LVPWd: 0.98 cm RVDd: 4.4 cm FS: 10.7 % LAV(MOD-bp): 77.4 ml Aortic Valve Planimetry: 1.8 cm2 LA A4 area: 22.5 cm2 LAV(MOD-bp) Indexed: 40.4 ml/m2 LAV(MOD-sp2): 80.1 ml LAV(MOD-sp4): 71.2 ml RA A4 area: 15.4 cm2 Time Measurements MV dec time: 0.19 sec Doppler Measurements & Calculations MV E max lc: 155.9 cm/sec Lat Peak E' Lc: 6.5 cm/sec Med Peak E' Lc: 4.6 cm/sec MV A max lc: 70.4 cm/sec E/E' lat: 24.2 E/E' med: 33.5 MV E/A: 2.2 MV V2 max: 147.5 cm/sec MV P1/2t max lc: 147.5 cm/sec Ao V2 max: 193.5 cm/sec MV max P.7 mmHg MV P1/2t: 61.2 msec Ao max P.0 mmHg MV V2 mean: 77.7 cm/sec MV dec slope: 705.8 cm/sec2 Ao V2 mean: 138.5 cm/sec MV mean P.0 mmHg Ao mean P.6 mmHg MV V2 VTI: 28.7 cm MVA(P1/2t): 3.6 cm2 Ao V2 VTI: 38.8 cm LV V1 max: 60.7 cm/sec MR max lc: 459.8 cm/sec PA V2 max: 77.6 cm/sec LV V1 max P.5 mmHg MR max P.6 mmHg LV V1 mean P.79 mmHg MR mean lc: 312.1 cm/sec LV V1 mean: 41.5 cm/sec MR mean P.7 mmHg LV V1 VTI: 10.8 cm MR VTI: 131.2 cm TR max lc: 349.9 cm/sec TR max P.0 mmHg ECHO/Echo Complete W/ Contrast Interpretation Summary Normal LV size. The estimated ejection fraction is 35 %. Pulmonary artery systolic pressure is 52 mmHg. Stage 3 diastolic dysfunction. Contrast injection was performed. Ordering Physician: Kimberly Rangel Referring Physician: Lance Rosa Performed By: Derian Conde RCS
== END | disposition home or self-care (01) ==
LOC: CVS 10:41
PROVIDERS: PCP Family Medicine; Visit Provider Physician Assistant Medical
DX: R06.02 Shortness of breath (principal)
CPT/HCPCS: 93306; Q9957; A4216; C8929

== ENCOUNTER 2021-09-08 11:39 | Inpatient (IN) | payer MEDICARE, OTHER, SELFPAY ==
[2021-09-08] VITALS (8 sets, daily range): BP systolic 97–110; BP diastolic 56–63; PULSE 75–87; RESP 16–18; TEMP 35.6–36.7; O2SAT 95–99; BMI 25.2; BMI 25.4
--- NOTE | 2021-09-08 11:58 | RAD_ITS ---
STUDY: X-RAY CHEST REASON FOR EXAM: Male, 81 years old. sob TECHNIQUE: 1 view COMPARISON: 06/19/2021 FINDINGS: Please see the impression. RAD/Chest 1 View (Portable) IMPRESSION: Interval decrease in right-sided pleural effusion Slight interval worsening in left-sided pleural effusion and left lower lung airspace opacities. Interval development of multifocal patchy opacities in the bilateral upper right lower lungs, due to aspiration or multifocal pneumonia. ARDS cannot be excluded. Multiple clinically. No pneumothorax. Trachea midline. Status post median sternotomy. Electronically Signed: Luis Alberto Jama MD at 12:41 EDT ,
--- NOTE | 2021-09-08 11:58 | EKG12_ITS ---
Test Reason : AB LAB Blood Pressure : / mmHG Vent. Rate : 076 BPM Atrial Rate : 076 BPM P-R Int : 174 ms QRS Dur : 162 ms QT Int : 456 ms P-R-T Axes : 056 -45 136 degrees QTc Int : 513 ms Normal sinus rhythm Left axis deviation Left bundle branch block Abnormal ECG Confirmed by OVIDIO CABRAL, ANTONIETA ([id number]), newspaper editor managing MIKE FUNES ([id number]) on 09/12/2021 8:02:46 AM Referred By: HARLEEN Confirmed By:ANTONIETA NOLAN MD
--- NOTE | 2021-09-08 12:22 | EDS_ITS ---
HPI History of Present Illness Chief Complaint: Abn Labs Narrative Narrative: Patient presents with change in his urine. He also has chronic dyspnea and orthopnea, apparently he got a call from his PCP and [facility] who said his renal function may be worsening and his natruretic peptide is elevated. He has no fevers or chills. He has lower extremity edema which is also chronic. 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 Carotid disease, bilateral Chronic HFrEF (heart failure with reduced ejection fraction) Essential (primary) hypertension Former smoker Healthcare-associated pneumonia History of non-ST elevation myocardial infarction (NSTEMI) (07/23/20) Hypokalemia Hyponatremia Hypothyroidism Ischemic cardiomyopathy Left bundle branch block (LBBB) Macrocytic anemia Mixed hyperlipidemia PAD (peripheral artery disease) Physical debility Pleural effusion, bilateral Pneumonia Postoperative atrial fibrillation (07/30/20) Renal insufficiency Stage II decubitus ulcer Synovial cyst of popliteal space [Andre], left knee Type 2 diabetes mellitus Home Medications multivitamin,pv-cgyv-Xl-FA-min 1 tab PO DINNER supplement 08/04/20 [History Last Taken 12/01/20] acetaminophen 325 mg tablet (Tylenol) 650 mg PO Q6H PRN PRN PAIN 1-10 #1 TAB 08/15/20 [Rx Last Taken Unknown] atorvastatin 80 mg tablet 80 mg PO QHS #30 tabs 08/15/20 [Rx Last Taken 12/01/20] sennosides 8.6 mg-docusate sodium 50 mg tablet (Stool Softener-Stimulant Laxative) 2 tab PO BID #120 tabs 08/15/20 [Rx Last Taken 12/01/20] ferrous sulfate 325 mg (65 mg iron) tablet 325 mg PO DINNER supplement 11/11/20 [History Last Taken 12/01/20] insulin detemir U-100 100 unit/mL (3 mL) subcutaneous pen (Levemir FlexTouch U- 100 Insulin) 17 unit subcut QHS diabetes 11/11/20 [History Last Taken 12/01/20] insulin aspart U-100 100 unit/mL (3 mL) subcutaneous pen (Novolog Flexpen U-100 Insulin aspart) 2 unit subcut DINNER diabetes 12/02/20 [History Last Taken 12/01/20] insulin aspart U-100 100 unit/mL (3 mL) subcutaneous pen (Novolog Flexpen U-100 Insulin aspart) 2 unit subcut LUNCH diabetes 12/02/20 [History Last Taken 12/01/20] insulin aspart U-100 100 unit/mL (3 mL) subcutaneous pen (Novolog Flexpen U-100 Insulin aspart) 4 unit subcut BREAKFAST diabetes 12/02/20 [History Last Taken 12/01/20] levothyroxine 100 mcg tablet 100 mcg PO DAILY #30 tabs 12/03/20 [Rx Last Taken Unknown] aspirin 81 mg tablet,delayed release (Adult Aspirin Regimen) 81 mg PO DAILY 12/07/20 [History Last Taken Unknown] furosemide 20 mg tablet 40 mg PO DAILY 12/07/20 [History Last Taken Unknown] potassium chloride 20 mEq tablet,extended release 20 meq PO DAILY 03/08/21 [History Last Taken Unknown] metoprolol tartrate 25 mg tablet 12.5 mg PO BID #90 tabs 03/15/21 [Rx Last Taken Unknown] Allergy/AdvReac Type Severity Reaction Status Date / Time naproxen [From Naprosyn] Allergy Other Verified 09/08/21 11:44 venom-honey bee Allergy Anaphylaxis Verified 09/08/21 11:44 Family History Mother Diabetes Heart disease Father Heart disease Surgical History H/O coronary artery bypass surgery (07/28/20) History of appendectomy History of colonoscopy History of cystoscopy (11/10/20) History of left heart catheterization (07/25/20) History of thoracentesis (08/31/20) Social History Smoking Status: Former smoker Tobacco: How many years used: 17 how long ago did patient quit smokin years ago alcohol intake: never substance use type: does not use ROS ROS ED ROS Narrative Past medical history: Reviewed in [facility] Medications: Reviewed in [facility] Social history: Noncontributory Review of systems: All systems negative except as indicated General: No fever Eyes: No visual changes ENT: No upper airway congestion, normal voice Neck: No neck pain Cardiovascular: No chest pain Respiratory: No shortness of breath or cough Gastrointestinal: No abdominal pain, nausea vomiting or diarrhea Genitourinary: No dysuria. Darkened urine Musculoskeletal: Lower extremity edema Skin: No rash Neurological: No memory loss, confusion or any focal weakness Psych: No recent behavioral changes Hematologic: No easy bleeding or easy bruising EXAM Physical Exam Narrative Exam Narrative: Physical exam General: Patient appears chronically ill but he does not appear in any distress. He is quite comfortable in the bed. Head: Normocephalic, Atraumatic Eyes: Conjunctiva not pale ENT: Moist mucous membranes, no signs of dehydration Neck: Supple, Nontender, No lymphadenopathy Cardiovascular: Regular rate, Regular rhythm, I cannot appreciate a murmur. Normal S1 and S2 I cannot appreciate an S3 or S4 sound. Respiratory: No distress, some coarse breath sounds bilaterally but no wheezing. He is not tachypneic and speaking in full sentences. Abdomen: Soft, Nontender, Nondistended Back: Nontender, Normal Inspection. Negative for: CVA tenderness Extremities: Nontender, bilateral symmetric lower extremity edema. Skin: Normal color, No rash Neurological: Alert, Normal Strength, Normal Sensation Psychological: Normal affect Const Vital Signs: 09/08/21 11:41 09/08/21 11:51 Temperature 96.0 F L Temperature Source Temporal Pulse Rate 75 Respiratory Rate 16 Respiratory Pattern Normal Blood Pressure 105/56 L Blood Pressure Mean 72 Pulse Ox 99 Oxygen Delivery Method Room Air MDM MDM MDM Narrative Medical decision making narrative: Patient's x-ray seems to be worse than before natruretic peptide is worse as well as edema and other markers and creatinine. This could be cardiorenal syndrome, will give Lasix I will call the hospitalist for admission. Lab Data Labs: Laboratory Results - last 24 hr 09/08/21 09/08/21 09/08/21 12:10 12:10 12:10 WBC 6.1 RBC 2.93 L Hgb 9.2 L Hct 28.2 L MCV 96.2 H MCH 31.4 MCHC 32.6 RDW Std Deviation 57.2 H RDW Coeff of Chip 16.5 H Plt Count 467 H MPV 9.3 Immature Gran % (Auto) 0.500 Neut % (Auto) 77.8 H Lymph % (Auto) 10.9 L Young % (Auto) 9.3 Eos % (Auto) 1.0 Baso % (Auto) 0.5 Absolute Neuts (auto) 4.8 Absolute Lymphs (auto) 0.67 L Nucleated RBC % 0 PT 19.5 H INR 1.7 Sodium 131 L Potassium 4.5 Chloride 96 L Carbon Dioxide 27.0 Anion Gap 8 BUN 62 H Creatinine 2.30 H Estim Creat Clear Calc 23.95 Est GFR (MDRD) Af Amer 35 L Est GFR (MDRD) Non-Af 29 L BUN/Creatinine Ratio 27.0 H Glucose 119 H Calcium 8.7 Total Bilirubin 1.60 H Direct Bilirubin 0.70 H AST 169 H ALT 103 H Alkaline Phosphatase 287 H B-Natriuretic Peptide Total Protein 7.3 Albumin 2.5 L Globulin 4.8 H Lipase 217 Urine Color Urine Clarity Urine pH Ur Specific [place] Urine Protein Urine Glucose (UA) Urine Ketones Urine Occult Blood Urine Nitrite Urine Bilirubin Urine Urobilinogen Ur Leukocyte Esterase Urine RBC Urine WBC Ur Squamous Epith Cells Urine Bacteria Urine Mucus 09/08/21 09/08/21 12:10 12:20 WBC RBC Hgb Hct MCV MCH MCHC RDW Std Deviation RDW Coeff of Chip Plt Count MPV Immature Gran % (Auto) Neut % (Auto) Lymph % (Auto) Young % (Auto) Eos % (Auto) Baso % (Auto) Absolute Neuts (auto) Absolute Lymphs (auto) Nucleated RBC % PT INR Sodium Potassium Chloride Carbon Dioxide Anion Gap BUN Creatinine Estim Creat Clear Calc Est GFR (MDRD) Af Amer Est GFR (MDRD) Non-Af BUN/Creatinine Ratio Glucose Calcium Total Bilirubin Direct Bilirubin AST ALT Alkaline Phosphatase B-Natriuretic Peptide 2930.7 H Total Protein Albumin Globulin Lipase Urine Color Yellow Urine Clarity Clear Urine pH 7.0 Ur Specific [place] 1.010 Urine Protein Negative Urine Glucose (UA) Normal Urine Ketones Negative Urine Occult Blood 250 H Urine Nitrite Negative Urine Bilirubin Negative Urine Urobilinogen Normal Ur Leukocyte Esterase Negative Urine RBC 10-25 SEEN Urine WBC 0 SEEN Ur Squamous Epith Cells 0-5 SEEN Urine Bacteria 0 SEEN Urine Mucus 0 SEEN Radiography Diagnostic Testing: Clinical Impression(s) from Imaging Studies Chest X-Ray 09/08/21 11:58 IMPRESSION: Interval decrease in right-sided pleural effusion Slight interval worsening in left-sided pleural effusion and left lower lung airspace opacities. Interval development of multifocal patchy opacities in the bilateral upper right lower lungs, due to aspiration or multifocal pneumonia. ARDS cannot be excluded. Multiple clinically. No pneumothorax. Trachea midline. Status post median sternotomy. Electronically Signed: Luis Alberto Jama MD at 12:41 EDT , X-ray read by me and radiologist shows worsening of the pleural effusion as well as increased CHF, radiologist thinks there could be an ARDS picture however clinically the patient has CHF and not ARDS. EKG Initial EKG: Comments: Sinus rhythm with a rate of 76. Normal UT interval. QTC is slightly elevated at 513. There is a left bundle branch block. Otherwise unremarkable EKG Interpreted by emergency doctor. Critical Care Time Critical Care Time: Yes Critical care time (excluding procedures): 30-74 minutes and - (Critical care time of 35 minutes. I attest that I spent 35 minutes of critical care time with the patient. This includes documenting, time at the bedside, time discussing with consultants, the patient has CHF as well as acute kidney injury and complex decision making was used in the treatment of t) Discharge Plan Triage Chief Complaint: Abn Labs ED Provider: Sven Barry Dx/Rx/DC Orders Clinical Impression: Acute kidney injury, Acute exacerbation of CHF (congestive heart failure) Prescriptions: No Action furosemide 20 mg tablet 40 mg PO DAILY Label Comments: TAKE 1 TABLET BY MOUTH DAILY aspirin [Adult Aspirin Regimen] 81 mg tablet,delayed release (DR/EC) 81 mg PO DAILY potassium chloride 20 mEq tablet extended release 20 meq PO DAILY multivitamin,dv-ulzg-Iy-FA-min Tablet 1 tab PO DINNER acetaminophen [Tylenol] 325 mg Tablet 650 mg PO Q6H PRN PRN (Reason: PAIN 1-10) Qty: 1 0RF sennosides-docusate sodium [Stool Softener-Stimulant Laxat] 8.6-50 mg Tablet 2 tab PO BID Qty: 120 0RF atorvastatin 80 mg Tablet 80 mg PO QHS Qty: 30 0RF ferrous sulfate 325 mg (65 mg iron) Tablet 325 mg PO DINNER Levemir FlexTouch U-100 Insuln 100 unit/mL (3 mL) insulin pen 17 unit SUBCUT QHS Label Comments: Inject 18 Units subcutaneously daily at bedtime. insulin aspart U-100 [Novolog Flexpen U-100 Insulin] 100 unit/mL (3 mL) Insulin Pen 4 unit SUBCUT BREAKFAST Rx Instructions: Only if blood sugar is >100 insulin aspart U-100 [Novolog Flexpen U-100 Insulin] 100 unit/mL (3 mL) Insulin Pen 2 unit SUBCUT LUNCH Rx Instructions: Only if blood sugar is >100 insulin aspart U-100 [Novolog Flexpen U-100 Insulin] 100 unit/mL (3 mL) Insulin Pen 2 unit SUBCUT DINNER Rx Instructions: Only if blood sugar is >100 levothyroxine 100 mcg tablet 100 mcg PO DAILY Qty: 30 0RF metoprolol tartrate 25 mg tablet 12.5 mg PO BID Qty: 90 3RF Primary Care Provider: Lance Rosa Referrals: Lance Rosa MD [Primary Care Provider] - Disposition Disposition: Acute Care Hospital [facility]
[2021-09-08 12:33] LABS: Absolute Lymphocyte Count 0.67 X10^3/uL (0.83-4.51); Absolute Neutrophil Count 4.8 X10^3/uL (2.0-7.7); Basophil# 0.03 X10^3/uL; Basophil% 0.5 % (0-1); Eosinophil# 0.06 X10^3/uL; Hematocrit 28.2 % (40-54); Hemoglobin 9.2 g/dL (13.0-16.5); Lymphocyte # 0.67 X10^3/ul (0.83-4.51); Lymphocyte % 10.9 % (19-41); Mean Corp Hgb Conc 32.6 g/dL (32-36); Mean Corpuscular Hgb 31.4 pg (27.0-32.0); Mean Corpuscular Volume 96.2 fL (80-94); Mean Platelet Vol. 9.3 fl (6.2-12.0); Monocyte# 0.57 X10^3/uL; Monocyte% 9.3 % (0-10); NRBC Flagged by Analyzer 0 % (0-5); Neutrophil # 4.76 X10^3/uL (2.7-7.7); Neutrophil % 77.8 % (47-70); Platelet Count 467 K/mm3 (150-450); RBC Distribution Width CV 16.5 % (11.6-14.6); RBC Distribution Width SD 57.2 fl (35.1-43.9); Red Blood Count 2.93 M/mm3 (4.6-6.2); White Blood Count 6.1 K/mm3 (4.4-11.0)
[2021-09-08 12:41] LABS: International Normalized Ratio 1.7; Prothrombin Time (Protime)PT. 19.5 SECONDS (11.7-14.9)
[2021-09-08 12:43] LABS: Bacteria 0 SEEN /hpf (None Seen); Color, Urine Yellow (Yellow); Glucose, Dipstick Normal (Normal); Ketone-Dipstick Negative (Negative); Leukocyte Esterase-Dipstick Negative /ul (Negative); Mucous, Urine 0 SEEN /hpf (<or=2+); Nitrite-Dipstick Negative (Negative); Occult Blood-Urine 250 /ul (Negative); Protein-Dipstick Negative (Negative); Urine Bilirubin Dipstick Negative (Negative); Urine Clarity Clear (Clear); Urine Urobilinogen Normal (Normal); White Blood Cells 0 SEEN /hpf (0-5)
[2021-09-08 12:45] LABS: AST(SGOT) 169 U/L (15-37); Alanine Aminotransfer ALT/SGPT 103 U/L (16-61); Albumin, Serum 2.5 g/dL (3.2-5.0); Alkaline Phosphatase 287 U/L (45-117); Anion Gap 8 (5-15); BUN 62 mg/dL (7-18); Calcium,Total 8.7 mg/dL (8.5-10.1); Chloride 96 mmol/L (98-107); EST Glomerular Filtration Rate 29 mL/min (>60); Est Glom Filt Rate - Afr Amer 35 mL/min (>60); Estimated Creatinine Clearance 23.95 ml/min; Globulin 4.8 g/dL (2.2-4.2); Glucose 119 mg/dL (74-106); Lipase 217 U/L (73-393); Potassium 4.5 mmol/L (3.5-5.1); Protein, Total 7.3 g/dL (6.4-8.2); Sodium Level 131 mmol/L (136-145)
[2021-09-08 12:53] LABS: Red Blood Cells-Urine 10-25 SEEN /hpf (0-5); Squamous Epithelial Cells - UA 0-5 SEEN /hpf (0-5)
[2021-09-08] MEDS: Furosemide 40 MG/4 ML Vial IV ×2 (13:27→18:34)
--- NOTE | 2021-09-08 13:28 | PCM.HP.STD ---
HPI - General General Date of Admission: 09/08/21 Date of Service: 09/08/21 Chief Complaint: Progressive leg swelling, SOB - 2 weeks HPI Narrative ANTONIETA OSMAN, is a 81 M who presents with the above. Patient had recent thoracic surgery in the [facility] and was there from the 09 of August to 25 August. During this hospital stay, according to the , patient developed A. fib requiring cardioversion, ICU stay post thoracic surgery. Patient was found to be weak in the hospital. He started having leg swelling. Since being at home, he has been progressively weak, short of breath, he has been walking. Sleeps with 1 pillow, admits to PND. He however stated he has been losing weight instead of gaining weight. He denied any fever or chills or chest pain or palpitation. In the ED his blood pressure was 105/56, heart rate 75, respiratory 16, SPO2 99%, temperature 96.0 F. WBC count is 6.1, hemoglobin 9.2, platelet count 467, INR is 1.7, sodium 131, potassium 4.5, chloride 96, bicarb 27, BUN 62, creatinine 2.30, total bili 1.6, WBC 3.7, AST 169, ALT 103, ALP 287, BNP appears 2930.7. UA is unremarkable. Chest x-ray shows an interval decrease in right pleural effusion, slightly interval worsening left pleural effusion left lower lung airspace opacities, interval development of multifocal patchy opacities in the bilateral upper right and lower lungs. 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 Bladder mass Carotid disease, bilateral Chronic HFrEF (heart failure with reduced ejection fraction) Congestive heart failure (CHF) Essential (primary) hypertension Former smoker Healthcare-associated pneumonia History of non-ST elevation myocardial infarction (NSTEMI) (07/23/20) Hypokalemia Hyponatremia Hypothyroidism Hypothyroidism Ischemic cardiomyopathy Left bundle branch block (LBBB) Macrocytic anemia Mixed hyperlipidemia PAD (peripheral artery disease) Physical debility Pleural effusion, bilateral Pneumonia Postoperative atrial fibrillation (07/30/20) Renal insufficiency Stage II decubitus ulcer Synovial cyst of popliteal space [Andre], left knee Type 2 diabetes mellitus Home Medications acetaminophen 325 mg tablet (Tylenol) 650 mg PO Q6H PRN PRN PAIN 1-10 #1 TAB 08/15/20 [Rx Last Taken 09/07/21] sennosides 8.6 mg-docusate sodium 50 mg tablet (Stool Softener-Stimulant Laxative) 2 tab PO BID #120 tabs 08/15/20 [Rx Last Taken 2 Days Ago ~09/06/21] ferrous sulfate 325 mg (65 mg iron) tablet 325 mg PO LUNCH supplement 11/11/20 [History Last Taken 09/07/21] insulin detemir U-100 100 unit/mL (3 mL) subcutaneous pen (Levemir FlexTouch U-100 Insulin) 5 unit subcut QHS diabetes 11/11/20 [History Last Taken 09/07/21] insulin aspart U-100 100 unit/mL (3 mL) subcutaneous pen (Novolog Flexpen U-100 Insulin aspart) 2 unit subcut BREAKFAST diabetes 12/02/20 [History Last Taken 09/07/21] insulin aspart U-100 100 unit/mL (3 mL) subcutaneous pen (Novolog Flexpen U-100 Insulin aspart) 2 unit subcut DINNER diabetes 12/02/20 [History Last Taken 09/07/21] insulin aspart U-100 100 unit/mL (3 mL) subcutaneous pen (Novolog Flexpen U-100 Insulin aspart) 2 unit subcut LUNCH diabetes 12/02/20 [History Last Taken 09/07/21] levothyroxine 100 mcg tablet 100 mcg PO DAILY #30 tabs 12/03/20 [Rx Last Taken 09/08/21] aspirin 81 mg tablet,delayed release (Adult Aspirin Regimen) 81 mg PO LUNCH HEART 12/07/20 [History Last Taken 09/07/21] potassium chloride 20 mEq tablet,extended release 20 meq PO DAILY SUPPLEMENT 03/08/21 [History Last Taken 09/07/21] amiodarone 200 mg tablet 200 tab PO DAILY HEART 09/08/21 [History Last Taken 09/08/21] apixaban 2.5 mg tablet (Eliquis) 2.5 mg PO BID BLOOD THINNER 09/08/21 [History Last Taken 09/07/21] atorvastatin 80 mg tablet 80 mg PO QHS CHOLESTROL 09/08/21 [History Last Taken 09/07/21] multivitamin with minerals 1 tab PO LUNCH SUPPLEMENT 09/08/21 [History Last Taken 09/07/21] pantoprazole 40 mg tablet,delayed release 40 mg PO DAILY@0600 GERD 09/08/21 [History Last Taken 09/08/21] phenylephrine HCl 0.25 % nasal spray (Tomas-Synephrine (phenylephrine)) 1 spray intranasal DAILY PRN NOSE BLEEDS 09/08/21 [History Last Taken 09/07/21] torsemide 20 mg tablet 40 mg PO DAILY CHF 09/08/21 [History Last Taken 09/08/21] Allergy/AdvReac Type Severity Reaction Status Date / Time naproxen [From Naprosyn] Allergy Other Verified 09/08/21 11:44 venom-honey bee Allergy Anaphylaxis Verified 09/08/21 11:44 Family History Mother Diabetes Heart disease Father Heart disease Surgical History H/O coronary artery bypass surgery (07/28/20) History of appendectomy History of colonoscopy History of cystoscopy (11/10/20) History of left heart catheterization (07/25/20) History of thoracentesis (08/31/20) Social History Smoking Status: Former smoker Tobacco: How many years used: 17 how long ago did patient quit smokin years ago alcohol intake: never substance use type: does not use ROS ROS Narrative Constitutional: Reports: Weakness, Fatigue. Denies: Anorexia, Chills, Fever, Night Sweats, Weight Change Eyes: Denies: Blurred vision, Cataracts, Conjunctivae Inflammation, Pain, Redness, Vision Change HEENT: Denies: Difficulty Hearing, Difficulty Swallowing, Head Aches, Hearing Changes, Sinus Congestion, Sinus Drainage Cardiovascular: See HPI Respiratory: Denies: Cough, Shortness of breath at rest, Sputum production Gastrointestinal: Denies: Abdominal Pain, Nausea, Vomiting Genitourinary: Denies: Dysuria Musculoskeletal: Denies: Joint Pain, Joint stiffness, Joint swelling, Joint Tenderness Skin: Denies: Rash, Wounds Neurological: Denies: Numbness, Tingling, Focal weakness Vital Signs Vital Signs Vital Signs: 09/08/21 11:41 09/08/21 11:51 Temperature 96.0 F L Temperature Source Temporal Pulse Rate 75 Respiratory Rate 16 Respiratory Pattern Normal Blood Pressure 105/56 L Blood Pressure Mean 72 Pulse Ox 99 Oxygen Delivery Method Room Air Weight Weight: 73.028 kg Body Mass Index (BMI) 25.2 Physical Exam Narrative Physical exam: General: Alert, Oriented x3, Cooperative, appears very frail HEENT: Atraumatic Oral: Moist Mucosa Neck: Supple Lungs: Diminished to auscultation, midsternal scar, left lower chest scar and stitches inside of Cardiovascular: HS I+II, regular, no murmurs Abdomen: Bowel Sounds Present, Soft, Non Tender Extremities: Bilateral leg edema +3 to +4 worse at the ankles Skin: No rashes, No breakdown Neurological: Grossly intact Psych/Mental Status: Appropriate Results Lab / Micro Data Result Diagrams: 09/08/21 12:10 09/08/21 12:10 Labs: Laboratory Results - last 24 hr 09/08/21 12:10: WBC 6.1, RBC 2.93 L, Hgb 9.2 L, Hct 28.2 L, MCV 96.2 H, MCH 31.4, MCHC 32.6, RDW Std Deviation 57.2 H, RDW Coeff of Chip 16.5 H, Plt Count 467 H, MPV 9.3, Immature Gran % (Auto) 0.500, Neut % (Auto) 77.8 H, Lymph % (Auto) 10.9 L, [place] % (Auto) 9.3, Eos % (Auto) 1.0, Baso % (Auto) 0.5, Absolute Neuts (auto) 4.8, Absolute Lymphs (auto) 0.67 L, Nucleated RBC % 0 09/08/21 12:10: PT 19.5 H, INR 1.7 09/08/21 12:10: Sodium 131 L, Potassium 4.5, Chloride 96 L, Carbon Dioxide 27.0, Anion Gap 8, BUN 62 H, Creatinine 2.30 H, Estim Creat Clear Calc 23.95, Est GFR (MDRD) Af Amer 35 L, Est GFR (MDRD) Non-Af 29 L, BUN/Creatinine Ratio 27.0 H, Glucose 119 H, Calcium 8.7, Total Bilirubin 1.60 H, Direct Bilirubin 0.70 H, AST 169 H, ALT 103 H, Alkaline Phosphatase 287 H, Total Protein 7.3, Albumin 2.5 L, Globulin 4.8 H, Lipase 217 09/08/21 12:10: B-Natriuretic Peptide 2930.7 H 09/08/21 12:20: Urine Color Yellow, Urine Clarity Clear, Urine pH 7.0, Ur Specific [place] 1.010, Urine Protein Negative, Urine Glucose (UA) Normal, Urine Ketones Negative, Urine Occult Blood 250 H, Urine Nitrite Negative, Urine Bilirubin Negative, Urine Urobilinogen Normal, Ur Leukocyte Esterase Negative, Urine RBC 10-25 SEEN, Urine WBC 0 SEEN, Ur Squamous Epith Cells 0-5 SEEN, Urine Bacteria 0 SEEN, Urine Mucus 0 SEEN Radiology Impression Chest X-Ray 09/08/21 11:58 IMPRESSION: Interval decrease in right-sided pleural effusion Slight interval worsening in left-sided pleural effusion and left lower lung airspace opacities. Interval development of multifocal patchy opacities in the bilateral upper right lower lungs, due to aspiration or multifocal pneumonia. ARDS cannot be excluded. Multiple clinically. No pneumothorax. Trachea midline. Status post median sternotomy. Electronically Signed: Luis Alberto Jama MD at 12:41 EDT , Assessment & Plan Assessment/Plan (1) Acute kidney injury: PLAN: Plan 1. SAMARIA, likely secondary to cardiorenal in a patient with heart failure with reduced EF Admitted to telemetry 2.3, recent creatinine was 1.1 Continue on IV Lasix, check urine urea, urine creatinine, nephrology consult, renal ultrasound 2. Acute exacerbation of heart failure, combined, EF of 35%, stage III diastolic dysfunction Admitting BNPep is 2930.7 Continue on Lasix IV, strict I's and O's, daily weight, check TS acute on chronic systolic CHF, EF %: IV lasix, strict I & Os, daily weight, fluid restriction, KRYSTAL-wraps to legs 3. Anemia, drop in hemoglobin from 11.3 to 9.2, patient with recent surgery Will check iron stores, repeat blood work in am 4. Status post recent thoracic surgery for persistent bilateral pleural effusions Chest x-ray still has effusions 5. CAD s/p CABG, EKG shows no acute ST-T changes, shows normal sinus rhythm We will trend cardiac enzymes 6. Paroxysmal atrial fibrillation, in normal sinus rhythm, Continue on apixaban, amiodarone 7. Hyperlipidemia, continue statin 8. Type II DM, continue on home insulin regimen, add insulin sliding scale blood glucose checks 9. Hypothyroidism, continue Synthroid 10. Bladder CA, status post polypectomy, will check renal ultrasound 11. DVT PPx- on apixaban I discussed and explained in details the various types of CODE STATUS-full code, DNR CCA, DNR CC. Patient chose to be full code. Time spent discussing CODE STATUS: 16 minutes Charges/Coding Visit Charges Inpatient E&M: 16944 Init Hosp L3 Procedures Hospitalists Procedures: 32869 Advncd Care Plan 30 Min
--- NOTE | 2021-09-08 13:51 | US_ITS ---
STUDY: RENAL ULTRASOUND - COMPLETE REASON FOR EXAM: Male, 81 years old. SAMARIA TECHNIQUE: Ultrasound evaluation of the kidneys was performed with real-time and static cruz-scale imaging. COMPARISON: None. FINDINGS: RIGHT KIDNEY: Normal location of the right kidney, which is normal in size. The right kidney measures 11.4 x 4.6 cm. There is a normal cortex of the right kidney. The renal cortex measures 1.3 cm. Simple cyst of the right kidney measuring 15 mm. No follow up required. There are no right renal calculi. There is no right hydronephrosis. DISTAL RIGHT URETER: There is non-visualization of the distal right ureter. There is no demonstrated right ureterovesical junction calculus. There is no demonstrated right ureteral jet. LEFT KIDNEY: Normal location of the left kidney, which is normal in size. The left kidney measures 11.1 x 5.6 cm. There is a normal cortex of the left kidney. The renal cortex measures 1.2 cm. There is no left renal mass or cyst. There are no left renal calculi. There is no left hydronephrosis. DISTAL LEFT URETER: There is non-visualization of the distal left ureter. There is no demonstrated left ureterovesical junction calculus. There is no demonstrated left ureteral jet. AORTA: There is obscuration of the abdominal aorta by overlying bowel gas I.V.C.: The IVC is obscured. BLADDER: The distended urinary bladder has a volume of 381 ml. There is a normal wall thickness of the distended urinary bladder. There is a polypoid demonstrated mass within the urinary bladder. On the right this measures 7 mm an 8 mm. Single left-sided urinary bladder mass measures 5 mm. US/Kidney and Bladder IMPRESSION: No acute findings of the kidney. Exophytic polypoid lesions in the urinary bladder noted. Neoplasm cannot be excluded. Further evaluation is recommended. Electronically Signed: Niels Barrera MD at 17:14 EDT ,
[2021-09-08 16:50] LABS: Bedside Glucose 92 mg/dL (74-106)
[2021-09-08 17:57] LABS: Troponin-I HS 121 pg/mL (3.0-78.0)
[2021-09-08] MEDS: 0.9% Saline Lock 10 ML Syringe IV (18:34)
[2021-09-08] MEDS: Acetaminophen 325 MG Tablet 650 MG PO (18:34)
[2021-09-08] MEDS: Glucerna Shake 120 ML LIQUID PO (18:35)
[2021-09-08 19:57] LABS: Urea Nitrogen, Urine 227 mg/dL (NO RANGE EST.)
[2021-09-08 20:28] LABS: Ferritin 1005 ng/mL (26-388); Iron 29 ug/dL (65-175); Iron Binding Capacity,Total 222 ug/dL (250-450); Magnesium 2.2 mg/dL (1.6-2.6); PERCENT IRON SATURATION 13.1 % (15.0-55.0); Thyroid Stim Hormone (TSH) 2.59 uIU/mL (0.358-3.74); Troponin-I HS 117 pg/mL (3.0-78.0)
[2021-09-08] MEDS: Insulin Lispro 100 UNIT/ML INSULN.PEN SC (21:55)
[2021-09-08] MEDS: Insulin Glargine-YFGN 100 UNIT/ML Pen SC (21:56)
[2021-09-08] MEDS: APIXABAN 2.5 MG TABLET PO (21:58)
[2021-09-08] MEDS: Atorvastatin Calcium 80 MG Tablet PO (21:58)
[2021-09-08 22:30] LABS: Bedside Glucose 163 mg/dL (74-106)
[2021-09-08 23:16] LABS: Troponin-I HS 119 pg/mL (3.0-78.0)
[2021-09-09] VITALS (10 sets, daily range): BP systolic 96–103; BP diastolic 52–61; PULSE 72–88; RESP 16–18; TEMP 36.5–36.8; O2SAT 96–100
[2021-09-09] MEDS: Levothyroxine 100 MCG Tablet PO (06:27)
[2021-09-09 06:49] LABS: Absolute Lymphocyte Count 0.54 X10^3/uL (0.83-4.51); Absolute Neutrophil Count 4.7 X10^3/uL (2.0-7.7); Basophil# 0.03 X10^3/uL; Basophil% 0.5 % (0-1); Eosinophil# 0.14 X10^3/uL; Eosinophils% 2.4 % (0-5); Hemoglobin 8.5 g/dL (13.0-16.5); Lymphocyte # 0.54 X10^3/ul (0.83-4.51); Lymphocyte % 9.1 % (19-41); Mean Corp Hgb Conc 32.7 g/dL (32-36); Mean Corpuscular Hgb 31.7 pg (27.0-32.0); Mean Platelet Vol. 9.2 fl (6.2-12.0); Monocyte# 0.51 X10^3/uL; Monocyte% 8.6 % (0-10); NRBC Flagged by Analyzer 0 % (0-5); Neutrophil # 4.66 X10^3/uL (2.7-7.7); Neutrophil % 78.9 % (47-70); POSITIVE DIFFERENTIAL YES; Platelet Count 409 K/mm3 (150-450); RBC Distribution Width CV 16.5 % (11.6-14.6); RBC Distribution Width SD 57.3 fl (35.1-43.9); Red Blood Count 2.68 M/mm3 (4.6-6.2); White Blood Count 5.9 K/mm3 (4.4-11.0)
[2021-09-09 06:50] LABS: Differential Indicated SCAN CRITERIA MET
[2021-09-09 07:06] LABS: Differential Comment SCANNED
[2021-09-09 07:16] LABS: ALB/GLOB Ratio 0.5 RATIO (0.9-2.4); AST(SGOT) 120 U/L (15-37); Alanine Aminotransfer ALT/SGPT 83 U/L (16-61); Albumin, Serum 2.1 g/dL (3.2-5.0); Alkaline Phosphatase 236 U/L (45-117); Anion Gap 8 (5-15); BUN 57 mg/dL (7-18); BUN/Creat Ratio 29.2 RATIO (10-20); Calcium,Total 8.1 mg/dL (8.5-10.1); Chloride 97 mmol/L (98-107); Creatinine, Serum 1.95 mg/dL (0.70-1.30); EST Glomerular Filtration Rate 35 mL/min (>60); Est Glom Filt Rate - Afr Amer 43 mL/min (>60); Estimated Creatinine Clearance 28.25 ml/min; Globulin 4.2 g/dL (2.2-4.2); Glucose 130 mg/dL (74-106); Potassium 3.6 mmol/L (3.5-5.1); Protein, Total 6.3 g/dL (6.4-8.2); Sodium Level 133 mmol/L (136-145)
--- NOTE | 2021-09-09 07:46 | PN.HOSP_ITS ---
Subjective Subjective Follow-up on SAMARIA/acute exacerbation of heart failure: Patient was seen and examined. He stated that he felt improved. Denied any chest pain or dizziness. Objective Data Objective Data Vital Signs: Vital Signs Temp Pulse Resp BP Pulse Ox 98.0 F 80 18 103/53 L 99 09/09/21 07:45 09/09/21 07:45 09/09/21 07:45 09/09/21 07:45 09/09/21 07:45 Oxygen Delivery Method Room Air Weight: 74.6 kg Body Mass Index (BMI) 25.4 Intake & Output: Intake and Output for Last 24 Hours 09/07/21 09/08/21 09/09/21 23:59 23:59 23:59 Intake Total 380 / 480 200 / 200 Output Total 650 / 900 550 / 550 Balance -270 / -420 -350 / -350 Medical Nutrition Assessment Dietitian: Malnutrition Criteria Met Start: 09/08/21 17:12 Freq: Status: Active Protocol: Document 09/08/21 17:13 (Rec: 09/08/21 17:13 [id number]) Nutrition Malnutrition Evidence of Malnutrition Exists Yes Evidenced By Suboptimal Energy Intake ( Severe),Weight Loss (Severe) Clinical Problem Chronic Disease or Condition Related Malnutrition Etiology severe, chronic malnutrition r /t inadequate energy intake Signs/Symptoms as evidenced by unintentional wt loss of 21.4#/12% x 3 months; estimated PO intake meeting <50% of estimated energy needs x 3 months Status Active Problem Recommendation Dietitian Recommendations/Changes continue cardiac diet; will add 120mL glucerna 4x/day w/ medpass d/t malnutrition. Will adjust ONS as indicated at time of follow-up. Lab / Micro Data Result Diagrams: 09/09/21 06:08 09/09/21 06:08 Labs: Laboratory Results - last 24 hr 09/08/21 12:10: WBC 6.1, RBC 2.93 L, Hgb 9.2 L, Hct 28.2 L, MCV 96.2 H, MCH 31.4, MCHC 32.6, RDW Std Deviation 57.2 H, RDW Coeff of Chip 16.5 H, Plt Count 467 H, MPV 9.3, Immature Gran % (Auto) 0.500, Neut % (Auto) 77.8 H, Lymph % (Auto) 10.9 L, [place] % (Auto) 9.3, Eos % (Auto) 1.0, Baso % (Auto) 0.5, Absolute Neuts (auto) 4.8, Absolute Lymphs (auto) 0.67 L, Nucleated RBC % 0 09/08/21 12:10: PT 19.5 H, INR 1.7 09/08/21 12:10: Sodium 131 L, Potassium 4.5, Chloride 96 L, Carbon Dioxide 27.0, Anion Gap 8, BUN 62 H, Creatinine 2.30 H, Estim Creat Clear Calc 23.95, Est GFR (MDRD) Af Amer 35 L, Est GFR (MDRD) Non-Af 29 L, BUN/Creatinine Ratio 27.0 H, Glucose 119 H, Calcium 8.7, Total Bilirubin 1.60 H, Direct Bilirubin 0.70 H, AST 169 H, ALT 103 H, Alkaline Phosphatase 287 H, Total Protein 7.3, Albumin 2.5 L, Globulin 4.8 H, Lipase 217 09/08/21 12:10: B-Natriuretic Peptide 2930.7 H 09/08/21 12:20: Urine Color Yellow, Urine Clarity Clear, Urine pH 7.0, Ur Specific [place] 1.010, Urine Protein Negative, Urine Glucose (UA) Normal, Urine Ketones Negative, Urine Occult Blood 250 H, Urine Nitrite Negative, Urine Bilirubin Negative, Urine Urobilinogen Normal, Ur Leukocyte Esterase Negative, Urine RBC 10-25 SEEN, Urine WBC 0 SEEN, Ur Squamous Epith Cells 0-5 SEEN, Urine Bacteria 0 SEEN, Urine Mucus 0 SEEN 09/08/21 12:20: Urine Creatinine 14.60, Urine Urea Nitrogen 227 09/08/21 16:40: Troponin I High Sens 121 H* 09/08/21 16:46: POC Glucose 92 09/08/21 19:27: Magnesium 2.2, Iron 29 L, TIBC 222 L, Iron Saturation 13.1 L, Ferritin 1005 H, Troponin I High Sens 117 H, TSH 2.59 09/08/21 21:42: POC Glucose 163 H 09/08/21 22:52: Troponin I High Sens 119 H 09/09/21 06:08: WBC 5.9, RBC 2.68 L, Hgb 8.5 L, Hct 26.0 L, MCV 97.0 H, MCH 31.7, MCHC 32.7, RDW Std Deviation 57.3 H, RDW Coeff of Chip 16.5 H, Plt Count 409, MPV 9.2, Immature Gran % (Auto) 0.500, Neut % (Auto) 78.9 H, Lymph % (Auto) 9.1 L, [place] % (Auto) 8.6, Eos % (Auto) 2.4, Baso % (Auto) 0.5, Absolute Neuts (auto) 4.7, Absolute Lymphs (auto) 0.54 L, Nucleated RBC % 0, Differential Comme nt SCANNED 09/09/21 06:08: Sodium 133 L, Potassium 3.6, Chloride 97 L, Carbon Dioxide 28.0, Anion Gap 8, BUN 57 H, Creatinine 1.95 H, Estim Creat Clear Calc 28.25, Est GFR (MDRD) Af Amer 43 L, Est GFR (MDRD) Non-Af 35 L, BUN/Creatinine Ratio 29.2 H, Glucose 130 H, Calcium 8.1 L, Total Bilirubin 1.50 H, AST 120 H, ALT 83 H, Alkaline Phosphatase 236 H, Total Protein 6.3 L, Albumin 2.1 L, Globulin 4.2, Albumin/Globulin Ratio 0.5 L Radiography Diagnostic Testing: Radiology Impression Chest X-Ray 09/08/21 11:58 IMPRESSION: Interval decrease in right-sided pleural effusion Slight interval worsening in left-sided pleural effusion and left lower lung airspace opacities. Interval development of multifocal patchy opacities in the bilateral upper right lower lungs, due to aspiration or multifocal pneumonia. ARDS cannot be excluded. Multiple clinically. No pneumothorax. Trachea midline. Status post median sternotomy. Electronically Signed: Luis Alberto Jama MD at 12:41 EDT , Renal Ultrasound 09/08/21 13:51 IMPRESSION: No acute findings of the kidney. Exophytic polypoid lesions in the urinary bladder noted. Neoplasm cannot be excluded. Further evaluation is recommended. Electronically Signed: Niels Barrera MD at 17:14 EDT , Physical Exam Narrative Physical exam: General: Alert, Oriented x3, Cooperative, appears very frail HEENT: Atraumatic Oral: Moist Mucosa Neck: Supple Lungs: Diminished to auscultation, midsternal scar, left lower chest scar and stitches inside of Cardiovascular: HS I+II, regular, no murmurs Abdomen: Bowel Sounds Present, Soft, Non Tender Extremities: Bilateral leg edema, improving, +2-3 Skin: No rashes, No breakdown Neurological: Grossly intact Psych/Mental Status: Appropriate Assessment & Plan Assessment/Plan (1) Acute kidney injury: PLAN: Plan 1. SAMARIA, likely secondary to cardiorenal in a patient with heart failure with reduced EF FeUrea is 57.7% suggestive of intrinsic disease. Renal ultrasound negative for acute obstruction Admitted with Cr 2.3, recent creatinine was 1.1 Creatinine now is 1.95 Continue on IV Lasix, Nephrology consulted, 2. Acute exacerbation of heart failure, combined, EF of 35%, stage III diastolic dysfunction Admitting BNPep is 2930.7, TSH was 2.59 Continue on Lasix IV, strict I's and O's, daily weight, KRYSTAL-wraps to legs 3. Anemia, mixed, patient with recent surgery, Iron saturation was 13.1%. Will start on oral iron with stool softeners 4. Status post recent thoracic surgery for persistent bilateral pleural e ffusions Admitting x-ray had bilateral effusions 5. Elevated troponins likely secondary to SAMARIA Patient with CAD s/p CABG, EKG shows no acute ST-T changes, shows normal sinus rhythm Cardiac enzymes were 121-117-119 6. Paroxysmal atrial fibrillation, in normal sinus rhythm, Continue on apixaban, amiodarone 7. Hyperlipidemia, continue statin 8. Type II DM, continue on home insulin regimen, add insulin sliding scale blood glucose checks 9. Hypothyroidism, continue Synthroid 10. Bladder CA, status post polypectomy, few urolithelial polyps on ultrasound, needs to follow-up with urology in the outpatient. 11. DVT PPx- on apixaban Charges/Coding Visit Charges Inpatient E&M: 70407 Subs Hosp L2
[2021-09-09 07:56] LABS: Bedside Glucose 120 mg/dL (74-106)
[2021-09-09] MEDS: Glucerna Shake 120 ML LIQUID PO ×2 (08:34→14:23)
[2021-09-09] MEDS: Pantoprazole Sodium 40 MG Tablet PO (08:34)
[2021-09-09] MEDS: Amiodarone 200 MG Tablet PO (08:34)
[2021-09-09] MEDS: Potassium Chloride Oral Tablet 20 MEQ PO (08:34)
[2021-09-09] MEDS: Furosemide 40 MG/4 ML Vial IV ×2 (08:35→17:49)
[2021-09-09] MEDS: Insulin Lispro 100 UNIT/ML INSULN.PEN SC ×5 (08:35→22:25)
[2021-09-09] MEDS: APIXABAN 2.5 MG TABLET PO ×2 (08:35→22:25)
[2021-09-09] MEDS: Menthol/Lanolin/Calamine/Znox 113 GM Tube 1 APPLIC TOPICAL ×2 (08:35→22:25)
[2021-09-09] MEDS: Acetaminophen 325 MG Tablet 650 MG PO (08:47)
--- NOTE | 2021-09-09 10:06 | CASEMGMT ---
Addendum entered by Ericka Clifford 09/09/21 12:17: TC to pt . She states pt has HHC through [facility] in [place]. States a nurse and PT have been out once since recent hospitalization. She states she feels it is fine for pt to return home with the HHC resuming and she prefers it. Green sheet on chart for [facility]. Original Note: RN YONATHAN Assessment: Face to Face with pt for initial transition planning/care coordination assessment. RN YONATHAN introduced self and role at [facility], pt voices understanding and consents to assessment. Pt is A/O x4 and answers all questions appropriately at this time. Pt sitting up in chair in no distress on RA. Care providers, pharmacy, and demographics verified/updated. Admitting Dx: SAMARIA PCP:Shelley Specialists:Edie, cardio; lung surgeon from [facility]- recent surgery Preferred Pharmacy: [facility] Insurance: [facility]/MMO Prescription Benefit: yes LW/HPOA: Pt has LW/DPOA on file at [facility]. Pt DPOA is his Tex Gregorio. LNOK: Tex Gregorio, Living Arrangements: Pt lives with in a single story house with 5 steps to enter with a rail on both sides. Pt reports he is I in ADL's and denies concerns at home. Transportation: Pt provides transportation unless it is out of town. His nephew provides out of town transportation. DME/HHC/SNF: Pt has a raised toilet seat, BGM with supplies as well as insulin with supplies. Pt states he checks his blood sugar 4x/day and is going to be getting the Ysabel. Pt has a walker that he quit using and is now using a walking stick. Pt has HHC but is unsure of the name of the agency. Pt denies SNF stays. Pt states no concerns with going home at time of dc. He designates his as his dc person to contact. Pt states no further concerns/needs. CM to follow. Advised pt to ask CM if any further question/concerns/needs arise, voices understanding. Pt Goal: Home with resumption of HHC Plan: Home with resumption of HHC
[2021-09-09 11:46] LABS: Bedside Glucose 248 mg/dL (74-106)
[2021-09-09] MEDS: Ferrous Sulfate 325 MG Tablet PO (12:11)
[2021-09-09] MEDS: Aspirin E.C. 81 MG Tablet PO (12:11)
--- NOTE | 2021-09-09 12:28 | VDLE_ITS ---
Reason For Study: SHORTNESS OF BREATH RIGHT LEFT GSV is normal. GSV is normal. CFV is compressible, spontaneous, phasic, CFV is compressible, spontaneous, phasic, competent and demonstrates normal competent, and demonstrates normal augmentation. augmentation. FV is compressible, spontaneous, phasic, FV is compressible, spontaneous, phasic, competent and demonstrates normal competent and demonstrates normal augmentation. augmentation. POP V is compressible, spontaneous, phasic, POP V is compressible, spontaneous, phasic, competent and demonstrates normal competent and demonstrates normal augmentation. augmentation. T/P Trunk is compressible. T/P Trunk is compressible. PTV is compressible. PTV is compressible. RT PerV is compressible. LT PerV is compressible. Procedure Exam performed portable in patient room. This is a venous duplex using B-mode, color flow and spectral Doppler. The exam was diagnostic. A preliminary report was called and/or faxed to [facility]. VL/Venous Duplex US - Praful Extrem Interpretation Summary No evidence for acute deep venous thrombosis bilateral lower extremities with p atent and compressible bilateral great saphenous veins. Ordering Physician: Teresa Aceves Referring Physician: Lance Rosa Performed By: Shashi Young
[2021-09-09] MEDS: Multivitamins,Ther W-Minerals Tablet 1 TABLET PO (14:23)
--- NOTE | 2021-09-09 16:00 | PCM.CONS.R ---
Assessment & Plan Assessment/Plan (1) Chronic renal failure, stage 3a: (2) Acute exacerbation of CHF (congestive heart failure): PLAN: Clinically better. Continue Lasix for now. (3) Acute kidney injury: PLAN: Likely related to cardiorenal syndrome. Urine analysis shows hematuria, this is likely related to his previous bladder mass. FE urea is high. Renal ultrasound without any hydronephrosis. With diuresis, creatinine is better. Continue Lasix for now. (4) Bladder mass: PLAN: A bladder mass is noted on renal ultrasound. He follows with [facility] urology. HPI Consult Data Date of Consult: 09/09/21 HPI Narrative Reason for Consultation: Acute renal failure HPI Narrative: ANTONIETA OSMAN, is a 81 M who presents to the hospital with shortness of breath, hematuria. Nephrology consulted in view of acute renal failure. He has known history of coronary artery disease status post bypass graft. Echocardiogram with low ejection fraction. Presented with worsening shortness of breath, worsening lower extremity edema. He has no history of bladder cancer, sees urology at [facility]. Feels better since admission. Baseline creatinine as of 2 months ago was around 1.2. [facility]LY [facility] Medical History Abnormal LFTs Acute blood loss anemia Acute respiratory failure with hypoxia Acute respiratory insufficiency Atherosclerotic heart disease of [place] coronary artery without angina pectoris Benign neoplasm of colon Bladder mass Carotid disease, bilateral Chronic HFrEF (heart failure with reduced ejection fraction) Congestive heart failure (CHF) Essential (primary) hypertension Former smoker Healthcare-associated pneumonia History of non-ST elevation myocardial infarction (NSTEMI) (07/23/20) Hypokalemia Hyponatremia Hypothyroidism Hypothyroidism Ischemic cardiomyopathy Left bundle branch block (LBBB) Macrocytic anemia Mixed hyperlipidemia PAD (peripheral artery disease) Physical debility Pleural effusion, bilateral Pneumonia Postoperative atrial fibrillation (07/30/20) Renal insufficiency Stage II decubitus ulcer Synovial cyst of popliteal space [Andre], left knee Type 2 diabetes mellitus Home Medications acetaminophen 325 mg tablet (Tylenol) 650 mg PO Q6H PRN PRN PAIN 1-10 #1 TAB 08/15/20 [Rx Last Taken 09/07/21] sennosides 8.6 mg-docusate sodium 50 mg tablet (Stool Softener-Stimulant Laxative) 2 tab PO BID #120 tabs 08/15/20 [Rx Last Taken 2 Days Ago ~09/06/21] ferrous sulfate 325 mg (65 mg iron) tablet 325 mg PO LUNCH supplement 11/11/20 [History Last Taken 09/07/21] insulin detemir U-100 100 unit/mL (3 mL) subcutaneous pen (Levemir FlexTouch U-100 Insulin) 5 unit subcut QHS diabetes 11/11/20 [History Last Taken 09/07/21] insulin aspart U-100 100 unit/mL (3 mL) subcutaneous pen (Novolog Flexpen U-100 Insulin aspart) 2 unit subcut BREAKFAST diabetes 12/02/20 [History Last Taken 09/07/21] insulin aspart U-100 100 unit/mL (3 mL) subcutaneous pen (Novolog Flexpen U-100 Insulin aspart) 2 unit subcut DINNER diabetes 12/02/20 [History Last Taken 09/07/21] insulin aspart U-100 100 unit/mL (3 mL) subcutaneous pen (Novolog Flexpen U-100 Insulin aspart) 2 unit subcut LUNCH diabetes 12/02/20 [History Last Taken 09/07/21] levothyroxine 100 mcg tablet 100 mcg PO DAILY #30 tabs 12/03/20 [Rx Last Taken 09/08/21] aspirin 81 mg tablet,delayed release (Adult Aspirin Regimen) 81 mg PO LUNCH HEART 12/07/20 [History Last Taken 09/07/21] potassium chloride 20 mEq tablet,extended release 20 meq PO DAILY SUPPLEMENT 03/08/21 [History Last Taken 09/07/21] amiodarone 200 mg tablet 200 tab PO DAILY HEART 09/08/21 [History Last Taken 09/08/21] apixaban 2.5 mg tablet (Eliquis) 2.5 mg PO BID BLOOD THINNER 09/08/21 [History Last Taken 09/07/21] atorvastatin 80 mg tablet 80 mg PO QHS CHOLESTROL 09/08/21 [History Last Taken 09/07/21] multivitamin with minerals 1 tab PO LUNCH SUPPLEMENT 09/08/21 [History Last Taken 09/07/21] pantoprazole 40 mg tablet,delayed release 40 mg PO DAILY@0600 GERD 09/08/21 [History Last Taken 09/08/21] phenylephrine HCl 0.25 % nasal spray (Tomas-Synephrine (phenylephrine)) 1 spray intranasal DAILY PRN NOSE BLEEDS 09/08/21 [History Last Taken 09/07/21] torsemide 20 mg tablet 40 mg PO DAILY CHF 09/08/21 [History Last Taken 09/08/21] Allergy/AdvReac Type Severity Reaction Status Date / Time naproxen [From Naprosyn] Allergy Other Verified 09/08/21 11:44 venom-honey bee Allergy Anaphylaxis Verified 09/08/21 11:44 Family History Mother Diabetes Heart disease Father Heart disease Surgical History H/O coronary artery bypass surgery (07/28/20) History of appendectomy History of colonoscopy History of cystoscopy (11/10/20) History of left heart catheterization (07/25/20) History of thoracentesis (08/31/20) Social History Smoking Status: Former smoker Tobacco: How many years used: 17 how long ago did patient quit smokin years ago alcohol intake: never substance use type: does not use ROS ROS Narrative Negative except history Physical Exam Narrative Alert awake oriented x 3 no obvious distress no pallor no icterus no JVD s1s2 no murmurs lungs clear abdomen soft no organomegaly no edema no cyanosis Medical Records Data Medical Nutrition Assessment Dietitian: Malnutrition Criteria Met Start: 09/08/21 17:12 Freq: Status: Active Protocol: Document 09/08/21 17:13 (Rec: 09/08/21 17:13 [id number]) Nutrition Malnutrition Evidence of Malnutrition Exists Yes Evidenced By Suboptimal Energy Intake ( Severe),Weight Loss (Severe) Clinical Problem Chronic Disease or Condition Related Malnutrition Etiology severe, chronic malnutrition r /t inadequate energy intake Signs/Symptoms as evidenced by unintentional wt loss of 21.4#/12% x 3 months; estimated PO intake meeting <50% of estimated energy needs x 3 months Status Active Problem Recommendation Dietitian Recommendations/Changes continue cardiac diet; will add 120mL glucerna 4x/day w/ medpass d/t malnutrition. Will adjust ONS as indicated at time of follow-up. Lab / Micro Data Result Diagrams: 09/09/21 06:08 09/09/21 06:08 Labs: Laboratory Results - last 24 hr 09/08/21 12:20: Urine Creatinine 14.60, Urine Urea Nitrogen 227 09/08/21 16:40: Troponin I High Sens 121 H* 09/08/21 16:46: POC Glucose 92 09/08/21 19:27: Magnesium 2.2, Iron 29 L, TIBC 222 L, Iron Saturation 13.1 L, Ferritin 1005 H, Troponin I High Sens 117 H, TSH 2.59 09/08/21 21:42: POC Glucose 163 H 09/08/21 22:52: Troponin I High Sens 119 H 09/09/21 06:08: WBC 5.9, RBC 2.68 L, Hgb 8.5 L, Hct 26.0 L, MCV 97.0 H, MCH 31.7, MCHC 32.7, RDW Std Deviation 57.3 H, RDW Coeff of Chip 16.5 H, Plt Count 409, MPV 9.2, Immature Gran % (Auto) 0.500, Neut % (Auto) 78.9 H, Lymph % (Auto) 9.1 L, [place] % (Auto) 8.6, Eos % (Auto) 2.4, Baso % (Auto) 0.5, Absolute Neuts (auto) 4.7, Absolute Lymphs (auto) 0.54 L, Nucleated RBC % 0, Differential Comment SCANNED 09/09/21 06:08: Sodium 133 L, Potassium 3.6, Chloride 97 L, Carbon Dioxide 28.0, Anion Gap 8, BUN 57 H, Creatinine 1.95 H, Estim Creat Clear Calc 28.25, Est GFR (MDRD) Af Amer 43 L, Est GFR (MDRD) Non-Af 35 L, BUN/Creatinine Ratio 29.2 H, Glucose 130 H, Calcium 8.1 L, Total Bilirubin 1.50 H, AST 120 H, ALT 83 H, Alkaline Phosphatase 236 H, Total Protein 6.3 L, Albumin 2.1 L, Globulin 4.2, Albumin/Globulin Ratio 0.5 L 09/09/21 07:42: POC Glucose 120 H 09/09/21 11:38: POC Glucose 248 H Radiology Impression Renal Ultrasound 09/08/21 13:51 IMPRESSION: No acute findings of the kidney. Exophytic polypoid lesions in the urinary bladder noted. Neoplasm cannot be excluded. Further evaluation is recommended. Electronically Signed: Niels Barrera MD at 17:14 EDT ,
[2021-09-09 16:16] LABS: Bedside Glucose 144 mg/dL (74-106)
[2021-09-09] MEDS: Atorvastatin Calcium 80 MG Tablet PO (22:25)
[2021-09-09] MEDS: Insulin Glargine-YFGN 100 UNIT/ML Pen SC (22:26)
[2021-09-09 23:05] LABS: Bedside Glucose 155 mg/dL (74-106)
[2021-09-10 04:18] VITALS: BP 102/61; PULSE 84; RESP 16; TEMP 36.5; O2SAT 99
[2021-09-10 04:47] VITALS: PULSE 86
[2021-09-10] MEDS: Levothyroxine 100 MCG Tablet PO (06:05)
[2021-09-10 06:20] LABS: Absolute Lymphocyte Count 0.61 X10^3/uL (0.83-4.51); Absolute Neutrophil Count 4.7 X10^3/uL (2.0-7.7); Basophil# 0.01 X10^3/uL; Basophil% 0.2 % (0-1); Eosinophil# 0.06 X10^3/uL; Hematocrit 26.6 % (40-54); Hemoglobin 8.6 g/dL (13.0-16.5); Lymphocyte # 0.61 X10^3/ul (0.83-4.51); Lymphocyte % 10.4 % (19-41); Mean Corp Hgb Conc 32.3 g/dL (32-36); Monocyte# 0.48 X10^3/uL; Monocyte% 8.1 % (0-10); NRBC Flagged by Analyzer 0 % (0-5); Neutrophil # 4.71 X10^3/uL (2.7-7.7); Platelet Count 417 K/mm3 (150-450); RBC Distribution Width CV 16.5 % (11.6-14.6); RBC Distribution Width SD 57.1 fl (35.1-43.9); Red Blood Count 2.77 M/mm3 (4.6-6.2); White Blood Count 5.9 K/mm3 (4.4-11.0)
[2021-09-10 06:45] LABS: ALB/GLOB Ratio 0.5 RATIO (0.9-2.4); AST(SGOT) 103 U/L (15-37); Alanine Aminotransfer ALT/SGPT 81 U/L (16-61); Albumin, Serum 2.2 g/dL (3.2-5.0); Alkaline Phosphatase 235 U/L (45-117); Anion Gap 8 (5-15); BUN 55 mg/dL (7-18); BUN/Creat Ratio 30.4 RATIO (10-20); Calcium,Total 8.4 mg/dL (8.5-10.1); Chloride 96 mmol/L (98-107); Creatinine, Serum 1.81 mg/dL (0.70-1.30); EST Glomerular Filtration Rate 39 mL/min (>60); Est Glom Filt Rate - Afr Amer 47 mL/min (>60); Estimated Creatinine Clearance 30.43 ml/min; Globulin 4.4 g/dL (2.2-4.2); Glucose 144 mg/dL (74-106); Potassium 3.7 mmol/L (3.5-5.1); Protein, Total 6.6 g/dL (6.4-8.2); Sodium Level 132 mmol/L (136-145)
[2021-09-10 07:00] VITALS: PULSE 90
[2021-09-10] MEDS: Potassium Chloride Oral Tablet 20 MEQ PO (08:00)
[2021-09-10 08:02] VITALS: BP 102/51; PULSE 85; RESP 16; TEMP 36.3; O2SAT 95
[2021-09-10] MEDS: Insulin Lispro 100 UNIT/ML INSULN.PEN SC ×2 (08:06→11:35)
[2021-09-10 08:26] LABS: Bedside Glucose 139 mg/dL (74-106)
[2021-09-10] MEDS: Pantoprazole Sodium 40 MG Tablet PO (09:19)
[2021-09-10] MEDS: APIXABAN 2.5 MG TABLET PO (09:19)
[2021-09-10] MEDS: Amiodarone 200 MG Tablet PO (09:19)
[2021-09-10] MEDS: Furosemide 40 MG/4 ML Vial IV (09:19)
[2021-09-10] MEDS: Menthol/Lanolin/Calamine/Znox 113 GM Tube 1 APPLIC TOPICAL (09:19)
[2021-09-10] MEDS: Glucerna Shake 120 ML LIQUID PO (09:19)
[2021-09-10] MEDS: 0.9% Saline Lock 10 ML Syringe IV (09:19)
[2021-09-10 10:40] LABS: Bedside Glucose 131 mg/dL (74-106)
[2021-09-10] MEDS: Aspirin E.C. 81 MG Tablet PO (11:35)
[2021-09-10] MEDS: Multivitamins,Ther W-Minerals Tablet 1 TABLET PO (11:35)
[2021-09-10] MEDS: Ferrous Sulfate 325 MG Tablet PO (11:35)
--- NOTE | 2021-09-10 12:25 | PCM.DC ---
Discharge Instructions Diet Discharge Diet: Low fat / Low cholesterol, 8 Cup Fluid Restriction and 2000 mg Sodium Diet Activity Discharge Activity: Return to Normal Activity Weight Bearing Status: Weight bearing as tolerated Follow Up Care Test Results: Test results from this visit will be discussed in further detail at your follow-up appointment, if applicable. Discharge Plan Admission Admit Date/Time: 09/08/21 13:16 Primary Reason for Your Visit: Acute CHF/SAMARIA Attending Provider: Teresa Aceves Primary Care Provider: Lance Rosa Consulting Providers: Sabine Diaz Instructions Additional Instructions / Restrictions: Weigh yourself every day. Let your physician know when you gain more than 4 pounds of weight. Take your medications as prescribed. Follow-up with your primary care doctor within 1-2 weeks. Follow-up with your doctors in the [facility] [place] as scheduled. Discharge Orders/Prescriptions Prescriptions: Continued aspirin [Adult Aspirin Regimen] 81 mg tablet,delayed release (DR/EC) 81 mg PO LUNCH potassium chloride 20 mEq tablet extended release 20 meq PO DAILY acetaminophen [Tylenol] 325 mg Tablet 650 mg PO Q6H PRN PRN (Reason: PAIN 1-10) Qty: 1 0RF sennosides-docusate sodium [Stool Softener-Stimulant Laxat] 8.6-50 mg Tablet 2 tab PO BID Qty: 120 0RF Label Comments: PT STATES HOLDING DUE TO LOOSE STOOL ferrous sulfate 325 mg (65 mg iron) Tablet 325 mg PO LUNCH Levemir FlexTouch U-100 Insuln 100 unit/mL (3 mL) insulin pen 5 unit SUBCUT QHS Label Comments: Inject 18 Units subcutaneously daily at bedtime. insulin aspart U-100 [Novolog Flexpen U-100 Insulin] 100 unit/mL (3 mL) Insulin Pen 2 unit SUBCUT BREAKFAST Rx Instructions: Only if blood sugar is >100 insulin aspart U-100 [Novolog Flexpen U-100 Insulin] 100 unit/mL (3 mL) Insulin Pen 2 unit SUBCUT LUNCH Rx Instructions: Only if blood sugar is >100 insulin aspart U-100 [Novolog Flexpen U-100 Insulin] 100 unit/mL (3 mL) Insulin Pen 2 unit SUBCUT DINNER Rx Instructions: Only if blood sugar is >100 levothyroxine 100 mcg tablet 100 mcg PO DAILY Qty: 30 0RF torsemide 20 mg tablet 40 mg PO DAILY Label Comments: TAKE 2 TABLETS BY MOUTH ONCE DAILY amiodarone 200 mg tablet 200 tab PO DAILY Label Comments: TAKE 1 TABLET BY MOUTH ONCE DAILY pantoprazole 40 mg tablet,delayed release (DR/EC) 40 mg PO DAILY@0600 Label Comments: TAKE 1 TABLET BY MOUTH DAILY AT 6AM multivitamin with minerals Tablet 1 tab PO LUNCH Tomas-Synephrine (phenylephrine) 0.25 % [place],Non-Aerosol 1 spray INTRANASAL DAILY PRN (Reason: NOSE BLEEDS) Eliquis 2.5 mg tablet 2.5 mg PO BID Label Comments: TAKE 1 TABLET BY MOUTH TWICE DAILY atorvastatin 80 mg tablet 80 mg PO QHS Referrals / Follow Up: Lance Rosa MD [Primary Care Provider] - Within 1 Week Disposition Disposition (needs filled in before D/C Order can be placed): Home Health Service
--- NOTE | 2021-09-10 12:33 | PCM.DC.SUM ---
Providers Date of Admission: 09/08/21 Date of Discharge: 09/10/21 Primary Care Physician: Dr. Lance Rosa MD Consultations 09/08/21 16:22 Consult: Nephrology Routine Consulting Provider: Sabine Diaz Reason for Consult: SAMARIA EMERGENT Consult: No MD Notified: Yes Date Notified: 09/08/21 Time Notified: 16:33 Method of Notification: Answering Service Reason For Visit: SAMARIA Diagnosis Discharge Diagnosis (1) Chronic renal failure, stage 3a: Status: Chronic Code(s): N18.31 - Chronic kidney disease, stage 3a (2) Acute exacerbation of CHF (congestive heart failure): Status: Chronic Code(s): I50.9 - Heart failure, unspecified (3) Acute kidney injury: Status: Acute Code(s): N17.9 - Acute kidney failure, unspecified (4) Bladder mass: Status: Acute Code(s): N32.89 - Other specified disorders of bladder Medications at Discharge Home Medications acetaminophen 325 mg tablet (Tylenol) 650 mg PO Q6H PRN PRN PAIN 1-10 #1 TAB 08/15/20 sennosides 8.6 mg-docusate sodium 50 mg tablet (Stool Softener-Stimulant Laxative) 2 tab PO BID #120 tabs 08/15/20 ferrous sulfate 325 mg (65 mg iron) tablet 325 mg PO LUNCH supplement 11/11/20 insulin detemir U-100 100 unit/mL (3 mL) subcutaneous pen (Levemir FlexTouch U-100 Insulin) 5 unit subcut QHS diabetes 11/11/20 insulin aspart U-100 100 unit/mL (3 mL) subcutaneous pen (Novolog Flexpen U-100 Insulin aspart) 2 unit subcut BREAKFAST diabetes 12/02/20 insulin aspart U-100 100 unit/mL (3 mL) subcutaneous pen (Novolog Flexpen U-100 Insulin aspart) 2 unit subcut DINNER diabetes 12/02/20 insulin aspart U-100 100 unit/mL (3 mL) subcutaneous pen (Novolog Flexpen U-100 Insulin aspart) 2 unit subcut LUNCH diabetes 12/02/20 levothyroxine 100 mcg tablet 100 mcg PO DAILY #30 tabs 12/03/20 aspirin 81 mg tablet,delayed release (Adult Aspirin Regimen) 81 mg PO LUNCH HEART 12/07/20 potassium chloride 20 mEq tablet,extended release 20 meq PO DAILY SUPPLEMENT 03/08/21 amiodarone 200 mg tablet 200 tab PO DAILY HEART 09/08/21 apixaban 2.5 mg tablet (Eliquis) 2.5 mg PO BID BLOOD THINNER 09/08/21 atorvastatin 80 mg tablet 80 mg PO QHS CHOLESTROL 09/08/21 multivitamin with minerals 1 tab PO LUNCH SUPPLEMENT 09/08/21 pantoprazole 40 mg tablet,delayed release 40 mg PO DAILY@0600 GERD 09/08/21 phenylephrine HCl 0.25 % nasal spray (Tomas-Synephrine (phenylephrine)) 1 spray intranasal DAILY PRN NOSE BLEEDS 09/08/21 torsemide 20 mg tablet 40 mg PO DAILY CHF 09/08/21 Hospital Course Operations None Procedures None Summary of Care Provided Minutes Spent on Discharge: 40 Hospital Course: 81-year-old male was recently discharged from the [facility] after admission from 08/11/21 to 08/25/21. 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 His VATS was done on 08/11 with doxycycline pleurodesis to the right pigtail 08/13. Per [facility] records, patient's hospital course was complicated by hypotension, SAMARIA, postop A. fib with RVR for which he underwent ISELA and cardioversion. ISELA has seen a drop in his EF to 30%, as well as severe MR. Patient had history of CABG about a year ago and his EF was 40%. Cardiology was involved and he had a PET stress test done on 08/23 which showed moderate ischemia in the territory of the LAD, CVA perfusion defect in the basal inferoseptal segment and moderate perfusion defect in the anterior lateral wall basal inferolateral segment apical lateral segment epicanthus segment and apex. His EF of 34%. Per CTS, they recommended waiting on left heart cath as his decortication was bloody. Patient was felt to have increased bleeding risk should he be started on dual antiplatelet therapy. Patient was admitted to the [facility] when he had followed up with his primary care doctor for bilateral leg swelling that was worsening and found to have abnormal blood work. His admitting BNP was 2930.7. His creatinine was 2.30. His creatinine at discharge was 1.74 at discharge from the [facility]. Patient was admitted to the progressive care unit, started on IV Lasix with improvement in his swelling and with his creatinine. He was also managed as acute exacerbation of heart failure with combined EF, EF 34%, stage III diastolic dysfunction. His TSH was 2.59. Patient has history of bladder CA status post bladder polypectomy. Renal ultrasound did not show any ureteral obstruction bilateral to bladder masses. Patient continued generality improved. His creatinine at discharge was 1.81. Patient was insistent on being discharged. He was transitioned to his home torsemide. He was strictly recommended to follow CHF protocol follow-up with his primary care doctor as well as with his other [facility] doctors. Physical Exam Narrative Physical exam: General: Alert, Oriented x3, Cooperative, appears very frail HEENT: Atraumatic Oral: Moist Mucosa Neck: Supple Lungs: Diminished to auscultation, midsternal scar, left lower chest scar and stitches inside of Cardiovascular: HS I+II, regular, no murmurs Abdomen: Bowel Sounds Present, Soft, Non Tender Extremities: Bilateral leg edema, improving, +2 Skin: No rashes, No breakdown Neurological: Grossly intact Psych/Mental Status: Appropriate Medical Records Data Medical Nutrition Assessment Dietitian: Malnutrition Criteria Met Start: 09/08/21 17:12 Freq: Status: Active Protocol: Document 09/08/21 17:13 (Rec: 09/08/21 17:13 [id number]) Nutrition Malnutrition Evidence of Malnutrition Exists Yes Evidenced By Suboptimal Energy Intake ( Severe),Weight Loss (Severe) Clinical Problem Chronic Disease or Condition Related Malnutrition Etiology severe, chronic malnutrition r /t inadequate energy intake Signs/Symptoms as evidenced by unintentional wt loss of 21.4#/12% x 3 months; estimated PO intake meeting <50% of estimated energy needs x 3 months Status Active Problem Recommendation Dietitian Recommendations/Changes continue cardiac diet; will add 120mL glucerna 4x/day w/ medpass d/t malnutrition. Will adjust ONS as indicated at time of follow-up. Weight / BMI Weight Weight: 72.3 kg Body Mass Index (BMI) 25.4 ABG / Lab / Microbiology Data Result Diagrams: 09/10/21 05:42 09/10/21 05:42 Laboratory: Laboratory Results - last 24 hr 09/09/21 16:08: POC Glucose 144 H 09/09/21 22:21: POC Glucose 155 H 09/10/21 05:42: WBC 5.9, RBC 2.77 L, Hgb 8.6 L, Hct 26.6 L, MCV 96.0 H, MCH 31.0, MCHC 32.3, RDW Std Deviation 57.1 H, RDW Coeff of Chip 16.5 H, Plt Count 417, MPV 9.0, Immature Gran % (Auto) 0.300, Neut % (Auto) 80.0 H, Lymph % (Auto) 10.4 L, [place] % (Auto) 8.1, Eos % (Auto) 1.0, Baso % (Auto) 0.2, Absolute Neuts (auto) 4.7, Absolute Lymphs (auto) 0.61 L, Nucleated RBC % 0 09/10/21 05:42: Sodium 132 L, Potassium 3.7, Chloride 96 L, Carbon Dioxide 28.0, Anion Gap 8, BUN 55 H, Creatinine 1.81 H, Estim Creat Clear Calc 30.43, Est GFR (MDRD) Af Amer 47 L, Est GFR (MDRD) Non-Af 39 L, BUN/Creatinine Ratio 30.4 H, Glucose 144 H, Calcium 8.4 L, Total Bilirubin 1.50 H, AST 103 H, ALT 81 H, Alkaline Phosphatase 235 H, Total Protein 6.6, Albumin 2.2 L, Globulin 4.4 H, Albumin/Globulin Ratio 0.5 L 09/10/21 08:00: POC Glucose 139 H 09/10/21 10:31: POC Glucose 131 H D/C Instructions Discharge Diet: Low fat / Low cholesterol, 8 Cup Fluid Restriction and 2000 mg Sodium Diet Weight Bearing Status: Weight bearing as tolerated Meaningful Use Info Meaningful Use Diagnoses (Choose all that apply): CHF CHF KRYSTAL/ARB ordered at discharge?: No Reason KRYSTAL/ARB not ordered?: Worsening renal disease Documented LVEF (%): 34 Discharge Plan Admission Admit Date/Time: 09/08/21 13:16 Primary Reason for Your Visit: Acute CHF/SAMARIA Attending Provider: Teresa Aceves Primary Care Provider: Lance Rosa Consulting Providers: Sabine Diaz Instructions Additional Instructions / Restrictions: Weigh yourself every day. Let your physician know when you gain more than 4 pounds of weight. Take your medications as prescribed. Follow-up with your primary care doctor within 1-2 weeks. Follow-up with your doctors in the [facility] as scheduled. Discharge Orders/Prescriptions Prescriptions: Continued aspirin [Adult Aspirin Regimen] 81 mg tablet,delayed release (DR/EC) 81 mg PO LUNCH potassium chloride 20 mEq tablet extended release 20 meq PO DAILY acetaminophen [Tylenol] 325 mg Tablet 650 mg PO Q6H PRN PRN (Reason: PAIN 1-10) Qty: 1 0RF sennosides-docusate sodium [Stool Softener-Stimulant Laxat] 8.6-50 mg Tablet 2 tab PO BID Qty: 120 0RF Label Comments: PT STATES HOLDING DUE TO LOOSE STOOL ferrous sulfate 325 mg (65 mg iron) Tablet 325 mg PO LUNCH Levemir FlexTouch U-100 Insuln 100 unit/mL (3 mL) insulin pen 5 unit SUBCUT QHS Label Comments: Inject 18 Units subcutaneously daily at bedtime. insulin aspart U-100 [Novolog Flexpen U-100 Insulin] 100 unit/mL (3 mL) Insulin Pen 2 unit SUBCUT BREAKFAST Rx Instructions: Only if blood sugar is >100 insulin aspart U-100 [Novolog Flexpen U-100 Insulin] 100 unit/mL (3 mL) Insulin Pen 2 unit SUBCUT LUNCH Rx Instructions: Only if blood sugar is >100 insulin aspart U-100 [Novolog Flexpen U-100 Insulin] 100 unit/mL (3 mL) Insulin Pen 2 unit SUBCUT DINNER Rx Instructions: Only if blood sugar is >100 levothyroxine 100 mcg tablet 100 mcg PO DAILY Qty: 30 0RF torsemide 20 mg tablet 40 mg PO DAILY Label Comments: TAKE 2 TABLETS BY MOUTH ONCE DAILY amiodarone 200 mg tablet 200 tab PO DAILY Label Comments: TAKE 1 TABLET BY MOUTH ONCE DAILY pantoprazole 40 mg tablet,delayed release (DR/EC) 40 mg PO DAILY@0600 Label Comments: TAKE 1 TABLET BY MOUTH DAILY AT 6AM multivitamin with minerals Tablet 1 tab PO LUNCH Tomas-Synephrine (phenylephrine) 0.25 % [place],Non-Aerosol 1 spray INTRANASAL DAILY PRN (Reason: NOSE BLEEDS) Eliquis 2.5 mg tablet 2.5 mg PO BID Label Comments: TAKE 1 TABLET BY MOUTH TWICE DAILY atorvastatin 80 mg tablet 80 mg PO QHS Referrals / Follow Up: Lance Rosa MD [Primary Care Provider] - Within 1 Week Disposition Disposition (needs filled in before D/C Order can be placed): Home Health Service Charges/Coding Visit Charges Inpatient E&M: 49324 Disch Hosp
[2021-09-10 13:06] VITALS: BP 109/58; PULSE 55; RESP 16; TEMP 35.8; O2SAT 97
== END 2021-09-10 14:59 | disposition home health service (06) | DRG 291 ==
LOC: ED 13:38 → PCU 15:07
PROVIDERS: Admitting Provider Internal Medicine; Emergency Provider Emergency Medicine; PCP Family Medicine; Visit Provider Internal Medicine
DX: I13.0 Hypertensive heart and chronic kidney disease with heart failure and stage 1 through stage 4 chronic kidney disease, or unspecified chronic kidney disease (principal); N17.9 Acute kidney failure, unspecified; I50.23 Acute on chronic systolic (congestive) heart failure; E11.22 Type 2 diabetes mellitus with diabetic chronic kidney disease; N18.31 Chronic kidney disease, stage 3a; C67.9 Malignant neoplasm of bladder, unspecified; I48.0 Paroxysmal atrial fibrillation; E11.51 Type 2 diabetes mellitus with diabetic peripheral angiopathy without gangrene; I25.5 Ischemic cardiomyopathy; I25.10 Atherosclerotic heart disease of native coronary artery without angina pectoris; E78.2 Mixed hyperlipidemia; E03.9 Hypothyroidism, unspecified; Z79.4 Long term (current) use of insulin; Z79.01 Long term (current) use of anticoagulants; Z79.82 Long term (current) use of aspirin; I25.2 Old myocardial infarction; Z87.891 Personal history of nicotine dependence; Z95.1 Presence of aortocoronary bypass graft
CPT/HCPCS: 36415; 71045; 76770; 80048; 80053; 80076; 81001; 82570; 82728; 82962; 83540; 83550; 83690; 83735; 83880; 84443; 84484; 84540; 85025; 85610; 93005; 93970; 97162; 97165; 97802; 99284; A4216; J1940